=== PATIENT | female | born 1955 | race American Indian/Alaskan Native ===

== ENCOUNTER 2017-05-18 10:10 | Emergency (ER) | payer MEDICARE ==
[2017-05-18 11:13] VITALS: BP 121/85
[2017-05-18 11:57] LABS: Basophils % (Auto) 0.9 % (0.0-1.8); Eosinophils % (Auto) 0.6 % (0.0-4.3); Hematocrit 33.2 % (30.3-42.9); Hemoglobin 10.6 gm/dl (10.1-14.3); Mean Corpuscular HGB Conc 32 % (30-34); Platelet Count 334 K/mm3 (140-440); Red Blood Count 5.15 M/mm3 (3.65-5.03); Red Cell Distribution Width 15.3 % (13.2-15.2); White Blood Count 10.7 K/mm3 (4.5-11.0)
[2017-05-18 12:01] LABS: Mean Corpuscular Hemoglobin 21 pg (28-32); Mean Corpuscular Volume 65 fl (79-97)
[2017-05-18 12:08] LABS: Anion Gap 20 mmol/L; BUN/Creatinine Ratio 22.22; Blood Urea Nitrogen 20 mg/dL (7-17); Calcium 9.6 mg/dL (8.4-10.2); Carbon Dioxide 28 mmol/L (22-30); Chloride 95.6 mmol/L (98-107); Glucose 137 mg/dL (65-100); Potassium 3.3 mmol/L (3.6-5.0); Sodium 140 mmol/L (137-145)
[2017-05-18] MEDS ORDERED: ASPIRIN PO ONE ×2 (12:08→16:29)
--- NOTE | 2017-05-18 12:08 | Emergency Department Report ---
ED Chest Pain HPI - General Chief Complaint: Chest Pain Stated Complaint: CHEST PAIN Time Seen by Provider: 05/18/17 11:22 Source: patient, EMS Mode of arrival: Stretcher Limitations: No Limitations - History of Present Illness MD Complaint: chest pain -: Sudden Onset: after eating Pain Location: substernal Pain Radiation: none Severity: moderate Quality: tightness Consistency: constant Improves With: other (RESOLVED) Worsens With: nothing Treatments Prior to Arrival: none - Related Data On Oral Contraceptives: No Home Medications Medication Instructions Recorded Confirmed Last Taken Docusate Sodium [Colace] 100 mg PO DAILY 01/18/14 10/21/15 01/17/14 Lisinopril [Zestril] 20 mg PO QDAY 01/18/14 10/21/15 01/17/14 Simvastatin [Zocor] 40 mg PO QHS 01/18/14 10/21/15 01/17/14 amLODIPine [Norvasc] 10 mg PO DAILY 01/18/14 10/21/15 01/17/14 Chlorthalidone [Thalitone] 25 mg PO QDAY 10/21/15 10/21/15 Unknown Esomeprazole Magnesium [NexIUM] 40 mg PO QDAY 10/21/15 10/21/15 Unknown metFORMIN [Glucophage] 1,000 mg PO BID 10/21/15 10/21/15 Unknown Previous Rx's Medication Instructions Recorded Last Taken Type Pantoprazole [Protonix TAB] 20 mg PO BID #60 tablet. 10/22/15 Unknown Rx Allergies Allergy/AdvReac Type Severity Reaction Status Date / Time Penicillins Allergy Rash Verified 01/18/14 01:59 Sulfa (Sulfonamide Allergy Rash Verified 01/18/14 01:59 Antibiotics) Heart Score - HEART Score History: Moderately suspicious EKG: Non-specific Age: 45-65 Risk factors: > 3 risk factors or hx of atherosclerotic disease Troponin: < normal limit HEART Score: 5 - Critical Actions Critical Actions: 4-6 pts:12-16.6% risk of adverse cardiac event. Should be admitted ED Review of Systems ROS: Stated complaint: CHEST PAIN Other details as noted in HPI Constitutional: denies: chills, fever Eyes: denies: eye pain, eye discharge, vision change ENT: denies: ear pain, throat pain Respiratory: denies: cough, shortness of breath, wheezing Cardiovascular: denies: chest pain, palpitations Endocrine: no symptoms reported Gastrointestinal: denies: abdominal pain, nausea, diarrhea Genitourinary: denies: urgency, dysuria, discharge Musculoskeletal: denies: back pain, joint swelling, arthralgia Skin: denies: rash, lesions Neurological: denies: headache, weakness, paresthesias Psychiatric: denies: anxiety, depression Hematological/Lymphatic: denies: easy bleeding, easy bruising ED Past Medical Hx - Past Medical History Hx Hypertension: Yes Hx Diabetes: Yes Hx GERD: Yes Hx Arthritis: Yes Additional medical history: Bronchitis - Surgical History Additional Surgical History: colon surg - diverticulitis, lumps removed from left breast - Social History Smoking Status: Never Smoker Substance Use Type: None - Medications Home Medications: Home Medications Medication Instructions Recorded Confirmed Last Taken Type Docusate Sodium [Colace] 100 mg PO DAILY 01/18/14 10/21/15 01/17/14 History Lisinopril [Zestril] 20 mg PO QDAY 01/18/14 10/21/15 01/17/14 History Simvastatin [Zocor] 40 mg PO QHS 01/18/14 10/21/15 01/17/14 History amLODIPine [Norvasc] 10 mg PO DAILY 01/18/14 10/21/15 01/17/14 History Chlorthalidone [Thalitone] 25 mg PO QDAY 10/21/15 10/21/15 Unknown History Esomeprazole Magnesium [NexIUM] 40 mg PO QDAY 10/21/15 10/21/15 Unknown History metFORMIN [Glucophage] 1,000 mg PO BID 10/21/15 10/21/15 Unknown History Pantoprazole [Protonix TAB] 20 mg PO BID #60 tablet. 10/22/15 Unknown Rx ED Physical Exam - General Limitations: No Limitations General appearance: alert, in no apparent distress - Head Head exam: Present: atraumatic, normocephalic - Eye Eye exam: Present: normal appearance - ENT ENT exam: Present: mucous membranes moist - Neck Neck exam: Present: normal inspection - Respiratory Respiratory exam: Present: normal lung sounds bilaterally. Absent: respiratory distress - Cardiovascular Cardiovascular Exam: Present: regular rate, normal rhythm. Absent: systolic murmur, diastolic murmur, rubs, gallop - GI/Abdominal GI/Abdominal exam: Present: soft, normal bowel sounds - Extremities Exam Extremities exam: Present: normal inspection - Back Exam Back exam: Present: normal inspection - Neurological Exam Neurological exam: Present: alert, oriented X3 - Psychiatric Psychiatric exam: Present: normal affect, normal mood - Skin Skin exam: Present: warm, dry, intact, normal color. Absent: rash ED Course Vital Signs 05/18/17 11:01 Temperature 98.4 F Pulse Rate 90 Respiratory 18 Rate Blood Pressure 121/85 O2 Sat by Pulse 98 Oximetry OLYA score - Olya Score Age > 65: (0) No Aspirin use within the Past 7 Days: (1) Yes 3 or more CAD Risk Factors: (0) No 2 or more Angina events in past 24 hrs: (0) No Known CAD with more than 50% Stenosis: (0) No Elevated Cardiac Markers: (0) No ST Deviation Greater than 0.5mm: (0) No OLYA Score: 1 ED Medical Decision Making - Lab Data Result diagrams: 05/18/17 11:35 05/18/17 11:35 Laboratory Results - last 24 hr 05/18/17 05/18/17 11:35 11:35 WBC 10.7 RBC 5.15 H Hgb 10.6 Hct 33.2 MCV 65 L MCH 21 L MCHC 32 RDW 15.3 H Plt Count 334 Lymph % (Auto) 20.1 [place] % (Auto) 8.0 H Eos % (Auto) 0.6 Baso % (Auto) 0.9 Lymph # 2.2 [place] # 0.9 H Eos # 0.1 Baso # 0.1 Seg Neutrophils % 70.4 H Seg Neutrophils # 7.6 Sodium 140 Potassium 3.3 L Chloride 95.6 L Carbon Dioxide 28 Anion Gap 20 BUN 20 H Creatinine 0.9 Estimated GFR > 60 BUN/Creatinine Ratio 22.22 Glucose 137 H Calcium 9.6 Troponin T < 0.010 - EKG Data -: EKG Interpreted by [facility] EKG shows normal: sinus rhythm - EKG Data Interpretation: no acute changes 05/18/17 12:05 Rate 87 normal axis normal normal intervals no ST changes T-wave flattening V3 through the V6 - Medical Decision Making Patient is a 87-year-old female here with complaint of chest pain that lasted approximately 10 minutes after eating. She described a burning sensation in the center of her chest and got short of breath with it. She has not had similar symptoms to this in the past. It feels different than her GERD. EKG shows some T-wave flattening inferiorly. She is unclear she's had a recent stress test. Reviewed records patient had a normal stress test in late 2014. This should be adequate given the likely nature of her chest pain. Discussed with patient plan to have her follow up with outpatient for chest pain. Critical care attestation.: If time is entered above; I have spent that time in minutes in the direct care of this critically ill patient, excluding procedure time. ED Disposition Clinical Impression: Chest pain, Diabetes mellitus Disposition: DC-01 TO HOME OR SELFCARE Is pt being admited?: No Does the pt Need Aspirin: Yes Condition: Stable Instructions: Chest Pain (ED), Diabetes Mellitus Type 2 in Adults (ED) Additional Instructions: Please follow-up with your primary care doctor or the basketball player within 48 hours for outpatient stress testing. Referrals: PRIMARY MD THALIA [Primary Care Provider] - 3-5 Days LUCI PARISI MD [Staff Physician] - 3-5 Days
--- NOTE | 2017-05-18 12:40 | XRay Report ---
Single view chest: Compared to 10/21/15. History: Chest pain. Findings: Heart size is upper limit of normal. Trachea is midline. No consolidation, pneumothorax or pleural effusion. Impression: No acute cardiopulmonary findings.
== END 2017-05-18 16:42 | disposition home or self-care (01) ==
LOC: ED 10:10
DX: R07.89 Other chest pain (principal); E11.9 Type 2 diabetes mellitus without complications; I10 Essential (primary) hypertension; K21.9 Gastro-esophageal reflux disease without esophagitis; M19.90 Unspecified osteoarthritis, unspecified site; Z88.0 Allergy status to penicillin; Z88.2 Allergy status to sulfonamides
CPT/HCPCS: 36415; 71010; 80048; 84484; 85025; 93005; 93010; 99285

== ENCOUNTER 2017-07-02 14:22 | Emergency (ER) | payer MEDICARE ==
[2017-07-02 15:05] VITALS: BP 107/71
--- NOTE | 2017-07-02 15:05 | Emergency Department Report ---
Chief Complaint: Dyspnea/Respdistress Stated Complaint: SOB Time Seen by Provider: 07/02/17 15:02 - HPI History of Present Illness: PT c/o sob PT states she has acid reflux and anxiety PT also reports cough since Saturday - ROS Review of Systems: + chill + subjective fever + cough - Exam Physical Exam: pt looks well, non toxic lungs cta, diminished arti MSE screening note: Focused history and physical exam performed. Due to findings the following was ordered: ekg, xr, labs ED Disposition for MSE Condition: Stable
--- NOTE | 2017-07-02 15:44 | XRay Report ---
ROUTINE CHEST, TWO VIEWS: HISTORY: Dyspnea. The trachea, heart, mediastinal contour, lung soto and bony thorax are unremarkable. IMPRESSION: Unremarkable chest x-ray. No significant change since 05/18/17.
[2017-07-02 15:46] LABS: Basophils % (Auto) 0.8 % (0.0-1.8); Eosinophils % (Auto) 0.9 % (0.0-4.3); Hematocrit 34.1 % (30.3-42.9); Hemoglobin 10.6 gm/dl (10.1-14.3); Mean Corpuscular HGB Conc 31 % (30-34); Platelet Count 333 K/mm3 (140-440); Red Blood Count 5.28 M/mm3 (3.65-5.03); Red Cell Distribution Width 16.4 % (13.2-15.2); White Blood Count 9.7 K/mm3 (4.5-11.0)
[2017-07-02 15:50] LABS: Mean Corpuscular Hemoglobin 20 pg (28-32); Mean Corpuscular Volume 65 fl (79-97)
[2017-07-02 15:54] LABS: Alanine Aminotransferase 5 units/L (7-56); Albumin 3.8 g/dL (3.9-5); Albumin/Globulin Ratio 0.8 %; Alkaline Phosphatase 67 units/L (35-129); Anion Gap 20 mmol/L; Blood Urea Nitrogen 14 mg/dL (7-17); Calcium 9.7 mg/dL (8.4-10.2); Carbon Dioxide 26 mmol/L (22-30); Chloride 96.8 mmol/L (98-107); Glucose 123 mg/dL (65-100); Potassium 3.6 mmol/L (3.6-5.0); Sodium 139 mmol/L (137-145); Total Protein 8.8 g/dL (6.3-8.2)
[2017-07-02 15:55] LABS: INR 1.06 (0.87-1.13)
[2017-07-02 15:56] LABS: Partial Thromboplastin Time 35.4 Sec. (24.2-36.6)
--- NOTE | 2017-07-15 23:48 | ED Elopement Review ---
ED Pt Elopement review - Results review Lab results: Laboratory Tests 07/02/17 07/02/17 07/02/17 15:13 15:13 15:13 WBC 9.7 RBC 5.28 H Hgb 10.6 Hct 34.1 MCV 65 L MCH 20 L MCHC 31 RDW 16.4 H Plt Count 333 Lymph % (Auto) 29.2 [place] % (Auto) 8.9 H Eos % (Auto) 0.9 Baso % (Auto) 0.8 Lymph # 2.8 [place] # 0.9 H Eos # 0.1 Baso # 0.1 Seg Neutrophils % 60.2 Seg Neutrophils # 5.8 PT 13.7 INR 1.06 APTT 35.4 Sodium 139 Potassium 3.6 Chloride 96.8 L Carbon Dioxide 26 Anion Gap 20 BUN 14 Creatinine 1.0 Estimated GFR > 60 BUN/Creatinine Ratio 14.00 Glucose 123 H Calcium 9.7 Total Bilirubin 0.40 AST 13 ALT 5 L Alkaline Phosphatase 67 Troponin T < 0.010 Total Protein 8.8 H Albumin 3.8 L Albumin/Globulin Ratio 0.8 07/02/17 18:47 WBC RBC Hgb Hct MCV MCH MCHC RDW Plt Count Lymph % (Auto) [place] % (Auto) Eos % (Auto) Baso % (Auto) Lymph # [place] # Eos # Baso # Seg Neutrophils % Seg Neutrophils # PT INR APTT Sodium Potassium Chloride Carbon Dioxide Anion Gap BUN Creatinine Estimated GFR BUN/Creatinine Ratio Glucose Calcium Total Bilirubin AST ALT Alkaline Phosphatase Troponin T < 0.010 Total Protein Albumin Albumin/Globulin Ratio - Call Back decision Pt Call Back Decision: No action required
== END 2017-07-02 22:30 | disposition left against medical advice (07) ==
LOC: ED 14:22
DX: R06.02 Shortness of breath (principal); R50.9 Fever, unspecified; R05 Cough; K21.9 Gastro-esophageal reflux disease without esophagitis; F41.9 Anxiety disorder, unspecified; Z53.21 Procedure and treatment not carried out due to patient leaving prior to being seen by health care provider
CPT/HCPCS: 36415; 71020; 80053; 84484; 85025; 85610; 85730

== ENCOUNTER 2017-10-17 08:17 | Emergency (ER) | payer MEDICARE ==
[2017-10-17 09:01] LABS: Basophils % (Auto) 1.2 % (0.0-1.8); Eosinophils % (Auto) 1.8 % (0.0-4.3); Hematocrit 38.2 % (30.3-42.9); Hemoglobin 11.7 gm/dl (10.1-14.3); Mean Corpuscular HGB Conc 31 % (30-34); Platelet Count 249 K/mm3 (140-440); Red Blood Count 5.78 M/mm3 (3.65-5.03); Red Cell Distribution Width 17.2 % (13.2-15.2); White Blood Count 7.5 K/mm3 (4.5-11.0)
[2017-10-17 09:02] LABS: Mean Corpuscular Hemoglobin 20 pg (28-32); Mean Corpuscular Volume 66 fl (79-97)
[2017-10-17 09:21] LABS: Anion Gap 18 mmol/L; BUN/Creatinine Ratio 16; Blood Urea Nitrogen 13 mg/dL (7-17); Calcium 8.8 mg/dL (8.4-10.2); Carbon Dioxide 25 mmol/L (22-30); Chloride 103.6 mmol/L (98-107); Glucose 157 mg/dL (65-100); Potassium 3.8 mmol/L (3.6-5.0); Sodium 143 mmol/L (137-145)
--- NOTE | 2017-10-17 10:04 | XRay Report ---
ROUTINE CHEST, TWO VIEWS: HISTORY: Chest pain, shortness of breath. The trachea, heart, mediastinal contour, lung soto and bony thorax are unremarkable. No significant change since 07/02/17. IMPRESSION: Unremarkable chest x-ray.
[2017-10-17] MEDS ORDERED: TYLENOL PO ONE (17:14)
[2017-10-17] MEDS ORDERED: MOTRIN PO ONE (17:14)
[2017-10-17] MEDS ORDERED: PROVENTIL IH ONE (17:14)
--- NOTE | 2017-10-17 17:17 | Emergency Department Report ---
ED General Adult HPI - General Chief complaint: Chest Pain Stated complaint: CHEST PAIN Time Seen by Provider: 10/17/17 17:03 Source: patient, RN notes reviewed Mode of arrival: Ambulatory Limitations: No Limitations - History of Present Illness Initial comments: This is a 61-year-old female who was previously unknown to this provider. Has a past medical history of hypertension and obesity and diabetes. Patient presents to the ER with cough, mucus production, chest wall pain. Cough and mucus production have been going on for almost a week, chest wall pain has been going on for a few days. There is no vomiting, diaphoresis. There is shortness of breath associated with cough. Chest wall pain as central , it does not radiate to the back, arms or neck. There is no vomiting. There is no diaphoresis. There are no pulmonary blister DVT risk factors. -: Gradual, days(s) Location: chest Radiation: non-radiation Quality: aching Consistency: intermittent Improves with: rest Worsens with: movement Associated Symptoms: chest pain, cough, shortness of breath - Related Data Home Medications Medication Instructions Recorded Confirmed Last Taken Docusate Sodium [Colace] 100 mg PO DAILY 01/18/14 10/21/15 01/17/14 Lisinopril [Zestril] 20 mg PO QDAY 01/18/14 10/21/15 01/17/14 Simvastatin [Zocor] 40 mg PO QHS 01/18/14 10/21/15 01/17/14 amLODIPine [Norvasc] 10 mg PO DAILY 01/18/14 10/21/15 01/17/14 Chlorthalidone [Thalitone] 25 mg PO QDAY 10/21/15 10/21/15 Unknown Esomeprazole Magnesium [NexIUM] 40 mg PO QDAY 10/21/15 10/21/15 Unknown metFORMIN [Glucophage] 1,000 mg PO BID 10/21/15 10/21/15 Unknown Previous Rx's Medication Instructions Recorded Last Taken Type Pantoprazole [Protonix TAB] 20 mg PO BID #60 tablet. 10/22/15 Unknown Rx Acetaminophen [Tylenol Arthritis] 650 mg PO Q6HR PRN #30 tablet.er 10/17/17 Unknown Rx Albuterol Sulfate [Proair 90 mcg IH Q4HR PRN #2 aer.pow.ba 10/17/17 Unknown Rx Respiclick] Aspirin [Aspirin BABY CHEW TAB] 81 mg PO QDAY #30 tab.chew 10/17/17 Unknown Rx Benzonatate [Tessalon Perles] 100 mg PO Q8HR PRN #30 capsule 10/17/17 Unknown Rx Fluticasone [Flonase] 1 spray NS QDAY #1 bottle 10/17/17 Unknown Rx Allergies Allergy/AdvReac Type Severity Reaction Status Date / Time Penicillins Allergy Rash Verified 01/18/14 01:59 Sulfa (Sulfonamide Allergy Rash Verified 01/18/14 01:59 Antibiotics) ED Review of Systems ROS: Stated complaint: CHEST PAIN Other details as noted in HPI Constitutional: denies: fever ENT: throat pain Respiratory: cough Cardiovascular: chest pain Gastrointestinal: denies: vomiting Genitourinary: denies: dysuria Musculoskeletal: arthralgia, myalgia Skin: denies: lesions Neurological: weakness ED Past Medical Hx - Past Medical History Previous Medical History?: Yes Hx Hypertension: Yes Hx Diabetes: Yes Hx GERD: Yes Hx Arthritis: Yes Additional medical history: Bronchitis - Surgical History Past Surgical History?: Yes Additional Surgical History: colon surg - diverticulitis, lumps removed from left breast - Social History Smoking Status: Current Every Day Smoker Substance Use Type: None - Medications Home Medications: Home Medications Medication Instructions Recorded Confirmed Last Taken Type Docusate Sodium [Colace] 100 mg PO DAILY 01/18/14 10/21/15 01/17/14 History Lisinopril [Zestril] 20 mg PO QDAY 01/18/14 10/21/15 01/17/14 History Simvastatin [Zocor] 40 mg PO QHS 01/18/14 10/21/15 01/17/14 History amLODIPine [Norvasc] 10 mg PO DAILY 01/18/14 10/21/15 01/17/14 History Chlorthalidone [Thalitone] 25 mg PO QDAY 10/21/15 10/21/15 Unknown History Esomeprazole Magnesium [NexIUM] 40 mg PO QDAY 10/21/15 10/21/15 Unknown History metFORMIN [Glucophage] 1,000 mg PO BID 10/21/15 10/21/15 Unknown History Pantoprazole [Protonix TAB] 20 mg PO BID #60 tablet. 10/22/15 Unknown Rx Acetaminophen [Tylenol Arthritis] 650 mg PO Q6HR PRN #30 tablet.er 10/17/17 Unknown Rx Albuterol Sulfate [Proair 90 mcg IH Q4HR PRN #2 aer.pow.ba 10/17/17 Unknown Rx Respiclick] Aspirin [Aspirin BABY CHEW TAB] 81 mg PO QDAY #30 tab.chew 10/17/17 Unknown Rx Benzonatate [Tessalon Perles] 100 mg PO Q8HR PRN #30 capsule 10/17/17 Unknown Rx Fluticasone [Flonase] 1 spray NS QDAY #1 bottle 10/17/17 Unknown Rx ED Physical Exam - General Limitations: No Limitations General appearance: alert, in no apparent distress - Head Head exam: Present: atraumatic, normocephalic - Eye Eye exam: Present: normal appearance, EOMI - ENT ENT exam: Present: normal exam, normal orophraynx, mucous membranes moist, normal external ear exam - Neck Neck exam: Present: normal inspection, full ROM - Respiratory Respiratory exam: Present: normal lung sounds bilaterally, chest wall tenderness. Absent: respiratory distress, wheezes, rales, rhonchi, stridor - Cardiovascular Cardiovascular Exam: Present: regular rate, normal rhythm, normal heart sounds. Absent: systolic murmur, diastolic murmur, rubs, gallop - GI/Abdominal GI/Abdominal exam: Present: soft, normal bowel sounds. Absent: distended, tenderness, guarding, rebound, rigid - Extremities Exam Extremities exam: Present: normal inspection, full ROM, normal capillary refill. Absent: pedal edema, joint swelling, calf tenderness - Back Exam Back exam: Present: normal inspection, full ROM. Absent: tenderness, CVA tenderness (R), CVA tenderness (L), muscle spasm, paraspinal tenderness, vertebral tenderness - Neurological Exam Neurological exam: Present: alert, oriented X3, normal gait, other (Extraocular movements intact. Tongue midline. No facial droop. Facial sensation intact to light touch in the V1, V2, V3 distribution bilaterally. 5 and 5 strength in 4 extremities.. Sensation is intact to light touch in 4 extremities.). Absent : motor sensory deficit - Psychiatric Psychiatric exam: Present: normal affect, normal mood - Skin Skin exam: Present: warm, dry, intact, normal color. Absent: rash ED Course Vital Signs 10/17/17 10/17/17 10/17/17 08:41 16:52 17:00 Temperature 98.3 F Pulse Rate 73 55 L Respiratory 18 14 22 Rate Blood Pressure 158/78 161/82 O2 Sat by Pulse 99 Oximetry 10/17/17 10/17/17 10/17/17 17:15 18:17 18:18 Temperature Pulse Rate 59 L Respiratory 24 20 20 Rate Blood Pressure 138/71 O2 Sat by Pulse Oximetry - Reevaluation(s) Reevaluation #1: 10/17/17 17:20 No pulmonary history DVT risk factors, Low risk by well's criteria. ED Medical Decision Making - Lab Data Result diagrams: 10/17/17 08:49 10/17/17 08:49 Vital Signs 10/17/17 08:41 Temperature 98.3 F Pulse Rate 73 Respiratory 18 Rate Blood Pressure 158/78 O2 Sat by Pulse 99 Oximetry Lab Results 10/17/17 10/17/17 10/17/17 Range/Units 08:49 08:49 11:06 WBC 7.5 (4.5-11.0) K/mm3 RBC 5.78 H (3.65-5.03) M/mm3 Hgb 11.7 (10.1-14.3) gm/dl Hct 38.2 (30.3-42.9) % MCV 66 L (79-97) fl MCH 20 L (28-32) pg MCHC 31 (30-34) % RDW 17.2 H (13.2-15.2) % Plt Count 249 (140-440) K/mm3 Lymph % (Auto) 39.5 H (13.4-35.0) % [place] % (Auto) 8.1 H (0.0-7.3) % Eos % (Auto) 1.8 (0.0-4.3) % Baso % (Auto) 1.2 (0.0-1.8) % Lymph # 3.0 (1.2-5.4) K/mm3 [place] # 0.6 (0.0-0.8) K/mm3 Eos # 0.1 (0.0-0.4) K/mm3 Baso # 0.1 (0.0-0.1) K/mm3 Seg Neutrophils % 49.4 (40.0-70.0) % Seg Neutrophils # 3.7 (1.8-7.7) K/mm3 Sodium 143 (137-145) mmol/L Potassium 3.8 (3.6-5.0) mmol/L Chloride 103.6 (98-107) mmol/L Carbon Dioxide 25 (22-30) mmol/L Anion Gap 18 mmol/L BUN 13 (7-17) mg/dL Creatinine 0.8 (0.7-1.2) mg/dL Estimated GFR > 60 ml/min BUN/Creatinine Ratio 16 % Glucose 157 H (65-100) mg/dL Calcium 8.8 (8.4-10.2) mg/dL Troponin T < 0.010 < 0.010 (0.00-0.029) ng/mL 10/17/17 Range/Units 14:38 WBC (4.5-11.0) K/mm3 RBC (3.65-5.03) M/mm3 Hgb (10.1-14.3) gm/dl Hct (30.3-42.9) % MCV (79-97) fl MCH (28-32) pg MCHC (30-34) % RDW (13.2-15.2) % Plt Count (140-440) K/mm3 Lymph % (Auto) (13.4-35.0) % [place] % (Auto) (0.0-7.3) % Eos % (Auto) (0.0-4.3) % Baso % (Auto) (0.0-1.8) % Lymph # (1.2-5.4) K/mm3 [place] # (0.0-0.8) K/mm3 Eos # (0.0-0.4) K/mm3 Baso # (0.0-0.1) K/mm3 Seg Neutrophils % (40.0-70.0) % Seg Neutrophils # (1.8-7.7) K/mm3 Sodium (137-145) mmol/L Potassium (3.6-5.0) mmol/L Chloride (98-107) mmol/L Carbon Dioxide (22-30) mmol/L Anion Gap mmol/L BUN (7-17) mg/dL Creatinine (0.7-1.2) mg/dL Estimated GFR ml/min BUN/Creatinine Ratio % Glucose (65-100) mg/dL Calcium (8.4-10.2) mg/dL Troponin T < 0.010 (0.00-0.029) ng/mL - EKG Data Interpretation: no acute changes, unchanged when compared t 10/17/17 17:15 EKG #1 demonstrates normal sinus, 75 bpm, borderline left axis deviation, low voltage in the septal leads, poor R-wave progression, abnormal EKG, not morphologically consistent with ST elevation myocardial infarction, poor R progression appears to be new when compared to prior EKG. Repeat EKG appears unchanged. - Radiology Data Radiology results: report reviewed, image reviewed X-ray of the chest is negative for acute disease - Medical Decision Making Differential diagnosis, including but not limited to: Bronchitis, pneumonia, costochondritis, pericarditis, myocarditis, acute coronary syndrome Assessment and plan: 61-year-old female with 1-1/2 weeks of cough, mucus production, subjective fever, reproducible chest wall pain, chest pain currently atypical, troponin negative 2, EKG unchanged 2, patient had a negative nuclear stress test at this hospital in 2014, given association of chest wall pain with coughing and recent URI-like symptoms, I find the patient to be low risk by OLYA score, and low risk by heart score. Patient is at low risk for major adverse cardiac event. She felt improved with Tylenol and ibuprofen. Patient can follow-up in outpatient primary care doctor for an acute coronary syndrome risk stratification. She will be discharged at this time, return precautions are reviewed. Given lack of tachycardia, normal troponin, pericarditis and myocarditis both very unlikely. Critical care attestation.: If time is entered above; I have spent that time in minutes in the direct care of this critically ill patient, excluding procedure time. ED Disposition Clinical Impression: Chest wall pain, Bronchitis Disposition: DC-01 TO HOME OR SELFCARE Is pt being admited?: No Does the pt Need Aspirin: No Condition: Stable Instructions: Chest Pain (ED), Chronic Bronchitis (ED) Additional Instructions: As we discussed, symptoms likely coming from chest wall pain secondary to coughing. This is likely secondary to bronchitis. Take a breathing medication , cough medication, pain medication as needed/directed. Follow up with a primary care doctor or activities volunteer within the next 2 weeks. Return to the ER right away with new pain, worsened pain, migration of pain, fevers, chills, lethargy, irritability, projectile vomiting, change in mental status, confusion , inability to tolerate liquid feeds. Prescriptions: Acetaminophen [Tylenol Arthritis] 650 mg PO Q6HR PRN #30 tablet.er PRN Reason: Pain Albuterol Sulfate [Proair Respiclick] 90 mcg IH Q4HR PRN #2 aer.pow.ba PRN Reason: Wheezing Aspirin [Aspirin BABY CHEW TAB] 81 mg PO QDAY #30 tab.chew Benzonatate [Tessalon Perles] 100 mg PO Q8HR PRN #30 capsule PRN Reason: Cough Fluticasone [Flonase] 1 spray NS QDAY #1 bottle Referrals: VENTURA ALANIZ [Other] - 3-5 Days [facility] [Provider Group] - 3-5 Days [facility] [Provider Group] - 3-5 Days
[2017-10-17 19:17] VITALS: BP 138/72
== END 2017-10-17 18:45 | disposition home or self-care (01) ==
LOC: ED 08:17
DX: J40 Bronchitis, not specified as acute or chronic (principal); R07.89 Other chest pain; I10 Essential (primary) hypertension; E11.9 Type 2 diabetes mellitus without complications; K21.9 Gastro-esophageal reflux disease without esophagitis; F17.200 Nicotine dependence, unspecified, uncomplicated
CPT/HCPCS: 36415; 71020; 80048; 84484; 85025; 93005; 93010; 94640

== ENCOUNTER 2019-05-22 10:03 | Emergency (ER) | payer MEDICARE ==
[2019-05-22] MEDS ORDERED: MORPHINE IV ONE (10:39)
--- NOTE | 2019-05-22 10:39 | Emergency Department Report ---
HPI - General Chief Complaint: Abdominal Pain Time Seen by Provider: 05/22/19 10:24 - HPI HPI: 63-year-old female presents to the emergency department with a complaint of some left lower quadrant abdominal and pelvic pain, as well as some left flank pain, since this morning. She denies any fever, nausea, vomiting, dysuria, vaginal bleeding or discharge. She has not taken anything for her symptoms prior to presentation today. No recent travel or sick contacts at home. She has a past medical history of diabetes, hypertension, dive rticulosis/diverticulitis, GERD and previous colon surgery secondary to diverticulitis. ED Past Medical Hx - Past Medical History Hx Hypertension: Yes Hx Diabetes: Yes Hx GERD: Yes Hx Arthritis: Yes Additional medical history: Bronchitis - Surgical History Additional Surgical History: colon surg - diverticulitis, lumps removed from left breast - Social History Smoking Status: Former Smoker Substance Use Type: None - Medications Home Medications: Home Medications Medication Instructions Recorded Confirmed Last Taken Type Docusate Sodium [Colace] 100 mg PO DAILY 01/18/14 10/21/15 01/17/14 History Lisinopril [Zestril] 20 mg PO QDAY 01/18/14 10/21/15 01/17/14 History Simvastatin (Nf) [Zocor] 40 mg PO QHS 01/18/14 10/21/15 01/17/14 History amLODIPine [Norvasc] 10 mg PO DAILY 01/18/14 10/21/15 01/17/14 History Chlorthalidone [Thalitone] 25 mg PO QDAY 10/21/15 10/21/15 Unknown History Esomeprazole Magnesium [NexIUM] 40 mg PO QDAY 10/21/15 10/21/15 Unknown History metFORMIN [Glucophage] 1,000 mg PO BID 10/21/15 10/21/15 Unknown History Pantoprazole [Protonix TAB] 20 mg PO BID #60 tablet.dr 10/22/15 Unknown Rx Acetaminophen [Tylenol Arthritis] 650 mg PO Q6HR PRN #30 tablet.er 10/17/17 Unknown Rx Albuterol Sulfate [Proair 90 mcg IH Q4HR PRN #2 aer.pow.ba 10/17/17 Unknown Rx Respiclick] Aspirin [Aspirin BABY CHEW TAB] 81 mg PO QDAY #30 tab.chew 10/17/17 Unknown Rx Benzonatate [Tessalon Perles] 100 mg PO Q8HR PRN #30 capsule 10/17/17 Unknown Rx Fluticasone [Flonase] 1 spray NS QDAY #1 bottle 10/17/17 Unknown Rx Ciprofloxacin HCl [Ciprofloxacin 500 mg PO Q12HR #10 tab 05/22/19 Unknown Rx TAB] HYDROcodone/APAP 5-325 [[place] 1 each PO Q6HR PRN #8 tablet 05/22/19 Unknown Rx 5/325] ED Review of Systems ROS: Stated complaint: (L) SIDE PAIN Other details as noted in HPI Comment: All other systems reviewed and negative Constitutional: denies: chills, fever Eyes: denies: eye pain, vision change ENT: denies: ear pain, throat pain Respiratory: denies: cough, shortness of breath Cardiovascular: denies: chest pain, palpitations Gastrointestinal: abdominal pain. denies: vomiting Genitourinary: denies: dysuria, discharge Musculoskeletal: denies: back pain, arthralgia Skin: denies: rash, lesions Neurological: denies: headache, weakness Physical Exam - Physical Exam Vital Signs: Vital Signs 05/22/19 10:16 Temperature 97.7 F Pulse Rate 77 Respiratory 22 Rate Blood Pressure 170/82 O2 Sat by Pulse 98 Oximetry Physical Exam: GENERAL: The patient is well-developed well-nourished. HENT: Normocephalic. Atraumatic. Patient has moist mucous membranes. EYES: Extraocular motions are intact. NECK: Supple. Trachea is midline. CHEST/LUNGS: Clear to auscultation. There is no respiratory distress noted. HEART/CARDIOVASCULAR: Regular. There is no tachycardia. There is no murmur. ABDOMEN: Abdomen is soft. There is left lower quadrant and left flank pain to palpation. No guarding. Patient has normal bowel sounds. Obese habitus. SKIN: Skin is warm and dry. NEURO: The patient is awake, alert, and oriented. The patient is cooperative. The patient has no focal neurologic deficits. The patient has normal speech. MUSCULOSKELETAL: There is no tenderness or deformity. There is no evidence of acute injury. ED Course Vital Signs 05/22/19 10:16 Temperature 97.7 F Pulse Rate 77 Respiratory 22 Rate Blood Pressure 170/82 O2 Sat by Pulse 98 Oximetry ED Medical Decision Making - Lab Data Result diagrams: 05/22/19 11:05 05/22/19 11:15 - Radiology Data Radiology results: report reviewed, image reviewed interpreted by me: Abdominal x-ray shows nonspecific nonobstructive bowel gas CT ABDOMEN AND PELVIS WITH CONTRAST INDICATION / CLINICAL INFORMATION: LLQ and flank pain. Acute left-sided abdominal pain that radiates inferior. TECHNIQUE: Axial CT images were obtained through the abdomen and pelvis after IV contrast. Sagittal and coronal reformatted images. All CT scans at this location are performed using CT dose reduction for ALARA by means of automated exposure control. COMPARISON: None available. FINDINGS: LOWER CHEST: No significant abnormality. LIVER: No significant abnormality. GALLBLADDER: No significant abnormality. BILE DUCTS: No significant abnormality. PANCREAS: No significant abnormality. SPLEEN: No significant abnormality. ADRENALS: No significant abnormality. RIGHT KIDNEY and URETER: No significant abnormality. LEFT KIDNEY and URETER: A 2 mm calculus is identified at the left UVJ. There is mild to moderate upstream left hydronephrosis. No obvious renal stones on IV contrast exam. There is mild left perinephric stranding but no evidence for pyelonephritis. STOMACH and SMALL BOWEL: No significant abnormality. COLON: There is moderate diverticulosis of the distal colon. No acute i nflammatory changes. APPENDIX: Appendectomy changes are suspected. PERITONEUM: No free fluid. No free air. No fluid collection. LYMPH NODES: No significant adenopathy. AORTA and ARTERIES: No significant abnormality. IVC and VEINS: No significant abnormality. URINARY BLADDER: No significant abnormality. REPRODUCTIVE ORGANS: The uterus and adnexa are unremarkable. A 3.4 x 2.6 cm Bartholin's gland cyst is identified on the right side. ADDITIONAL FINDINGS: None. SKELETAL SYSTEM: [id number] thoracolumbar spondylosis. No fracture or suspicious bony lesion. IMPRESSION: 2 mm calculus at the left UVJ, mildly obstructing. Diverticulosis of the distal colon. Mild thoracolumbar spondylosis. Bartholin's gland cyst. - Medical Decision Making This patient presents to the emergency department with complaint of some left lower quadrant and left flank pain. Labs have been mostly unremarkable. CT scan shows a 2 mm left-sided kidney stone just above the UVJ. Given the size of this stone, the patient has a very high percentage chance of passing the stone over the next few days. Vital signs stable including being afebrile. She was given a strainer to strain her urine. She was placed on some antibiotics and given some pain medication. She was also given a referral for urology. She will return to the ER with any worsening of her symptoms or any acute distress. - Differential Diagnosis diverticulitis, nephrolithiasis, colitis, pyelonephritis Critical Care Time: No Critical care attestation.: If time is entered above; I have spent that time in minutes in the direct care of this critically ill patient, excluding procedure time. ED Disposition Clinical Impression: Kidney stone on left side, Ureterolithiasis, Renal colic on left side Disposition: TO HOME OR SELFCARE Is pt being admited?: No Condition: Stable Instructions: Kidney Stones (ED), Renal Colic (ED), How to Strain Your Urine (ED) Additional Instructions: Please follow-up with your primary care physician in the next few days. I am giving you a referral for a local urologist, Dr. Knight, to follow up regarding her kidney stones. He had a very high chance of passing the kidney stone over the next few days. Strain your urine. Return to the emergency Department with any worsening of your symptoms, increased pain, development of fever, inability to urinate, or if any acute distress. Prescriptions: Ciprofloxacin HCl [Ciprofloxacin TAB] 500 mg PO Q12HR #10 tab HYDROcodone/APAP 5-325 [[place] 5/325] 1 each PO Q6HR PRN #8 tablet PRN Reason: Pain Referrals: ALFREDO KNIGHT MD [Staff Physician] - 3-5 Days Time of Disposition: 14:11
[2019-05-22 10:54] LABS: Bilirubin,Urine NEG (Negative); Blood,Urine NEG (Negative); Color,Urine Yellow (Yellow); Mucus,Urine FEW /HPF; Urobilinogen,Urine < 2.0 mg/dL (<2.0)
[2019-05-22 10:55] LABS: Protein,Urine >500 mg/dL (Negative)
[2019-05-22] MEDS ORDERED: MORPHINE ONE (10:58)
--- NOTE | 2019-05-22 11:19 | XRay Report ---
ABDOMEN SUPINE AND UPRIGHT HISTORY: Abdominal Pain. COMPARISON: None. FINDINGS: Lung bases are clear. Nonobstructive bowel gas pattern. No radiopaque urinary stone disea se. No pneumoperitoneum. IMPRESSION: Negative abdomen Signer Name: Chintan Rudolph MD Signed: 05/22/2019 11:15 AM Workstation Name: [id number]
[2019-05-22 11:26] LABS: Basophils % (Auto) 0.4 % (0.0-1.8); Eosinophils % (Auto) 0.3 % (0.0-4.3); Hematocrit 38.1 % (30.3-42.9); Hemoglobin 11.9 gm/dl (10.1-14.3); Lymphocytes # (Auto) 1.8 K/mm3 (1.2-5.4); Mean Corpuscular HGB Conc 31 % (30-34); Monocytes # (Auto) 0.6 K/mm3 (0.0-0.8); Monocytes % (Auto) 6.8 % (0.0-7.3); Platelet Count 180 K/mm3 (140-440); Red Blood Count 5.79 M/mm3 (3.65-5.03); Red Cell Distribution Width 18.2 % (13.2-15.2)
[2019-05-22 11:35] LABS: Mean Corpuscular Volume 66 fl (79-97)
[2019-05-22 11:45] LABS: BUN/Creatinine Ratio 14; Blood Urea Nitrogen 13 mg/dL (7-17); Calcium 9.1 mg/dL (8.4-10.2)
[2019-05-22 11:46] LABS: Alanine Aminotransferase 8 units/L (7-56); Albumin 4.1 g/dL (3.9-5); Hemolysis Index 6
[2019-05-22] MEDS ORDERED: ZOFRAN IV ONE (11:49)
[2019-05-22] MEDS ORDERED: ZOFRAN ONE (11:52)
[2019-05-22] MEDS ORDERED: ATIVAN ONE (12:33)
[2019-05-22 12:34] LABS: Bilirubin,Direct < 0.2 mg/dL (0-0.2)
[2019-05-22] MEDS ORDERED: ATIVAN IV ONE (12:35)
--- NOTE | 2019-05-22 14:06 | Cat Scan Report ---
CT ABDOMEN AND PELVIS WITH CONTRAST INDICATION / CLINICAL INFORMATION: LLQ and flank pain. Acute left-sided abdominal pain that radiates inferior. TECHNIQUE: Axial CT images were obtained through the abdomen and pelvis after IV contrast. Sagittal and coronal reformatted images. All CT scans at this location are performed using CT dose reduction for ALARA by means of automated exposure control. COMPARISON: None available. FINDINGS: LOWER CHEST: No significant abnormality. LIVER: No significant abnormality. GALLBLADDER: No significant abnormality. BILE DUCTS: No significant abnormality. PANCREAS: No significant abnormality. SPLEEN: No significant abnormality. ADRENALS: No significant abnormality. RIGHT KIDNEY and URETER: No significant abnormality. LEFT KIDNEY and URETER: A 2 mm calculus is identified at the left UVJ. There is mild to moderate upst ream left hydronephrosis. No obvious renal stones on IV contrast exam. There is mild left perinephric stranding but no evidence for pyelonephritis. STOMACH and SMALL BOWEL: No significant abnormality. COLON: There is moderate diverticulosis of the distal colon. No acute inflammatory changes. APPENDIX: Appendectomy changes are suspected. PERITONEUM: No free fluid. No free air. No fluid collection. LYMPH NODES: No significant adenopathy. AORTA and ARTERIES: No significant abnormality. IVC and VEINS: No significant abnormality. URINARY BLADDER: No significant abnormality. REPRODUCTIVE ORGANS: The uterus and adnexa are unremarkable. A 3.4 x 2.6 cm Bartholin's gland cyst is identified on the right side. ADDITIONAL FINDINGS: None. SKELETAL SYSTEM: [id number] thoracolumbar spondylosis. No fracture or suspicious bony lesion. IMPRESSION: 2 mm calculus at the left UVJ, mildly obstructing. Diverticulosis of the distal colon. Mild thoracolumbar spondylosis. Bartholin's gland cyst. Signer Name: Rohit Curran Jr, MD Signed: 05/22/2019 2:01 PM Workstation Name: [id number]
[2019-05-22 15:00] VITALS: BP 161/82
== END 2019-05-22 15:01 | disposition home or self-care (01) ==
LOC: ED 10:03
DX: N20.0 Calculus of kidney (principal); N20.2 Calculus of kidney with calculus of ureter; I10 Essential (primary) hypertension; E11.9 Type 2 diabetes mellitus without complications; K21.9 Gastro-esophageal reflux disease without esophagitis; M19.90 Unspecified osteoarthritis, unspecified site; Z87.891 Personal history of nicotine dependence; Z79.899 Other long term (current) drug therapy; Z88.0 Allergy status to penicillin; Z88.2 Allergy status to sulfonamides
CPT/HCPCS: 36415; 74019; 74177; 80048; 80076; 81001; 85025; 96374; 96375; 99285; J2060; J2270; J2405; Q9967

== ENCOUNTER 2019-06-18 20:53 | Emergency (ER) | payer MEDICARE ==
--- NOTE | 2019-06-18 21:15 | Emergency Department Report ---
Blank Doc - Documentation Documentation: This is a 63-year-old female that presents with URI symptoms. This initial assessment/diagnostic orders/clinical plan/treatment(s) is/are subject to change based on patient's health status, clinical progression and re- assessment by fellow clinical providers in the ED. Further treatment and workup at subsequent clinical providers discretion. Patient/guardians urged not to elope from the ED as their condition may be serious if not clinically assessed and managed. Initial orders include: 1- Patient sent to [facility] for further evaluation and treatment 2- CXR
[2019-06-18 21:18] VITALS: BP 183/93
[2019-06-18] MEDS ORDERED: ASPIRIN PO ONE (22:20)
[2019-06-18] MEDS ORDERED: ALUM-MAG HYDROX-SIMETH 200-200-20MG/5ML PO ONE (22:20)
[2019-06-18] MEDS ORDERED: LIDOCAINE VISCOUS 2% PO ONE (22:20)
--- NOTE | 2019-06-18 22:42 | XRay Report ---
CHEST 2 VIEWS INDICATION / CLINICAL INFORMATION: cough. COMPARISON: 10/17/2017 FINDINGS: SUPPORT DEVICES: None. HEART / MEDIASTINUM: No significant abnormality. LUNGS / PLEURA: No significant pulmonary or pleural abnormality. No pneumothorax. ADDITIONAL FINDINGS: No significant additional findings. IMPRESSION: No significant abnormality or change from 10/17/2017 Signer Name: Gurjit Hackett MD FACR Signed: 06/18/2019 10:37 PM Workstation Name: [id number]
[2019-06-18 23:06] LABS: Basophils # (Auto) 0.1 K/mm3 (0.0-0.1); Basophils % (Auto) 0.8 % (0.0-1.8); Eosinophils # (Auto) 0.1 K/mm3 (0.0-0.4); Eosinophils % (Auto) 0.7 % (0.0-4.3); Hemoglobin 11.5 gm/dl (10.1-14.3); Lymphocytes # (Auto) 1.7 K/mm3 (1.2-5.4); Lymphocytes % (Auto) 23.7 % (13.4-35.0); Mean Corpuscular HGB Conc 31 % (30-34); Mean Corpuscular Volume 67 fl (79-97); Monocytes # (Auto) 0.5 K/mm3 (0.0-0.8); Monocytes % (Auto) 6.9 % (0.0-7.3); Platelet Count 158 K/mm3 (140-440); Red Blood Count 5.53 M/mm3 (3.65-5.03); Red Cell Distribution Width 17.3 % (13.2-15.2)
[2019-06-18 23:14] LABS: Alanine Aminotransferase 7 units/L (7-56); Albumin 4.1 g/dL (3.9-5); BUN/Creatinine Ratio 16; Blood Urea Nitrogen 13 mg/dL (7-17); Calcium 9.1 mg/dL (8.4-10.2); Hemolysis Index 15
[2019-06-18 23:23] LABS: Bilirubin,Direct < 0.2 mg/dL (0-0.2)
--- NOTE | 2019-06-19 01:53 | Emergency Department Report ---
- General Chief Complaint: Upper Respiratory Infection Stated Complaint: COLD, COUGHED UP BLOOD, CHEST HURTS Time Seen by Provider: 06/18/19 21:14 Source: patient Mode of arrival: Ambulatory Limitations: No Limitations - History of Present Illness Initial Comments: Patient is a 63-year-old -[place] female with a history of hypertension and fsn-aefeknq-flucktcin diabetes who presents to the ED with acute onset persistent nasal and sinus congestion, frontal sinus pressure and dry cough with pleuritic chest pain for the last 1 week. Patient denies fever, chills, nausea, vomiting, dizziness, shortness of breath, change in vision, abdominal pain, sore throat, diarrhea, dysuria, palpitations, diaphoresis, back pain or the ear pain. MD Complaint: cough, rhinorrhea, nasal congestion, sinus pain, other (pleuritic chest wall pain) -: Gradual, week(s) (1) Severity: moderate Severity scale (0 -10): 5 Quality: sharp Consistency: intermittent Improves With: nothing Worsens With: nothing Context: sick contacts Associated Symptoms: denies other symptoms, rhinorrhea, nasal congestion, cough. denies: fever, chills, myalgias, diaphoresis, headache, chest pain, shortness of breath, abdominal pain, nausea, vomiting, diarrhea, dysuria, rash, weight loss, epistaxis, hoarseness, other - Related Data Home Medications Medication Instructions Recorded Confirmed Last Taken Docusate Sodium [Colace] 100 mg PO DAILY 01/18/14 10/21/15 01/17/14 Lisinopril [Zestril] 20 mg PO QDAY 01/18/14 10/21/15 01/17/14 Simvastatin (Nf) [Zocor] 40 mg PO QHS 01/18/14 10/21/15 01/17/14 amLODIPine [Norvasc] 10 mg PO DAILY 01/18/14 10/21/15 01/17/14 Chlorthalidone [Thalitone] 25 mg PO QDAY 10/21/15 10/21/15 Unknown Esomeprazole Magnesium [NexIUM] 40 mg PO QDAY 10/21/15 10/21/15 Unknown metFORMIN [Glucophage] 1,000 mg PO BID 10/21/15 10/21/15 Unknown Previous Rx's Medication Instructions Recorded Last Taken Type Pantoprazole [Protonix TAB] 20 mg PO BID #60 tablet. 10/22/15 Unknown Rx Acetaminophen [Tylenol Arthritis] 650 mg PO Q6HR PRN #30 tablet.er 10/17/17 Unknown Rx Albuterol Sulfate [Proair 90 mcg IH Q4HR PRN #2 aer.pow.ba 10/17/17 Unknown Rx Respiclick] Aspirin [Aspirin BABY CHEW TAB] 81 mg PO QDAY #30 tab.chew 10/17/17 Unknown Rx Benzonatate [Tessalon Perles] 100 mg PO Q8HR PRN #30 capsule 10/17/17 Unknown Rx Fluticasone [Flonase] 1 spray NS QDAY #1 bottle 10/17/17 Unknown Rx Ciprofloxacin HCl [Ciprofloxacin 500 mg PO Q12HR #10 tab 05/22/19 Unknown Rx TAB] HYDROcodone/APAP 5-325 [[place] 1 each PO Q6HR PRN #8 tablet 05/22/19 Unknown Rx 5/325] Benzonatate [Tessalon Perles] 100 mg PO Q8HR #30 capsule 06/19/19 Unknown Rx Ibuprofen [Motrin] 600 mg PO Q8H PRN #20 tablet 06/19/19 Unknown Rx levoFLOXacin [Levaquin TAB] 500 mg PO QDAY #10 tablet 06/19/19 Unknown Rx raNITIdine HCl [Zantac] 150 mg PO Q12H #30 tablet 06/19/19 Unknown Rx Allergies Allergy/AdvReac Type Severity Reaction Status Date / Time Penicillins Allergy Rash Verified 05/22/19 10:13 Sulfa (Sulfonamide Allergy Rash Verified 05/22/19 10:13 Antibiotics) ED Review of Systems ROS: Stated complaint: COLD, COUGHED UP BLOOD, CHEST HURTS Other details as noted in HPI Constitutional: denies: chills, fever Eyes: denies: eye pain, eye discharge, vision change ENT: congestion. denies: ear pain, throat pain Respiratory: cough, other (pleuritic chest pain). denies: shortness of breath, wheezing Cardiovascular: chest pain (pleuritic). denies: palpitations Endocrine: no symptoms reported Gastrointestinal: denies: abdominal pain, nausea, diarrhea Genitourinary: denies: urgency, dysuria, discharge Musculoskeletal: denies: back pain, joint swelling, arthralgia Skin: denies: rash, lesions Neurological: denies: headache, weakness, paresthesias Psychiatric: denies: anxiety, depression Hematological/Lymphatic: denies: easy bleeding, easy bruising ED Past Medical Hx - Past Medical History Previous Medical History?: Yes Hx Hypertension: Yes Hx Diabetes: Yes Hx GERD: Yes Hx Arthritis: Yes Additional medical history: Bronchitis - Surgical History Past Surgical History?: Yes Additional Surgical History: colon surg - diverticulitis, lumps removed from left breast - Social History Smoking Status: Never Smoker Substance Use Type: None - Medications Home Medications: Home Medications Medication Instructions Recorded Confirmed Last Taken Type Docusate Sodium [Colace] 100 mg PO DAILY 01/18/14 10/21/15 01/17/14 History Lisinopril [Zestril] 20 mg PO QDAY 01/18/14 10/21/15 01/17/14 History Simvastatin (Nf) [Zocor] 40 mg PO QHS 01/18/14 10/21/15 01/17/14 History amLODIPine [Norvasc] 10 mg PO DAILY 01/18/14 10/21/15 01/17/14 History Chlorthalidone [Thalitone] 25 mg PO QDAY 10/21/15 10/21/15 Unknown History Esomeprazole Magnesium [NexIUM] 40 mg PO QDAY 10/21/15 10/21/15 Unknown History metFORMIN [Glucophage] 1,000 mg PO BID 10/21/15 10/21/15 Unknown History Pantoprazole [Protonix TAB] 20 mg PO BID #60 tablet. 10/22/15 Unknown Rx Acetaminophen [Tylenol Arthritis] 650 mg PO Q6HR PRN #30 tablet.er 10/17/17 Unknown Rx Albuterol Sulfate [Proair 90 mcg IH Q4HR PRN #2 aer.pow.ba 10/17/17 Unknown Rx Respiclick] Aspirin [Aspirin BABY CHEW TAB] 81 mg PO QDAY #30 tab.chew 10/17/17 Unknown Rx Benzonatate [Tessalon Perles] 100 mg PO Q8HR PRN #30 capsule 10/17/17 Unknown Rx Fluticasone [Flonase] 1 spray NS QDAY #1 bottle 10/17/17 Unknown Rx Ciprofloxacin HCl [Ciprofloxacin 500 mg PO Q12HR #10 tab 05/22/19 Unknown Rx TAB] HYDROcodone/APAP 5-325 [[place] 1 each PO Q6HR PRN #8 tablet 05/22/19 Unknown Rx 5/325] Benzonatate [Tessalon Perles] 100 mg PO Q8HR #30 capsule 06/19/19 Unknown Rx Ibuprofen [Motrin] 600 mg PO Q8H PRN #20 tablet 06/19/19 Unknown Rx levoFLOXacin [Levaquin TAB] 500 mg PO QDAY #10 tablet 06/19/19 Unknown Rx raNITIdine HCl [Zantac] 150 mg PO Q12H #30 tablet 06/19/19 Unknown Rx ED Physical Exam - General Limitations: No Limitations General appearance: alert, in no apparent distress - Head Head exam: Present: atraumatic, normocephalic, normal inspection - Eye Eye exam: Present: normal appearance, PERRL, EOMI. Absent: scleral icterus, periorbital swelling, periorbital tenderness Pupils: Present: normal accommodation - ENT ENT exam: Present: normal exam, mucous membranes moist, TM's normal bilaterally, normal external ear exam, other (Grossly congested nasal passages with tenderness on frontal sinus) - Neck Neck exam: Present: normal inspection, full ROM. Absent: tenderness, mening ismus, lymphadenopathy, thyromegaly - Respiratory Respiratory exam: Present: normal lung sounds bilaterally, chest wall tenderness. Absent: respiratory distress, wheezes, rales, stridor, accessory muscle use, prolonged expiratory - Cardiovascular Cardiovascular Exam: Present: regular rate, normal rhythm, normal heart sounds. Absent: systolic murmur, diastolic murmur, rubs, gallop - GI/Abdominal GI/Abdominal exam: Present: soft, normal bowel sounds. Absent: tenderness, rebound, hyperactive bowel sounds, hypoactive bowel sounds - Rectal Rectal exam: Present: deferred - Extremities Exam Extremities exam: Present: normal inspection, full ROM, normal capillary refill - Back Exam Back exam: Present: normal inspection, full ROM. Absent: tenderness, CVA tender ness (R), CVA tenderness (L), muscle spasm, paraspinal tenderness - Neurological Exam Neurological exam: Present: alert, oriented X3, CN II-XII intact, normal gait, reflexes normal - Psychiatric Psychiatric exam: Present: normal affect, normal mood - Skin Skin exam: Present: warm, dry, intact, normal color. Absent: rash ED Course Vital Signs 06/18/19 21:15 Temperature 98.3 F Pulse Rate 92 H Respiratory 18 Rate Blood Pressure 183/93 O2 Sat by Pulse 97 Oximetry - Reevaluation(s) Reevaluation #1: 06/19/19 01:57 Patient is alert and oriented 3 and is not in distress. Labs are drawn and EKG also ordered. Chest x-ray shows no acute cardiopulmonary abnormalities. The EKG shows a sinus rhythm with ventricular rate of 76 bpm., With a nonspecific T-wave abnormalities in the lateral leads. There is however normal pathological Q waves identified in the EKG. Lab test results were reviewed and are all unremarkable. Patient was treated in the ED for pain and GERD, and on reevaluation, patient pain is well controlled on medications. Patient was discharged home on medications and advised to follow-up with her primary care physician in 7-10 days for reevaluation. Patient was also advised to return to the ED immediately if symptoms get worse. 06/19/19 02:06 ED Medical Decision Making - Lab Data Result diagrams: 06/18/19 22:26 06/18/19 22:29 - Radiology Data Radiology results: report reviewed, image reviewed Chest x-ray: No acute cardiopulmonary abnormalities - Medical Decision Making Patient is alert and oriented 3 and is not in distress. Labs are drawn and EKG also ordered. Chest x-ray shows no acute cardiopulmonary abnormalities. The EKG shows a sinus rhythm with ventricular rate of 76 bpm., With a nonspecific T-wave abnormalities in the lateral leads. There is however normal pathological Q waves identified in the EKG. Lab test results were reviewed and are all unremarkable. Patient was treated in the ED for pain and GERD, and on reevaluation, patient pain is well controlled on medications. Patient was discharged home on medications and advised to follow-up with her primary care physician in 7-10 days for reevaluation. Patient was also advised to return to the ED immediately if symptoms get worse. - Differential Diagnosis Acuet URI; Acute sinusitis; chronic bronchitis; GERD; Chest wall pain Critical care attestation.: If time is entered above; I have spent that time in minutes in the direct care of this critically ill patient, excluding procedure time. ED Disposition Clinical Impression: Acute upper respiratory infection, Pleuritic chest pain Chronic bronchitis Qualifiers: Chronic bronchitis type: mixed simple and mucopurulent Qualified Code(s): J41.8 - Mixed simple and mucopurulent chronic bronchitis Disposition: TO HOME OR SELFCARE Is pt being admited?: No Does the pt Need Aspirin: No Condition: Stable Instructions: Chest Pain (ED), Costochondritis (ED), Upper Respiratory Infection (ED), Chronic Bronchitis (ED), Gastroesophageal Reflux Disease (ED) Additional Instructions: Take medications, drink plenty of fluids and follow up with your primary care physician in 5-7 days for reevaluation. Return to the ED immediately if symptoms get worse. Prescriptions: levoFLOXacin [Levaquin TAB] 500 mg PO QDAY #10 tablet Ibuprofen [Motrin] 600 mg PO Q8H PRN #20 tablet PRN Reason: Pain Benzonatate [Tessalon Perles] 100 mg PO Q8HR #30 capsule raNITIdine HCl [Zantac] 150 mg PO Q12H #30 tablet Referrals: HUMBERTO JADE MD [Primary Care Provider] - 3-5 Days Time of Disposition: 01:49 Print Language: SAMI
== END 2019-06-19 02:24 | disposition home or self-care (01) ==
LOC: ED 20:53
DX: J42 Unspecified chronic bronchitis (principal); J06.9 Acute upper respiratory infection, unspecified; I10 Essential (primary) hypertension; E11.9 Type 2 diabetes mellitus without complications; K21.9 Gastro-esophageal reflux disease without esophagitis; M19.90 Unspecified osteoarthritis, unspecified site; Z98.890 Other specified postprocedural states; Z79.899 Other long term (current) drug therapy; Z88.0 Allergy status to penicillin; Z88.2 Allergy status to sulfonamides
CPT/HCPCS: 36415; 71046; 80048; 80076; 84484; 85025; 93005; 93010

== ENCOUNTER 2020-02-11 15:36 | Emergency (ER) | payer MEDICARE ==
[2020-02-11 15:47] VITALS: BP 161/72
--- NOTE | 2020-02-11 20:20 | Emergency Department Report ---
Minor Respiratory - HPI Chief Complaint: Upper Respiratory Infection Stated Complaint: CHEST CONGESTION Time Seen by Provider: 02/11/20 19:35 Duration: Today Severity: mild Minor Respiratory: Yes Able to Tolerate Fluids, Yes Cough, No Rhinorrhea, No Sore Throat, No Ear Pain, No Sick Contacts, No Hemoptysis, No Chest Pain, No Shortness of Breath, No Fever Other History: This is a 64-year-old female who presents to the ED complaining of chest congestion and body aches that started this morning. Patient states that symptoms came suddenly this morning after waking up. Patient states then she went outside and shortly after that due to the being exposed to the pollen she started having a throbbing headache. Patient denies fever/chills/chest pain/shortness of breath/nausea vomiting blurry vision or any other symptoms. She denies any sick contact or recent travel. Patient did note that she does have seasonal allergies ED Review of Systems ROS: Stated complaint: CHEST CONGESTION Other details as noted in HPI Comment: All other systems reviewed and negative ED Past Medical Hx - Past Medical History Hx Hypertension: Yes Hx Diabetes: Yes Hx GERD: Yes Hx Arthritis: Yes Additional medical history: Bronchitis - Surgical History Additional Surgical History: colon surg - diverticulitis, lumps removed from left breast - Social History Smoking Status: Never Smoker Substance Use Type: None - Medications Home Medications: Home Medications Medication Instructions Recorded Confirmed Last Taken Type Docusate Sodium [Colace] 100 mg PO DAILY 01/18/14 10/21/15 01/17/14 History Simvastatin (Nf) [Zocor] 40 mg PO QHS 01/18/14 10/21/15 01/17/14 History amLODIPine [Norvasc] 10 mg PO DAILY 01/18/14 10/21/15 01/17/14 History lisinopriL [Zestril] 20 mg PO QDAY 01/18/14 10/21/15 01/17/14 History Chlorthalidone [Thalitone] 25 mg PO QDAY 10/21/15 10/21/15 Unknown History Esomeprazole Magnesium [NexIUM] 40 mg PO QDAY 10/21/15 10/21/15 Unknown History metFORMIN [Glucophage] 1,000 mg PO BID 10/21/15 10/21/15 Unknown History Pantoprazole [Protonix TAB] 20 mg PO BID #60 tablet. 10/22/15 Unknown Rx Acetaminophen [Tylenol Arthritis] 650 mg PO Q6HR PRN #30 tablet.er 10/17/17 Unknown Rx Albuterol Sulfate [Proair 90 mcg IH Q4HR PRN #2 aer.pow.ba 10/17/17 Unknown Rx Respiclick] Aspirin [Aspirin BABY CHEW TAB] 81 mg PO QDAY #30 tab.chew 10/17/17 Unknown Rx Benzonatate [Tessalon Perles] 100 mg PO Q8HR PRN #30 capsule 10/17/17 Unknown Rx Ciprofloxacin HCl [Ciprofloxacin 500 mg PO Q12HR #10 tab 05/22/19 Unknown Rx TAB] HYDROcodone/APAP 5-325 [Hamilton 1 each PO Q6HR PRN #8 tablet 05/22/19 Unknown Rx 5/325] Benzonatate [Tessalon Perles] 100 mg PO Q8HR #30 capsule 06/19/19 Unknown Rx Ibuprofen [Motrin] 600 mg PO Q8H PRN #20 tablet 06/19/19 Unknown Rx levoFLOXacin [Levaquin TAB] 500 mg PO QDAY #10 tablet 06/19/19 Unknown Rx raNITIdine HCl [Zantac] 150 mg PO Q12H #30 tablet 06/19/19 Unknown Rx Fluticasone [Flonase] 1 spray NS QDAY #1 bottle 02/11/20 Unknown Rx Loratadine [Claritin] 10 mg PO DAILY #30 tablet 02/11/20 Unknown Rx Pseudoephedrine [Sudafed] 30 mg PO BID #30 tablet 02/11/20 Unknown Rx Minor Respiratory Exam - Exam General: Vital signs noted. No distress. Alert and acting appropriately. HEENT: Yes Moist Mucous Membranes, No Pharyngeal Erythema, No Pharyngeal Exudates, No Rhinorrhea, No Conjuctival Injection, No Frontal Tenderness, No Maxillary Tenderness Ear: Neither TM Bulge, Neither TM Erythema, Neither EAC Pain, Neither EAC Discharge Neck: Yes Supple, No Adenopathy Lungs: Yes Good Air Exchange, No Wheezes, No Ronchi, No Stridor, No Cough, No Labored Respirations, No Retractions, No Use of Accessory Muscles, No Other Abnormal Lung Sounds Heart: Yes Regular, No Murmur Abdomen: Yes Normal Bowel Sounds, No Tenderness, No Peritoneal Signs Skin: No Rash, No Edema Neurologic: Alert and oriented, no deficits. Musculoskeletal: Unremarkable. ED Course Vital Signs 02/11/20 15:45 Temperature 98.0 F Pulse Rate 59 L Respiratory 20 Rate Blood Pressure 161/72 O2 Sat by Pulse 100 Oximetry ED Medical Decision Making - EKG Data EKG shows normal: sinus rhythm - Radiology Data Radiology results: report reviewed, image reviewed CHEST 2 VIEWS INDICATION / CLINICAL INFORMATION: cough/cp. COMPARISON: 06/18/2019 chest radiograph FINDINGS: SUPPORT DEVICES: None. HEART / MEDIASTINUM: No significant abnormality. LUNGS / PLEURA: No significant pulmonary or pleural abnormality. No pneumothorax. ADDITIONAL FINDINGS: Multilevel degenerative changes in thoracic spine. IMPRESSION: No acute finding. No significant change. Signer Name: Gerson Gayle MD Signed: 02/11/2020 8:52 PM Workstation Name: [id number] Transcribed By: SUGAR Dictated By: Gerson Gayle MD Electronically Authenticated By: Gerson Gayle MD Signed Date/Time: 02/11/202051 - Medical Decision Making 64-year-old female who presented for upper respiratory infection most likely secondary to sinus rhinitis. Chest x-ray was ordered. Chest x-ray shows no acute findings. Vital signs are normal patient is in no acute distress, Patient was not in any respiratory distress. Patient was speaking in clear sentences. Patient received some medication in the ED. Patient did note that this may just be her allergies. I discussed with patient to follow-up with her primary care physician in 3 days. I discussed with patient if she has any worsening symptoms to return to the ED immediately. Critical care attestation.: If time is entered above; I have spent that time in minutes in the direct care of this critically ill patient, excluding procedure time. ED Disposition Clinical Impression: Sinus headache, Upper respiratory infection Disposition: DC-01 TO HOME OR SELFCARE Is pt being admited?: No Does the pt Need Aspirin: No Condition: Stable Instructions: Upper Respiratory Infection (ED), Acute Headache (ED) Additional Instructions: Make sure to follow up with the primary care physician as discussed. Take all your medications as you've been prescribed. If you have any worsening symptoms or develop new symptoms please return to ED immediately. Prescriptions: Loratadine [Claritin] 10 mg PO DAILY #30 tablet Fluticasone [Flonase] 1 spray NS QDAY #1 bottle Pseudoephedrine [Sudafed] 30 mg PO BID #30 tablet Referrals: PRIMARY CARE, [Primary Care Provider] - 3-5 Days [facility] [Outside] - 3-5 Days [facility] [Outside] - 3-5 Days [facility] [Provider Group] - 3-5 Days Forms: Accompanied Note, Work/School Release Form(ED) Time of Disposition: 21:09
--- NOTE | 2020-02-11 20:57 | XRay Report ---
CHEST 2 VIEWS INDICATION / CLINICAL INFORMATION: cough/cp. COMPARISON: 06/18/2019 chest radiograph FINDINGS: SUPPORT DEVICES: None. HEART / MEDIASTINUM: No significant abnormality. LUNGS / PLEURA: No significant pulmonary or pleural abnormality. No pneumothorax. ADDITIONAL FINDINGS: Multilevel degenerative changes in thoracic spine. IMPRESSION: No acute finding. No significant change. Signer Name: Gerson Gayle MD Signed: 02/11/2020 8:52 PM Workstation Name: [id number]
[2020-02-11] MEDS ORDERED: guaiFENesin 100 MG/5 ML ORAL LIQD PO ONE (21:03)
[2020-02-11] MEDS ORDERED: ACETAMINOPHEN 325 MG TAB PO ONE (21:03)
== END 2020-02-11 21:40 | disposition home or self-care (01) ==
LOC: ED 15:36
DX: J06.9 Acute upper respiratory infection, unspecified (principal); R51 Headache; I10 Essential (primary) hypertension; E11.9 Type 2 diabetes mellitus without complications
CPT/HCPCS: 71046

== ENCOUNTER 2020-03-27 07:00 | Emergency (ER) | payer MEDICARE ==
[2020-03-27] MEDS ORDERED: ASPIRIN 325 MG TAB PO ONE (07:09)
[2020-03-27 07:47] LABS: Basophils % (Auto) 0.7 % (0.0-1.8); Eosinophils # (Auto) 0.1 K/mm3 (0.0-0.4); Eosinophils % (Auto) 1.8 % (0.0-4.3); Lymphocytes # (Auto) 2.7 K/mm3 (1.2-5.4); Lymphocytes % (Auto) 37.9 % (13.4-35.0); Mean Corpuscular HGB Conc 31 % (30-34); Monocytes # (Auto) 0.5 K/mm3 (0.0-0.8); Monocytes % (Auto) 7.4 % (0.0-7.3); Red Blood Count 6.75 M/mm3 (3.65-5.03)
[2020-03-27 07:51] LABS: Hemoglobin 13.7 gm/dl (10.1-14.3)
[2020-03-27 07:52] LABS: Hematocrit 44.3 % (30.3-42.9); Mean Corpuscular Volume 66 fl (79-97); Red Cell Distribution Width 21.2 % (13.2-15.2)
--- NOTE | 2020-03-27 08:01 | Emergency Department Report ---
ED Chest Pain HPI - General Chief Complaint: Chest Pain Stated Complaint: CHEST PAIN Time Seen by Provider: 03/27/20 07:40 Source: patient Mode of arrival: Ambulatory Limitations: No Limitations - History of Present Illness Initial Comments: This is a 64-year-old female who is substantially obese, type II diabetic and hypertensive. She does not smoke. She states that she has no history of blood clots or problems with her heart. She states that there is no familial history of heart attack "as far as I know". She has no prior diagnosis of coronary artery disease. She has had a prior admission for chest pain in 2015. Patient states that she has had anterior chest discomfort for the past 2 days. She has had a cough productive of "cold" which is minimal white sputum. She has had no hemoptysis. She denies leg pain or swelling. She denies recent travel. She has had no pleuritic pain. She denies shortness of breath. She states that she came to the hospital because she developed some "soreness in my chest". She states that the soreness was located above her left breast but the chest pain was more central and mostly when she coughs. She does not report any other associated symptoms. Admission for chest pain 2015: Hospitalization Condition: Stable Hospital course: 60 YO Female admitted for chest pain. Pt treated IAW chest pain protocol. Serial cardiac enzymes, ekg and telemetry monitoring were unremarkable. Pt found to have an elevated d dimer, and underwent VQ scan which did not reveal PE. Pt underwent stress test which was negative for ischemia. Pt medically optimized and back to usual state of health. Pt evaluated prior to discharge but no significant new physical exam findings. Pt subsequently discharged home and instructed to f/u pcp 1wk. Disposition: DISCHARGED TO HOME OR SELFCARE - Discharge Diagnoses (1) Chest pain, rule out acute myocardial infarction Status: Acute (2) Diabetes mellitus Status: AcuteQualifiers: Diabetes mellitus type: type 2 Diabetes mellitus complication status: with hyperglycemia Qualifier Code: (E11.65) Type 2 diabetes mellitus with hyperglycemia (3) Hyperlipidemia Status: Acute (4) Tobacco abuse Status: Acute (5) DVT prophylaxis Status: Acute MD Complaint: chest pain -: Gradual, days(s) Onset: during rest Pain Location: substernal, left chest Pain Radiation: none Severity: moderate Quality: dull (Had a soreness) Consistency: intermittent Improves With: nothing Worsens With: palpation re: denies: nausea, vomting, diaphoresis, dyspnea, sense of impending doom Other Symptoms: cough. denies: fever, syncope Treatments Prior to Arrival: none - Related Data Home Medications Medication Instructions Recorded Confirmed Last Taken amLODIPine [Norvasc] 5 mg PO DAILY 01/18/14 03/27/20 03/26/20 metFORMIN [Glucophage] 1,000 mg PO BID 10/21/15 03/27/20 03/26/20 AtorvaSTATin [Lipitor] 20 mg PO QHS 03/27/20 03/27/20 03/26/20 Famotidine [Pepcid] 20 mg PO BID 03/27/20 03/27/20 03/26/20 Ferrous Sulfate [Iron 325 MG] 325 mg PO QDAY 03/27/20 03/27/20 03/26/20 Gabapentin 300 mg PO TID 03/27/20 03/27/20 03/26/20 Rivaroxaban [Xarelto] 20 mg PO QDAY 03/27/20 03/27/20 03/26/20 allopurinoL [Zyloprim] 200 mg PO QDAY 03/27/20 03/27/20 03/26/20 methIMAzole [Tapazole] 10 mg PO Q8H 03/27/20 03/27/20 Unknown propranoloL [Inderal] 40 mg PO Q12H 03/27/20 03/27/20 03/26/20 Previous Rx's Medication Instructions Recorded Last Taken Type Fluticasone [Flonase] 1 spray NS QDAY #1 bottle 02/11/20 03/26/20 Rx Loratadine [Claritin] 10 mg PO DAILY #30 tablet 02/11/20 03/26/20 Rx traMADoL [Ultram 50 MG tab] 50 mg PO Q6HR PRN #10 tablet 03/27/20 Unknown Rx Allergies Allergy/AdvReac Type Severity Reaction Status Date / Time Penicillins Allergy Rash Verified 05/22/19 10:13 Sulfa (Sulfonamide Allergy Rash Verified 05/22/19 10:13 Antibiotics) Heart Score - HEART Score History: Slightly suspicious EKG: Non-specific Age: 45-65 Risk factors: > 3 risk factors or hx of atherosclerotic disease Troponin: < normal limit HEART Score: 4 - Critical Actions Critical Actions: 4-6 pts:12-16.6% risk of adverse cardiac event. Should be admitted ED Review of Systems ROS: Stated complaint: CHEST PAIN Other details as noted in HPI Constitutional: denies: chills, fever Eyes: denies: eye pain, eye discharge, vision change ENT: denies: ear pain, throat pain Respiratory: cough. denies: shortness of breath, wheezing Cardiovascular: chest pain. denies: palpitations Endocrine: no symptoms reported Gastrointestinal: denies: abdominal pain, nausea, diarrhea Genitourinary: denies: urgency, dysuria, discharge Musculoskeletal: denies: back pain, joint swelling, arthralgia Skin: denies: rash, lesions Neurological: denies: headache, weakness, paresthesias Psychiatric: denies: anxiety, depression Hematological/Lymphatic: denies: easy bleeding, easy bruising ED Past Medical Hx - Past Medical History Previous Medical History?: Yes Hx Hypertension: Yes Hx Diabetes: Yes Hx GERD: Yes Hx Arthritis: Yes Additional medical history: Bronchitis - Surgical History Past Surgical History?: Yes Hx Breast Surgery: Yes (left breast) Additional Surgical History: colon surg - diverticulitis, lumps removed from left breast - Social History Smoking Status: Former Smoker Substance Use Type: Alcohol - Medications Home Medications: Home Medications Medication Instructions Recorded Confirmed Last Taken Type amLODIPine [Norvasc] 5 mg PO DAILY 01/18/14 03/27/20 03/26/20 History metFORMIN [Glucophage] 1,000 mg PO BID 10/21/15 03/27/20 03/26/20 History Fluticasone [Flonase] 1 spray NS QDAY #1 bottle 02/11/20 03/27/20 03/26/20 Rx Loratadine [Claritin] 10 mg PO DAILY #30 tablet 02/11/20 03/27/20 03/26/20 Rx AtorvaSTATin [Lipitor] 20 mg PO QHS 03/27/20 03/27/20 03/26/20 History Famotidine [Pepcid] 20 mg PO BID 03/27/20 03/27/20 03/26/20 History Ferrous Sulfate [Iron 325 MG] 325 mg PO QDAY 03/27/20 03/27/20 03/26/20 History Gabapentin 300 mg PO TID 03/27/20 03/27/20 03/26/20 History Rivaroxaban [Xarelto] 20 mg PO QDAY 03/27/20 03/27/20 03/26/20 History allopurinoL [Zyloprim] 200 mg PO QDAY 03/27/20 03/27/20 03/26/20 History methIMAzole [Tapazole] 10 mg PO Q8H 03/27/20 03/27/20 Unknown History propranoloL [Inderal] 40 mg PO Q12H 03/27/20 03/27/20 03/26/20 History traMADoL [Ultram 50 MG tab] 50 mg PO Q6HR PRN #10 tablet 03/27/20 Unknown Rx ED Physical Exam - General Limitations: Physical Limitation General appearance: alert, in no apparent distress, obese - Head Head exam: Present: atraumatic, normocephalic - Eye Eye exam: Present: normal appearance - ENT ENT exam: Present: mucous membranes moist - Neck Neck exam: Present: normal inspection. Absent: tenderness, meningismus - Respiratory Respiratory exam: Present: normal lung sounds bilaterally, chest wall tenderness (Highly reproducible left supramammary tenderness to palpation). Absent: respiratory distress - Cardiovascular Cardiovascular Exam: Present: regular rate, normal rhythm. Absent: systolic murmur, diastolic murmur, rubs, gallop - GI/Abdominal GI/Abdominal exam: Present: soft, normal bowel sounds. Absent: distended, tenderness, guarding, rebound - Extremities Exam Extremities exam: Present: normal inspection, normal capillary refill. Absent: pedal edema, joint swelling, calf tenderness - Back Exam Back exam: Present: normal inspection - Neurological Exam Neurological exam: Present: alert, oriented X3, CN II-XII intact. Absent: motor sensory deficit - Psychiatric Psychiatric exam: Present: normal affect, normal mood - Skin Skin exam: Present: warm, dry, intact, normal color. Absent: rash ED Course Vital Signs 03/27/20 03/27/20 03/27/20 07:07 07:36 07:46 Temperature 98.5 F Pulse Rate 72 66 Respiratory 20 11 L Rate Blood Pressure 174/90 178/94 O2 Sat by Pulse 99 95 99 Oximetry 03/27/20 03/27/20 08:00 08:16 Temperature Pulse Rate 63 64 Respiratory 10 L 14 Rate Blood Pressure 178/94 164/79 O2 Sat by Pulse 99 Oximetry - Reevaluation(s) Reevaluation #1: Patient without complaints of chest pain here except on palpation of her chest. She is appropriate for outpatient follow-up. She has a metal cutter at [place]. She will be discharged. 03/27/20 11:39 OLYA score - Olya Score Age > 65: (0) No Aspirin use within the Past 7 Days: (1) Yes 3 or more CAD Risk Factors: (0) No 2 or more Angina events in past 24 hrs: (0) No Known CAD with more than 50% Stenosis: (0) No Elevated Cardiac Markers: (0) No ST Deviation Greater than 0.5mm: (0) No OLYA Score: 1 ED Medical Decision Making - Lab Data Result diagrams: 03/27/20 07:28 03/27/20 07:28 Laboratory Results - last 24 hr 03/27/20 03/27/20 03/27/20 07:28 07:28 09:32 WBC 7.1 RBC 6.75 H Hgb 13.7 Hct 44.3 H MCV 66 L MCH 20 L MCHC 31 RDW 21.2 H Plt Count 151 Lymph % (Auto) 37.9 H Mccracken % (Auto) 7.4 H Eos % (Auto) 1.8 Baso % (Auto) 0.7 Lymph # 2.7 Mccracken # 0.5 Eos # 0.1 Baso # 0.0 Seg Neutrophils % 52.2 Seg Neutrophils # 3.7 PT 15.9 H INR 1.30 H APTT 33.2 Sodium 138 Potassium 3.9 Chloride 102.3 Carbon Dioxide 26 Anion Gap 14 BUN 11 Creatinine 0.9 Estimated GFR > 60 BUN/Creatinine Ratio 12 Glucose 132 H Calcium 9.7 Total Bilirubin Direct Bilirubin AST ALT Alkaline Phosphatase Total Creatine Kinase CK-MB (CK-2) CK-MB (CK-2) Rel Index Troponin T < 0.010 NT-Pro-B Natriuret Pep Total Protein Albumin Albumin/Globulin Ratio 03/27/20 09:32 WBC RBC Hgb Hct MCV MCH MCHC RDW Plt Count Lymph % (Auto) Mccracken % (Auto) Eos % (Auto) Baso % (Auto) Lymph # Mccracken # Eos # Baso # Seg Neutrophils % Seg Neutrophils # PT INR APTT Sodium Potassium Chloride Carbon Dioxide Anion Gap BUN Creatinine Estimated GFR BUN/Creatinine Ratio Glucose Calcium Total Bilirubin 0.50 Direct Bilirubin < 0.2 AST 14 ALT 6 L Alkaline Phosphatase 94 Total Creatine Kinase 51 CK-MB (CK-2) 1.1 CK-MB (CK-2) Rel Index 2.1 Troponin T NT-Pro-B Natriuret Pep 286.6 Total Protein 6.9 Albumin 4.1 Albumin/Globulin Ratio 1.5 Laboratory Results - last 24 hr 03/27/20 03/27/20 03/27/20 07:28 07:28 09:32 WBC 7.1 RBC 6.75 H Hgb 13.7 Hct 44.3 H MCV 66 L MCH 20 L MCHC 31 RDW 21.2 H Plt Count 151 Lymph % (Auto) 37.9 H Mccracken % (Auto) 7.4 H Eos % (Auto) 1.8 Baso % (Auto) 0.7 Lymph # 2.7 Mccracken # 0.5 Eos # 0.1 Baso # 0.0 Seg Neutrophils % 52.2 Seg Neutrophils # 3.7 PT 15.9 H INR 1.30 H APTT 33.2 D-Dimer < 135.00 Sodium 138 Potassium 3.9 Chloride 102.3 Carbon Dioxide 26 Anion Gap 14 BUN 11 Creatinine 0.9 Estimated GFR > 60 BUN/Creatinine Ratio 12 Glucose 132 H Calcium 9.7 Total Bilirubin Direct Bilirubin AST ALT Alkaline Phosphatase Total Creatine Kinase CK-MB (CK-2) CK-MB (CK-2) Rel Index Troponin T < 0.010 NT-Pro-B Natriuret Pep Total Protein Albumin Albumin/Globulin Ratio 03/27/20 03/27/20 03/27/20 09:32 10:08 10:51 WBC RBC Hgb Hct MCV MCH MCHC RDW Plt Count Lymph % (Auto) Mccracken % (Auto) Eos % (Auto) Baso % (Auto) Lymph # Mccracken # Eos # Baso # Seg Neutrophils % Seg Neutrophils # PT INR APTT D-Dimer Sodium Potassium Chloride Carbon Dioxide Anion Gap BUN Creatinine Estimated GFR BUN/Creatinine Ratio Glucose Calcium Total Bilirubin 0.50 Direct Bilirubin < 0.2 AST 14 ALT 6 L Alkaline Phosphatase 94 Total Creatine Kinase 51 CK-MB (CK-2) 1.1 CK-MB (CK-2) Rel Index 2.1 Troponin T < 0.010 < 0.010 NT-Pro-B Natriuret Pep 286.6 Total Protein 6.9 Albumin 4.1 Albumin/Globulin Ratio 1.5 - EKG Data EKG shows normal: sinus rhythm, axis, intervals, QRS complexes, ST-T waves Rate: normal - EKG Data Interpretation: nonspecific ST-T wave vira, other (Sinus rhythm nonspecific ST-T wave changes) - Radiology Data Radiology results: report reviewed (No acute process) Critical care attestation.: If time is entered above; I have spent that time in minutes in the direct care of this critically ill patient, excluding procedure time. ED Disposition Clinical Impression: Chest wall pain Disposition: TO HOME OR SELFCARE Is pt being admited?: No Does the pt Need Aspirin: No Condition: Stable Instructions: Chest Pain (ED) Additional Instructions: Follow-up with primary care and metal cutter at [place]. Return any acute change or problem as needed. Prescriptions: traMADoL [Ultram 50 MG tab] 50 mg PO Q6HR PRN #10 tablet PRN Reason: Pain Referrals: PRIMARY CARE,MD [Primary Care Provider] - 2-3 Days [place], cardiology [Other] - 2-3 Days Time of Disposition: 11:41
--- NOTE | 2020-03-27 08:08 | XRay Report ---
CHEST 1 VIEW INDICATION: Chest Pain. COMPARISON: 02/11/2020 FINDINGS: Support devices: None. Heart: Within normal limits. Lungs/Pleura: No acute air space or interstitial disease. Additional findings: None. IMPRESSION: 1. No acute findings. Signer Name: Melo Garcia MD Signed: 03/27/2020 8:03 AM Workstation Name: [email or web address]
[2020-03-27 08:10] LABS: BUN/Creatinine Ratio 12; Blood Urea Nitrogen 11 mg/dL (7-17); Calcium 9.7 mg/dL (8.4-10.2); Hemolysis Index 6
[2020-03-27 08:28] LABS: Platelet Count 151 K/mm3 (140-440)
[2020-03-27 09:53] LABS: Partial Thromboplastin Time 33.2 Sec. (24.2-36.6)
[2020-03-27 10:12] LABS: Creatine Kinase MB 1.1 ng/mL (0.0-4.0)
[2020-03-27 10:13] LABS: Alanine Aminotransferase 6 units/L (7-56); Albumin 4.1 g/dL (3.9-5)
[2020-03-27 10:17] LABS: Bilirubin,Direct < 0.2 mg/dL (0-0.2)
[2020-03-29 12:29] VITALS: BP 149/80
== END 2020-03-27 11:55 | disposition home or self-care (01) ==
LOC: ED 07:00
DX: R07.89 Other chest pain (principal); I10 Essential (primary) hypertension; K21.9 Gastro-esophageal reflux disease without esophagitis; M19.90 Unspecified osteoarthritis, unspecified site; E11.9 Type 2 diabetes mellitus without complications; E66.9 Obesity, unspecified; Z88.0 Allergy status to penicillin; Z88.2 Allergy status to sulfonamides; Z79.899 Other long term (current) drug therapy; Z87.891 Personal history of nicotine dependence; Z98.890 Other specified postprocedural states
CPT/HCPCS: 36415; 71045; 80048; 80076; 82550; 82553; 83880; 84484; 85025; 85379; 85610; 85730; 93005

== ENCOUNTER 2020-04-30 16:03 | Emergency (ER) | payer MEDICARE ==
--- NOTE | 2020-04-30 16:35 | Emergency Department Report ---
ED GI Bleed HPI - General Chief complaint: GI Bleed Stated complaint: RECTAL BLEED Time Seen by Provider: 04/30/20 16:22 Source: patient Mode of arrival: Ambulatory Limitations: No Limitations - History of Present Illness Initial comments: Patient is 64 years old female with history of atrial fibrillation on Xarelto and history of diverticulitis. Patient presented to the ER complaining of bloody diarrhea that started this afternoon. Patient stated that this is associated with crampy abdominal pain mainly to the lower abdomen. Patient denied any fever or chills. No nausea or vomiting. Patient also denied any chest pain, shortness of breath or cough. MD complaint: blood on toilet paper -: Sudden, This afternoon Location: LLQ Radiation: none Severity scale (0 -10): 2 Quality: cramping Context: history of GI bleed - Related Data Home Medications Medication Instructions Recorded Confirmed Last Taken amLODIPine [Norvasc] 5 mg PO DAILY 01/18/14 03/27/20 03/26/20 metFORMIN [Glucophage] 1,000 mg PO BID 10/21/15 03/27/20 03/26/20 AtorvaSTATin [Lipitor] 20 mg PO QHS 03/27/20 03/27/20 03/26/20 Famotidine [Pepcid] 20 mg PO BID 03/27/20 03/27/20 03/26/20 Ferrous Sulfate [Iron 325 MG] 325 mg PO QDAY 03/27/20 03/27/20 03/26/20 Gabapentin 300 mg PO TID 03/27/20 03/27/20 03/26/20 Rivaroxaban [Xarelto] 20 mg PO QDAY 03/27/20 03/27/20 03/26/20 allopurinoL [Zyloprim] 200 mg PO QDAY 03/27/20 03/27/20 03/26/20 methIMAzole [Tapazole] 10 mg PO Q8H 03/27/20 03/27/20 Unknown propranoloL [Inderal] 40 mg PO Q12H 03/27/20 03/27/20 03/26/20 Previous Rx's Medication Instructions Recorded Last Taken Type Fluticasone [Flonase] 1 spray NS QDAY #1 bottle 02/11/20 03/26/20 Rx Loratadine [Claritin] 10 mg PO DAILY #30 tablet 02/11/20 03/26/20 Rx traMADoL [Ultram 50 MG tab] 50 mg PO Q6HR PRN #10 tablet 03/27/20 Unknown Rx Allergies Allergy/AdvReac Type Severity Reaction Status Date / Time Penicillins Allergy Rash Verified 05/22/19 10:13 Sulfa (Sulfonamide Allergy Rash Verified 05/22/19 10:13 Antibiotics) ED Review of Systems ROS: Stated complaint: RECTAL BLEED Other details as noted in HPI Comment: All other systems reviewed and negative Constitutional: denies: chills, fever Respiratory: denies: cough, shortness of breath, SOB with exertion, wheezing Cardiovascular: denies: chest pain, palpitations Gastrointestinal: abdominal pain, diarrhea, hematochezia. denies: nausea, vomiting, constipation, hematemesis, melena Genitourinary: denies: hematuria Musculoskeletal: denies: back pain Neurological: denies: headache, weakness, numbness, paresthesias, confusion, abnormal gait ED Past Medical Hx - Past Medical History Hx Hypertension: Yes Hx Diabetes: Yes Hx GERD: Yes Hx Arthritis: Yes Additional medical history: Bronchitis - Surgical History Hx Breast Surgery: Yes (left breast) Additional Surgical History: colon surg - diverticulitis, lumps removed from left breast - Social History Smoking Status: Never Smoker Substance Use Type: None - Medications Home Medications: Home Medications Medication Instructions Recorded Confirmed Last Taken Type amLODIPine [Norvasc] 5 mg PO DAILY 01/18/14 03/27/20 03/26/20 History metFORMIN [Glucophage] 1,000 mg PO BID 10/21/15 03/27/20 03/26/20 History Fluticasone [Flonase] 1 spray NS QDAY #1 bottle 02/11/20 03/27/20 03/26/20 Rx Loratadine [Claritin] 10 mg PO DAILY #30 tablet 02/11/20 03/27/20 03/26/20 Rx AtorvaSTATin [Lipitor] 20 mg PO QHS 03/27/20 03/27/20 03/26/20 History Famotidine [Pepcid] 20 mg PO BID 03/27/20 03/27/20 03/26/20 History Ferrous Sulfate [Iron 325 MG] 325 mg PO QDAY 03/27/20 03/27/20 03/26/20 History Gabapentin 300 mg PO TID 03/27/20 03/27/20 03/26/20 History Rivaroxaban [Xarelto] 20 mg PO QDAY 03/27/20 03/27/20 03/26/20 History allopurinoL [Zyloprim] 200 mg PO QDAY 03/27/20 03/27/20 03/26/20 History methIMAzole [Tapazole] 10 mg PO Q8H 03/27/20 03/27/20 Unknown History propranoloL [Inderal] 40 mg PO Q12H 03/27/20 03/27/20 03/26/20 History traMADoL [Ultram 50 MG tab] 50 mg PO Q6HR PRN #10 tablet 03/27/20 Unknown Rx ED Physical Exam - General Limitations: No Limitations General appearance: alert, in no apparent distress - Head Head exam: Present: atraumatic, normocephalic, normal inspection - Eye Eye exam: Present: normal appearance - ENT ENT exam: Present: normal exam, normal orophraynx, mucous membranes moist - Neck Neck exam: Present: normal inspection, full ROM. Absent: tenderness, meningismus, lymphadenopathy, thyromegaly - Respiratory Respiratory exam: Present: normal lung sounds bilaterally - Cardiovascular Cardiovascular Exam: Present: regular rate, normal rhythm, normal heart sounds - GI/Abdominal GI/Abdominal exam: Present: soft, normal bowel sounds. Absent: distended, tenderness, guarding, rebound, rigid, organomegaly, mass, bruit, pulsatile mass, hernia - Rectal Rectal exam: Present: hemorrhoids - Extremities Exam Extremities exam: Present: normal inspection, full ROM, normal capillary refill. Absent: pedal edema, calf tenderness - Back Exam Back exam: Present: normal inspection, full ROM. Absent: CVA tenderness (R), CVA tenderness (L) - Neurological Exam Neurological exam: Present: alert, oriented X3, CN II-XII intact, normal gait, reflexes normal. Absent: motor sensory deficit - Psychiatric Psychiatric exam: Present: normal mood - Skin Skin exam: Present: warm, intact, normal color ED Course Vital Signs 04/30/20 04/30/20 04/30/20 17:13 17:16 17:30 Temperature 98.7 F Pulse Rate 77 80 Respiratory 14 19 21 Rate Blood Pressure 165/74 165/74 O2 Sat by Pulse 14 L Oximetry 04/30/20 04/30/20 04/30/20 17:46 18:00 18:49 Temperature Pulse Rate 82 84 Respiratory 14 8 L Rate Blood Pressure 165/74 165/74 111/88 O2 Sat by Pulse Oximetry ED Medical Decision Making - Lab Data Result diagrams: 04/30/20 20:30 04/30/20 16:39 - Radiology Data Radiology results: report reviewed - Medical Decision Making Patient is 64 years old female with history of atrial fibrillation on Xarelto and history of diverticulitis. Patient presented to the ER complaining of bloody diarrhea that started this afternoon. Patient stated that this is associated with crampy abdominal pain mainly to the lower abdomen. Patient denied any fever or chills. No nausea or vomiting. Patient also denied any chest pain, shortness of breath or cough. Patient remained stable in the ER. Stable vital signs. Labs reviewed and is unremarkable. Hemoglobin is 10.1 and repeated 3 hours later is 10.2. CT abdomen and pelvis showed no evidence of acute diverticulitis. Patient does have hemorrhoids and that might be the reason for her bleeding however since patient is on Xarelto there is a possibility of GI bleed from that. Advised the patient to hold her Xarelto for tomorrow and to continue after that after she follow-up with her primary care physician. Critical care attestation.: If time is entered above; I have spent that time in minutes in the direct care of this critically ill patient, excluding procedure time. ED Disposition Clinical Impression: Rectal bleeding, Hemorrhoid Disposition: DC-01 TO HOME OR SELFCARE Is pt being admited?: No Condition: Stable Instructions: Rectal Bleeding (ED), Hemorrhoids (ED) Referrals: PRIMARY CARE, [Primary Care Provider] - 3-5 Days Forms: Accompanied Note
[2020-04-30 17:05] LABS: Basophils # (Auto) 0.1 K/mm3 (0.0-0.1); Basophils % (Auto) 0.9 % (0.0-1.8); Eosinophils # (Auto) 0.1 K/mm3 (0.0-0.4); Eosinophils % (Auto) 1.7 % (0.0-4.3); Hematocrit 32.7 % (30.3-42.9); Hemoglobin 10.1 gm/dl (10.1-14.3); Lymphocytes # (Auto) 2.2 K/mm3 (1.2-5.4); Lymphocytes % (Auto) 31.8 % (13.4-35.0); Mean Corpuscular HGB Conc 31 % (30-34); Mean Corpuscular Volume 74 fl (79-97); Monocytes # (Auto) 0.6 K/mm3 (0.0-0.8); Monocytes % (Auto) 8.6 % (0.0-7.3); Platelet Count 213 K/mm3 (140-440); Red Blood Count 4.44 M/mm3 (3.65-5.03)
[2020-04-30 17:11] LABS: Alanine Aminotransferase 8 units/L (7-56); BUN/Creatinine Ratio 19; Blood Urea Nitrogen 15 mg/dL (7-17); Calcium 9.3 mg/dL (8.4-10.2); Hemolysis Index 8
[2020-04-30 17:13] LABS: Bilirubin,Direct < 0.2 mg/dL (0-0.2)
[2020-04-30] MEDS ORDERED: LORazepam 2 MG/ML VIAL IV ONE (17:42)
[2020-04-30 17:47] LABS: INR 2.01 (0.87-1.13)
[2020-04-30 17:48] LABS: Partial Thromboplastin Time 41.1 Sec. (24.2-36.6)
[2020-04-30 18:09] LABS: Bacteria,Urine 2+ /HPF (Negative); Bilirubin,Urine NEG (Negative); Blood,Urine LG (Negative); Color,Urine Yellow (Yellow); Mucus,Urine FEW /HPF
--- NOTE | 2020-04-30 19:31 | Cat Scan Report ---
CT ABDOMEN AND PELVIS WITH CONTRAST INDICATION / CLINICAL INFORMATION: MAIN: abdominal pain/history of diverticulitis. omnipaque 300 100ml. TECHNIQUE: Axial CT images were obtained through the abdomen and pelvis after 100 mL Omnipaque [address] scans at this location are performed using CT dose reduction for ALARA by means of automated exposure control. COMPARISON: CT abdomen pelvis 05/22/2019 FINDINGS: LOWER CHEST: No significant abnormality. LIVER: No significant abnormality. BILIARY SYSTEM: No significant abnormality. PANCREAS: No significant abnormality. SPLEEN: No significant abnormality. ADRENALS: No significant abnormality. KIDNEYS and URETERS: No significant abnormality. STOMACH / BOWEL: Colonic diverticulosis without CT evidence for acute diverticulitis. Evidence of lina or right hemicolectomy. There is no evidence of bowel obstruction or significant perienteric inflamma tion. PERITONEUM: No free fluid. No free air. No fluid collection. LYMPH NODES: No significant adenopathy. VASCULAR STRUCTURES: No significant abnormality. URINARY BLADDER: No significant abnormality. REPRODUCTIVE ORGANS: No significant abnormality. ADDITIONAL FINDINGS: None. SKELETAL SYSTEM: Multilevel degenerative change of the spine. IMPRESSION: 1. No acute process identified within the abdomen or pelvis to account for patient's abdominal pain. 2. Colonic diverticulosis without evidence for acute diverticulitis. Postsurgical change related to r ight hemicolectomy. Signer Name: Karmen Harrison MD Signed: 04/30/2020 7:27 PM Workstation Name: [id number]
[2020-04-30 20:41] LABS: Hematocrit 32.2 % (30.3-42.9); Hemoglobin 10.2 gm/dl (10.1-14.3); Mean Corpuscular HGB Conc 32 % (30-34); Mean Corpuscular Volume 74 fl (79-97); Platelet Count 210 K/mm3 (140-440); Red Blood Count 4.37 M/mm3 (3.65-5.03)
[2020-04-30 21:23] VITALS: BP 135/69
== END 2020-04-30 22:18 | disposition home or self-care (01) ==
LOC: ED 16:03
DX: K62.5 Hemorrhage of anus and rectum (principal); K64.9 Unspecified hemorrhoids; I10 Essential (primary) hypertension; E11.9 Type 2 diabetes mellitus without complications; K21.9 Gastro-esophageal reflux disease without esophagitis; M19.90 Unspecified osteoarthritis, unspecified site; Z98.890 Other specified postprocedural states; Z88.0 Allergy status to penicillin; Z88.2 Allergy status to sulfonamides; Z79.899 Other long term (current) drug therapy
CPT/HCPCS: 36415; 74177; 80048; 80076; 81001; 82140; 85025; 85027; 85610; 85730; 86850; 86900; 86901; 96374; 99284; J2060; Q9967

== ENCOUNTER 2020-07-01 21:19 | Emergency (ER) | payer MEDICARE ==
--- NOTE | 2020-07-01 22:34 | XRay Report ---
CHEST 2 VIEWS INDICATION / CLINICAL INFORMATION: Chest Pain. COMPARISON: 05/15/2020, 03/27/2020 FINDINGS: SUPPORT DEVICES: None. HEART / MEDIASTINUM: No significant abnormality. LUNGS / PLEURA: No significant pulmonary or pleural abnormality. No pneumothorax. ADDITIONAL FINDINGS: No significant additional findings. IMPRESSION: 1. No acute findings. No interval change. Signer Name: Chayo Sabillon MD Signed: 07/01/2020 10:30 PM Workstation Name: [id number]
[2020-07-01 22:43] LABS: Mean Corpuscular HGB Conc 31 % (30-34); Platelet Count 252 K/mm3 (140-440); Red Blood Count 5.87 M/mm3 (3.65-5.03); Red Cell Distribution Width 16.1 % (13.2-15.2)
[2020-07-01 22:47] LABS: Blood Urea Nitrogen 9 mg/dL (7-17); Calcium 9.6 mg/dL (8.4-10.2); Hemolysis Index 7
[2020-07-01 22:49] LABS: BUN/Creatinine Ratio 13
[2020-07-01 22:54] LABS: Hematocrit 37.7 % (30.3-42.9); Hemoglobin 11.5 gm/dl (10.1-14.3); Mean Corpuscular Volume 64 fl (79-97)
--- NOTE | 2020-07-02 00:39 | Emergency Department Report ---
ED Chest Pain HPI - General Chief Complaint: Chest Pain Stated Complaint: CHEST PAIN PUI?: No Time Seen by Provider: 07/02/20 00:22 Source: patient Mode of arrival: Ambulatory Limitations: No Limitations - History of Present Illness Initial Comments: CC: "I think it is my GERD this time." HPI: Mrs. Sams is a 64 yo female with hx of DM, GERD, arthritis, HTN, atrial fibrillation, gout who presents with chest burning after eating fried chicken. No associated dyspnea, vomiting, or sweats. Mild chest burning. No radiation. No hx of CT or known CAD. She takes Xarelto for anticoagulation. She is followed by [facility]. MD Complaint: chest pain -: Gradual, This afternoon, This evening Onset: during rest Pain Location: left chest Pain Radiation: none Severity: mild Quality: other ("burning") Improves With: nothing Worsens With: eating - Related Data Home Medications Medication Instructions Recorded Confirmed Last Taken amLODIPine [Norvasc] 5 mg PO DAILY 01/18/14 03/27/20 03/26/20 metFORMIN [Glucophage] 1,000 mg PO BID 10/21/15 03/27/20 03/26/20 AtorvaSTATin [Lipitor] 20 mg PO QHS 03/27/20 03/27/20 03/26/20 Famotidine [Pepcid] 20 mg PO BID 03/27/20 03/27/20 03/26/20 Ferrous Sulfate [Iron 325 MG] 325 mg PO QDAY 03/27/20 03/27/20 03/26/20 Gabapentin 300 mg PO TID 03/27/20 03/27/20 03/26/20 Rivaroxaban [Xarelto] 20 mg PO QDAY 03/27/20 03/27/20 03/26/20 allopurinoL [Zyloprim] 200 mg PO QDAY 03/27/20 03/27/20 03/26/20 methIMAzole [Tapazole] 10 mg PO Q8H 03/27/20 03/27/20 Unknown propranoloL [Inderal] 40 mg PO Q12H 03/27/20 03/27/20 03/26/20 Previous Rx's Medication Instructions Recorded Last Taken Type Fluticasone [Flonase] 1 spray NS QDAY #1 bottle 02/11/20 03/26/20 Rx Loratadine [Claritin] 10 mg PO DAILY #30 tablet 02/11/20 03/26/20 Rx traMADoL [Ultram 50 MG tab] 50 mg PO Q6HR PRN #10 tablet 03/27/20 Unknown Rx Hydrocortisone [Anusol-Hc 2.5% TOP 1 applic RC TID #1 tube 04/30/20 Unknown Rx CREAM] Allergies Allergy/AdvReac Type Severity Reaction Status Date / Time Penicillins Allergy Rash Verified 05/15/20 10:28 Sulfa (Sulfonamide Allergy Rash Verified 05/15/20 10:28 Antibiotics) Heart Score - HEART Score History: Slightly suspicious EKG: Non-specific Age: 45-65 Risk factors: 1-2 risk factors Troponin: < normal limit HEART Score: 3 ED Review of Systems ROS: Stated complaint: CHEST PAIN Other details as noted in HPI Comment: All other systems reviewed and negative Constitutional: denies: fever, malaise Respiratory: denies: cough Cardiovascular: chest pain Gastrointestinal: denies: abdominal pain, nausea, vomiting ED Past Medical Hx - Past Medical History Previous Medical History?: Yes Hx Hypertension: Yes Hx Diabetes: Yes Hx GERD: Yes Hx Arthritis: Yes Additional medical history: Bronchitis, Afib, gout, Thyroid - Surgical History Past Surgical History?: Yes Hx Breast Surgery: Yes (left breast) Additional Surgical History: colon surg - diverticulitis, lumps removed from left breast - Social History Smoking Status: Former Smoker Substance Use Type: None - Medications Home Medications: Home Medications Medication Instructions Recorded Confirmed Last Taken Type amLODIPine [Norvasc] 5 mg PO DAILY 01/18/14 03/27/20 03/26/20 History metFORMIN [Glucophage] 1,000 mg PO BID 10/21/15 03/27/20 03/26/20 History Fluticasone [Flonase] 1 spray NS QDAY #1 bottle 02/11/20 03/27/20 03/26/20 Rx Loratadine [Claritin] 10 mg PO DAILY #30 tablet 02/11/20 03/27/20 03/26/20 Rx AtorvaSTATin [Lipitor] 20 mg PO QHS 03/27/20 03/27/20 03/26/20 History Famotidine [Pepcid] 20 mg PO BID 03/27/20 03/27/20 03/26/20 History Ferrous Sulfate [Iron 325 MG] 325 mg PO QDAY 03/27/20 03/27/20 03/26/20 History Gabapentin 300 mg PO TID 03/27/20 03/27/20 03/26/20 History Rivaroxaban [Xarelto] 20 mg PO QDAY 03/27/20 03/27/20 03/26/20 History allopurinoL [Zyloprim] 200 mg PO QDAY 03/27/20 03/27/20 03/26/20 History methIMAzole [Tapazole] 10 mg PO Q8H 03/27/20 03/27/20 Unknown History propranoloL [Inderal] 40 mg PO Q12H 03/27/20 03/27/20 03/26/20 History traMADoL [Ultram 50 MG tab] 50 mg PO Q6HR PRN #10 tablet 03/27/20 Unknown Rx Hydrocortisone [Anusol-Hc 2.5% TOP 1 applic RC TID #1 tube 04/30/20 Unknown Rx CREAM] ED Physical Exam - General Limitations: No Limitations General appearance: alert, in no apparent distress, other (calm, comfortable, smiling pleasant) - Head Head exam: Present: atraumatic, normocephalic - Eye Eye exam: Present: normal appearance - ENT ENT exam: Present: mucous membranes moist - Neck Neck exam: Present: normal inspection - Respiratory Respiratory exam: Present: normal lung sounds bilaterally. Absent: respiratory distress, wheezes, rales, rhonchi - Cardiovascular Cardiovascular Exam: Present: regular rate, normal rhythm, normal heart sounds. Absent: systolic murmur, diastolic murmur, rubs, gallop - GI/Abdominal GI/Abdominal exam: Present: soft, normal bowel sounds. Absent: distended, tenderness, guarding, rebound - Extremities Exam Extremities exam: Present: normal inspection - Neurological Exam Neurological exam: Present: alert, oriented X3 - Psychiatric Psychiatric exam: Present: normal affect, normal mood - Skin Skin exam: Present: warm, dry, intact, normal color. Absent: rash ED Course Vital Signs 07/01/20 21:52 Temperature 98.0 F Pulse Rate 64 Respiratory 20 Rate Blood Pressure 160/60 O2 Sat by Pulse 98 Oximetry OLYA score - Olya Score Age > 65: (0) No Aspirin use within the Past 7 Days: (1) Yes 3 or more CAD Risk Factors: (0) No 2 or more Angina events in past 24 hrs: (0) No Known CAD with more than 50% Stenosis: (0) No Elevated Cardiac Markers: (0) No ST Deviation Greater than 0.5mm: (0) No OLYA Score: 1 ED Medical Decision Making - Lab Data Result diagrams: 07/01/20 22:02 07/01/20 22:02 Laboratory Results - last 24 hr 07/01/20 07/01/20 22:02 22:02 WBC 10.0 RBC 5.87 H Hgb 11.5 Hct 37.7 MCV 64 L MCH 20 L MCHC 31 RDW 16.1 H Plt Count 252 Sodium 140 Potassium 3.8 Chloride 104.3 Carbon Dioxide 22 Anion Gap 18 BUN 9 Creatinine 0.7 Estimated GFR > 60 BUN/Creatinine Ratio 13 Glucose 162 H Calcium 9.6 Troponin T < 0.010 - EKG Data -: EKG Interpreted by Me EKG shows normal: sinus rhythm, axis, intervals, QRS complexes, ST-T waves Rate: normal - EKG Data When compared to previous EKG there are: other (Only change noted, patient rhythm on previous EKG 06/10/2020 atrial fibrillation) - Radiology Data Radiology results: report reviewed cxr: no acute findings - Medical Decision Making Chest pain attributed to heartburn, dyspepsia and GERD. Atypical for ACS. Normal EKG. Patient has had full cardiac work-up here and outside hospital. M ost recently October at [facility] with new onset atrial fibrillation. Heart score 3. Patient received Tylenol and antacid. She has mild chest burn sensation at rest without association with exertion. Discharged home Critical care attestation.: If time is entered above; I have spent that time in minutes in the direct care of this critically ill patient, excluding procedure time. ED Disposition Clinical Impression: Chest pain, GERD (gastroesophageal reflux disease) Disposition: DC-01 TO HOME OR SELFCARE Is pt being admited?: No Does the pt Need Aspirin: No Condition: Stable Instructions: Chest Pain (ED) Referrals: PRIMARY CARE, [Primary Care Provider] - 3-5 Days
[2020-07-02] MEDS ORDERED: ACETAMINOPHEN 500 MG TAB PO ONE (00:43)
[2020-07-02] MEDS ORDERED: ALUM-MAG HYDROXIDE-SIMETHICONE 200-200-20MG/5ML ORAL LIQD 30 ML PO ONE (00:43)
[2020-07-02 01:25] VITALS: BP 156/78
[2020-07-02 05:30] LABS: Band Neutrophils # (Manual) 0.1 K/mm3; Basophils % (Manual) 0 % (0.0-1.8); Total Cells Counted 100
[2020-07-02 05:31] LABS: Anisocytosis 1+; Hypochromasia 1+; Platelet Estimate Consistent w Auto
== END 2020-07-02 01:27 | disposition home or self-care (01) ==
LOC: ED 21:19
DX: R07.89 Other chest pain (principal); K21.9 Gastro-esophageal reflux disease without esophagitis; I10 Essential (primary) hypertension; E11.9 Type 2 diabetes mellitus without complications; M19.90 Unspecified osteoarthritis, unspecified site; Z98.890 Other specified postprocedural states; Z87.891 Personal history of nicotine dependence; Z79.899 Other long term (current) drug therapy; Z88.0 Allergy status to penicillin; Z88.2 Allergy status to sulfonamides
CPT/HCPCS: 36415; 71046; 80048; 84484; 85007; 85025; 93005

== ENCOUNTER 2020-07-12 09:13 | Observation (INO) | payer MEDICARE ==
--- NOTE | 2020-07-12 09:41 | Emergency Department Report ---
ED Chest Pain HPI - General Chief Complaint: Chest Pain Stated Complaint: CHEST PAIN Time Seen by Provider: 07/12/20 09:38 Source: EMS Mode of arrival: Stretcher Limitations: No Limitations - History of Present Illness Initial Comments: This is a 64-year-old female who presents for evaluation of chest discomfort. At approximately 8:00 this morning she began experiencing chest tightness, pressure and burning in her substernal region of her chest. It was nonpleuritic and nonradiating. She states that she has experienced this problem before and it is usually attributed to "atrial fibrillation or reflux". She neglected to mention to me that she was seen here on 07/02/2024 postprandial chest discomfort which was attributed to GERD. She states that she has had a stress test as an outpatient about a year ago she believes. Review of her prior medical records does indicate that she had a nuclear perfusion test in 2015 here which was negative. She is not a smoker. However she has history of diabetes and hypertension. She reports no significant family history of coronary artery disease. Patient does state that her chest pressure is mildly ongoing. She states that it was worse earlier associated with nausea and dyspnea. She is not short of breath at this time. She has not been coughing. She has had no recent travel. MD Complaint: chest pain -: Gradual Onset: during rest Pain Location: substernal Severity: moderate Quality: pressure Consistency: other (Mildly persistent) Improves With: nothing Worsens With: nothing re: nausea, dyspnea Other Symptoms: denies: cough, fever, syncope Treatments Prior to Arrival: none - Related Data Home Medications Medication Instructions Recorded Confirmed Last Taken amLODIPine [Norvasc] 5 mg PO DAILY 01/18/14 03/27/20 03/26/20 metFORMIN [Glucophage] 1,000 mg PO BID 10/21/15 03/27/20 03/26/20 AtorvaSTATin [Lipitor] 20 mg PO QHS 03/27/20 03/27/20 03/26/20 Famotidine [Pepcid] 20 mg PO BID 03/27/20 03/27/20 03/26/20 Ferrous Sulfate [Iron 325 MG] 325 mg PO QDAY 03/27/20 03/27/20 03/26/20 Gabapentin 300 mg PO TID 03/27/20 03/27/20 03/26/20 Rivaroxaban [Xarelto] 20 mg PO QDAY 03/27/20 03/27/20 03/26/20 allopurinoL [Zyloprim] 200 mg PO QDAY 03/27/20 03/27/20 03/26/20 methIMAzole [Tapazole] 10 mg PO Q8H 03/27/20 03/27/20 Unknown propranoloL [Inderal] 40 mg PO Q12H 03/27/20 03/27/20 03/26/20 Previous Rx's Medication Instructions Recorded Last Taken Type Fluticasone [Flonase] 1 spray NS QDAY #1 bottle 02/11/20 03/26/20 Rx Loratadine [Claritin] 10 mg PO DAILY #30 tablet 02/11/20 03/26/20 Rx traMADoL [Ultram 50 MG tab] 50 mg PO Q6HR PRN #10 tablet 03/27/20 Unknown Rx Hydrocortisone [Anusol-Hc 2.5% TOP 1 applic RC TID #1 tube 04/30/20 Unknown Rx CREAM] Allergies Allergy/AdvReac Type Severity Reaction Status Date / Time Penicillins Allergy Rash Verified 05/15/20 10:28 Sulfa (Sulfonamide Allergy Rash Verified 05/15/20 10:28 Antibiotics) Heart Score - HEART Score History: Moderately suspicious EKG: Normal Age: 45-65 Risk factors: > 3 risk factors or hx of atherosclerotic disease Troponin: < normal limit HEART Score: 4 - Critical Actions Critical Actions: 0-3 pts:0.9-1.7%risk of adverse cardiac event.Candidate for discharge ED Review of Systems ROS: Stated complaint: CHEST PAIN Other details as noted in HPI Constitutional: denies: chills, fever Eyes: denies: eye pain, eye discharge, vision change ENT: denies: ear pain, throat pain Respiratory: shortness of breath. denies: cough, wheezing Cardiovascular: chest pain. denies: palpitations Endocrine: no symptoms reported Gastrointestinal: nausea. denies: abdominal pain, diarrhea Genitourinary: denies: urgency, dysuria, discharge Musculoskeletal: denies: back pain, joint swelling, arthralgia Skin: denies: rash, lesions Neurological: denies: headache, weakness, paresthesias Psychiatric: denies: anxiety, depression Hematological/Lymphatic: denies: easy bleeding, easy bruising ED Past Medical Hx - Past Medical History Previous Medical History?: Yes Hx Hypertension: Yes Hx Diabetes: Yes Hx GERD: Yes Hx Arthritis: Yes Additional medical history: Bronchitis, Afib, gout, Thyroid - Surgical History Past Surgical History?: Yes Hx Breast Surgery: Yes (left breast) Additional Surgical History: colon surg - diverticulitis, lumps removed from left breast - Social History Smoking Status: Unknown if ever smoked Substance Use Type: None - Medications Home Medications: Home Medications Medication Instructions Recorded Confirmed Last Taken Type amLODIPine [Norvasc] 5 mg PO DAILY 01/18/14 03/27/20 03/26/20 History metFORMIN [Glucophage] 1,000 mg PO BID 10/21/15 03/27/20 03/26/20 History Fluticasone [Flonase] 1 spray NS QDAY #1 bottle 02/11/20 03/27/20 03/26/20 Rx Loratadine [Claritin] 10 mg PO DAILY #30 tablet 02/11/20 03/27/20 03/26/20 Rx AtorvaSTATin [Lipitor] 20 mg PO QHS 03/27/20 03/27/20 03/26/20 History Famotidine [Pepcid] 20 mg PO BID 03/27/20 03/27/20 03/26/20 History Ferrous Sulfate [Iron 325 MG] 325 mg PO QDAY 03/27/20 03/27/20 03/26/20 History Gabapentin 300 mg PO TID 03/27/20 03/27/20 03/26/20 History Rivaroxaban [Xarelto] 20 mg PO QDAY 03/27/20 03/27/20 03/26/20 History allopurinoL [Zyloprim] 200 mg PO QDAY 03/27/20 03/27/20 03/26/20 History methIMAzole [Tapazole] 10 mg PO Q8H 03/27/20 03/27/20 Unknown History propranoloL [Inderal] 40 mg PO Q12H 03/27/20 03/27/20 03/26/20 History traMADoL [Ultram 50 MG tab] 50 mg PO Q6HR PRN #10 tablet 03/27/20 Unknown Rx Hydrocortisone [Anusol-Hc 2.5% TOP 1 applic RC TID #1 tube 04/30/20 Unknown Rx CREAM] ED Physical Exam - General Limitations: No Limitations General appearance: alert, in no apparent distress - Head Head exam: Present: atraumatic, normocephalic - Eye Eye exam: Present: normal appearance - ENT ENT exam: Present: mucous membranes moist - Neck Neck exam: Present: normal inspection - Respiratory Respiratory exam: Present: normal lung sounds bilaterally. Absent: respiratory distress - Cardiovascular Cardiovascular Exam: Present: regular rate, normal rhythm. Absent: systolic murmur, diastolic murmur, rubs, gallop - GI/Abdominal GI/Abdominal exam: Present: soft, normal bowel sounds. Absent: distended, tenderness, guarding, rebound, rigid - Extremities Exam Extremities exam: Present: normal inspection. Absent: calf tenderness - Back Exam Back exam: Present: normal inspection - Neurological Exam Neurological exam: Present: alert, oriented X3, CN II-XII intact. Absent: motor sensory deficit - Psychiatric Psychiatric exam: Present: normal affect, normal mood - Skin Skin exam: Present: warm, dry, intact, normal color. Absent: rash ED Course Vital Signs 07/12/20 07/12/20 09:31 11:47 Temperature 98.8 F 98 F Pulse Rate 62 60 Respiratory 22 16 Rate Blood Pressure 190/80 Blood Pressure 188/87 [Right] O2 Sat by Pulse 98 99 Oximetry - Reevaluation(s) Reevaluation #1: Discussed with hospitalist admit for further evaluation and care. 07/12/20 11:58 OLYA score - Olya Score Age > 65: (0) No Aspirin use within the Past 7 Days: (1) Yes 3 or more CAD Risk Factors: (0) No 2 or more Angina events in past 24 hrs: (0) No Known CAD with more than 50% Stenosis: (0) No Elevated Cardiac Markers: (0) No ST Deviation Greater than 0.5mm: (0) No OLYA Score: 1 ED Medical Decision Making - Lab Data Result diagrams: 07/12/20 09:52 07/12/20 09:52 Laboratory Results - last 24 hr 07/12/20 07/12/20 07/12/20 09:52 09:52 09:52 WBC 5.5 RBC 6.09 H Hgb 12.1 Hct 38.8 MCV 64 L MCH 20 L MCHC 31 RDW 17.7 H Plt Count 202 Lymph % (Auto) Check Clerk Seg Neutrophils % Check Clerk PT 19.1 H INR 1.57 H APTT 37.2 H Sodium 142 Potassium 4.3 Chloride 105.3 Carbon Dioxide 26 Anion Gap 15 BUN 7 Creatinine 0.8 Estimated GFR > 60 BUN/Creatinine Ratio 9 Glucose 114 H Calcium 9.4 Total Bilirubin Direct Bilirubin Indirect Bilirubin AST ALT Alkaline Phosphatase Total Creatine Kinase CK-MB (CK-2) CK-MB (CK-2) Rel Index Troponin T < 0.010 NT-Pro-B Natriuret Pep Total Protein Albumin Albumin/Globulin Ratio 07/12/ 09:52 WBC RBC Hgb Hct MCV MCH MCHC RDW Plt Count Lymph % (Auto) Seg Neutrophils % PT INR APTT Sodium Potassium Chloride Carbon Dioxide Anion Gap BUN Creatinine Estimated GFR BUN/Creatinine Ratio Glucose Calcium Total Bilirubin 0.20 Direct Bilirubin < 0.2 Indirect Bilirubin 0.0 AST 14 ALT 8 Alkaline Phosphatase 79 Total Creatine Kinase 34 CK-MB (CK-2) < 1.0 CK-MB (CK-2) Rel Index 2.9 Troponin T NT-Pro-B Natriuret Pep 483.0 Total Protein 7.6 Albumin 4.1 Albumin/Globulin Ratio 1.2 - EKG Data -: EKG Interpreted by Mt EKG shows normal: sinus rhythm, axis, intervals, QRS complexes, ST-T waves Rate: normal - EKG Data Interpretation: no acute changes - Radiology Data Radiology results: report reviewed (No acute process) Critical Care Time: No Critical care attestation.: If time is entered above; I have spent that time in minutes in the direct care of this critically ill patient, excluding procedure time. 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
--- NOTE | 2020-07-12 10:32 | XRay Report ---
CHEST 1 VIEW 07/12/2020 9:20 AM INDICATION / CLINICAL INFORMATION: Chest Pain. COMPARISON: 07/01/20 FINDINGS: SUPPORT DEVICES: None. HEART / MEDIASTINUM: Heart is upper normal size and stable. LUNGS / PLEURA: No significant pulmonary or pleural abnormality. No pneumothorax. ADDITIONAL FINDINGS: No significant additional findings. IMPRESSION: 1. No acute findings. No change. Signer Name: Andre Bob MD Signed: 07/12/2020 10:28 AM Workstation Name: [email or web address]
[2020-07-12 10:45] LABS: Hematocrit 38.8 % (30.3-42.9); Hemoglobin 12.1 gm/dl (10.1-14.3); Mean Corpuscular HGB Conc 31 % (30-34); Mean Corpuscular Volume 64 fl (79-97); Platelet Count 202 K/mm3 (140-440); Red Blood Count 6.09 M/mm3 (3.65-5.03); Red Cell Distribution Width 17.7 % (13.2-15.2)
[2020-07-12 10:47] LABS: BUN/Creatinine Ratio 9; Blood Urea Nitrogen 7 mg/dL (7-17); Calcium 9.4 mg/dL (8.4-10.2); Hemolysis Index 5
[2020-07-12 10:49] LABS: Alanine Aminotransferase 8 units/L (7-56); Albumin 4.1 g/dL (3.9-5); INR 1.57 (0.87-1.13)
[2020-07-12 10:50] LABS: Partial Thromboplastin Time 37.2 Sec. (24.2-36.6)
[2020-07-12 10:51] LABS: Bilirubin,Direct < 0.2 mg/dL (0-0.2); Creatine Kinase MB < 1.0 ng/mL (0.0-4.0)
[2020-07-12] MEDS ORDERED: NITROGLYCERIN 2% OINT 1 GM TP ONE ×2 (11:59→12:21)
[2020-07-12] MEDS ORDERED: ASPIRIN 325 MG TAB PO ONE (11:59)
[2020-07-12 12:05] LABS: Anisocytosis 1+; Basophils % (Manual) 0 % (0.0-1.8); Hypochromasia 2+; Total Cells Counted 100
[2020-07-12 12:06] LABS: Platelet Estimate Cons; Poikilocytosis 1+; Target Cells Few; Tear Drop Cells Few
--- NOTE | 2020-07-12 12:21 | History and Physical Report ---
History of Present Illness Date of examination: 07/12/20 Date of admission: 07/12/20 Chief complaint: Chest pain History of present illness: Patient is a 64-year-old female who presents for evaluation of chest discomfort. While she reports that this has been going on for about 48hrs she reports that following her cup of cough this am at approximately 8:00 this morning she began experiencing chest tightness, pressure and burning in her substernal region of her chest. It was nonpleuritic and nonradiating 7/10 in intensity. She states that she has experienced this problem before and it is usually attributed to "atrial fibrillation or reflux". Per ED review She neglected to mention to me that she was seen here on 07/02/2024 postprandial chest discomfort which was attributed to GERD. She states that she has had a stress test as an outpatient about a year ago she believes. Review of her prior medical records does indicate that she had a nuclear perfusion test in 2015 here which was negative. She is not a smoker. However she has history of diabetes and hypertension. She reports no significant family history of coronary artery disease. Patient does state that her chest pressure is mildly ongoing. She states that it was worse earlier associated with nausea and dyspnea. She is not short of breath at this time. She has not been coughing. She has had no recent travel. Past History Past Medical History: atrial fib, diabetes Past Surgical History: No surgical history Social history: no significant social history, full code Family history: no significant family history Medications and Allergies Allergies Allergy/AdvReac Type Severity Reaction Status Date / Time Penicillins Allergy Rash Verified 05/15/20 10:28 Sulfa (Sulfonamide Allergy Rash Verified 05/15/20 10:28 Antibiotics) Home Medications Medication Instructions Recorded Confirmed Last Taken Type amLODIPine [Norvasc] 5 mg PO BID 01/18/14 07/12/20 07/11/20 History metFORMIN [Glucophage] 1,000 mg PO BID 10/21/15 07/12/20 07/11/20 History Fluticasone [Flonase] 1 spray NS QDAY #1 bottle 02/11/20 07/12/20 03/26/20 Rx Loratadine [Claritin] 10 mg PO DAILY #30 tablet 02/11/20 07/12/20 07/11/20 Rx AtorvaSTATin [Lipitor] 20 mg PO QHS 03/27/20 07/12/20 07/11/20 History Ferrous Sulfate [Iron 325 MG] 325 mg PO BID 03/27/20 07/12/20 07/11/20 History Gabapentin 300 mg PO TID 03/27/20 07/12/20 07/11/20 History Rivaroxaban [Xarelto] 20 mg PO QDAY 03/27/20 07/12/20 07/11/20 History allopurinoL [Zyloprim] 200 mg PO QDAY 03/27/20 07/12/20 07/11/20 History methIMAzole [Tapazole] 5 mg PO QDAY 03/27/20 07/12/20 07/11/20 History propranoloL [Inderal] 40 mg PO Q12H 03/27/20 07/12/20 07/11/20 History traMADoL [Ultram 50 MG tab] 50 mg PO Q6HR PRN #10 tablet 03/27/20 07/12/20 Unknown Rx Hydrocortisone [Anusol-Hc 2.5% TOP 1 applic RC TID #1 tube 04/30/20 07/12/20 Unknown Rx CREAM] ALBUTEROL NEB's 108 puff Q6H PRN 07/12/20 07/12/20 Unknown History Cetirizine HCl [Cetirizine 10mg 10 mg PO QDAY 07/12/20 07/12/20 07/11/20 History chew] Diclofenac 1% 4 gm TP BID 07/12/20 07/12/20 Unknown History Esomeprazole Magnesium [NexIUM] 40 mg PO QAC 07/12/20 07/12/20 07/11/20 History Hydrocortisone 2.5% 2.5 1000units TP TID 07/12/20 07/12/20 Unknown History Mupirocin [Bactroban 2% OINT] 2 gm TP BID 07/12/20 07/12/20 07/11/20 History Omeprazole 40 mg PO QDAY 07/12/20 07/12/20 07/11/20 History lisinopriL [Zestril TAB] 10 mg PO QDAY 07/12/20 07/12/20 07/11/20 History Active Meds: Active Medications Acetaminophen (Tylenol) 650 mg PO Q4H PRN PRN Reason: Pain MILD(1-3)/Fever >100.5/CALLEJAS Al Hydrox/Mg Hydrox/Simethicone (Alum-Mag Hydrox-Simeth 105-155-97ie/5ml) 30 ml PO Q4H PRN PRN Reason: Indigestion Albuterol (Proventil) 2.5 mg IH Q3HRT PRN PRN Reason: Shortness Of Breath Allopurinol (Zyloprim) 200 mg PO QDAY [facility] Amlodipine Besylate (Amlodipine) 5 mg PO DAILY [facility] Aspirin (Baby Aspirin) 81 mg PO QDAY [facility] Atorvastatin Calcium (Lipitor) 20 mg PO QHS [facility] Budesonide (Pulmicort) 0.5 mg IH Q12HRT [facility] Famotidine (Pepcid) 20 mg PO BID [facility] Ferrous Sulfate (Feosol) 325 mg PO QDAY [facility] Fluticasone Propionate (Flonase) 50 mcg NS QDAY [facility] Gabapentin (Gabapentin) 300 mg PO TID [facility] Methimazole (Tapazole) 10 mg PO Q8H [facility] Miscellaneous Medication (Loratadine [Claritin]) 10 mg PO DAILY [facility] Morphine Sulfate (Morphine) 2 mg IV Q4H PRN PRN Reason: Pain, Moderate (4-6) Morphine Sulfate (Morphine) 4 mg IV Q4H PRN PRN Reason: Pain , Severe (7-10) Naloxone HCl (Naloxone) 0.1 mg IV Q2MIN PRN PRN Reason: Res Rate </= 8 or 02 SAT < 92% Ondansetron HCl (Zofran) 4 mg IV Q8H PRN PRN Reason: Nausea And Vomiting Propranolol HCl (Inderal) 40 mg PO Q12H [facility] Rivaroxaban (Xarelto) 20 mg PO QDAY [facility]; Protocol Sodium Chloride (Sodium Chloride Flush Syringe 10 Ml) 10 ml IV BID [facility] Sodium Chloride (Sodium Chloride Flush Syringe 10 Ml) 10 ml IV PRN PRN PRN Reason: LINE FLUSH Sodium Chloride (Sodium Chloride Flush Syringe 10 Ml) 10 ml IV PRN PRN PRN Reason: LINE FLUSH Tramadol HCl (Ultram) 50 mg PO Q6HR PRN PRN Reason: PAIN Review of Systems All systems: negative Cardiovascular: chest pain, palpitations, rapid/irregular heart beat Gastrointestinal: no abdominal pain, no nausea, no vomiting, no diarrhea, no constipation, no hematemesis, no hematochezia, no early satiety, no heartburn Musculoskeletal: no neck pain, no arm numbness/tingling, no shooting leg pain, no morning stiffness, no muscle cramps Integumentary: no pruritis, no sores, no jaundice, no lesions, no depigmentation, no dryness Neurological: no weakness, no tingling, no syncope, no headaches, no change in speech, no confusion, no double vision Psychiatric: no memory loss, no insomnia, no change in appetite, no change in libido, no hopelessness, no anxiety attacks, no confusion Endocrine: no heat intolerance, no polydipsia, no polyuria, no deepening of the voice, no high blood sugars Hematologic/Lymphatic: no easy bruising Exam - Constitutional Vitals: Temp Pulse Resp BP Pulse Ox 98 F 60 16 188/87 99 07/12/20 11:47 07/12/20 11:47 07/12/20 11:47 07/12/20 11:47 07/12/20 11:47 General appearance: Present: no acute distress, well-nourished - EENT Eyes: Present: PERRL, EOM intact ENT: hearing intact - Neck Neck: Present: supple, normal ROM - Respiratory Respiratory effort: normal Respiratory: bilateral: CTA - Cardiovascular Rhythm: regular Heart Sounds: Present: S1 & S2. Absent: systolic murmur - Extremities Extremities: no ischemia, pulses intact, No edema, normal temperature, Full ROM Peripheral Pulses: within normal limits - Abdominal General gastrointestinal: Present: soft, non-tender, non-distended - Integumentary Integumentary: Present: clear (tender on palpation on the mid sternum), warm - Musculoskeletal Musculoskeletal: strength equal bilaterally - Psychiatric Psychiatric: appropriate mood/affect, intact judgment & insight, memory intact, cooperative - Neurologic Neurologic: CNII-XII intact, moves all extremities - Allied Health Allied health notes reviewed: nursing HEART Score - HEART Score EKG: Normal Age: 45-65 Risk factors: > 3 risk factors or hx of atherosclerotic disease Troponin: Troponin T < 0.010 ng/mL (0.00-0.029) 07/12/20 09:52 Troponin: < normal limit - Critical Actions Critical Actions: 0-3 pts:0.9-1.7%risk of adverse cardiac event.Candidate for discharge Results - Labs CBC & Chem 7: 07/12/20 16:14 07/12/20 16:14 Labs: Laboratory Last Values WBC 5.5 K/mm3 (4.5-11.0) 07/12/20 09:52 RBC 6.09 M/mm3 (3.65-5.03) H 07/12/20 09:52 Hgb 12.1 gm/dl (10.1-14.3) 07/12/20 09:52 Hct 38.8 % (30.3-42.9) 07/12/20 09:52 MCV 64 fl (79-97) L 07/12/20 09:52 MCH 20 pg (28-32) L 07/12/20 09:52 MCHC 31 % (30-34) 07/12/20 09:52 RDW 17.7 % (13.2-15.2) H 07/12/20 09:52 Plt Count 202 K/mm3 (140-440) 07/12/20 09:52 Lymph % (Auto) Rn Gastroenterology 07/12/20 09:52 Add Manual Diff Complete 07/12/20 09:52 Total Counted 100 07/12/20 09:52 Seg Neutrophils % Rn Gastroenterology 07/12/20 09:52 Seg Neuts % (Manual) 61.0 % (40.0-70.0) 07/12/20 09:52 Band Neutrophils % 0 % 07/12/20 09:52 Lymphocytes % (Manual) 33.0 % (13.4-35.0) 07/12/20 09:52 Reactive Lymphs % (Man) 1.0 % 07/12/20 09:52 Monocytes % (Manual) 4.0 % (0.0-7.3) 07/12/20 09:52 Eosinophils % (Manual) 1.0 % (0.0-4.3) 07/12/20 09:52 Basophils % (Manual) 0 % (0.0-1.8) 07/12/20 09:52 Metamyelocytes % 0 % 07/12/20 09:52 Myelocytes % 0 % 07/12/20 09:52 Promyelocytes % 0 % 07/12/20 09:52 Blast Cells % 0 % 07/12/20 09:52 Nucleated RBC % Not Reportable 07/12/20 09:52 Seg Neutrophils # Man 3.4 K/mm3 (1.8-7.7) 07/12/20 09:52 Band Neutrophils # 0.0 K/mm3 07/12/20 09:52 Lymphocytes # (Manual) 1.8 K/mm3 (1.2-5.4) 07/12/20 09:52 Abs React Lymphs (Man) 0.1 K/mm3 07/12/20 09:52 Monocytes # (Manual) 0.2 K/mm3 (0.0-0.8) 07/12/20 09:52 Eosinophils # (Manual) 0.1 K/mm3 (0.0-0.4) 07/12/20 09:52 Basophils # (Manual) 0.0 K/mm3 (0.0-0.1) 07/12/20 09:52 Metamyelocytes # 0.0 K/mm3 07/12/20 09:52 Myelocytes # 0.0 K/mm3 07/12/20 09:52 Promyelocytes # 0.0 K/mm3 07/12/20 09:52 Blast Cells # 0.0 K/mm3 07/12/20 09:52 WBC Morphology Not Reportable 07/12/20 09:52 Hypersegmented Neuts Not Reportable 07/12/20 09:52 Hyposegmented Neuts Not Reportable 07/12/20 09:52 Hypogranular Neuts Not Reportable 07/12/20 09:52 Smudge Cells Not Reportable 07/12/20 09:52 Toxic Granulation Not Reportable 07/12/20 09:52 Toxic Vacuolation Not Reportable 07/12/20 09:52 Dohle Bodies Not Reportable 07/12/20 09:52 Pelger-Huet Anomaly Not Reportable 07/12/20 09:52 Christopher Rods Not Reportable 07/12/20 09:52 Platelet Estimate Cons 07/12/20 09:52 Clumped Platelets Not Reportable 07/12/20 09:52 Plt Clumps, EDTA Not Reportable 07/12/20 09:52 Large Platelets Not Reportable 07/12/20 09:52 Giant Platelets Not Reportable 07/12/20 09:52 Platelet Satelliting Not Reportable 07/12/20 09:52 Plt Morphology Comment Not Reportable 07/12/20 09:52 RBC Morphology Not Reportable 07/12/20 09:52 Dimorphic RBCs Not Reportable 07/12/20 09:52 Polychromasia Not Reportable 07/12/20 09:52 Hypochromasia 2+ 07/12/20 09:52 Poikilocytosis 1+ 07/12/20 09:52 Anisocytosis 1+ 07/12/20 09:52 Microcytosis 2+ 07/12/20 09:52 Macrocytosis Not Reportable 07/12/20 09:52 Spherocytes Not Reportable 07/12/20 09:52 Pappenheimer Bodies Not Reportable 07/12/20 09:52 Sickle Cells Not Reportable 07/12/20 09:52 Target Cells Few 07/12/20 09:52 Tear Drop Cells Few 07/12/20 09:52 Ovalocytes Not Reportable 07/12/20 09:52 Helmet Cells Not Reportable 07/12/20 09:52 [place] Bodies Not Reportable 07/12/20 09:52 [employer] Rings Not Reportable 07/12/20 09:52 [place] Cells Not Reportable 07/12/20 09:52 Bite Cells Not Reportable 07/12/20 09:52 Crenated Cell Not Reportable 07/12/20 09:52 Elliptocytes Few 07/12/20 09:52 Acanthocytes (Spur) Not Reportable 07/12/20 09:52 Rouleaux Not Reportable 07/12/20 09:52 Hemoglobin C Crystals Not Reportable 07/12/20 09:52 Schistocytes Not Reportable 07/12/20 09:52 Malaria parasites Not Reportable 07/12/20 09:52 Fredi Bodies Not Reportable 07/12/20 09:52 Hem Pathologist Commnt No 07/12/20 09:52 PT 19.1 Sec. (12.2-14.9) H 07/12/20 09:52 INR 1.57 (0.87-1.13) H 07/12/20 09:52 APTT 37.2 Sec. (24.2-36.6) H 07/12/20 09:52 Sodium 142 mmol/L (137-145) 07/12/20 09:52 Potassium 4.3 mmol/L (3.6-5.0) 07/12/20 09:52 Chloride 105.3 mmol/L (98-107) 07/12/20 09:52 Carbon Dioxide 26 mmol/L (22-30) 07/12/20 09:52 Anion Gap 15 mmol/L 07/12/20 09:52 BUN 7 mg/dL (7-17) 07/12/20 09:52 Creatinine 0.8 mg/dL (0.6-1.2) 07/12/20 09:52 Estimated GFR > 60 ml/min 07/12/20 09:52 BUN/Creatinine Ratio 9 % 07/12/20 09:52 Glucose 114 mg/dL (65-100) H 07/12/20 09:52 Calcium 9.4 mg/dL (8.4-10.2) 07/12/20 09:52 Total Bilirubin 0.20 mg/dL (0.1-1.2) 07/12/20 09:52 Direct Bilirubin < 0.2 mg/dL (0-0.2) 07/12/20 09:52 Indirect Bilirubin 0.0 mg/dL 07/12/20 09:52 AST 14 units/L (5-40) 07/12/20 09:52 ALT 8 units/L (7-56) 07/12/20 09:52 Alkaline Phosphatase 79 units/L (35-129) 07/12/20 09:52 Total Creatine Kinase 34 units/L (30-135) 07/12/20 09:52 CK-MB (CK-2) < 1.0 ng/mL (0.0-4.0) 07/12/20 09:52 CK-MB (CK-2) Rel Index 2.9 (0-4) 07/12/20 09:52 Troponin T < 0.010 ng/mL (0.00-0.029) 07/12/20 09:52 NT-Pro-B Natriuret Pep 483.0 pg/mL (0-900) 07/12/20 09:52 Total Protein 7.6 g/dL (6.3-8.2) 07/12/20 09:52 Albumin 4.1 g/dL (3.9-5) 07/12/20 09:52 Albumin/Globulin Ratio 1.2 % 07/12/20 09:52 Assessment and Plan Assessment and plan: 64 Year old female with hx of Atrial fibrillation presenting with chest pain ongoing for about 24-48 hrs. Atypical chest pain ?costochondritis Atrial fibrillation DM Hyperlipiemia HTN Gout Plan Admit to tele Start on chest pain protocol-JAIRO Pain control Glycemic Control AM LABS DVT/GI prophy Plan discussed with the patient. Advance Directives: Yes Plan of care discussed with patient/family: Yes
[2020-07-12] MEDS ORDERED: MORPHINE 2 MG/1 ML INJ IV PRN (13:00)
[2020-07-12] MEDS ORDERED: ONDANSETRON 4 MG/2 ML INJ IV PRN (13:00)
[2020-07-12] MEDS ORDERED: traMADol 50 MG TAB PO PRN (13:00)
[2020-07-12] MEDS ORDERED: NALOXONE 0.4 MG/1 ML INJ IV PRN (13:00)
[2020-07-12] MEDS ORDERED: ALUM-MAG HYDROXIDE-SIMETHICONE 200-200-20MG/5ML ORAL LIQD 30 ML PO PRN (13:00)
[2020-07-12] MEDS ORDERED: ALBUTEROL 2.5 MG/3 ML NEBU IH PRN (13:00)
[2020-07-12] MEDS ORDERED: MORPHINE 4 MG/1 ML INJ IV PRN (13:00)
[2020-07-12] MEDS ORDERED: ACETAMINOPHEN 325 MG TAB PO PRN (13:00)
[2020-07-12] MEDS ORDERED: GABAPENTIN 300 MG CAP ONE (15:13)
[2020-07-12] MEDS: PROPRANOLOL 40 MG TAB PO SCH ×3 (15:16→21:21)
[2020-07-12] MEDS: GABAPENTIN 300 MG CAP PO SCH ×2 (15:16→21:15)
[2020-07-12] MEDS: methIMAzole 5 MG TAB PO SCH ×2 (15:17→21:15)
[2020-07-12 16:54] LABS: Blood Urea Nitrogen 8 mg/dL (7-17); Calcium 9.3 mg/dL (8.4-10.2); Hemolysis Index 13
[2020-07-12 16:56] LABS: BUN/Creatinine Ratio 11
[2020-07-12 17:02] LABS: Hematocrit 39.1 % (30.3-42.9); Hemoglobin 12.2 gm/dl (10.1-14.3); Mean Corpuscular HGB Conc 31 % (30-34); Red Cell Distribution Width 17.6 % (13.2-15.2)
[2020-07-12 17:06] LABS: Mean Corpuscular Volume 63 fl (79-97); Platelet Count 211 K/mm3 (140-440)
[2020-07-12] MEDS ORDERED: RIVAROXABAN 20 MG TAB PO SCH (18:00)
[2020-07-12 18:19] LABS: Anisocytosis 1+; Hypochromasia 1+; Poikilocytosis 1+; Schistocytes Few; Target Cells Few; Tear Drop Cells Few; Total Cells Counted 100
[2020-07-12 18:20] LABS: Platelet Clumps Few
[2020-07-12] MEDS: BUDESONIDE 0.5 MG/2 ML NEBU IH SCH (20:23)
[2020-07-12] MEDS: FAMOTIDINE 20 MG TAB PO SCH (21:17)
[2020-07-12] MEDS ORDERED: FAMOTIDINE 20 MG TAB PO SCH (22:00)
[2020-07-13] MEDS: methIMAzole 5 MG TAB PO SCH ×2 (05:31→13:00)
[2020-07-13] MEDS: GABAPENTIN 300 MG CAP PO SCH ×2 (08:23→13:01)
[2020-07-13] MEDS ORDERED: amLODIPine 5 MG TAB PO SCH (10:00)
[2020-07-13] MEDS ORDERED: LORATADINE 10 MG PO SCH (10:00)
[2020-07-13] MEDS ORDERED: ASPIRIN 81 MG TAB CHEW PO SCH (10:00)
[2020-07-13] MEDS ORDERED: FLUTICASONE PROPIONATE NASAL SPRAY 16 GM NS SCH (10:00)
[2020-07-13] MEDS ORDERED: allopurinoL 100 MG TAB PO SCH (10:00)
[2020-07-13] MEDS ORDERED: CETIRIZINE 10 MG TAB PO SCH (10:00)
[2020-07-13] MEDS ORDERED: FERROUS SULFATE 325 MG TAB PO SCH (10:00)
[2020-07-13] MEDS: BUDESONIDE 0.5 MG/2 ML NEBU IH SCH (10:22)
--- NOTE | 2020-07-13 10:40 | Consultation ---
History of Present Illness Consult date: 07/13/20 Consult reason: chest pain History of present illness: This is a 64-year old F who presents with nausea, abdominal pain and atypical chest pain after consuming a meal. There was no chest pain on exertion. There was no shortness of breath. Denies palpitations. Cycled cardiac isoenzymes were normal and her ECG is normal sinus rhythm. Patient has a cardiac history of paroxysmal atrial fibrillation and is on Xarelto for oral anticoagulation. She is followed by [facility]. There is no history of coronary artery disease. In 2019 she reports having a negative stress test. Co-morbidities includes GERD, Diabetes, Thyroid disease and Hypertension. Past History Past Medical History: atrial fib, diabetes Past Surgical History: No surgical history Social history: no significant social history, full code Family history: no significant family history Medications and Allergies Allergies Allergy/AdvReac Type Severity Reaction Status Date / Time Penicillins Allergy Rash Verified 05/15/20 10:28 Sulfa (Sulfonamide Allergy Rash Verified 05/15/20 10:28 Antibiotics) Home Medications Medication Instructions Recorded Confirmed Last Taken Type amLODIPine [Norvasc] 5 mg PO BID 01/18/14 07/12/20 07/11/20 History metFORMIN [Glucophage] 1,000 mg PO BID 10/21/15 07/12/20 07/11/20 History Fluticasone [Flonase] 1 spray NS QDAY #1 bottle 02/11/20 07/12/20 03/26/20 Rx Loratadine [Claritin] 10 mg PO DAILY #30 tablet 02/11/20 07/12/20 07/11/20 Rx AtorvaSTATin [Lipitor] 20 mg PO QHS 03/27/20 07/12/20 07/11/20 History Ferrous Sulfate [Iron 325 MG] 325 mg PO BID 03/27/20 07/12/20 07/11/20 History Gabapentin 300 mg PO TID 03/27/20 07/12/20 07/11/20 History Rivaroxaban [Xarelto] 20 mg PO QDAY 03/27/20 07/12/20 07/11/20 History allopurinoL [Zyloprim] 200 mg PO QDAY 03/27/20 07/12/20 07/11/20 History methIMAzole [Tapazole] 5 mg PO QDAY 03/27/20 07/12/20 07/11/20 History propranoloL [Inderal] 40 mg PO Q12H 03/27/20 07/12/20 07/11/20 History traMADoL [Ultram 50 MG tab] 50 mg PO Q6HR PRN #10 tablet 03/27/20 07/12/20 Unknown Rx Hydrocortisone [Anusol-Hc 2.5% TOP 1 applic RC TID #1 tube 04/30/20 07/12/20 Unknown Rx CREAM] ALBUTEROL NEB's 108 puff Q6H PRN 07/12/20 07/12/20 Unknown History Cetirizine HCl [Cetirizine 10mg 10 mg PO QDAY 07/12/20 07/12/20 07/11/20 History chew] Diclofenac 1% 4 gm TP BID 07/12/20 07/12/20 Unknown History Esomeprazole Magnesium [NexIUM] 40 mg PO QAC 07/12/20 07/12/20 07/11/20 History Hydrocortisone 2.5% 2.5 1000units TP TID 07/12/20 07/12/20 Unknown History Mupirocin [Bactroban 2% OINT] 2 gm TP BID 07/12/20 07/12/20 07/11/20 History Omeprazole 40 mg PO QDAY 07/12/20 07/12/20 07/11/20 History lisinopriL [Zestril TAB] 10 mg PO QDAY 07/12/20 07/12/20 07/11/20 History Active Meds: Active Medications Acetaminophen (Tylenol) 650 mg PO Q4H PRN PRN Reason: Pain MILD(1-3)/Fever >100.5/CALLEJAS Al Hydrox/Mg Hydrox/Simethicone (Alum-Mag Hydrox-Simeth [phone]/5ml) 30 ml PO Q4H PRN PRN Reason: Indigestion Last Admin: 07/13/20 08:23 Dose: 30 ml Documented by: Albuterol (Proventil) 2.5 mg IH Q3HRT PRN PRN Reason: Shortness Of Breath Allopurinol (Zyloprim) 200 mg PO QDAY [facility] Amlodipine Besylate (Amlodipine) 5 mg PO DAILY [facility] Aspirin (Baby Aspirin) 81 mg PO QDAY [facility] Atorvastatin Calcium (Lipitor) 20 mg PO QHS [facility] Last Admin: 07/12/20 21:15 Dose: 20 mg Documented by: Budesonide (Pulmicort) 0.5 mg IH Q12HRT [facility] Last Admin: 07/13/20 10:22 Dose: 0.5 mg Documented by: Cetirizine HCl (Cetirizine) 10 mg PO DAILY [facility] Famotidine (Pepcid) 20 mg PO BID [facility] Last Admin: 07/12/20 21:17 Dose: 20 mg Documented by: Ferrous Sulfate (Feosol) 325 mg PO QDAY [facility] Fluticasone Propionate (Flonase) 50 mcg NS QDAY [facility] Gabapentin (Gabapentin) 300 mg PO TID [facility] Last Admin: 07/13/20 08:23 Dose: 300 mg Documented by: Methimazole (Tapazole) 10 mg PO Q8HR [facility] Last Admin: 07/13/20 05:31 Dose: 10 mg Documented by: Morphine Sulfate (Morphine) 2 mg IV Q4H PRN PRN Reason: Pain, Moderate (4-6) Morphine Sulfate (Morphine) 4 mg IV Q4H PRN PRN Reason: Pain , Severe (7-10) Naloxone HCl (Naloxone) 0.1 mg IV Q2MIN PRN PRN Reason: Res Rate </= 8 or 02 SAT < 92% Ondansetron HCl (Zofran) 4 mg IV Q8H PRN PRN Reason: Nausea And Vomiting Propranolol HCl (Inderal) 40 mg PO Q12HR [facility] Last Admin: 07/12/20 21:21 Dose: Not Given Documented by: Rivaroxaban (Xarelto) 20 mg PO QPM [facility]; Protocol Last Admin: 07/12/20 17:21 Dose: 20 mg Documented by: Sodium Chloride (Sodium Chloride Flush Syringe 10 Ml) 10 ml IV BID [facility] Last Admin: 07/12/20 21:17 Dose: 10 ml Documented by: Sodium Chloride (Sodium Chloride Flush Syringe 10 Ml) 10 ml IV PRN PRN PRN Reason: LINE FLUSH Sodium Chloride (Sodium Chloride Flush Syringe 10 Ml) 10 ml IV PRN PRN PRN Reason: LINE FLUSH Tramadol HCl (Ultram) 50 mg PO Q6HR PRN PRN Reason: PAIN Last Admin: 07/13/20 08:22 Dose: 50 mg Documented by: Physical Examination Vital Signs Temp Pulse Resp BP Pulse Ox 98.8 F 62 22 190/80 98 07/12/20 09:31 07/12/20 09:31 07/12/20 09:31 07/12/20 09:31 07/12/20 09:31 General appearance: no acute distress HEENT: Positive: PERRL Neck: Positive: trachea midline Cardiac: Positive: Bradycardia Lungs: Positive: Normal Breath Sounds Neuro: Positive: Grossly Intact Extremities: Absent: edema Results 07/12/20 16:14 07/12/20 16:14 Cardiac Enzymes 07/12/20 Range/Units 09:52 AST 14 (5-40) units/L CK-MB (CK-2) < 1.0 (0.0-4.0) ng/mL Coagulation 07/12/20 Range/Units 09:52 PT 19.1 H (12.2-14.9) Sec. INR 1.57 H (0.87-1.13) APTT 37.2 H (24.2-36.6) Sec. CBC 07/12/20 07/12/20 Range/Units 09:52 16:14 WBC 5.5 7.4 (4.5-11.0) K/mm3 RBC 6.09 H 6.20 H (3.65-5.03) M/mm3 Hgb 12.1 12.2 (10.1-14.3) gm/dl Hct 38.8 39.1 (30.3-42.9) % Plt Count 202 211 (140-440) K/mm3 Lymph # [employer] Comprehensive Metabolic Panel 07/12/20 07/12/20 07/12/20 Range/Units 09:52 09:52 16:14 Sodium 142 138 (137-145) mmol/L Potassium 4.3 3.9 (3.6-5.0) mmol/L Chloride 105.3 102.9 (98-107) mmol/L Carbon Dioxide 26 23 (22-30) mmol/L BUN 7 8 (7-17) mg/dL Creatinine 0.8 0.7 (0.6-1.2) mg/dL Glucose 114 H 115 H (65-100) mg/dL Calcium 9.4 9.3 (8.4-10.2) mg/dL Direct Bilirubin < 0.2 (0-0.2) mg/dL Indirect Bilirubin 0.0 mg/dL AST 14 (5-40) units/L ALT 8 (7-56) units/L Alkaline Phosphatase 79 (35-129) units/L Total Protein 7.6 (6.3-8.2) g/dL Albumin 4.1 (3.9-5) g/dL Assessment and Plan Atypical chest pain associated with abdominal pain and nausea pt reports negative stress test at [facility] in 2019 Hx of paroxysmal atrial fibrillation on Xarelto for anticoagulation on propranolol for suppression Diabetes Htn Hyperthyroidism GERD No cardiac work-up indicated for gastroesophageal reflux. Recommend GI consultation.
[2020-07-13 12:11] VITALS: BP 147/63
[2020-07-13] MEDS: FAMOTIDINE 20 MG TAB PO SCH (12:58)
[2020-07-13] MEDS: PROPRANOLOL 40 MG TAB PO SCH (13:03)
--- NOTE | 2020-07-13 13:12 | Discharge Summary ---
Providers - Providers Date of Admission: 07/12/20 12:13 Attending physician: CONCHA ARANGO MD 07/12/20 Consult to Cardiac Rehabilitation [CONS] Routine Reason For Exam: Phase I 07/12/20 12:13 Consult to Physician [CONS] Routine Comment: Consulting Provider: GIOVANA MOISE Physician Instructions: Reason For Exam: chest pain Primary care physician: ARELY WHITEHEAD MD Hospitalization Reason for admission: Atypical chest pain Condition: Stable Hospital course: Patient is a 64-year-old female who presents for evaluation of chest discomfort. While she reports that this has been going on for about 48hrs she reports that following her cup of cough this am at approximately 8:00 this morning she began experiencing chest tightness, pressure and burning in her substernal region of her chest. It was nonpleuritic and nonradiating 7/10 in intensity. She states that she has experienced this problem before and it is usually attributed to "atrial fibrillation or reflux". Per ED review She neglected to mention to me that she was seen here on 07/02/2024 postprandial chest discomfort which was attributed to GERD. She states that she has had a stress test as an outpatient about a year ago she believes. Review of her prior medical records does indicate that she had a nuclear perfusion test in 2015 here which was negative. She is not a smoker. However she has history of diabetes and hypertension. She reports no significant family history of coronary artery disease. Patient does state that her chest pressure is mildly ongoing. She states that it was worse earlier associated with nausea and dyspnea. She is not short of breath at this time. She has not been coughing. She has had no recent travel. Patient was evaluated by cardiology recommended gastroenterology evaluation. chest pain is resolved patient will follow with GI outpatient Atypical chest pain secondary to gastroenteritis Morbid obesity GERD Atrial fibrillation DM Hyperlipiemia HTN Gout Disposition: -01 TO HOME OR SELFCARE Time spent for discharge: 35 mins Core Measure Documentation - Palliative Care Palliative Care/ Comfort Measures: Not Applicable - Core Measures Any of the following diagnoses?: none Exam - Physical Exam Narrative exam: VITAL SIGNS: Reviewed. GENERAL: The patient appears normally developed, Vital signs as documented. HEAD: No signs of head trauma. EYES: Pupils are equal. Extraocular motions intact. EARS: Hearing grossly intact. MOUTH: Oropharynx is normal. NECK: No adenopathy, no JVD. CHEST: Chest with clear breath sounds bilaterally. No wheezes, rales, or rhonchi. CARDIAC: Regular rate and rhythm. S1 and S2, without murmurs, gallops, or rubs. VASCULAR: No Edema. Peripheral pulses normal and equal in all extremities. ABDOMEN: Soft, non tender and non distended. No rebound or guarding, and no masses palpated. Bowel Sounds normal. MUSCULOSKELETAL: Good range of motion of all major joints. Extremities without clubbing, cyanosis or edema. NEUROLOGIC EXAM: Alert and oriented x 3 No focal sensory or strength deficits. Speech normal. Follows commands. PSYCHIATRIC: Mood normal. SKIN: detail exam as documented in skin assessment - Constitutional Vitals: Temp Pulse Resp BP Pulse Ox 98.4 F 52 L 20 147/63 97 07/13/20 08:01 07/13/20 13:03 07/13/20 10:22 07/13/20 08:01 07/13/20 10:00 Plan Activity: advance as tolerated, fall precautions Diet: low fat, diabetic Special Instructions: record daily weights, record daily BP diary, record blood sugar diary Follow up with: PRIMARY CARE, [Referring] - 3-5 Days TERRY MUNOZ MD [Staff Physician] - 7 Days GIOVANA MOISE MD [Staff Physician] - 7 Days Prescriptions: Esomeprazole Magnesium [NexIUM] 40 mg PO [facility] #30 tab
== END 2020-07-13 17:30 | disposition home or self-care (01) ==
LOC: ED 09:13 → 4A 12:13
PROVIDERS: ADMIT Internal Medicine; ATTEND Internal Medicine
DX: R07.89 Other chest pain (principal); K52.9 Noninfective gastroenteritis and colitis, unspecified; E11.9 Type 2 diabetes mellitus without complications; I10 Essential (primary) hypertension; I48.0 Paroxysmal atrial fibrillation; M10.9 Gout, unspecified; E78.5 Hyperlipidemia, unspecified; M19.90 Unspecified osteoarthritis, unspecified site; E66.01 Morbid (severe) obesity due to excess calories; K21.9 Gastro-esophageal reflux disease without esophagitis; Z79.84 Long term (current) use of oral hypoglycemic drugs; Z79.01 Long term (current) use of anticoagulants; Z79.899 Other long term (current) drug therapy; Z88.0 Allergy status to penicillin; Z88.2 Allergy status to sulfonamides; Z68.35 Body mass index [BMI] 35.0-35.9, adult
CPT/HCPCS: 36415; 71045; 80048; 80076; 82550; 82553; 82962; 83880; 84439; 84443; 84484; 85025; 85610; 85730; 87641; 93005; 94640; 99285; A9270; G0378; 85007

== ENCOUNTER 2020-07-23 08:05 | Emergency (ER) | payer MEDICARE ==
[2020-07-23 08:20] VITALS: BP 170/75
--- NOTE | 2020-07-23 09:15 | XRay Report ---
CHEST 2 VIEWS INDICATION / CLINICAL INFORMATION: cough, chest congestion, SOB. COMPARISON: 06/22/20 FINDINGS: SUPPORT DEVICES: None. HEART / MEDIASTINUM: Upper normal size and stable. LUNGS / PLEURA: No significant pulmonary or pleural abnormality. No pneumothorax. ADDITIONAL FINDINGS: No significant additional findings. IMPRESSION: 1. No acute findings. No change. Signer Name: Andre Bob MD Signed: 07/23/2020 9:10 AM Workstation Name: [id number]
--- NOTE | 2020-07-23 09:47 | Emergency Department Report ---
- General Chief Complaint: Upper Respiratory Infection Stated Complaint: CHEST/CONGESTED Time Seen by Provider: 07/23/20 09:31 Source: patient Mode of arrival: Wheelchair Limitations: No Limitations - History of Present Illness Initial Comments: This very pleasant 64-year-old female presents emerged department chief complaint of a productive cough, nasal congestion over the past 2 3 days. Patient reports she has a history of recurrent bronchitis but has no history of chronic bronchitis. She denies smoking. She has a past medical history of hypertension, diabetes, GERD, osteoarthritis, atrial fibrillation on Xarelto, gout and hypothyroidism. She denies any associated fever, chills, night sweats, headache, dizziness, or vision, nausea, vomiting, diarrhea, chest pain, sh ortness of breath or any other associated symptoms. She denies any sick contacts. She reports she is had 3- COVID test recently. - Related Data Home Medications Medication Instructions Recorded Confirmed Last Taken amLODIPine 5 mg PO BID 01/18/14 07/12/20 07/11/20 metFORMIN [Glucophage] 1,000 mg PO BID 10/21/15 07/12/20 07/11/20 AtorvaSTATin [Lipitor] 20 mg PO QHS 03/27/20 07/12/20 07/11/20 Ferrous Sulfate [Iron 325 MG] 325 mg PO BID 03/27/20 07/12/20 07/11/20 Gabapentin 300 mg PO TID 03/27/20 07/12/20 07/11/20 Rivaroxaban [Xarelto] 20 mg PO QDAY 03/27/20 07/12/20 07/11/20 allopurinoL [Zyloprim] 200 mg PO QDAY 03/27/20 07/12/20 07/11/20 methIMAzole [Tapazole] 5 mg PO QDAY 03/27/20 07/12/20 07/11/20 propranoloL [Inderal] 40 mg PO Q12H 03/27/20 07/12/20 07/11/20 ALBUTEROL NEB's 108 puff Q6H PRN 07/12/20 07/12/20 Unknown Cetirizine HCl [Cetirizine 10mg 10 mg PO QDAY 07/12/20 07/12/20 07/11/20 chew] Diclofenac 1% 4 gm TP BID 07/12/20 07/12/20 Unknown Hydrocortisone 2.5% 2.5 1000units TP TID 07/12/20 07/12/20 Unknown Mupirocin [Bactroban 2% OINT] 2 gm TP BID 07/12/20 07/12/20 07/11/20 lisinopriL [Zestril TAB] 10 mg PO QDAY 07/12/20 07/12/20 07/11/20 Previous Rx's Medication Instructions Recorded Last Taken Type Fluticasone [Flonase] 1 spray NS QDAY #1 bottle 02/11/20 03/26/20 Rx Loratadine [Claritin] 10 mg PO DAILY #30 tablet 02/11/20 07/11/20 Rx Hydrocortisone [Anusol-Hc 2.5% TOP 1 applic RC TID #1 tube 04/30/20 Unknown Rx CREAM] Esomeprazole Magnesium [NexIUM] 40 mg PO QAC #30 tab 07/13/20 Unknown Rx traMADoL [Ultram 50 MG tab] 50 mg PO Q6HR PRN #10 tablet 07/13/20 Unknown Rx Albuterol Sulfate [Proventil Hfa] 6.7 gm IH Q4HR PRN #1 hfa.aer.ad 07/23/20 Unknown Rx Azithromycin [Zithromax Z-SATHISH] 0 mg PO DAILY #1 pack 07/23/20 Unknown Rx Allergies Allergy/AdvReac Type Severity Reaction Status Date / Time Penicillins Allergy Rash Verified 05/15/20 10:28 Sulfa (Sulfonamide Allergy Rash Verified 05/15/20 10:28 Antibiotics) ED Review of Systems ROS: Stated complaint: CHEST/CONGESTED Other details as noted in HPI Comment: All other systems reviewed and negative Constitutional: denies: chills, fever Eyes: denies: eye pain, eye discharge, vision change ENT: denies: ear pain, throat pain Respiratory: see HPI, cough. denies: shortness of breath, wheezing Cardiovascular: denies: chest pain, palpitations Endocrine: no symptoms reported Gastrointestinal: denies: abdominal pain, nausea, diarrhea Genitourinary: denies: urgency, dysuria, discharge Musculoskeletal: denies: back pain, joint swelling, arthralgia Skin: denies: rash, lesions Neurological: denies: headache, weakness, paresthesias Psychiatric: denies: anxiety, depression Hematological/Lymphatic: denies: easy bleeding, easy bruising ED Past Medical Hx - Past Medical History Previous Medical History?: Yes Hx Hypertension: Yes Hx Diabetes: Yes Hx GERD: Yes Hx Arthritis: Yes Additional medical history: Bronchitis, Afib, gout, Thyroid - Surgical History Past Surgical History?: Yes Hx Breast Surgery: Yes (left breast) Additional Surgical History: colon surg - diverticulitis, lumps removed from left breast - Social History Smoking Status: Never Smoker Substance Use Type: None - Medications Home Medications: Home Medications Medication Instructions Recorded Confirmed Last Taken Type amLODIPine 5 mg PO BID 01/18/14 07/12/20 07/11/20 History metFORMIN [Glucophage] 1,000 mg PO BID 10/21/15 07/12/20 07/11/20 History Fluticasone [Flonase] 1 spray NS QDAY #1 bottle 02/11/20 07/12/20 03/26/20 Rx Loratadine [Claritin] 10 mg PO DAILY #30 tablet 02/11/20 07/12/20 07/11/20 Rx AtorvaSTATin [Lipitor] 20 mg PO QHS 03/27/20 07/12/20 07/11/20 History Ferrous Sulfate [Iron 325 MG] 325 mg PO BID 03/27/20 07/12/20 07/11/20 History Gabapentin 300 mg PO TID 03/27/20 07/12/20 07/11/20 History Rivaroxaban [Xarelto] 20 mg PO QDAY 03/27/20 07/12/20 07/11/20 History allopurinoL [Zyloprim] 200 mg PO QDAY 03/27/20 07/12/20 07/11/20 History methIMAzole [Tapazole] 5 mg PO QDAY 03/27/20 07/12/20 07/11/20 History propranoloL [Inderal] 40 mg PO Q12H 03/27/20 07/12/20 07/11/20 History Hydrocortisone [Anusol-Hc 2.5% TOP 1 applic RC TID #1 tube 04/30/20 07/12/20 Unknown Rx CREAM] ALBUTEROL NEB's 108 puff Q6H PRN 07/12/20 07/12/20 Unknown History Cetirizine HCl [Cetirizine 10mg 10 mg PO QDAY 07/12/20 07/12/20 07/11/20 History chew] Diclofenac 1% 4 gm TP BID 07/12/20 07/12/20 Unknown History Hydrocortisone 2.5% 2.5 1000units TP TID 07/12/20 07/12/20 Unknown History Mupirocin [Bactroban 2% OINT] 2 gm TP BID 07/12/20 07/12/20 07/11/20 History lisinopriL [Zestril TAB] 10 mg PO QDAY 07/12/20 07/12/20 07/11/20 History Esomeprazole Magnesium [NexIUM] 40 mg PO QAC #30 tab 07/13/20 Unknown Rx traMADoL [Ultram 50 MG tab] 50 mg PO Q6HR PRN #10 tablet 07/13/20 Unknown Rx Albuterol Sulfate [Proventil Hfa] 6.7 gm IH Q4HR PRN #1 hfa.aer.ad 07/23/20 Unknown Rx Azithromycin [Zithromax Z-SATHISH] 0 mg PO DAILY #1 pack 07/23/20 Unknown Rx ED Physical Exam - General Limitations: No Limitations General appearance: alert, in no apparent distress - Head Head exam: Present: atraumatic, normocephalic - Eye Eye exam: Present: normal appearance. Absent: PERRL, EOMI Pupils: Present: normal accommodation - ENT ENT exam: Present: mucous membranes moist. Absent: normal exam, normal orophraynx - Neck Neck exam: Present: normal inspection, full ROM. Absent: tenderness, meningismus - Respiratory Respiratory exam: Present: normal lung sounds bilaterally. Absent: respiratory distress, wheezes, rales, rhonchi, stridor - Cardiovascular Cardiovascular Exam: Present: regular rate, normal rhythm. Absent: systolic murmur, diastolic murmur, rubs, gallop - GI/Abdominal GI/Abdominal exam: Present: soft, normal bowel sounds. Absent: distended, tenderness, guarding, rebound, rigid - Extremities Exam Extremities exam: Present: normal inspection, full ROM. Absent: tenderness, calf tenderness (No posterior calf tenderness, negative Homans sign bilaterally.) - Back Exam Back exam: Present: normal inspection, full ROM. Absent: tenderness, CVA tenderness (R), CVA tenderness (L) - Neurological Exam Neurological exam: Present: alert, oriented X3, normal gait - Psychiatric Psychiatric exam: Present: normal affect, normal mood - Skin Skin exam: Present: warm, dry, intact, normal color. Absent: rash ED Course Vital Signs 07/23/20 08:18 Temperature 98.1 F Pulse Rate 60 Respiratory 20 Rate Blood Pressure 170/75 O2 Sat by Pulse 98 Oximetry ED Medical Decision Making - Medical Decision Making Patient nontoxic in no acute distress. Chest x-ray was unremarkable showing no acute findings per radiology. Patient had normal lung sounds however due to her persistent symptoms I will cover her with azithromycin for atypical pathogens as well as an inhaler. I have a low suspicion for an atypical infection such as COVID-19 due to the negative test and the lack of any other supporting symptoms. Did educate her that if her symptoms change or worsen such as increasing shortness of breath or any other changing worsening symptoms she need to return to the emergency department. Recommend outpatient follow-up with her primary care doctor in the next 2 3 days. Recommend she return to the emergency department if she has any change or worsening symptoms. She verbalized understanding the diagnosis, treatment plan and follow-up instructions and all of her questions were answered. I did consider other etiology for symptoms such as ACS however she has no chest pain or shortness of breath making this unlikely. Also considered pneumothorax and pneumonia however chest x-ray was clear. I also considered pulmonary embolism however she had no tachycardia or hypoxia, pleuritic pain, hemoptysis and no clinical symptoms of DVT or PE and she is currently anticoagulated with Xarelto which she has not missed any doses.. - Differential Diagnosis Bronchitis, pneumonia, PE Critical care attestation.: If time is entered above; I have spent that time in minutes in the direct care of this critically ill patient, excluding procedure time. ED Disposition Clinical Impression: Acute bronchitis Qualifiers: Bronchitis organism: unspecified organism Qualified Code(s): J20.9 - Acute bronchitis, unspecified Disposition: DC-01 TO HOME OR SELFCARE Is pt being admited?: No Condition: Stable Instructions: Acute Bronchitis (ED) Prescriptions: Albuterol Sulfate [Proventil Hfa] 6.7 gm IH Q4HR PRN #1 hfa.aer.ad PRN Reason: Wheezing Azithromycin [Zithromax Z-SATHISH] 0 mg PO DAILY #1 pack Referrals: [facility] [Provider Group] - 3-5 Days Time of Disposition: 09:46
== END 2020-07-23 09:54 | disposition home or self-care (01) ==
LOC: ED 08:05
DX: J20.9 Acute bronchitis, unspecified (principal); I10 Essential (primary) hypertension; E11.9 Type 2 diabetes mellitus without complications; K21.9 Gastro-esophageal reflux disease without esophagitis; M19.91 Primary osteoarthritis, unspecified site; Z98.890 Other specified postprocedural states; Z79.2 Long term (current) use of antibiotics; Z79.84 Long term (current) use of oral hypoglycemic drugs; Z79.899 Other long term (current) drug therapy; Z88.0 Allergy status to penicillin; Z88.2 Allergy status to sulfonamides
CPT/HCPCS: 71046

== ENCOUNTER 2020-08-26 13:15 | Observation (INO) | payer MEDICARE ==
--- NOTE | 2020-08-26 15:23 | Emergency Department Report ---
ED GI Bleed HPI - General Chief complaint: GI Bleed Stated complaint: GI BLEED Time Seen by Provider: 08/26/20 14:38 Source: EMS Mode of arrival: Ambulatory Limitations: No Limitations - History of Present Illness Initial comments: 64-year-old female with history of GERD, A. fib, presents to ED with rectal bleeding. Patient states 2 weeks ago she underwent cardiac cath at [facility]. Patient states no blockage was found, however she has been taking a baby aspirin since she was discharged. Patient reports she is also on Xarelto due to her diagnosis of atrial fibrillation. Patient states this morning she had a stool mixed with dark red blood. Later, patient states she had another bowel movement in which there was only "a drop of blood" present in her stool. Patient denies any abdominal pain. MD complaint: melena -: This morning Severity scale (0 -10): 0 Quality: painless Consistency: intermittent Improves with: none Worsens with: none Context: blood thinners Associated Symptoms: denies other symptoms - Related Data Home Medications Medication Instructions Recorded Confirmed Last Taken amLODIPine 5 mg PO BID 01/18/14 07/12/20 07/11/20 metFORMIN [Glucophage] 1,000 mg PO BID 10/21/15 07/12/20 07/11/20 AtorvaSTATin [Lipitor] 20 mg PO QHS 03/27/20 07/12/20 07/11/20 Ferrous Sulfate [Iron 325 MG] 325 mg PO BID 03/27/20 07/12/20 07/11/20 Gabapentin 300 mg PO TID 03/27/20 07/12/20 07/11/20 Rivaroxaban [Xarelto] 20 mg PO QDAY 03/27/20 07/12/20 07/11/20 allopurinoL [Zyloprim] 200 mg PO QDAY 03/27/20 07/12/20 07/11/20 methIMAzole [Tapazole] 5 mg PO QDAY 03/27/20 07/12/20 07/11/20 propranoloL [Inderal] 40 mg PO Q12H 03/27/20 07/12/20 07/11/20 ALBUTEROL NEB's 108 puff Q6H PRN 07/12/20 07/12/20 Unknown Cetirizine HCl [Cetirizine 10mg 10 mg PO QDAY 0807/12/20 07/11/20 chew] Diclofenac 1% 4 gm TP BID 07/12/20 07/12/20 Unknown Hydrocortisone 2.5% 2.5 1000units TP TID 07/12/20 07/12/20 Unknown Mupirocin [Bactroban 2% OINT] 2 gm TP BID 07/12/20 07/12/20 07/11/20 lisinopriL [Zestril TAB] 10 mg PO QDAY 07/12/20 07/12/20 07/11/20 Previous Rx's Medication Instructions Recorded Last Taken Type Fluticasone [Flonase] 1 spray NS QDAY #1 bottle 02/11/20 03/26/20 Rx Loratadine [Claritin] 10 mg PO DAILY #30 tablet 02/11/20 07/11/20 Rx Hydrocortisone [Anusol-Hc 2.5% TOP 1 applic RC TID #1 tube 04/30/20 Unknown Rx CREAM] Esomeprazole Magnesium [NexIUM] 40 mg PO QAC #30 tab 07/13/20 Unknown Rx traMADoL [Ultram 50 MG tab] 50 mg PO Q6HR PRN #10 tablet 07/13/20 Unknown Rx Albuterol Sulfate [Proventil Hfa] 6.7 gm IH Q4HR PRN #1 hfa.aer.ad 07/23/20 Unknown Rx Azithromycin [Zithromax Z-SATHISH] 0 mg PO DAILY #1 pack 07/23/20 Unknown Rx Allergies Allergy/AdvReac Type Severity Reaction Status Date / Time Penicillins Allergy Rash Verified 05/15/20 10:28 Sulfa (Sulfonamide Allergy Rash Verified 05/15/20 10:28 Antibiotics) ED Review of Systems ROS: Stated complaint: GI BLEED Other details as noted in HPI Comment: All other systems reviewed and negative Constitutional: denies: chills, fever Gastrointestinal: melena. denies: abdominal pain, nausea, vomiting ED Past Medical Hx - Past Medical History Previous Medical History?: Yes Hx Hypertension: Yes Hx Diabetes: Yes Hx GERD: Yes Hx Arthritis: Yes Additional medical history: Bronchitis, Afib, gout, Thyroid - Surgical History Past Surgical History?: Yes Hx Breast Surgery: Yes (left breast) Additional Surgical History: colon surg - diverticulitis, lumps removed from left breast - Social History Smoking Status: Never Smoker Substance Use Type: None - Medications Home Medications: Home Medications Medication Instructions Recorded Confirmed Last Taken Type amLODIPine 5 mg PO BID 01/18/14 07/12/20 07/11/20 History metFORMIN [Glucophage] 1,000 mg PO BID 10/21/15 07/12/20 07/11/20 History Fluticasone [Flonase] 1 spray NS QDAY #1 bottle 02/11/20 07/12/20 03/26/20 Rx Loratadine [Claritin] 10 mg PO DAILY #30 tablet 02/11/20 07/12/20 07/11/20 Rx AtorvaSTATin [Lipitor] 20 mg PO QHS 03/27/20 07/12/20 07/11/20 History Ferrous Sulfate [Iron 325 MG] 325 mg PO BID 03/27/20 07/12/20 07/11/20 History Gabapentin 300 mg PO TID 03/27/20 07/12/20 07/11/20 History Rivaroxaban [Xarelto] 20 mg PO QDAY 03/27/20 07/12/20 07/11/20 History allopurinoL [Zyloprim] 200 mg PO QDAY 03/27/20 07/12/20 07/11/20 History methIMAzole [Tapazole] 5 mg PO QDAY 03/27/20 07/12/20 07/11/20 History propranoloL [Inderal] 40 mg PO Q12H 03/27/20 07/12/20 07/11/20 History Hydrocortisone [Anusol-Hc 2.5% TOP 1 applic RC TID #1 tube 04/30/20 07/12/20 Unknown Rx CREAM] ALBUTEROL NEB's 108 puff Q6H PRN 07/12/20 07/12/20 Unknown History Cetirizine HCl [Cetirizine 10mg 10 mg PO QDAY 07/12/20 07/12/20 07/11/20 History chew] Diclofenac 1% 4 gm TP BID 07/12/20 07/12/20 Unknown History Hydrocortisone 2.5% 2.5 1000units TP TID 07/12/20 07/12/20 Unknown History Mupirocin [Bactroban 2% OINT] 2 gm TP BID 07/12/20 07/12/20 07/11/20 History lisinopriL [Zestril TAB] 10 mg PO QDAY 07/12/20 07/12/20 07/11/20 History Esomeprazole Magnesium [NexIUM] 40 mg PO QAC #30 tab 07/13/20 Unknown Rx traMADoL [Ultram 50 MG tab] 50 mg PO Q6HR PRN #10 tablet 07/13/20 Unknown Rx Albuterol Sulfate [Proventil Hfa] 6.7 gm IH Q4HR PRN #1 hfa.aer.ad 07/23/20 Unknown Rx Azithromycin [Zithromax Z-SATHISH] 0 mg PO DAILY #1 pack 07/23/20 Unknown Rx ED Physical Exam - General Limitations: No Limitations General appearance: alert, in no apparent distress, obese - Head Head exam: Present: atraumatic, normocephalic - Eye Eye exam: Present: normal appearance, EOMI - ENT ENT exam: Present: mucous membranes moist - Neck Neck exam: Present: normal inspection - Respiratory Respiratory exam: Present: normal lung sounds bilaterally. Absent: respiratory distress - Cardiovascular Cardiovascular Exam: Present: regular rate, normal rhythm - GI/Abdominal GI/Abdominal exam: Present: soft. Absent: distended, tenderness - Rectal Rectal exam: Present: heme (+) stool, other (Melanotic stool present on exam) - Extremities Exam Extremities exam: Present: normal inspection - Neurological Exam Neurological exam: Present: alert, oriented X3 - Psychiatric Psychiatric exam: Present: normal affect, normal mood - Skin Skin exam: Present: warm, dry, intact, normal color ED Course Vital Signs 08/26/20 08/26/20 13:23 14:53 Temperature 98.2 F Pulse Rate 62 Respiratory 22 18 Rate Blood Pressure 154/65 Blood Pressure 154/65 [Right] O2 Sat by Pulse 100 100 Oximetry - Reevaluation(s) Reevaluation #1: 08/26/20 16:25 Patient just returned from restroom and reports having a bloody stool again. ED Medical Decision Making - Lab Data Result diagrams: 08/26/20 15:18 08/26/20 15:18 - Medical Decision Making 64-year-old female presents to ED with GI bleed. On exam patient has melanotic stool, guaiac positive. Abdomen is soft, nontender. Vitals are stable. Hemoglobin is 12.7. Patient is currently taking aspirin and Xarelto. She has 3 episodes of bloody stools today. I spoke with the traveling representative transplant nurse practitioner, who agrees to see her in consultation. Spoke with Dr. Dawn, hospitalist, who will admit the patient for further management. - Differential Diagnosis Gastric ulcer, anemia, medication effect Critical Care Time: Yes Critical care time in (mins) excluding proc time.: 35 Critical care attestation.: If time is entered above; I have spent that time in minutes in the direct care of this critically ill patient, excluding procedure time. Critical Care Time: 35 min ED Disposition Clinical Impression: GI bleed Disposition: [id number] OP ADMIT IP TO THIS HOSP Is pt being admited?: Yes Condition: Stable Time of Disposition: 16:40
[2020-08-26 15:54] LABS: Alanine Aminotransferase 8 units/L (7-56); Albumin 3.8 g/dL (3.9-5); BUN/Creatinine Ratio 19; Blood Urea Nitrogen 17 mg/dL (7-17); Calcium 9.1 mg/dL (8.4-10.2); Hemolysis Index 9
[2020-08-26 15:55] LABS: Bilirubin,Direct < 0.2 mg/dL (0-0.2)
[2020-08-26 15:56] LABS: Hematocrit 40.6 % (30.3-42.9); Hemoglobin 12.7 gm/dl (10.1-14.3); Mean Corpuscular HGB Conc 31 % (30-34); Red Blood Count 6.32 M/mm3 (3.65-5.03)
[2020-08-26 15:57] LABS: Mean Corpuscular Volume 64 fl (79-97); Red Cell Distribution Width 21.3 % (13.2-15.2)
[2020-08-26 16:03] LABS: INR 1.05 (0.87-1.13)
[2020-08-26 16:04] LABS: Partial Thromboplastin Time 31.7 Sec. (24.2-36.6)
[2020-08-26] MEDS ORDERED: PANTOPRAZOLE 40 MG INJ IV ONE (16:37)
[2020-08-26 17:13] LABS: Basophils % (Manual) 0 % (0.0-1.8); Eosinophils % (Manual) 0 % (0.0-4.3); Total Cells Counted 100
[2020-08-26 17:14] LABS: Anisocytosis 1+; Hypochromasia 1+; Platelet Clumps Few; Poikilocytosis 1+; Schistocytes Few; Target Cells Few; Tear Drop Cells Few
[2020-08-26 17:15] LABS: Platelet Count 164 K/mm3 (140-440)
--- NOTE | 2020-08-26 20:40 | Gastroenterology Consultation ---
History of Present Illness - Reason for Consult Consult date: 08/26/20 GI bleed Requesting physician: MIRANDA BOWEN - History of Present Illness This is a 64 yo female with pmh of Afib on Xarelto, CAD on ASA, h/o diverticulosis s/p right hemicolectomy, presenting to the ED for 1 day h/o bloody stools. She reports having maroon colored dark blood in the stools one time yesterday and another episode this morning with more light pink stool. No abdominal pain or nausea/vomiting. She states she had EGD and colonoscopy for bleeding at [place] in 11/2019 and was told that she had bleeding from diverticulosis. She also had cardiac cath 2 weeks ago at [place] and told she did not have blockage but placed on low dose ASA. She has h/o colon resection due to diverticulitis in the past. Medication list reviewed Past History Past Medical History: atrial fib, CAD Past Surgical History: bowel surgery Social history: no significant social history Family history: diabetes Medications and Allergies Allergies Allergy/AdvReac Type Severity Reaction Status Date / Time Penicillins Allergy Rash Verified 05/15/20 10:28 Sulfa (Sulfonamide Allergy Rash Verified 05/15/20 10:28 Antibiotics) Home Medications Medication Instructions Recorded Confirmed Last Taken Type amLODIPine 5 mg PO BID 01/18/14 07/12/20 07/11/20 History metFORMIN [Glucophage] 1,000 mg PO BID 10/21/15 07/12/20 07/11/20 History Fluticasone [Flonase] 1 spray NS QDAY #1 bottle 02/11/20 07/12/20 03/26/20 Rx Loratadine [Claritin] 10 mg PO DAILY #30 tablet 02/11/20 07/12/20 07/11/20 Rx AtorvaSTATin [Lipitor] 20 mg PO QHS 03/27/20 07/12/20 07/11/20 History Ferrous Sulfate [Iron 325 MG] 325 mg PO BID 03/27/20 07/12/20 07/11/20 History Gabapentin 300 mg PO TID 03/27/20 07/12/20 07/11/20 History Rivaroxaban [Xarelto] 20 mg PO QDAY 03/27/20 07/12/20 07/11/20 History allopurinoL [Zyloprim] 200 mg PO QDAY 03/27/20 07/12/20 07/11/20 History methIMAzole [Tapazole] 5 mg PO QDAY 03/27/20 07/12/20 07/11/20 History propranoloL [Inderal] 40 mg PO Q12H 03/27/20 07/12/20 07/11/20 History Hydrocortisone [Anusol-Hc 2.5% TOP 1 applic RC TID #1 tube 04/30/20 07/12/20 Unknown Rx CREAM] ALBUTEROL NEB's 108 puff Q6H PRN 07/12/20 07/12/20 Unknown History Cetirizine HCl [Cetirizine 10mg 10 mg PO QDAY 07/12/20 07/12/20 07/11/20 History chew] Diclofenac 1% 4 gm TP BID 07/12/20 07/12/20 Unknown History Hydrocortisone 2.5% 2.5 1000units TP TID 07/12/20 07/12/20 Unknown History Mupirocin [Bactroban 2% OINT] 2 gm TP BID 07/12/20 07/12/20 07/11/20 History lisinopriL [Zestril TAB] 10 mg PO QDAY 07/12/20 07/12/20 07/11/20 History Esomeprazole Magnesium [NexIUM] 40 mg PO QAC #30 tab 07/13/20 Unknown Rx traMADoL [Ultram 50 MG tab] 50 mg PO Q6HR PRN #10 tablet 07/13/20 Unknown Rx Albuterol Sulfate [Proventil Hfa] 6.7 gm IH Q4HR PRN #1 hfa.aer.ad 07/23/20 Unknown Rx Azithromycin [Zithromax Z-SATHISH] 0 mg PO DAILY #1 pack 07/23/20 Unknown Rx Review of Systems - Review of Systems Constitutional: no weight loss, no weight gain Cardiovascular: no chest pain, no edema Respiratory: no cough, no shortness of breath Gastrointestinal: BRBPR, hematochezia, no abdominal pain, no nausea, no vomiting, no melena Neurological: no head injury Psychiatric: no anxiety Endocrine: no cold intolerance Hematologic/Lymphatic: no easy bruising Allergic/Immunologic: no wheezing Exam - Constitutional Vital Signs: Temp Pulse Resp BP Pulse Ox 98.2 F 56 L 13 113/70 100 08/26/20 13:23 08/26/20 19:01 08/26/20 19:01 08/26/20 19:01 08/26/20 14:53 General appearance: no acute distress - EENT Eyes: EOM intact - Neck Neck: supple - Cardiovascular Rhythm: regular Heart Sounds: Present: S1 & S2 - Gastrointestinal General gastrointestinal: Present: soft, non-tender, non-distended - Integumentary Integumentary: Present: clear, warm - Neurologic Neurological: alert and oriented x3 - Labs CBC & Chem 7: 08/26/20 15:18 08/26/20 15:18 Lab Results: Laboratory Results - last 24 hr 08/26/20 08/26/20 08/26/20 15:18 15:18 15:18 WBC 8.2 RBC 6.32 H Hgb 12.7 Hct 40.6 MCV 64 L MCH 20 L MCHC 31 RDW 21.3 H Plt Count 164 Lymph % (Auto) [employer] Lymph # (Auto) [employer] Add Manual Diff Complete Total Counted 100 Seg Neutrophils % [employer] Seg Neuts % (Manual) 50.0 Band Neutrophils % 0 Lymphocytes % (Manual) 47.0 H Reactive Lymphs % (Man) 0 Monocytes % (Manual) 3.0 Eosinophils % (Manual) 0 Basophils % (Manual) 0 Metamyelocytes % 0 Myelocytes % 0 Promyelocytes % 0 Blast Cells % 0 Nucleated RBC % Not Reportable Seg Neutrophils # Man 4.1 Band Neutrophils # 0.0 Lymphocytes # (Manual) 3.9 Abs React Lymphs (Man) 0.0 Monocytes # (Manual) 0.2 Eosinophils # (Manual) 0.0 Basophils # (Manual) 0.0 Metamyelocytes # 0.0 Myelocytes # 0.0 Promyelocytes # 0.0 Blast Cells # 0.0 WBC Morphology Not Reportable Hypersegmented Neuts Not Reportable Hyposegmented Neuts Not Reportable Hypogranular Neuts Not Reportable Smudge Cells Not Reportable Toxic Granulation Not Reportable Toxic Vacuolation Not Reportable Dohle Bodies Not Reportable Pelger-Huet Anomaly Not Reportable Christopher Rods Not Reportable Platelet Estimate Not Reportable Clumped Platelets Few Plt Clumps, EDTA Not Reportable Large Platelets Not Reportable Giant Platelets Not Reportable Platelet Satelliting Not Reportable Plt Morphology Comment Not Reportable RBC Morphology Not Reportable Dimorphic RBCs Not Reportable Polychromasia Not Reportable Hypochromasia 1+ Poikilocytosis 1+ Anisocytosis 1+ Microcytosis 1+ Macrocytosis Not Reportable Spherocytes Not Reportable Pappenheimer Bodies Not Reportable Sickle Cells Not Reportable Target Cells Few Tear Drop Cells Few Ovalocytes Not Reportable Helmet Cells Not Reportable [place] Bodies Not Reportable [place] Rings Not Reportable Jason Cells Not Reportable Bite Cells Not Reportable Crenated Cell Not Reportable Elliptocytes Few Acanthocytes (Spur) Not Reportable Rouleaux Not Reportable Hemoglobin C Crystals Not Reportable Schistocytes Few Malaria parasites Not Reportable Fredi Bodies Not Reportable Hem Pathologist Commnt No PT 13.8 INR 1.05 APTT 31.7 Sodium 141 Potassium 4.3 Chloride 103.8 Carbon Dioxide 24 Anion Gap 18 BUN 17 Creatinine 0.9 Estimated GFR > 60 BUN/Creatinine Ratio 19 Glucose 109 H Calcium 9.1 Total Bilirubin 0.20 Direct Bilirubin < 0.2 Indirect Bilirubin 0.0 AST 15 ALT 8 Alkaline Phosphatase 88 Total Protein 7.4 Albumin 3.8 L Albumin/Globulin Ratio 1.1 Assessment and Plan # Hematochezia - suspect diverticular bleed - no active bleeding at this time. - HD stable. - Hgb at 12. - reports EGD and colonoscopy for bleeding in 11/2019 at [place]. Diverticular bleeding per patient. h/o colon resection due to diverticulitis per patient. Rec - hold anticoagulation. patient on home xarelto. - monitor H/H. - obtain records from [place]. - no plans for endoscopy at this time. - in case of active bleeding signs or drop in H/H, recommend NM bleeding scan vs CTA. - Patient Problems (1) GI bleed Current Visit: Yes Status: Acute
--- NOTE | 2020-08-26 22:23 | History and Physical Report ---
History of Present Illness Date of examination: 08/26/20 Date of admission: 08/26/20 18:08 Chief complaint: Melanotic stools for 1 day History of present illness: 54-year-old female with history of atrial fibrillation on Xarelto, GERD, hypertension, hyperlipidemia and T2 DM comes in for dark stools since a.m. Patient is slightly lightheaded. Patient has been taking Xarelto regularly. No hematemesis. No abdominal pain. No fever or chills. No exposure to chris navirus. No chest pain. No shortness of breath. No syncopal episodes. No lightheadedness. - Past Medical History Previous Medical History?: Yes Hypertension: Yes Diabetes: Yes GERD: Yes Arthritis: Yes Additional medical history: Bronchitis, Afib, gout, Thyroid - Surgical History Past Surgical History?: Yes Hx Breast Surgery: Yes (left breast) Additional Surgical History: colon surg - diverticulitis, lumps removed from left breast - Social History Smoking Status: Never Smoker Substance Use Type: None - Medications Home Medications: Home Medications Medication Instructions Recorded Confirmed Last Taken Type amLODIPine 5 mg PO BID 01/18/14 07/12/20 07/11/20 History metFORMIN [Glucophage] 1,000 mg PO BID 10/21/15 07/12/20 07/11/20 History Fluticasone [Flonase] 1 spray NS QDAY #1 bottle 02/11/20 07/12/20 03/26/20 Rx Loratadine [Claritin] 10 mg PO DAILY #30 tablet 02/11/20 07/12/20 07/11/20 Rx AtorvaSTATin [Lipitor] 20 mg PO QHS 03/27/20 07/12/20 07/11/20 History Ferrous Sulfate [Iron 325 MG] 325 mg PO BID 03/27/20 07/12/20 07/11/20 History Gabapentin 300 mg PO TID 03/27/20 07/12/20 07/11/20 History Rivaroxaban [Xarelto] 20 mg PO QDAY 03/27/20 07/12/20 07/11/20 History allopurinoL [Zyloprim] 200 mg PO QDAY 03/27/20 07/12/20 07/11/20 History methIMAzole [Tapazole] 5 mg PO QDAY 03/27/20 07/12/20 07/11/20 History propranoloL [Inderal] 40 mg PO Q12H 03/27/20 07/12/20 07/11/20 History Hydrocortisone [Anusol-Hc 2.5% TOP 1 applic RC TID #1 tube 04/30/20 07/12/20 Unknown Rx CREAM] ALBUTEROL NEB's 108 puff Q6H PRN 07/12/20 07/12/20 Unknown History Cetirizine HCl [Cetirizine 10mg 10 mg PO QDAY 07/12/20 07/12/20 07/11/20 History chew] Diclofenac 1% 4 gm TP BID 07/12/20 07/12/20 Unknown History Hydrocortisone 2.5% 2.5 1000units TP TID 07/12/20 07/12/20 Unknown History Mupirocin [Bactroban 2% OINT] 2 gm TP BID 07/12/20 07/12/20 07/11/20 History lisinopriL [Zestril TAB] 10 mg PO QDAY 07/12/20 07/12/20 07/11/20 History Esomeprazole Magnesium [NexIUM] 40 mg PO QAC #30 tab 07/13/20 Unknown Rx traMADoL [Ultram 50 MG tab] 50 mg PO Q6HR PRN #10 tablet 07/13/20 Unknown Rx Albuterol Sulfate [Proventil Hfa] 6.7 gm IH Q4HR PRN #1 hfa.aer.ad 07/23/20 Unknown Rx Azithromycin [Zithromax Z-SATHISH] 0 mg PO DAILY #1 pack 07/23/20 Unknown Rx Review of Systems ROS: Stated complaint: GI BLEED Other details as noted in HPI Comment: All other systems reviewed and negative Constitutional: denies: chills, fever Gastrointestinal: melena. denies: abdominal pain, nausea, vomiting Past History Past Medical History: atrial fib, CAD Past Surgical History: bowel surgery Social history: no significant social history Family history: diabetes Medications and Allergies Allergies Allergy/AdvReac Type Severity Reaction Status Date / Time Penicillins Allergy Rash Verified 05/15/20 10:28 Sulfa (Sulfonamide Allergy Rash Verified 05/15/20 10:28 Antibiotics) Home Medications Medication Instructions Recorded Confirmed Last Taken Type amLODIPine 10 mg PO BID 01/18/14 08/27/20 07/11/20 History metFORMIN [Glucophage] 1,000 mg PO BID 10/21/15 08/27/20 07/11/20 History Fluticasone [Flonase] 1 spray NS QDAY #1 bottle 02/11/20 08/27/20 03/26/20 Rx Loratadine [Claritin] 10 mg PO DAILY #30 tablet 02/11/20 08/27/20 07/11/20 Rx AtorvaSTATin [Lipitor] 20 mg PO QHS 03/27/20 08/27/20 07/11/20 History Ferrous Sulfate [Iron 325 MG] 325 mg PO DAILY 03/27/20 08/27/20 07/11/20 History Gabapentin 300 mg PO TID PRN 03/27/20 08/27/20 07/11/20 History Rivaroxaban [Xarelto] 20 mg PO QDAY 03/27/20 08/27/20 07/11/20 History allopurinoL [Zyloprim] 200 mg PO QDAY 03/27/20 08/27/20 07/11/20 History methIMAzole [Tapazole] 10 mg PO QDAY 03/27/20 08/27/20 07/11/20 History propranoloL [Inderal] 40 mg PO Q12H 03/27/20 08/27/20 07/11/20 History ALBUTEROL NEB's 108 puff Q6H PRN 07/12/20 08/27/20 Unknown History Diclofenac 1% 4 gm TP BID 07/12/20 08/27/20 Unknown History lisinopriL [Zestril TAB] 10 mg PO QDAY 07/12/20 08/27/20 07/11/20 History Albuterol Sulfate [Proventil Hfa] 6.7 gm IH Q4HR PRN #1 hfa.aer.ad 07/23/20 08/27/20 Unknown Rx Ergocalciferol (Vitamin D2) 50,000 unit PO QWEEK 08/27/20 08/27/20 Unknown History [Drisdol] Famotidine [Pepcid] 20 mg PO BID 08/27/20 08/27/20 Unknown History Exam - Constitutional Vitals: Temp Pulse Resp BP Pulse Ox 98.3 F 57 L 20 163/67 99 08/26/20 21:11 08/26/20 21:11 08/26/20 21:11 08/26/20 21:11 08/26/20 21:11 General appearance: Present: no acute distress, well-nourished - EENT Eyes: Present: PERRL ENT: hearing intact, clear oral mucosa - Neck Neck: Present: supple, normal ROM - Respiratory Respiratory effort: normal Respiratory: bilateral: CTA - Cardiovascular Heart rate: 88 Rhythm: irregularly irregular Heart Sounds: Present: S1 & S2. Absent: rub, click - Extremities Extremities: pulses symmetrical, No edema Peripheral Pulses: within normal limits - Abdominal General gastrointestinal: Present: soft, non-tender, non-distended, normal bowel sounds Female genitourinary: Present: normal - Rectal Rectal Exam: stool bloody - Integumentary Integumentary: Present: clear, warm, dry - Musculoskeletal Musculoskeletal: gait normal, strength equal bilaterally - Psychiatric Psychiatric: appropriate mood/affect, intact judgment & insight - Neurologic Neurologic: CNII-XII intact, moves all extremities - Allied Health Allied health notes reviewed: nursing, case management Results - Labs CBC & Chem 7: 08/27/20 05:17 08/27/20 05:17 Labs: Laboratory Last Values WBC 8.2 K/mm3 (4.5-11.0) 08/26/20 15:18 RBC 6.32 M/mm3 (3.65-5.03) H 08/26/20 15:18 Hgb 12.7 gm/dl (10.1-14.3) 08/26/20 15:18 Hct 40.6 % (30.3-42.9) 08/26/20 15:18 MCV 64 fl (79-97) L 08/26/20 15:18 MCH 20 pg (28-32) L 08/26/20 15:18 MCHC 31 % (30-34) 08/26/20 15:18 RDW 21.3 % (13.2-15.2) H 08/26/20 15:18 Plt Count 164 K/mm3 (140-440) 08/26/20 15:18 Lymph % (Auto) Buzzle Buffer 08/26/20 15:18 Lymph # (Auto) Buzzle Buffer 08/26/20 15:18 Add Manual Diff Complete 08/26/20 15:18 Total Counted 100 08/26/20 15:18 Seg Neutrophils % Buzzle Buffer 08/26/20 15:18 Seg Neuts % (Manual) 50.0 % (40.0-70.0) 08/26/20 15:18 Band Neutrophils % 0 % 08/26/20 15:18 Lymphocytes % (Manual) 47.0 % (13.4-35.0) H 08/26/20 15:18 Reactive Lymphs % (Man) 0 % 08/26/20 15:18 Monocytes % (Manual) 3.0 % (0.0-7.3) 08/26/20 15:18 Eosinophils % (Manual) 0 % (0.0-4.3) 08/26/20 15:18 Basophils % (Manual) 0 % (0.0-1.8) 08/26/20 15:18 Metamyelocytes % 0 % 08/26/20 15:18 Myelocytes % 0 % 08/26/20 15:18 Promyelocytes % 0 % 08/26/20 15:18 Blast Cells % 0 % 08/26/20 15:18 Nucleated RBC % Not Reportable 08/26/20 15:18 Seg Neutrophils # Man 4.1 K/mm3 (1.8-7.7) 08/26/20 15:18 Band Neutrophils # 0.0 K/mm3 08/26/20 15:18 Lymphocytes # (Manual) 3.9 K/mm3 (1.2-5.4) 08/26/20 15:18 Abs React Lymphs (Man) 0.0 K/mm3 08/26/20 15:18 Monocytes # (Manual) 0.2 K/mm3 (0.0-0.8) 08/26/20 15:18 Eosinophils # (Manual) 0.0 K/mm3 (0.0-0.4) 08/26/20 15:18 Basophils # (Manual) 0.0 K/mm3 (0.0-0.1) 08/26/20 15:18 Metamyelocytes # 0.0 K/mm3 08/26/20 15:18 Myelocytes # 0.0 K/mm3 08/26/20 15:18 Promyelocytes # 0.0 K/mm3 08/26/20 15:18 Blast Cells # 0.0 K/mm3 08/26/20 15:18 WBC Morphology Not Reportable 08/26/20 15:18 Hypersegmented Neuts Not Reportable 08/26/20 15:18 Hyposegmented Neuts Not Reportable 08/26/20 15:18 Hypogranular Neuts Not Reportable 08/26/20 15:18 Smudge Cells Not Reportable 08/26/20 15:18 Toxic Granulation Not Reportable 08/26/20 15:18 Toxic Vacuolation Not Reportable 08/26/20 15:18 Dohle Bodies Not Reportable 08/26/20 15:18 Pelger-Huet Anomaly Not Reportable 08/26/20 15:18 Christopher Rods Not Reportable 08/26/20 15:18 Platelet Estimate Not Reportable 08/26/20 15:18 Clumped Platelets Few 08/26/20 15:18 Plt Clumps, EDTA Not Reportable 08/26/20 15:18 Large Platelets Not Reportable 08/26/20 15:18 Giant Platelets Not Reportable 08/26/20 15:18 Platelet Satelliting Not Reportable 08/26/20 15:18 Plt Morphology Comment Not Reportable 08/26/20 15:18 RBC Morphology Not Reportable 08/26/20 15:18 Dimorphic RBCs Not Reportable 08/26/20 15:18 Polychromasia Not Reportable 08/26/20 15:18 Hypochromasia 1+ 08/26/20 15:18 Poikilocytosis 1+ 08/26/20 15:18 Anisocytosis 1+ 08/26/20 15:18 Microcytosis 1+ 08/26/20 15:18 Macrocytosis Not Reportable 08/26/20 15:18 Spherocytes Not Reportable 08/26/20 15:18 Pappenheimer Bodies Not Reportable 08/26/20 15:18 Sickle Cells Not Reportable 08/26/20 15:18 Target Cells Few 08/26/20 15:18 Tear Drop Cells Few 08/26/20 15:18 Ovalocytes Not Reportable 08/26/20 15:18 Helmet Cells Not Reportable 08/26/20 15:18 [place] Bodies Not Reportable 08/26/20 15:18 [place] Rings Not Reportable 08/26/20 15:18 Jason Cells Not Reportable 08/26/20 15:18 Bite Cells Not Reportable 08/26/20 15:18 Crenated Cell Not Reportable 08/26/20 15:18 Elliptocytes Few 08/26/20 15:18 Acanthocytes (Spur) Not Reportable 08/26/20 15:18 Rouleaux Not Reportable 08/26/20 15:18 Hemoglobin C Crystals Not Reportable 08/26/20 15:18 Schistocytes Few 08/26/20 15:18 Malaria parasites Not Reportable 08/26/20 15:18 Fredi Bodies Not Reportable 08/26/20 15:18 Hem Pathologist Commnt No 08/26/20 15:18 PT 13.8 Sec. (12.2-14.9) 08/26/20 15:18 INR 1.05 (0.87-1.13) 08/26/20 15:18 APTT 31.7 Sec. (24.2-36.6) 08/26/20 15:18 Sodium 141 mmol/L (137-145) 08/26/20 15:18 Potassium 4.3 mmol/L (3.6-5.0) 08/26/20 15:18 Chloride 103.8 mmol/L (98-107) 08/26/20 15:18 Carbon Dioxide 24 mmol/L (22-30) 08/26/20 15:18 Anion Gap 18 mmol/L 08/26/20 15:18 BUN 17 mg/dL (7-17) 08/26/20 15:18 Creatinine 0.9 mg/dL (0.6-1.2) 08/26/20 15:18 Estimated GFR > 60 ml/min 08/26/20 15:18 BUN/Creatinine Ratio 19 % 08/26/20 15:18 Glucose 109 mg/dL (65-100) H 08/26/20 15:18 Calcium 9.1 mg/dL (8.4-10.2) 08/26/20 15:18 Total Bilirubin 0.20 mg/dL (0.1-1.2) 08/26/20 15:18 Direct Bilirubin < 0.2 mg/dL (0-0.2) 08/26/20 15:18 Indirect Bilirubin 0.0 mg/dL 08/26/20 15:18 AST 15 units/L (5-40) 08/26/20 15:18 ALT 8 units/L (7-56) 08/26/20 15:18 Alkaline Phosphatase 88 units/L (35-129) 08/26/20 15:18 Total Protein 7.4 g/dL (6.3-8.2) 08/26/20 15:18 Albumin 3.8 g/dL (3.9-5) L 08/26/20 15:18 Albumin/Globulin Ratio 1.1 % 08/26/20 15:18 Blood Type O POSITIVE 08/26/20 19:30 Antibody Screen Negative 08/26/20 19:30 Short CBC 08/26/20 08/26/20 08/27/20 Range/Units 15:18 22:49 05:17 WBC 8.2 7.6 (4.5-11.0) K/mm3 Hgb 12.7 11.6 10.7 (10.1-14.3) gm/dl Hct 40.6 36.8 34.4 (30.3-42.9) % Plt Count 164 142 (140-440) K/mm3 BMP 08/26/20 08/27/20 15:18 05:17 Sodium 141 142 Potassium 4.3 4.0 Chloride 103.8 105.4 Carbon Dioxide 24 24 BUN 17 16 Creatinine 0.9 0.8 Glucose 109 H 141 H Calcium 9.1 8.8 Liver Function 08/26/20 08/27/20 Range/Units 15:18 05:17 Total Bilirubin 0.20 0.60 (0.1-1.2) mg/dL Direct Bilirubin < 0.2 (0-0.2) mg/dL AST 15 13 (5-40) units/L ALT 8 7 (7-56) units/L Alkaline Phosphatase 88 78 (35-129) units/L Albumin 3.8 L 3.6 L (3.9-5) g/dL Kilpatrick/IV: Voiding Method Toilet IV Catheter Type [Left Hand] INT / Saline Lock Assessment and Plan Advance Directives: Yes (Full code) VTE prophylaxis?: Chemical, Mechanical Plan of care discussed with patient/family: Yes - Patient Problems (1) GI bleed Current Visit: Yes Status: Acute Plan to address problem: Patient is on Xarelto which may be causing the GI bleed Patient initiated on IV Protonix Xarelto on hold GI consult (2) Hypertension Current Visit: Yes Status: Chronic Qualifiers: Hypertension type: essential hypertension Qualified Code(s): I10 - Essential (primary) hypertension Plan to address problem: Hold oral antihypertensives Catapres patch initiated (3) Hyperlipidemia Current Visit: No Status: Acute (4) Type 2 diabetes mellitus Current Visit: No Status: Chronic Qualifiers: Diabetes mellitus buttermaker helper insulin use: without buttermaker helper use Diabetes mellitus complication status: without complication Qualified Code(s): E11.9 - Type 2 diabetes mellitus without complications Plan to address problem: Coverage for now Check hemoglobin A1c (5) Hyperlipidemia Current Visit: Yes Status: Chronic Qualifiers: Hyperlipidemia type: mixed hyperlipidemia Qualified Code(s): E78.2 - Mixed hyperlipidemia Plan to address problem: Hold statins (6) Atrial fibrillation Current Visit: Yes Status: Chronic Qualifiers: Atrial fibrillation type: persistent (not longstanding) Qualified Code(s): I48.19 - Other persistent atrial fibrillation; I48.1 - Persistent atrial fibrillation Plan to address problem: Hold Xarelto for now Cardiology consult for further input regarding starting Xarelto/Eliquis/Coumadin (7) DVT prophylaxis Current Visit: No Status: Acute Plan to address problem: SCDs and GI prophylaxis
[2020-08-26] MEDS ORDERED: ALBUTEROL IH PRN (22:24)
[2020-08-26] MEDS ORDERED: HYDROmorphone 1 MG/1 ML INJ IV PRN (22:27)
[2020-08-26] MEDS ORDERED: ONDANSETRON 4 MG/2 ML INJ IV PRN (22:27)
[2020-08-26] MEDS ORDERED: ACETAMINOPHEN 325 MG TAB PO PRN (22:27)
[2020-08-26] MEDS ORDERED: ALBUTEROL 2.5 MG/3 ML NEBU IH PRN (22:27)
[2020-08-26] MEDS ORDERED: PANTOPRAZOLE 80 MG in SODIUM CHLORIDE 0.9% 100 ML IV SCH (23:00)
[2020-08-26] MEDS ORDERED: D5W/0.9% NACL 1,000 ML IV SCH (23:00)
[2020-08-26 23:09] LABS: Hematocrit 36.8 % (30.3-42.9); Hemoglobin 11.6 gm/dl (10.1-14.3)
[2020-08-27 06:00] LABS: Hematocrit 34.4 % (30.3-42.9); Hemoglobin 10.7 gm/dl (10.1-14.3); Mean Corpuscular HGB Conc 31 % (30-34); Red Blood Count 5.44 M/mm3 (3.65-5.03)
[2020-08-27 06:03] LABS: Mean Corpuscular Volume 63 fl (79-97); Platelet Count 142 K/mm3 (140-440); Red Cell Distribution Width 21.1 % (13.2-15.2)
[2020-08-27 06:20] LABS: Alanine Aminotransferase 7 units/L (7-56); Albumin 3.6 g/dL (3.9-5); BUN/Creatinine Ratio 20; Blood Urea Nitrogen 16 mg/dL (7-17); Calcium 8.8 mg/dL (8.4-10.2); Hemolysis Index 2
[2020-08-27 06:54] LABS: Anisocytosis 1+; Basophils % (Manual) 0 % (0.0-1.8); Hypochromasia 2+; Schistocytes Few; Total Cells Counted 100
[2020-08-27 06:55] LABS: Large Platelets Rare; Ovalocytes Few; Platelet Estimate Consistent w Auto; Target Cells Few
[2020-08-27] MEDS ORDERED: cloNIDine TTS 0.1 MG/24 HR PATCH TD SCH (08:00)
--- NOTE | 2020-08-27 09:02 | Gastroenterology Progress Note ---
Assessment and Plan 1. Hematochezia - appears to have subsided, mild drop in H/H since admission. has had recurrent episodes of self-limiting lower gi bleeding with reported recent colonoscopy in November revealing diverticulosis. source likely diverticular vs outlet/hemorrhoidal bleed. okay to resume clears today, monitor clinical course/labs, and hopefully can be discharged tomorrow if no further bleeding/stable labs. Subjective Date of service: 08/27/20 Principal diagnosis: hematochezia Interval history: pt reports having hematochezia episodes yesterday evening (last episode ~10- 11pm). mild abd discomfort, no n/v. Objective - Constitutional Vitals: Temp Pulse Resp BP Pulse Ox 98.5 F 61 20 144/72 98 08/27/20 05:06 08/27/20 05:06 08/27/20 05:06 08/27/20 05:06 08/27/20 05:06 General appearance: no acute distress - Respiratory Respiratory effort: normal Respiratory: bilateral: CTA - Cardiovascular Rhythm: regular Heart Sounds: Present: S1 & S2 - Gastrointestinal General gastrointestinal: Present: soft, non-tender, non-distended - Labs CBC & Chem 7: 08/27/20 05:17 08/27/20 05:17 Labs: Laboratory Results - last 24 hr 08/26/20 08/26/20 08/26/20 15:18 15:18 15:18 WBC 8.2 RBC 6.32 H Hgb 12.7 Hct 40.6 MCV 64 L MCH 20 L MCHC 31 RDW 21.3 H Plt Count 164 Lymph % (Auto) Student Finance Specialist Lymph # (Auto) Student Finance Specialist Add Manual Diff Complete Total Counted 100 Seg Neutrophils % Student Finance Specialist Seg Neuts % (Manual) 50.0 Band Neutrophils % 0 Lymphocytes % (Manual) 47.0 H Reactive Lymphs % (Man) 0 Monocytes % (Manual) 3.0 Eosinophils % (Manual) 0 Basophils % (Manual) 0 Metamyelocytes % 0 Myelocytes % 0 Promyelocytes % 0 Blast Cells % 0 Nucleated RBC % Not Reportable Seg Neutrophils # Man 4.1 Band Neutrophils # 0.0 Lymphocytes # (Manual) 3.9 Abs React Lymphs (Man) 0.0 Monocytes # (Manual) 0.2 Eosinophils # (Manual) 0.0 Basophils # (Manual) 0.0 Metamyelocytes # 0.0 Myelocytes # 0.0 Promyelocytes # 0.0 Blast Cells # 0.0 WBC Morphology Not Reportable Hypersegmented Neuts Not Reportable Hyposegmented Neuts Not Reportable Hypogranular Neuts Not Reportable Smudge Cells Not Reportable Toxic Granulation Not Reportable Toxic Vacuolation Not Reportable Dohle Bodies Not Reportable Pelger-Huet Anomaly Not Reportable Christopher Rods Not Reportable Platelet Estimate Not Reportable Clumped Platelets Few Plt Clumps, EDTA Not Reportable Large Platelets Not Reportable Giant Platelets Not Reportable Platelet Satelliting Not Reportable Plt Morphology Comment Not Reportable RBC Morphology Not Reportable Dimorphic RBCs Not Reportable Polychromasia Not Reportable Hypochromasia 1+ Poikilocytosis 1+ Anisocytosis 1+ Microcytosis 1+ Macrocytosis Not Reportable Spherocytes Not Reportable Pappenheimer Bodies Not Reportable Sickle Cells Not Reportable Target Cells Few Tear Drop Cells Few Ovalocytes Not Reportable Helmet Cells Not Reportable [place] Bodies Not Reportable [place] Rings Not Reportable Jason Cells Not Reportable Bite Cells Not Reportable Crenated Cell Not Reportable Elliptocytes Few Acanthocytes (Spur) Not Reportable Rouleaux Not Reportable Hemoglobin C Crystals Not Reportable Schistocytes Few Malaria parasites Not Reportable Fredi Bodies Not Reportable Hem Pathologist Commnt No PT 13.8 INR 1.05 APTT 31.7 Sodium 141 Potassium 4.3 Chloride 103.8 Carbon Dioxide 24 Anion Gap 18 BUN 17 Creatinine 0.9 Estimated GFR > 60 BUN/Creatinine Ratio 19 Glucose 109 H POC Glucose Hemoglobin A1c Calcium 9.1 Total Bilirubin 0.20 Direct Bilirubin < 0.2 Indirect Bilirubin 0.0 AST 15 ALT 8 Alkaline Phosphatase 88 Total Protein 7.4 Albumin 3.8 L Albumin/Globulin Ratio 1.1 Blood Type Antibody Screen 08/26/20 08/26/20 08/26/20 19:30 22:49 22:49 WBC RBC Hgb 11.6 Hct 36.8 MCV MCH MCHC RDW Plt Count Lymph % (Auto) Lymph # (Auto) Add Manual Diff Total Counted Seg Neutrophils % Seg Neuts % (Manual) Band Neutrophils % Lymphocytes % (Manual) Reactive Lymphs % (Man) Monocytes % (Manual) Eosinophils % (Manual) Basophils % (Manual) Metamyelocytes % Myelocytes % Promyelocytes % Blast Cells % Nucleated RBC % Seg Neutrophils # Man Band Neutrophils # Lymphocytes # (Manual) Abs React Lymphs (Man) Monocytes # (Manual) Eosinophils # (Manual) Basophils # (Manual) Metamyelocytes # Myelocytes # Promyelocytes # Blast Cells # WBC Morphology Hypersegmented Neuts Hyposegmented Neuts Hypogranular Neuts Smudge Cells Toxic Granulation Toxic Vacuolation Dohle Bodies Pelger-Huet Anomaly Christopher Rods Platelet Estimate Clumped Platelets Plt Clumps, EDTA Large Platelets Giant Platelets Platelet Satelliting Plt Morphology Comment RBC Morphology Dimorphic RBCs Polychromasia Hypochromasia Poikilocytosis Anisocytosis Microcytosis Macrocytosis Spherocytes Pappenheimer Bodies Sickle Cells Target Cells Tear Drop Cells Ovalocytes Helmet Cells [place] Bodies [place] Rings Jason Cells Bite Cells Crenated Cell Elliptocytes Acanthocytes (Spur) Rouleaux Hemoglobin C Crystals Schistocytes Malaria parasites Fredi Bodies Hem Pathologist Commnt PT INR APTT Sodium Potassium Chloride Carbon Dioxide Anion Gap BUN Creatinine Estimated GFR BUN/Creatinine Ratio Glucose POC Glucose Hemoglobin A1c 6.6 H Calcium Total Bilirubin Direct Bilirubin Indirect Bilirubin AST ALT Alkaline Phosphatase Total Protein Albumin Albumin/Globulin Ratio Blood Type O POSITIVE Antibody Screen Negative 08/26/20 08/27/20 08/27/20 23:06 05:17 05:17 WBC 7.6 RBC 5.44 H Hgb 10.7 Hct 34.4 MCV 63 L MCH 20 L MCHC 31 RDW 21.1 H Plt Count 142 Lymph % (Auto) Lymph # (Auto) Add Manual Diff Complete Total Counted 100 Seg Neutrophils % Seg Neuts % (Manual) 40.0 Band Neutrophils % 0 Lymphocytes % (Manual) 54.0 H Reactive Lymphs % (Man) 0 Monocytes % (Manual) 5.0 Eosinophils % (Manual) 1.0 Basophils % (Manual) 0 Metamyelocytes % 0 Myelocytes % 0 Promyelocytes % 0 Blast Cells % 0 Nucleated RBC % Not Reportable Seg Neutrophils # Man 3.0 Band Neutrophils # 0.0 Lymphocytes # (Manual) 4.1 Abs React Lymphs (Man) 0.0 Monocytes # (Manual) 0.4 Eosinophils # (Manual) 0.1 Basophils # (Manual) 0.0 Metamyelocytes # 0.0 Myelocytes # 0.0 Promyelocytes # 0.0 Blast Cells # 0.0 WBC Morphology Not Reportable Hypersegmented Neuts Not Reportable Hyposegmented Neuts Not Reportable Hypogranular Neuts Not Reportable Smudge Cells Not Reportable Toxic Granulation Not Reportable Toxic Vacuolation Not Reportable Dohle Bodies Not Reportable Pelger-Huet Anomaly Not Reportable Christopher Rods Not Reportable Platelet Estimate Consistent w auto Clumped Platelets Not Reportable Plt Clumps, EDTA Not Reportable Large Platelets Rare Giant Platelets Not Reportable Platelet Satelliting Not Reportable Plt Morphology Comment Not Reportable RBC Morphology Not Reportable Dimorphic RBCs Not Reportable Polychromasia Not Reportable Hypochromasia 2+ Poikilocytosis Not Reportable Anisocytosis 1+ Microcytosis 2+ Macrocytosis Not Reportable Spherocytes Not Reportable Pappenheimer Bodies Not Reportable Sickle Cells Not Reportable Target Cells Few Tear Drop Cells Not Reportable Ovalocytes Few Helmet Cells Not Reportable [place] Bodies Not Reportable [place] Rings Not Reportable Jason Cells Not Reportable Bite Cells Not Reportable Crenated Cell Not Reportable Elliptocytes Not Reportable Acanthocytes (Spur) Not Reportable Rouleaux Not Reportable Hemoglobin C Crystals Not Reportable Schistocytes Few Malaria parasites Not Reportable Fredi Bodies Not Reportable Hem Pathologist Commnt No PT INR APTT Sodium 142 Potassium 4.0 Chloride 105.4 Carbon Dioxide 24 Anion Gap 17 BUN 16 Creatinine 0.8 Estimated GFR > 60 BUN/Creatinine Ratio 20 Glucose 141 H POC Glucose 124 H Hemoglobin A1c Calcium 8.8 Total Bilirubin 0.60 Direct Bilirubin Indirect Bilirubin AST 13 ALT 7 Alkaline Phosphatase 78 Total Protein 6.7 Albumin 3.6 L Albumin/Globulin Ratio 1.2 Blood Type Antibody Screen 08/27/20 08:37 WBC RBC Hgb Hct MCV MCH MCHC RDW Plt Count Lymph % (Auto) Lymph # (Auto) Add Manual Diff Total Counted Seg Neutrophils % Seg Neuts % (Manual) Band Neutrophils % Lymphocytes % (Manual) Reactive Lymphs % (Man) Monocytes % (Manual) Eosinophils % (Manual) Basophils % (Manual) Metamyelocytes % Myelocytes % Promyelocytes % Blast Cells % Nucleated RBC % Seg Neutrophils # Man Band Neutrophils # Lymphocytes # (Manual) Abs React Lymphs (Man) Monocytes # (Manual) Eosinophils # (Manual) Basophils # (Manual) Metamyelocytes # Myelocytes # Promyelocytes # Blast Cells # WBC Morphology Hypersegmented Neuts Hyposegmented Neuts Hypogranular Neuts Smudge Cells Toxic Granulation Toxic Vacuolation Dohle Bodies Pelger-Huet Anomaly Christopher Rods Platelet Estimate Clumped Platelets Plt Clumps, EDTA Large Platelets Giant Platelets Platelet Satelliting Plt Morphology Comment RBC Morphology Dimorphic RBCs Polychromasia Hypochromasia Poikilocytosis Anisocytosis Microcytosis Macrocytosis Spherocytes Pappenheimer Bodies Sickle Cells Target Cells Tear Drop Cells Ovalocytes Helmet Cells [place] Bodies [place] Rings Jason Cells Bite Cells Crenated Cell Elliptocytes Acanthocytes (Spur) Rouleaux Hemoglobin C Crystals Schistocytes Malaria parasites Fredi Bodies Hem Pathologist Commnt PT INR APTT Sodium Potassium Chloride Carbon Dioxide Anion Gap BUN Creatinine Estimated GFR BUN/Creatinine Ratio Glucose POC Glucose 124 H Hemoglobin A1c Calcium Total Bilirubin Direct Bilirubin Indirect Bilirubin AST ALT Alkaline Phosphatase Total Protein Albumin Albumin/Globulin Ratio Blood Type Antibody Screen
[2020-08-27] MEDS: PANTOPRAZOLE 40 MG TAB PO SCH (10:14)
[2020-08-27] MEDS: INSULIN LISPRO 100 UNIT/ML VIAL 3 mL SUB-Q SCH ×3 (10:15→18:09)
[2020-08-27] MEDS: FLUTICASONE PROPIONATE NASAL SPRAY 16 GM NS SCH (10:15)
--- NOTE | 2020-08-27 13:58 | Progress Note ---
Assessment and Plan Assessment and plan: - Patient Problems (1) GI bleed Current Visit: Yes Status: Acute Plan to address problem: Patient is on Xarelto which may be causing the GI bleed Patient initiated on IV Protonix Xarelto on hold GI eval appreciated. Monitor Hb today. 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 Diabetes mellitus complication status: without complication Qualified Code(s): E11.9 - Type 2 diabetes mellitus without complications Plan to address problem: Coverage for now Check hemoglobin A1c (5) Hyperlipidemia Current Visit: Yes Status: Chronic Qualifiers: Hyperlipidemia type: mixed hyperlipidemia Qualified Code(s): E78.2 - Mixed hyperlipidemia Plan to address problem: Hold statins (6) Atrial fibrillation Current Visit: Yes Status: Chronic Qualifiers: Atrial fibrillation type: persistent (not longstanding) Qualified Code(s): I48.19 - Other persistent atrial fibrillation; I48.1 - Persistent atrial fibrillation Plan to address problem: Hold Xarelto for now Cardiology consult for further input regarding starting Xarelto/Eliquis/Coumadin (7) DVT prophylaxis Current Visit: No Status: Acute Plan to address problem: SCDs and GI prophylaxis History Interval history: She has no complaints. Had brown stool this morning. Blood in stool has improved as per her Hospitalist Physical - Constitutional Vitals: Temp Pulse Resp BP Pulse Ox 98.2 F 59 L 18 144/66 100 08/27/20 08:22 08/27/20 08:22 08/27/20 08:22 08/27/20 10:14 08/27/20 08:22 General appearance: Present: no acute distress, well-nourished - EENT Eyes: Present: PERRL - Neck Neck: Present: supple - Respiratory Respiratory: bilateral: CTA - Cardiovascular Heart Sounds: Present: S1 & S2 - Extremities Extremities: No edema - Abdominal General gastrointestinal: soft, non-tender, non-distended, normal bowel sounds - Psychiatric Psychiatric: appropriate mood/affect - Neurologic Neurologic: CNII-XII intact Results - Labs CBC & Chem 7: 08/27/20 05:17 08/27/20 05:17 Labs: Laboratory Last Values WBC 7.6 K/mm3 (4.5-11.0) 08/27/20 05:17 RBC 5.44 M/mm3 (3.65-5.03) H 08/27/20 05:17 Hgb 10.7 gm/dl (10.1-14.3) 08/27/20 05:17 Hct 34.4 % (30.3-42.9) 08/27/20 05:17 MCV 63 fl (79-97) L 08/27/20 05:17 MCH 20 pg (28-32) L 08/27/20 05:17 MCHC 31 % (30-34) 08/27/20 05:17 RDW 21.1 % (13.2-15.2) H 08/27/20 05:17 Plt Count 142 K/mm3 (140-440) 08/27/20 05:17 Lymph % (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) 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 08/26/20 15:18 Lymph # (Auto) 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 08/26/20 15:18 Add Manual Diff Complete 08/27/20 05:17 Total Counted 100 08/27/20 05:17 Seg Neutrophils % 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 08/26/20 15:18 Seg Neuts % (Manual) 40.0 % (40.0-70.0) 08/27/20 05:17 Band Neutrophils % 0 % 08/27/20 05:17 Lymphocytes % (Manual) 54.0 % (13.4-35.0) H 08/27/20 05:17 Reactive Lymphs % (Man) 0 % 08/27/20 05:17 Monocytes % (Manual) 5.0 % (0.0-7.3) 08/27/20 05:17 Eosinophils % (Manual) 1.0 % (0.0-4.3) 08/27/20 05:17 Basophils % (Manual) 0 % (0.0-1.8) 08/27/20 05:17 Metamyelocytes % 0 % 08/27/20 05:17 Myelocytes % 0 % 08/27/20 05:17 Promyelocytes % 0 % 08/27/20 05:17 Blast Cells % 0 % 08/27/20 05:17 Nucleated RBC % Not Reportable 08/27/20 05:17 Seg Neutrophils # Man 3.0 K/mm3 (1.8-7.7) 08/27/20 05:17 Band Neutrophils # 0.0 K/mm3 08/27/20 05:17 Lymphocytes # (Manual) 4.1 K/mm3 (1.2-5.4) 08/27/20 05:17 Abs React Lymphs (Man) 0.0 K/mm3 08/27/20 05:17 Monocytes # (Manual) 0.4 K/mm3 (0.0-0.8) 08/27/20 05:17 Eosinophils # (Manual) 0.1 K/mm3 (0.0-0.4) 08/27/20 05:17 Basophils # (Manual) 0.0 K/mm3 (0.0-0.1) 08/27/20 05:17 Metamyelocytes # 0.0 K/mm3 08/27/20 05:17 Myelocytes # 0.0 K/mm3 08/27/20 05:17 Promyelocytes # 0.0 K/mm3 08/27/20 05:17 Blast Cells # 0.0 K/mm3 08/27/20 05:17 WBC Morphology Not Reportable 08/27/20 05:17 Hypersegmented Neuts Not Reportable 08/27/20 05:17 Hyposegmented Neuts Not Reportable 08/27/20 05:17 Hypogranular Neuts Not Reportable 08/27/20 05:17 Smudge Cells Not Reportable 08/27/20 05:17 Toxic Granulation Not Reportable 08/27/20 05:17 Toxic Vacuolation Not Reportable 08/27/20 05:17 Dohle Bodies Not Reportable 08/27/20 05:17 Pelger-Huet Anomaly Not Reportable 08/27/20 05:17 Christopher Rods Not Reportable 08/27/20 05:17 Platelet Estimate Consistent w auto 08/27/20 05:17 Clumped Platelets Not Reportable 08/27/20 05:17 Plt Clumps, EDTA Not Reportable 08/27/20 05:17 Large Platelets Rare 08/27/20 05:17 Giant Platelets Not Reportable 08/27/20 05:17 Platelet Satelliting Not Reportable 08/27/20 05:17 Plt Morphology Comment Not Reportable 08/27/20 05:17 RBC Morphology Not Reportable 08/27/20 05:17 Dimorphic RBCs Not Reportable 08/27/20 05:17 Polychromasia Not Reportable 08/27/20 05:17 Hypochromasia 2+ 08/27/20 05:17 Poikilocytosis Not Reportable 08/27/20 05:17 Anisocytosis 1+ 08/27/20 05:17 Microcytosis 2+ 08/27/20 05:17 Macrocytosis Not Reportable 08/27/20 05:17 Spherocytes Not Reportable 08/27/20 05:17 Pappenheimer Bodies Not Reportable 08/27/20 05:17 Sickle Cells Not Reportable 08/27/20 05:17 Target Cells Few 08/27/20 05:17 Tear Drop Cells Not Reportable 08/27/20 05:17 Ovalocytes Few 08/27/20 05:17 Helmet Cells Not Reportable 08/27/20 05:17 Pyle-L[place]ta Bodies Not Reportable 08/27/20 05:17 [place] Rings Not Reportable 08/27/20 05:17 Jason Cells Not Reportable 08/27/20 05:17 Bite Cells Not Reportable 08/27/20 05:17 Crenated Cell Not Reportable 08/27/20 05:17 Elliptocytes Not Reportable 08/27/20 05:17 Acanthocytes (Spur) Not Reportable 08/27/20 05:17 Rouleaux Not Reportable 08/27/20 05:17 Hemoglobin C Crystals Not Reportable 08/27/20 05:17 Schistocytes Few 08/27/20 05:17 Malaria parasites Not Reportable 08/27/20 05:17 Fredi Bodies Not Reportable 08/27/20 05:17 Hem Pathologist Commnt No 08/27/20 05:17 PT 13.8 Sec. (12.2-14.9) 08/26/20 15:18 INR 1.05 (0.87-1.13) 08/26/20 15:18 APTT 31.7 Sec. (24.2-36.6) 08/26/20 15:18 Sodium 142 mmol/L (137-145) 08/27/20 05:17 Potassium 4.0 mmol/L (3.6-5.0) 08/27/20 05:17 Chloride 105.4 mmol/L (98-107) 08/27/20 05:17 Carbon Dioxide 24 mmol/L (22-30) 08/27/20 05:17 Anion Gap 17 mmol/L 08/27/20 05:17 BUN 16 mg/dL (7-17) 08/27/20 05:17 Creatinine 0.8 mg/dL (0.6-1.2) 08/27/20 05:17 Estimated GFR > 60 ml/min 08/27/20 05:17 BUN/Creatinine Ratio 20 % 08/27/20 05:17 Glucose 141 mg/dL (65-100) H 08/27/20 05:17 POC Glucose 152 (70-105) H 08/27/20 12:14 Hemoglobin A1c 6.6 % (4-6) H 08/26/20 22:49 Calcium 8.8 mg/dL (8.4-10.2) 08/27/20 05:17 Total Bilirubin 0.60 mg/dL (0.1-1.2) 08/27/20 05:17 Direct Bilirubin < 0.2 mg/dL (0-0.2) 08/26/20 15:18 Indirect Bilirubin 0.0 mg/dL 08/26/20 15:18 AST 13 units/L (5-40) 08/27/20 05:17 ALT 7 units/L (7-56) 08/27/20 05:17 Alkaline Phosphatase 78 units/L (35-129) 08/27/20 05:17 Total Protein 6.7 g/dL (6.3-8.2) 08/27/20 05:17 Albumin 3.6 g/dL (3.9-5) L 08/27/20 05:17 Albumin/Globulin Ratio 1.2 % 08/27/20 05:17 Blood Type O POSITIVE 08/26/20 19:30 Antibody Screen Negative 08/26/20 19:30 Kilpatrick/IV: Voiding Method Toilet IV Catheter Type [Left Hand] INT / Saline Lock Active Medications - Current Medications Current Medications: Generic Name Dose Route Start Last Admin Trade Name Freq PRN Reason Stop Dose Admin Acetaminophen 650 mg 08/26/20 22:27 Tylenol PO Q4H PRN Pain MILD(1-3)/Fever >100.5/CALLEJAS Albuterol 2.5 mg 08/26/20 22:27 Proventil IH Q6H PRN Wheezing Clonidine HCl 0.1 mg 08/27/20 08:00 08/27/20 10:14 Catapres-Tts Patch TD 0.1 mg Sa ELENO Administration Fluticasone Propionate 50 mcg 08/27/20 10:00 08/27/20 10:15 Flonase NS 50 mcg QDAY ELENO Administration Hydromorphone HCl 0.5 mg 08/26/20 22:27 Dilaudid IV Q3H PRN Pain , Severe (7-10) Insulin Human Lispro 0 unit 08/27/20 08:00 08/27/20 12:07 Humalog SUB-Q 300 unit Q6HR ELENO Administration Protocol Ondansetron HCl 4 mg 08/26/20 22:27 Zofran IV Q8H PRN Nausea And Vomiting Pantoprazole Sodium 40 mg 08/27/20 07:30 08/27/20 10:14 Protonix PO 40 mg QDAC ELENO Administration Sodium Chloride 10 ml 08/26/20 23:00 08/27/20 10:15 Sodium Chloride Flush Syringe 10 Ml IV 10 ml BID ELENO Administration Sodium Chloride 10 ml 08/26/20 22:27 Sodium Chloride Flush Syringe 10 Ml IV PRN PRN LINE FLUSH
[2020-08-27 14:34] LABS: Hematocrit 33.4 % (30.3-42.9); Hemoglobin 10.8 gm/dl (10.1-14.3)
[2020-08-27] MEDS ORDERED: ALBUTEROL 8.5 GM MDI INHALATION IH PRN (23:13)
[2020-08-27] MEDS ORDERED: GABAPENTIN 300 MG CAP PO PRN (23:13)
[2020-08-27] MEDS ORDERED: ALBUTEROL 2.5 MG/3 ML NEBU IH PRN (23:30)
[2020-08-28] MEDS: PROPRANOLOL 40 MG TAB PO SCH ×2 (00:12→12:53)
[2020-08-28] MEDS: INSULIN LISPRO 100 UNIT/ML VIAL 3 mL SUB-Q SCH ×3 (00:22→12:53)
[2020-08-28 01:21] LABS: Hematocrit 33.5 % (30.3-42.9); Hemoglobin 10.5 gm/dl (10.1-14.3)
[2020-08-28] MEDS ORDERED: metFORMIN 500 MG TAB PO SCH (08:00)
[2020-08-28] MEDS ORDERED: amLODIPine 5 MG TAB PO SCH ×2 (10:00)
[2020-08-28] MEDS ORDERED: methIMAzole 5 MG TAB PO SCH (10:00)
[2020-08-28] MEDS ORDERED: FAMOTIDINE 20 MG TAB PO SCH (10:00)
[2020-08-28] MEDS ORDERED: allopurinoL 100 MG TAB PO SCH (10:00)
[2020-08-28] MEDS ORDERED: LORATADINE 10 MG PO SCH (10:00)
[2020-08-28] MEDS ORDERED: FERROUS SULFATE 325 MG TAB PO SCH (10:00)
[2020-08-28] MEDS ORDERED: LISINOPRIL 10 MG TAB PO SCH (10:00)
[2020-08-28] MEDS ORDERED: CETIRIZINE 10 MG TAB PO SCH (10:00)
[2020-08-28 10:06] VITALS: BP 153/65
[2020-08-28] MEDS: FLUTICASONE PROPIONATE NASAL SPRAY 16 GM NS SCH (10:14)
[2020-08-28] MEDS: PANTOPRAZOLE 40 MG TAB PO SCH (10:15)
[2020-08-28 13:48] LABS: Hematocrit 32.7 % (30.3-42.9); Hemoglobin 10.6 gm/dl (10.1-14.3)
--- NOTE | 2020-08-28 14:13 | Gastroenterology Progress Note ---
Assessment and Plan Hematochezia - appears resolved, H/h stable (follow-up repeating today). has had recurrent episodes of self-limiting lower gi bleeding with reported recent colonoscopy in November revealing diverticulosis. source likely diverticular vs outlet/hemorrhoidal bleed. okay to advance diet, if repeat labs stable, can be discharged from gi stand point. follow-up with primary gi physician after d/c. will sign off, please call as needed. Subjective Date of service: 08/28/20 Principal diagnosis: hematochezia Interval history: pt feeling well, wishes to go home. just scant blood with bm's, overall improved Objective - Constitutional Vitals: Temp Pulse Resp BP Pulse Ox 98.3 F 57 L 18 153/65 100 08/28/20 09:48 08/28/20 09:48 08/28/20 09:48 08/28/20 09:48 08/28/20 09:48 General appearance: no acute distress - Respiratory Respiratory effort: normal Respiratory: bilateral: CTA - Cardiovascular Rhythm: regular Heart Sounds: Present: S1 & S2 - Gastrointestinal General gastrointestinal: Present: soft, non-tender - Labs CBC & Chem 7: 08/28/20 12:52 08/27/20 05:17 Labs: Laboratory Results - last 24 hr 08/27/20 08/27/20 08/27/20 13:44 17:11 20:46 Hgb 10.8 Hct 33.4 POC Glucose 75 94 08/27/20 08/28/20 08/28/20 23:59 06:27 08:03 Hgb 10.5 Hct 33.5 POC Glucose 103 104 08/28/20 08/28/20 12:36 12:52 Hgb 10.6 Hct 32.7 POC Glucose 99
--- NOTE | 2020-08-28 14:30 | Discharge Summary ---
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 Patient is slightly lightheaded. Patient has been taking Xarelto regularly. No hematemesis. No abdominal pain. No fever or chills. No exposure to coronavirus. No chest pain. No shortness of breath. No syncopal episodes. No lightheadedness. Here in the ER, patient hemoglobin was stable. GI was consulted for further evaluation. Her Xarelto was temporarily held. Patient was seen by GI and as per GI, patient does not need further procedure at this time as he recently had a procedure performed this year. Hemoglobin remained stable throughout admission/hospitalization. Patient will be discharged home to continue her medications. I will have her continue her Xarelto as she has a high risk of stroke given comorbidities. She will follow-up with her primary GI. Discussed with her and she agrees with management Disposition: DC-01 TO HOME OR SELFCARE - Discharge Diagnoses (1) GI bleed Status: Acute (2) Atrial fibrillation Status: Chronic Qualifiers: Atrial fibrillation type: persistent (not longstanding) Qualified Code(s): I48.19 - Other persistent atrial fibrillation; I48.1 - Persistent atrial fibrillation (3) Hyperlipidemia Status: Chronic Qualifiers: Hyperlipidemia type: mixed hyperlipidemia Qualified Code(s): E78.2 - Mixed hyperlipidemia (4) Hypertension Status: Chronic Qualifiers: Hypertension type: essential hypertension Qualified Code(s): I10 - Essential (primary) hypertension Core Measure Documentation - Palliative Care Palliative Care/ Comfort Measures: Not Applicable - Core Measures Any of the following diagnoses?: none Exam - Constitutional Vitals: Temp Pulse Resp BP Pulse Ox 98.3 F 57 L 18 153/65 100 08/28/20 09:48 08/28/20 09:48 08/28/20 09:48 08/28/20 09:48 08/28/20 09:48 General appearance: Present: no acute distress, well-nourished - EENT Eyes: Present: PERRL ENT: hearing intact, clear oral mucosa - Neck Neck: Present: supple, normal ROM - Respiratory Respiratory effort: normal Respiratory: bilateral: CTA - Cardiovascular Heart Sounds: Present: S1 & S2. Absent: rub, click - Extremities Extremities: pulses symmetrical, No edema Peripheral Pulses: within normal limits - Abdominal General gastrointestinal: Present: soft, non-tender, non-distended, normal bowel sounds Female genitourinary: Present: normal - Integumentary Integumentary: Present: clear, warm, dry - Musculoskeletal Musculoskeletal: gait normal, strength equal bilaterally - Psychiatric Psychiatric: appropriate mood/affect, intact judgment & insight - Neurologic Neurologic: CNII-XII intact, moves all extremities Plan Additional Instructions: Continue all home medications. Avoid diclofenac, ibuprofen or naproxen. 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 Follow up with: PRIMARY CARE, [Primary Care Provider] - 3-5 Days Forms: Accompanied Note
[2020-08-29] MEDS ORDERED: ERGOCALCIFEROL (VIT D2) 50,000 UNIT CAP PO SCH (10:00)
== END 2020-08-28 17:31 | disposition home or self-care (01) ==
LOC: ED 13:15 → 4A 18:08
PROVIDERS: ADMIT Internal Medicine; ATTEND Internal Medicine
DX: K92.2 Gastrointestinal hemorrhage, unspecified (principal); I10 Essential (primary) hypertension; E78.5 Hyperlipidemia, unspecified; E11.9 Type 2 diabetes mellitus without complications; I48.91 Unspecified atrial fibrillation; I25.10 Atherosclerotic heart disease of native coronary artery without angina pectoris; K21.9 Gastro-esophageal reflux disease without esophagitis; M10.9 Gout, unspecified; M19.90 Unspecified osteoarthritis, unspecified site; Z98.890 Other specified postprocedural states; Z79.84 Long term (current) use of oral hypoglycemic drugs
CPT/HCPCS: 36415; 80048; 80053; 80076; 82962; 83036; 85007; 85014; 85018; 85025; 85610; 85730; 86850; 86900; 86901; 96365; 96366; 96376; 99291; C9113; G0378; J7042

== ENCOUNTER 2021-03-21 16:09 | Observation (INO) | payer MEDICARE ==
--- NOTE | 2021-03-21 17:15 | Emergency Department Report ---
ED General Adult HPI - General Chief complaint: Arrhythmia/Palpitations Stated complaint: Chest pain and palpitation PUI?: No Time Seen by Provider: 03/21/21 16:47 Source: patient, EMS ( EMS documentation not available at time of chart dictation ), RN notes reviewed Mode of arrival: Stretcher Limitations: No Limitations - History of Present Illness Initial comments: The patient was evaluated in the emergency department for symptoms described in the history of present illness. He/she was evaluated in the context of the global COVID-19 pandemic, which necessitated consideration that the patient might be at risk for infection with the virus that causes COVID-19. Institutional protocols and algorithms that pertain to the evaluation of patients at risk for COVID-19 are in a state of rapid change based on information released by regulatory bodies including the CDC and federal and state organizations. These policies and algorithms were followed during the patient's care in the emergency department. Please note that these policies, procedures and recommendations changed on a rapid basis. Primary CARE doctor: Aditya Past medical history: Obesity, body mass index of 42, A. fib on Xarelto, GERD, hypertension, hyperlipidemia, type 2 diabetes, diverticulosis, "thyroid." The patient is a 65-year-old female. She presents to the ER today with a complaint of nontraumatic right-sided chest pain and burning, and sensation of palpitations. The patient states she takes lisinopril and propanolol, and she reports that she was instructed to not take these medications simultaneously. She reports that she took her lisinopril this morning, but not her propranolol immediately, as instructed, and shortly thereafter taking lisinopril this morning, developed a sensation of palpitation, heart racing, and right-sided chest burning. The chest discomfort does not radiate to the back, arms or neck. There is no vomiting, diaphoresis. The patient endorses compliance with Xarelto, and denies DVT and pulmonary embolism risk factors. She does not take aspirin secondary to diverticulosis. She has not had a recent cardiac stress test or cardiac catheterization that she is aware of. She denies Covid symptomatology. She has minimal pain at this time. She otherwise endorses compliance with her medications. -: Gradual Location: chest Radiation: non-radiation Quality: burning, aching Consistency: now resolved Improves with: none Worsens with: none Associated Symptoms: denies other symptoms - Related Data Home Medications Medication Instructions Recorded Confirmed Last Taken amLODIPine 10 mg PO BID 01/18/14 03/21/21 07/11/20 metFORMIN [Glucophage] 1,000 mg PO BID 10/21/15 03/21/21 07/11/20 AtorvaSTATin [Lipitor] 40 mg PO QHS 03/27/20 03/21/21 07/11/20 Ferrous Sulfate [Iron 325 MG] 325 mg PO DAILY 03/27/20 03/21/21 07/11/20 Gabapentin 300 mg PO TID PRN 03/27/20 03/21/21 07/11/20 Rivaroxaban [Xarelto] 20 mg PO QDAY 03/27/20 03/21/21 07/11/20 allopurinoL [Zyloprim] 200 mg PO QDAY 03/27/20 03/21/21 07/11/20 methIMAzole [Tapazole] 10 mg PO QDAY 03/27/20 03/21/21 07/11/20 propranoloL [Inderal] 40 mg PO Q12H 03/27/20 03/21/21 07/11/20 ALBUTEROL NEB's 108 puff INHALATION Q6H PRN 07/12/20 03/21/21 Unknown lisinopriL [Zestril TAB] 20 mg PO QDAY 07/12/20 03/21/21 07/11/20 Ergocalciferol (Vitamin D2) 50,000 unit PO QWEEK 08/27/20 03/21/21 Unknown [Drisdol] Cetirizine HCl [ZyrTEC 10mg cap] 10 mg PO QDAY 03/21/21 03/21/21 Unknown Mupirocin [Bactroban 2%] 1 applic TP TID 03/21/21 03/21/21 Unknown Omeprazole 20 mg PO QDAY 03/21/21 03/21/21 Unknown Previous Rx's Medication Instructions Recorded Last Taken Type Fluticasone [Flonase] 1 spray NS QDAY #1 bottle 02/11/20 03/26/20 Rx Loratadine [Claritin] 10 mg PO DAILY #30 tablet 02/11/20 07/11/20 Rx Albuterol Sulfate [Proventil Hfa] 6.7 gm IH Q4HR PRN #1 hfa.aer.ad 07/23/20 Unknown Rx Allergies Allergy/AdvReac Type Severity Reaction Status Date / Time Penicillins Allergy Rash Verified 05/15/20 10:28 Sulfa (Sulfonamide Allergy Rash Verified 05/15/20 10:28 Antibiotics) ED Review of Systems ROS: Stated complaint: CHEST FLUTTERS Other details as noted in HPI Comment: All other systems reviewed and negative Cardiovascular: chest pain, palpitations ED Past Medical Hx - Past Medical History Hx Hypertension: Yes Hx Diabetes: Yes Hx GERD: Yes Hx Arthritis: Yes Additional medical history: Bronchitis, Afib, gout, Thyroid - Surgical History Hx Breast Surgery: Yes (left breast) Additional Surgical History: colon surg - diverticulitis, lumps removed from left breast - Social History Smoking Status: Never Smoker - Medications Home Medications: Home Medications Medication Instructions Recorded Confirmed Last Taken Type amLODIPine 10 mg PO BID 01/18/14 03/21/21 07/11/20 History metFORMIN [Glucophage] 1,000 mg PO BID 10/21/15 03/21/21 07/11/20 History Fluticasone [Flonase] 1 spray NS QDAY #1 bottle 02/11/20 03/21/21 03/26/20 Rx Loratadine [Claritin] 10 mg PO DAILY #30 tablet 02/11/20 03/21/21 07/11/20 Rx AtorvaSTATin [Lipitor] 40 mg PO QHS 03/27/20 03/21/21 07/11/20 History Ferrous Sulfate [Iron 325 MG] 325 mg PO DAILY 03/27/20 03/21/21 07/11/20 History Gabapentin 300 mg PO TID PRN 03/27/20 03/21/21 07/11/20 History Rivaroxaban [Xarelto] 20 mg PO QDAY 03/27/20 03/21/21 07/11/20 History allopurinoL [Zyloprim] 200 mg PO QDAY 03/27/20 03/21/21 07/11/20 History methIMAzole [Tapazole] 10 mg PO QDAY 03/27/20 03/21/21 07/11/20 History propranoloL [Inderal] 40 mg PO Q12H 03/27/20 03/21/21 07/11/20 History ALBUTEROL NEB's 108 puff INHALATION Q6H PRN 07/12/20 03/21/21 Unknown History lisinopriL [Zestril TAB] 20 mg PO QDAY 07/12/20 03/21/21 07/11/20 History Albuterol Sulfate [Proventil Hfa] 6.7 gm IH Q4HR PRN #1 hfa.aer.ad 07/23/20 03/21/21 Unknown Rx Ergocalciferol (Vitamin D2) 50,000 unit PO QWEEK 08/27/20 03/21/21 Unknown History [Drisdol] Cetirizine HCl [ZyrTEC 10mg cap] 10 mg PO QDAY 03/21/21 03/21/21 Unknown History Mupirocin [Bactroban 2%] 1 applic TP TID 03/21/21 03/21/21 Unknown History Omeprazole 20 mg PO QDAY 03/21/21 03/21/21 Unknown History ED Physical Exam - General Limitations: No Limitations General appearance: alert, in no apparent distress, obese - Head Head exam: Present: atraumatic, normocephalic - Eye Eye exam: Present: normal appearance, EOMI. Absent: nystagmus - ENT ENT exam: Present: normal exam, normal orophraynx, mucous membranes moist, normal external ear exam - Neck Neck exam: Present: normal inspection, full ROM. Absent: tenderness, meningismus - Respiratory Respiratory exam: Present: normal lung sounds bilaterally. Absent: respiratory distress, wheezes, rales, rhonchi, stridor, decreased breath sounds - Cardiovascular Cardiovascular Exam: Present: regular rate, normal rhythm, normal heart sounds. Absent: bradycardia, tachycardia, irregular rhythm, systolic murmur, diastolic murmur, rubs, gallop - GI/Abdominal GI/Abdominal exam: Present: soft. Absent: distended, tenderness, guarding, rebound, rigid, pulsatile mass - Extremities Exam Extremities exam: Present: normal inspection, full ROM, pedal edema (1+ edema in the bilateral lower extremities), other (2+ pulses noted in the bilateral upper and lower extremities. There is no palpable cord. negative Homans sign. Muscular compartments are soft. The pelvis is stable.). Absent: calf tenderness - Back Exam Back exam: Present: normal inspection, full ROM. Absent: tenderness, CVA tenderness (R), CVA tenderness (L), paraspinal tenderness, vertebral tenderness - Neurological Exam Neurological exam: Present: alert, oriented X3, other (No facial droop. Tongue midline. Extraocular movements intact bilaterally. Facial sensation intact to light touch in V1, V2, V3 distribution bilaterally. 5 and a 5 strength in 4 extremities. Sensation intact to light touch in 4 extremities.). Absent: motor sensory deficit - Psychiatric Psychiatric exam: Present: normal affect, normal mood - Skin Skin exam: Present: warm, dry, intact, normal color. Absent: rash ED Course Vital Signs 03/21/21 03/21/21 03/21/21 16:28 16:30 17:13 Temperature 98.1 F Pulse Rate 83 89 Respiratory 20 23 Rate Blood Pressure 141/72 130/82 Blood Pressure [Right] O2 Sat by Pulse 97 97 Oximetry 03/21/21 19:08 Temperature 97.8 F Pulse Rate 79 Respiratory 12 Rate Blood Pressure Blood Pressure 162/84 [Right] O2 Sat by Pulse 99 Oximetry - Reevaluation(s) Reevaluation #1: 03/21/21 18:02 Differential diagnosis, including but not limited to: Acute coronary syndrome, GERD, gastritis, hiatal hernia, pneumonia, thyroid derangement, electrolyte derangement Assessment and plan: 65-year-old female, with a known history of hypothyroidism, A. fib, on Xarelto, with chest pain, now resolved. No recent cardiac risk ratification. EKG abnormal, but unchanged from prior. Patient at moderate risk for major adverse cardiac event as per heart score. Patient is clinically and electrocardiographically in normal sinus at this time, and endorses compliance with her Xarelto. She further denies DVT and pulmonary embolism risk factors, she is low risk by Wells criteria for pulmonary embolism, and she is not currently tachycardic, tachypneic or hypoxic. We will treat the patient's pain, obtain appropriate laboratory studies and x- ray of the chest. We will reassess after initial data points. We have recommended admission to the medical service for cardiac risk stratification. Have discussed this plan of care with the patient, who verbalized understanding, and is amenable to this plan of care. OLYA SCORE 2 points 8% risk at 14 days of: all-cause mortality, new or recurrent OK, or severe recurrent ischemia requiring urgent revascularization. Reevaluation #2: 03/21/21 19:24 Dr Dawn to admit to [facility] ED Medical Decision Making - Lab Data Result diagrams: 03/21/21 17:30 03/21/21 17:30 Vital Signs 03/21/21 03/21/21 03/21/21 16:28 16:30 17:13 Temperature 98.1 F Pulse Rate 83 89 Respiratory 20 23 Rate Blood Pressure 141/72 130/82 O2 Sat by Pulse 97 97 Oximetry Lab Results 03/21/21 03/21/21 03/21/21 Range/Units 17:30 17:30 17:30 WBC 7.6 (4.5-11.0) K/mm3 RBC 5.39 H (3.65-5.03) M/mm3 Hgb 12.2 (10.1-14.3) gm/dl Hct 38.8 (30.3-42.9) % MCV 72 L (79-97) fl MCH 23 L (28-32) pg MCHC 31 (30-34) % RDW 17.4 H (13.2-15.2) % Plt Count 148 (140-440) K/mm3 PT 19.0 H (12.2-14.9) Sec. INR 1.59 H (0.87-1.13) Sodium 141 (137-145) mmol/L Potassium 4.0 (3.6-5.0) mmol/L Chloride 105.0 (98-107) mmol/L Carbon Dioxide 27 (22-30) mmol/L Anion Gap 13 mmol/L BUN 11 (7-17) mg/dL Creatinine 0.7 (0.6-1.2) mg/dL Estimated GFR > 60 ml/min BUN/Creatinine Ratio 16 % Glucose 132 H (65-100) mg/dL Calcium 9.1 (8.4-10.2) mg/dL Magnesium 1.80 (1.7-2.3) mg/dL Total Bilirubin 0.30 (0.1-1.2) mg/dL AST 20 (5-40) units/L ALT 8 (7-56) units/L Alkaline Phosphatase 73 (35-129) units/L Total Creatine Kinase 47 (30-135) units/L Troponin T < 0.010 (0.00-0.029) ng/mL Total Protein 7.4 (6.3-8.2) g/dL Albumin 4.2 (3.9-5) g/dL Albumin/Globulin Ratio 1.3 % - EKG Data -: EKG Interpreted by Me EKG shows normal: sinus rhythm - EKG Data When compared to previous EKG there are: no significant change 03/21/21 18:01 EKG interpreted at 16: 37 Sinus rhythm, 82 bpm. Left axis deviation, left anterior fascicular block, poor R wave progression, intervals within normal limits. This is an abnormal EKG. The EKG is not a STEMI. The EKG appears to be unchanged when compared to prior EKG from June 2020. - Radiology Data Radiology results: pending, report reviewed, image reviewed 1 view x-ray of the chest negative for acute findings. Critical care attestation.: If time is entered above; I have spent that time in minutes in the direct care of this critically ill patient, excluding procedure time. ED Disposition Clinical Impression: Acute chest pain, Anticoagulated, Body mass index (BMI) greater than 40 Disposition: OP ADMIT IP TO THIS HOSP Is pt being admited?: Yes Does the pt Need Aspirin: Yes Condition: Stable Instructions: Chest Pain (ED) Referrals: ARELY WHITEHEAD MD [Primary Care Provider] - 3-5 Days Heart Score - HEART Score History: Slightly suspicious EKG: Non-specific Age: 45-65 Risk factors: > 3 risk factors or hx of atherosclerotic disease Troponin: < normal limit HEART Score: 4 - EKG Read Time Time EKG Completed: 16:37 EKG Read Time: 16:37 - Critical Actions Critical Actions: 4-6 pts:12-16.6% risk of adverse cardiac event. Should be admitted
[2021-03-21] MEDS ORDERED: NITROGLYCERIN 0.4 MG TAB SUBL SL PRN (17:23)
[2021-03-21 17:54] LABS: Hematocrit 38.8 % (30.3-42.9); Hemoglobin 12.2 gm/dl (10.1-14.3); Mean Corpuscular HGB Conc 31 % (30-34); Mean Corpuscular Volume 72 fl (79-97); Platelet Count 148 K/mm3 (140-440); Red Blood Count 5.39 M/mm3 (3.65-5.03); Red Cell Distribution Width 17.4 % (13.2-15.2)
[2021-03-21] MEDS ORDERED: FAMOTIDINE 20 MG TAB PO ONE (18:04)
[2021-03-21] MEDS ORDERED: ASPIRIN 81 MG TAB CHEW PO ONE (18:05)
[2021-03-21 18:07] LABS: INR 1.59 (0.87-1.13)
--- NOTE | 2021-03-21 18:15 | XRay Report ---
CHEST 1 VIEW 03/21/2021 5:21 PM INDICATION / CLINICAL INFORMATION: chest pain. COMPARISON: 07/23/2020 FINDINGS: SUPPORT DEVICES: None. HEART / MEDIASTINUM: No significant abnormality. LUNGS / PLEURA: No significant pulmonary or pleural abnormality. No pneumothorax. ADDITIONAL FINDINGS: No significant additional findings. IMPRESSION: 1. No acute findings. Signer Name: Laith Luis MD Signed: 03/21/2021 6:10 PM Workstation Name: [id number]
[2021-03-21 18:31] LABS: Alanine Aminotransferase 8 units/L (7-56); Albumin 4.2 g/dL (3.9-5); Blood Urea Nitrogen 11 mg/dL (7-17); Calcium 9.1 mg/dL (8.4-10.2); Hemolysis Index 5
[2021-03-21 18:33] LABS: BUN/Creatinine Ratio 16
[2021-03-22] MEDS ORDERED: GABAPENTIN 300 MG CAP PO PRN (00:27)
[2021-03-22] MEDS ORDERED: ALBUTEROL 8.5 GM MDI INHALATION IH PRN (00:27)
--- NOTE | 2021-03-22 00:27 | History and Physical Report ---
History of Present Illness Date of examination: 03/21/21 Date of admission: 03/21/21 19:25 Chief complaint: Chest pain since a.m. History of present illness: 65-year-old female comes in for Retrosternal chest pain and right-sided chest pain associated with palpitations. Patient states that she takes propranolol and lisinopril. Patient had palpitations and heart racing with associated chest pain. No diaphoresis no vomiting. No exacerbating or relieving factors. During my examination patient was - Past Medical History --Hypertension: Yes -- Diabetes: Yes --GERD: Yes --Arthritis: Yes Additional medical history: Bronchitis, Afib, gout, Thyroid - Surgical History Hx Breast Surgery: Yes (left breast) Additional Surgical History: colon surg - diverticulitis, lumps removed from left breast - Social History Smoking Status: Never Smoker Review of Systems ROS: Stated complaint: CHEST FLUTTERS Other details as noted in HPI Comment: All other systems reviewed and negative Cardiovascular: chest pain, palpitations Medications and Allergies Allergies Allergy/AdvReac Type Severity Reaction Status Date / Time Penicillins Allergy Rash Verified 05/15/20 10:28 Sulfa (Sulfonamide Allergy Rash Verified 05/15/20 10:28 Antibiotics) Home Medications Medication Instructions Recorded Confirmed Last Taken Type amLODIPine 10 mg PO BID 01/18/14 03/21/21 07/11/20 History metFORMIN [Glucophage] 1,000 mg PO BID 10/21/15 03/21/21 07/11/20 History Fluticasone [Flonase] 1 spray NS QDAY #1 bottle 02/11/20 03/21/21 03/26/20 Rx Loratadine [Claritin] 10 mg PO DAILY #30 tablet 02/11/20 03/21/21 07/11/20 Rx AtorvaSTATin [Lipitor] 40 mg PO QHS 03/27/20 03/21/21 07/11/20 History Ferrous Sulfate [Iron 325 MG] 325 mg PO DAILY 03/27/20 03/21/21 07/11/20 History Gabapentin 300 mg PO TID PRN 03/27/20 03/21/21 07/11/20 History Rivaroxaban [Xarelto] 20 mg PO QDAY 03/27/20 03/21/21 07/11/20 History allopurinoL [Zyloprim] 200 mg PO QDAY 03/27/20 03/21/21 07/11/20 History methIMAzole [Tapazole] 10 mg PO QDAY 03/27/20 03/21/21 07/11/20 History propranoloL [Inderal] 40 mg PO Q12H 03/27/20 03/21/21 07/11/20 History ALBUTEROL NEB's 108 puff INHALATION Q6H PRN 07/12/20 03/21/21 Unknown History lisinopriL [Zestril TAB] 20 mg PO QDAY 07/12/20 03/21/21 07/11/20 History Albuterol Sulfate [Proventil Hfa] 6.7 gm IH Q4HR PRN #1 hfa.aer.ad 07/23/20 03/21/21 Unknown Rx Ergocalciferol (Vitamin D2) 50,000 unit PO QWEEK 08/27/20 03/21/21 Unknown History [Drisdol] Cetirizine HCl [ZyrTEC 10mg cap] 10 mg PO QDAY 03/21/21 03/21/21 Unknown History Mupirocin [Bactroban 2%] 1 applic TP TID 03/21/21 03/21/21 Unknown History Omeprazole 20 mg PO QDAY 03/21/21 03/21/21 Unknown History Active Meds: Active Medications Nitroglycerin (Nitroglycerin 0.4 Mg Tab Subl) 0.4 mg SL .Q5MIN PRN PRN Reason: Chest Pain Pneumococcal Polyvalent Vaccine (Pneumococcal 23 Valent 0.5 Ml Vial) 0.5 ml IM .ONCE ONE Stop: 03/22/21 12:01 Exam - Constitutional Vitals: Temp Pulse Resp BP Pulse Ox 97.5 F L 73 20 161/77 97 03/21/21 21:30 03/21/21 23:29 03/21/21 22:43 03/21/21 21:30 03/21/21 21:30 General appearance: Present: no acute distress, well-nourished - EENT Eyes: Present: PERRL ENT: hearing intact, clear oral mucosa - Neck Neck: Present: supple, normal ROM - Respiratory Respiratory effort: normal Respiratory: bilateral: CTA - Cardiovascular Heart rate: 78 Rhythm: regular Heart Sounds: Present: S1 & S2. Absent: rub, click - Extremities Extremities: pulses symmetrical, No edema Peripheral Pulses: within normal limits - Abdominal General gastrointestinal: Present: soft, non-tender, non-distended, normal bowel sounds Female genitourinary: Present: normal - Integumentary Integumentary: Present: clear, warm, dry - Musculoskeletal Musculoskeletal: gait normal, strength equal bilaterally - Psychiatric Psychiatric: appropriate mood/affect, intact judgment & insight - Neurologic Neurologic: CNII-XII intact, moves all extremities HEART Score - HEART Score EKG: Non-specific Age: 45-65 Risk factors: > 3 risk factors or hx of atherosclerotic disease Troponin: Troponin T < 0.010 ng/mL (0.00-0.029) 03/21/21 20:10 Troponin: < normal limit - Critical Actions Critical Actions: 4-6 pts:12-16.6% risk of adverse cardiac event. Should be admitted Results - Labs CBC & Chem 7: 03/21/21 17:30 03/21/21 17:30 Labs: Laboratory Last Values WBC 7.6 K/mm3 (4.5-11.0) 03/21/21 17:30 RBC 5.39 M/mm3 (3.65-5.03) H 03/21/21 17:30 Hgb 12.2 gm/dl (10.1-14.3) 03/21/21 17:30 Hct 38.8 % (30.3-42.9) 03/21/21 17:30 MCV 72 fl (79-97) L 03/21/21 17:30 MCH 23 pg (28-32) L 03/21/21 17:30 MCHC 31 % (30-34) 03/21/21 17:30 RDW 17.4 % (13.2-15.2) H 03/21/21 17:30 Plt Count 148 K/mm3 (140-440) 03/21/21 17:30 PT 19.0 Sec. (12.2-14.9) H 03/21/21 17:30 INR 1.59 (0.87-1.13) H 03/21/21 17:30 Sodium 141 mmol/L (137-145) 03/21/21 17:30 Potassium 4.0 mmol/L (3.6-5.0) 03/21/21 17:30 Chloride 105.0 mmol/L (98-107) 03/21/21 17:30 Carbon Dioxide 27 mmol/L (22-30) 03/21/21 17:30 Anion Gap 13 mmol/L 03/21/21 17:30 BUN 11 mg/dL (7-17) 03/21/21 17:30 Creatinine 0.7 mg/dL (0.6-1.2) 03/21/21 17:30 Estimated GFR > 60 ml/min 03/21/21 17:30 BUN/Creatinine Ratio 16 % 03/21/21 17:30 Glucose 132 mg/dL (65-100) H 03/21/21 17:30 Calcium 9.1 mg/dL (8.4-10.2) 03/21/21 17:30 Magnesium 1.80 mg/dL (1.7-2.3) 03/21/21 17:30 Total Bilirubin 0.30 mg/dL (0.1-1.2) 03/21/21 17:30 AST 20 units/L (5-40) 03/21/21 17:30 ALT 8 units/L (7-56) 03/21/21 17:30 Alkaline Phosphatase 73 units/L (35-129) 03/21/21 17:30 Total Creatine Kinase 47 units/L (30-135) 03/21/21 17:30 Troponin T < 0.010 ng/mL (0.00-0.029) 03/21/21 20:10 Total Protein 7.4 g/dL (6.3-8.2) 03/21/21 17:30 Albumin 4.2 g/dL (3.9-5) 03/21/21 17:30 Albumin/Globulin Ratio 1.3 % 03/21/21 17:30 TSH 0.568 mlU/mL (0.270-4.200) 03/21/21 17:30 Short CBC 03/21/21 Range/Units 17:30 WBC 7.6 (4.5-11.0) K/mm3 Hgb 12.2 (10.1-14.3) gm/dl Hct 38.8 (30.3-42.9) % Plt Count 148 (140-440) K/mm3 BMP 03/21/21 17:30 Sodium 141 Potassium 4.0 Chloride 105.0 Carbon Dioxide 27 BUN 11 Creatinine 0.7 Glucose 132 H Calcium 9.1 Cardiac Enzymes 03/21/21 03/21/21 03/22/21 Range/Units 17:30 20:10 00:44 Total Creatine Kinase 47 (30-135) units/L Troponin T < 0.010 < 0.010 < 0.010 (0.00-0.029) ng/mL Liver Function 03/21/21 Range/Units 17:30 Total Bilirubin 0.30 (0.1-1.2) mg/dL AST 20 (5-40) units/L ALT 8 (7-56) units/L Alkaline Phosphatase 73 (35-129) units/L Albumin 4.2 (3.9-5) g/dL - Imaging and Cardiology EKG: report reviewed (Sinus rhythm no acute ST-T wave changes) Chest x-ray: report reviewed (No acute findings) Kilpatrick/IV: Voiding Method Toilet Assessment and Plan Advance Directives: Yes VTE prophylaxis?: Chemical Plan of care discussed with patient/family: Yes - Patient Problems (1) Acute coronary syndrome Current Visit: Yes Status: Acute Plan to address problem: Patient for Lexiscan in the morning Serial troponins (2) Palpitations Current Visit: Yes Status: Acute Plan to address problem: In sinus rhythm look for paroxysmal SVT (3) Hypertension Current Visit: Yes Status: Chronic Qualifiers: Hypertension type: essential hypertension Qualified Code(s): I10 - Essential (primary) hypertension Plan to address problem: Continue antihypertensive (4) Hyperlipidemia Current Visit: Yes Status: Chronic Qualifiers: Hyperlipidemia type: mixed hyperlipidemia Qualified Code(s): E78.2 - Mixed hyperlipidemia Plan to address problem: Continue statins (5) Peripheral neuropathy Current Visit: Yes Status: Chronic Qualifiers: Peripheral neuropathy type: polyneuropathy, unspecified Qualified Code(s): G62.9 - Polyneuropathy, unspecified Plan to address problem: Continue gabapentin (6) Hyperthyroidism Current Visit: Yes Status: Chronic Plan to address problem: On methimazole. Check TFTs (7) DVT prophylaxis Current Visit: Yes Status: Acute Plan to address problem: On Xarelto and GI prophylaxis
[2021-03-22] MEDS ORDERED: ACETAMINOPHEN 325 MG TAB PO PRN (00:30)
[2021-03-22] MEDS ORDERED: ONDANSETRON 4 MG/2 ML INJ IV PRN (00:30)
[2021-03-22] MEDS ORDERED: MORPHINE 2 MG/1 ML INJ IV PRN (00:30)
[2021-03-22] MEDS ORDERED: oxyCODONE /ACETAMINOPHEN 5-325MG TAB PO PRN (00:30)
[2021-03-22] MEDS: PROPRANOLOL 40 MG TAB PO SCH ×2 (01:54→11:19)
[2021-03-22] MEDS: amLODIPine 10 MG TAB PO SCH ×2 (01:56→11:23)
[2021-03-22] MEDS ORDERED: ALBUTEROL 2.5 MG/3 ML NEBU IH PRN (08:00)
[2021-03-22] MEDS ORDERED: REGADENOSON 0.4 MG/5 ML INJ IV ONE (08:11)
[2021-03-22] MEDS ORDERED: LORazepam 2 MG/ML VIAL IV PRN (08:32)
[2021-03-22] MEDS ORDERED: hydrALAZINE 20 MG/1 ML INJ IV PRN (08:33)
[2021-03-22] MEDS: metFORMIN 500 MG TAB PO SCH ×2 (09:08→17:12)
[2021-03-22] MEDS ORDERED: allopurinoL 100 MG TAB PO SCH (10:00)
[2021-03-22] MEDS ORDERED: FLUTICASONE PROPIONATE NASAL SPRAY 16 GM NS SCH (10:00)
[2021-03-22] MEDS ORDERED: HEPARIN 5,000 UNIT/1 ML VIAL SUB-Q SCH (10:00)
[2021-03-22] MEDS ORDERED: PANTOPRAZOLE 20 MG TAB PO SCH (10:00)
[2021-03-22] MEDS ORDERED: FAMOTIDINE 20 MG/2 ML INJ IV SCH (10:00)
[2021-03-22] MEDS ORDERED: LISINOPRIL 20 MG TAB PO SCH (10:00)
[2021-03-22] MEDS ORDERED: NON-FORMULARY EACH (Cetirizine Hcl [Zyrtec 10mg Cap] 10 MG Capsule) PO SCH (10:00)
[2021-03-22] MEDS ORDERED: FERROUS SULFATE 325 MG TAB PO SCH (10:00)
[2021-03-22] MEDS ORDERED: CETIRIZINE 10 MG TAB PO SCH (10:00)
[2021-03-22] MEDS ORDERED: methIMAzole 5 MG TAB PO SCH (10:00)
[2021-03-22 11:23] VITALS: BP 155/90
[2021-03-22] MEDS ORDERED: PNEUMOCOCCAL 23 Valent 0.5 ML VIAL IM ONE (12:00)
--- NOTE | 2021-03-22 13:41 | Discharge Summary ---
Providers - Providers Date of Admission: 03/21/21 19:25 Date of discharge: 03/22/21 Attending physician: GABBY HUFF 03/22/21 13:37 Consult to Physician [CONS] Routine Reason For Exam: chest pain Consulting Provider: GIOVANA MOISE Physician Instructions: Comment: Primary care physician: ARELY WHITEHEAD MD Hospitalization Condition: Stable Hospital course: This is a 65-year-old female with h/o hyperthyroidism on methimazole and propanolol, atrial fibrillation on Xarelto, morbid obesity presented to the ER with complaints of right-sided chest pain and palpitation. Patient was evaluated in the ER, initial cardiac enzyme and EKG was unremarkable, chest x- ray showed no infiltrates. Patient was admitted and underwent myocardial stress test which was normal. Patient was then discharged home in stable condition with outpatient follow-up. Patient was recommended to follow-up with her pharmacologist in 1 week. Disposition: TO HOME OR SELFCARE Final Discharge Diagnosis (Prints w/discharge instructions): Atypical chest pain, likely from GERD. Palpitation due to hyperthyroidism. Morbid obesity. Diabetes mellitus type 2. Atrial fib on xarelto. Hypertension, uncontrolled Time spent for discharge: 34 minutes Core Measure Documentation - Palliative Care Palliative Care/ Comfort Measures: Not Applicable - Core Measures Any of the following diagnoses?: none Exam - Constitutional Vitals: Temp Pulse Resp BP Pulse Ox 98.3 F 83 18 155/90 98 03/22/21 11:22 03/22/21 11:23 03/22/21 11:22 03/22/21 11:23 03/22/21 11:22 Plan Activity: advance as tolerated Weight Bearing Status: Weight Bear as Tolerated Diet: low fat, low salt Special Instructions: record daily BP diary Additional Instructions: Follow-up with labor relations consultant as outpatient in 1 week. Follow-up with your pharmacologist in 1 week. Monitor your BP daily in the morning and at bedtime. Further adjustment of BP medication as outpatient Follow up with: ARELY WHITEHEAD MD [Primary Care Provider] - 3-5 Days GIOVANA MOISE MD [Staff Physician] - 7 Days
[2021-03-22] MEDS ORDERED: METOPROLOL TARTRATE 25 MG TAB PO SCH (14:00)
--- NOTE | 2021-03-22 14:11 | Nuclear Medicine Report ---
APPROVED REPORT Exam: Nuclear Stress Test Indication: Chest pain BMI: 0 Stress Test Details Stress Test: Pharmacologic stress testing performed using 0.4 mg of regadenoson per 5 mL given IV over 10 seconds. HR Resting HR: 70 bpmMax Heart Rate (APMHR): 155 bpm Max HR Achieved: 100 bpmTarget HR (85% APMHR): 131 bpm % of APMHR: 64 Recovery HR: 85 bpm HR response to stress: Normal HR response to stress BP Resting BP: 128/64 mmHg Max BP: 162/90 mmHg Recovery BP: 135/77 mmHg BP response to stress: Normal blood pressure response to stress. ECG Resting ECG: Sinus Rhythm Stress ECG: Sinus Rhythm ST Change: None Arrhythmia: None Recovery ECG: Sinus Rhythm Recovery ST Change: None Recovery Arrhythmia: None Stress ECG Conclusion No chest pain and no ST changes with Lexiscan stress, myocardial perfusion images are pending for final test interpretation. NM EXAM: Myocardial Perfusion REST/STRESS Imaging Protocol: Rest Tc-99m/Stress Tc-99m 1 day Resting Data Rest SPECT myocardial perfusion imaging was performed in supine position 45 minutes following the intravenous injection of 10 mCi of Tc-99m Myoview. Time of rest injection: 0730 Pharmacologic Stress Pharmacologic stress test was performed by injecting Regadenoson 0.4 mg IV push followed by the intravenous injection of 28 mCi of Tc-99m Myoview. Time of stress injection: 1016 Gated Stress SPECT was performed 30 minutes after stress injection. The images were gated to evaluate regional wall motion and calculate left ventricular ejection fraction. Study Quality Study: excellent Lung Uptake: Normal Study Data TID = 1.07. Perfusion Wall Motion The rest and stress images show normal left ventricular wall motion. Nuclear Conclusion ECG Findings: negative for ischemia Clinical Findings: negative for ischemia Nuclear Findings: negative for ischemia Left Ventricular Function: normal Risk Study: low Normal stress and rest perfusion images, normal left ventricular systolic function, ejection fraction 71%. Conclusion No chest pain and no ST changes with Lexiscan stress, myocardial perfusion images are pending for final test interpretation.
[2021-03-22] MEDS ORDERED: RIVAROXABAN 20 MG TAB PO SCH (18:00)
--- NOTE | 2021-03-23 14:03 | Treadmill Report ---
[facility] Test Date: 2021-03-22 Test Time: 10:16:00 Pat Name: SIMA HAYNES Department: Room: A476 1 Gender: F Production Posting Clerk: Tiffany Chairez : 1955 Requested By: JALEN TREVINO Order Number: [id number] Reading MD: Vinh Culp Interpretive Statements See dictated report. Electronically Signed On 03-23-2021 14:03:02 EDT by Vinh Culp
--- NOTE | 2021-03-23 17:28 | Electrocardiograph Report ---
[facility] Test Date: 2021-03-21 Test Time: 16:33:44 Pat Name: SIMA HAYNES Department: Room: A476 1 Gender: F Billing Checker: MONICA : 1955 Requested By: THOMAS WEIR Order Number: [id number] Reading MD: Rafael Posadas Measurements Intervals [place] Rate: 82 P: 81 NM: 164 QRS: -8 QRSD: 74 T: 96 QT: 372 QTc: 436 Interpretive Statements Sinus rhythm Nonspecific T abnormalities, lateral leads Poor R wave progression V1-V3. No previous ECG available for comparison Electronically Signed On 03-23-2021 17:28:25 EDT by Rafael Posadas
== END 2021-03-22 18:44 | disposition home or self-care (01) ==
LOC: ED 16:09 → 4A 19:25
PROVIDERS: ADMIT Internal Medicine; ATTEND Internal Medicine
DX: I24.9 Acute ischemic heart disease, unspecified (principal); I10 Essential (primary) hypertension; R00.2 Palpitations; E78.2 Mixed hyperlipidemia; G62.9 Polyneuropathy, unspecified; E05.90 Thyrotoxicosis, unspecified without thyrotoxic crisis or storm; I48.91 Unspecified atrial fibrillation; M10.9 Gout, unspecified; M19.90 Unspecified osteoarthritis, unspecified site; E11.9 Type 2 diabetes mellitus without complications; Z79.01 Long term (current) use of anticoagulants; Z68.41 Body mass index [BMI] 40.0-44.9, adult; Z79.899 Other long term (current) drug therapy; Z98.890 Other specified postprocedural states; Z79.84 Long term (current) use of oral hypoglycemic drugs; Z23 Encounter for immunization
CPT/HCPCS: 36415; 71045; 78452; 80053; 82550; 83036; 83735; 84443; 84484; 85027; 85610; 87641; 90732; 93005; 93017; 96374; 99285; A9502; G0009; G0378; J2060; J2785; 90471

== ENCOUNTER 2021-04-14 02:39 | Observation (INO) | payer OTHER, MEDICARE ==
--- NOTE | 2021-04-14 02:47 | Emergency Department Report ---
ED Chest Pain HPI - General Chief Complaint: Chest Pain Stated Complaint: CHEST PAIN/SOB PUI?: No Time Seen by Provider: 04/14/21 02:43 Source: patient, EMS Mode of arrival: Ambulatory Limitations: No Limitations - History of Present Illness Initial Comments: Patient is a 65-year-old female who presents emergency room with chest pain. Patient is chest pain is substernal region. Patient states chest pain is nonradiating. Patient states the pain is a 4 out of 10. Patient dates the pain is better with rest and nitro. Patient dates the pain is worse with exertion. Patient states the pain is nonradiating. Patient states she is also having shortness of breath. Patient states she has a past medical history of diabetes, hyper lipidemia, hypertension, she smokes 1 pack/day. Patient states she is compliant with her medications. Patient states she is allergic to aspirin. Patient brought in by EMS. Report received from EMS. EMS states that the patient was given 0.4 mg sublingual nitro and the pain improved. She states that at this point however pain is essentially resolved due to the nitro. Patient denies fever and chills. Patient denies recent travel. Patient denies recent international travel. Patient denies exposure to the novel coronavirus. Patient denies sick contacts. Patient denies fever and chills. Patient denies cough. Patient denies diarrhea. Patient denies coming in contact with anybody with symptoms of the novel coronavirus. MD Complaint: chest pain -: Sudden Onset: during rest Pain Location: substernal Pain Radiation: none Severity scale (0 -10): 4 Quality: heaviness Consistency: now resolved Improves With: nitroglycerin, rest Worsens With: exertion re: dyspnea. denies: nausea, vomting, diaphoresis Other Symptoms: denies: cough, fever, syncope, rash, acid taste in mouth, leg swelling, palpitations, burping Treatments Prior to Arrival: nitroglycerin Aspirin use within the Past 7 Days: (0) No - Related Data On Oral Contraceptives: No Home Medications Medication Instructions Recorded Confirmed Last Taken amLODIPine 10 mg PO BID 01/18/14 03/21/21 07/11/20 metFORMIN [Glucophage] 1,000 mg PO BID 10/21/15 03/21/21 07/11/20 AtorvaSTATin [Lipitor] 40 mg PO QHS 03/27/20 03/21/21 07/11/20 Ferrous Sulfate [Iron 325 MG] 325 mg PO DAILY 03/27/20 03/21/21 07/11/20 Gabapentin 300 mg PO TID PRN 03/27/20 03/21/21 07/11/20 Rivaroxaban [Xarelto] 20 mg PO QDAY 03/27/20 03/21/21 07/11/20 allopurinoL [Zyloprim] 200 mg PO QDAY 03/27/20 03/21/21 07/11/20 methIMAzole [Tapazole] 10 mg PO QDAY 03/27/20 03/21/21 07/11/20 propranoloL [Inderal] 40 mg PO Q12H 03/27/20 03/21/21 07/11/20 ALBUTEROL NEB's 108 puff INHALATION Q6H PRN 07/12/20 03/21/21 Unknown lisinopriL [Zestril TAB] 20 mg PO QDAY 07/12/20 03/21/21 07/11/20 Ergocalciferol (Vitamin D2) 50,000 unit PO QWEEK 08/27/20 03/21/21 Unknown [Drisdol] Cetirizine HCl [ZyrTEC 10mg cap] 10 mg PO QDAY 03/21/21 03/21/21 Unknown Mupirocin [Bactroban 2% OINT] 1 applic TP TID 03/21/21 03/21/21 Unknown Omeprazole 20 mg PO QDAY 03/21/21 03/21/21 Unknown Previous Rx's Medication Instructions Recorded Last Taken Type Fluticasone [Flonase] 1 spray NS QDAY #1 bottle 02/11/20 03/26/20 Rx Loratadine [Claritin] 10 mg PO DAILY #30 tablet 02/11/20 07/11/20 Rx Albuterol Sulfate [Proventil Hfa] 6.7 gm IH Q4HR PRN #1 hfa.aer.ad 07/23/20 Unknown Rx Allergies Allergy/AdvReac Type Severity Reaction Status Date / Time Penicillins Allergy Rash Verified 05/15/20 10:28 Sulfa (Sulfonamide Allergy Rash Verified 05/15/20 10:28 Antibiotics) Heart Score - HEART Score History: Moderately suspicious EKG: Non-specific Age: > 65 Risk factors: 1-2 risk factors Troponin: < normal limit HEART Score: 5 - EKG Read Time Time EKG Completed: 02:55 EKG Read Time: 02:57 ED Review of Systems ROS: Stated complaint: CHEST PAIN/SOB Other details as noted in HPI Constitutional: denies: chills, fever Eyes: denies: eye pain, eye discharge, vision change ENT: denies: ear pain, throat pain Respiratory: shortness of breath. denies: cough, wheezing Cardiovascular: as per HPI, chest pain. denies: palpitations Endocrine: no symptoms reported Gastrointestinal: denies: abdominal pain, nausea, diarrhea Genitourinary: denies: urgency, dysuria, discharge Musculoskeletal: denies: back pain, joint swelling, arthralgia Skin: denies: rash, lesions Neurological: denies: headache, weakness, paresthesias Psychiatric: denies: anxiety, depression Hematological/Lymphatic: denies: easy bleeding, easy bruising ED Past Medical Hx - Past Medical History Previous Medical History?: Yes Hx Hypertension: Yes Hx Congestive Heart Failure: No Hx Diabetes: Yes Hx Deep Vein Thrombosis: No Hx Pulmonary Embolism: No Hx GERD: Yes Hx Sickle Cell Disease: No Hx Arthritis: Yes Hx Asthma: No Hx COPD: No Hx Tuberculosis: No Hx HIV: No Additional medical history: Bronchitis, Afib, gout, Thyroid - Surgical History Past Surgical History?: Yes Hx Coronary Stent: No Hx Open Heart Surgery: No Hx Pacemaker: No Hx Internal Defibrillator: No Hx Cholecystectomy: No Hx Appendectomy: No Hx Breast Surgery: Yes (left breast) Additional Surgical History: colon surg - diverticulitis, lumps removed from left breast - Family History Family history: no significant - Social History Smoking Status: Current Every Day Smoker Substance Use Type: None - Medications Home Medications: Home Medications Medication Instructions Recorded Confirmed Last Taken Type amLODIPine 10 mg PO BID 01/18/14 03/21/21 07/11/20 History metFORMIN [Glucophage] 1,000 mg PO BID 10/21/15 03/21/21 07/11/20 History Fluticasone [Flonase] 1 spray NS QDAY #1 bottle 02/11/20 03/21/21 03/26/20 Rx Loratadine [Claritin] 10 mg PO DAILY #30 tablet 02/11/20 03/21/21 07/11/20 Rx AtorvaSTATin [Lipitor] 40 mg PO QHS 03/27/20 03/21/21 07/11/20 History Ferrous Sulfate [Iron 325 MG] 325 mg PO DAILY 03/27/20 03/21/21 07/11/20 History Gabapentin 300 mg PO TID PRN 03/27/20 03/21/21 07/11/20 History Rivaroxaban [Xarelto] 20 mg PO QDAY 03/27/20 03/21/21 07/11/20 History allopurinoL [Zyloprim] 200 mg PO QDAY 03/27/20 03/21/21 07/11/20 History methIMAzole [Tapazole] 10 mg PO QDAY 03/27/20 03/21/21 07/11/20 History propranoloL [Inderal] 40 mg PO Q12H 03/27/20 03/21/21 07/11/20 History ALBUTEROL NEB's 108 puff INHALATION Q6H PRN 07/12/20 03/21/21 Unknown History lisinopriL [Zestril TAB] 20 mg PO QDAY 07/12/20 03/21/21 07/11/20 History Albuterol Sulfate [Proventil Hfa] 6.7 gm IH Q4HR PRN #1 hfa.aer.ad 07/23/20 03/21/21 Unknown Rx Ergocalciferol (Vitamin D2) 50,000 unit PO QWEEK 08/27/20 03/21/21 Unknown History [Drisdol] Cetirizine HCl [ZyrTEC 10mg cap] 10 mg PO QDAY 03/21/21 03/21/21 Unknown History Mupirocin [Bactroban 2% OINT] 1 applic TP TID 03/21/21 03/21/21 Unknown History Omeprazole 20 mg PO QDAY 03/21/21 03/21/21 Unknown History ED Physical Exam - General Limitations: No Limitations General appearance: alert, in no apparent distress - Head Head exam: Present: atraumatic, normocephalic - Eye Eye exam: Present: normal appearance - ENT ENT exam: Present: mucous membranes moist - Neck Neck exam: Present: normal inspection - Respiratory Respiratory exam: Present: normal lung sounds bilaterally. Absent: respiratory distress, wheezes, rales, rhonchi, stridor, chest wall tenderness - Cardiovascular Cardiovascular Exam: Present: regular rate, normal rhythm. Absent: systolic murmur, diastolic murmur, rubs, gallop - GI/Abdominal GI/Abdominal exam: Present: soft, normal bowel sounds - Extremities Exam Extremities exam: Present: normal inspection - Back Exam Back exam: Present: normal inspection - Neurological Exam Neurological exam: Present: alert, oriented X3 - Psychiatric Psychiatric exam: Present: normal affect, normal mood - Skin Skin exam: Present: warm, dry, intact, normal color. Absent: rash ED Course Vital Signs 04/14/21 04/14/21 04/14/21 01:00 01:16 02:40 Temperature 98.1 F Pulse Rate 115 H 80 Respiratory 16 12 Rate Blood Pressure 166/100 154/85 Blood Pressure 152/81 [Right] O2 Sat by Pulse 98 97 98 Oximetry 04/14/21 04/14/21 04/14/21 02:45 02:47 02:51 Temperature Pulse Rate 79 79 Respiratory 16 17 Rate Blood Pressure 154/85 Blood Pressure [Right] O2 Sat by Pulse 98 98 Oximetry 04/14/21 04/14/21 04/14/21 03:00 03:16 03:30 Temperature Pulse Rate 75 76 84 Respiratory 15 17 31 H Rate Blood Pressure 169/79 157/76 157/76 Blood Pressure [Right] O2 Sat by Pulse 98 97 99 Oximetry 04/14/21 04/14/21 04/14/21 03:46 04:00 04:16 Temperature Pulse Rate 70 78 104 H Respiratory 12 27 H 30 H Rate Blood Pressure 148/58 145/59 143/53 Blood Pressure [Right] O2 Sat by Pulse 99 97 99 Oximetry 04/14/21 04/14/21 04/14/21 04:30 04:42 04:46 Temperature Pulse Rate 76 72 68 Respiratory 13 13 Rate Blood Pressure 162/75 162/75 146/57 Blood Pressure [Right] O2 Sat by Pulse 99 97 Oximetry 04/14/21 05:00 Temperature Pulse Rate 70 Respiratory 13 Rate Blood Pressure 148/64 Blood Pressure [Right] O2 Sat by Pulse 98 Oximetry - Reevaluation(s) Reevaluation #1: I discussed all results with patient. I discussed plan of care with patient. Patient agrees with plan of care and admission. Patient to be admitted to the hospitalist service. 04/14/21 04:33 - Consultations Consultation #1: Hospitalist consulted for admission. Hospitalist to admit patient. 04/14/21 04:33 OLYA score - Olya Score Age > 65: (0) No Aspirin use within the Past 7 Days: (1) Yes 3 or more CAD Risk Factors: (0) No 2 or more Angina events in past 24 hrs: (0) No Known CAD with more than 50% Stenosis: (0) No Elevated Cardiac Markers: (0) No ST Deviation Greater than 0.5mm: (0) No OLYA Score: 1 ED Medical Decision Making - Lab Data Result diagrams: 04/14/21 03:07 04/14/21 03:07 - EKG Data -: EKG Interpreted by Me EKG shows normal: sinus rhythm, axis, intervals, QRS complexes, ST-T waves Rate: normal - Radiology Data Radiology results: report reviewed, image reviewed interpreted by me: Chest x-ray: No pneumonia, no pneumothorax, no foreign body, no osseous findings, no acute findings CHEST 1 VIEW 0314 INDICATION / CLINICAL INFORMATION: Chest Pain COMPARISON: 03/21/2021 FINDINGS: SUPPORT DEVICES: None HEART / MEDIASTINUM: No significant abnormality. LUNGS / PLEURA: No significant pulmonary or pleural abnormality. No pneumothorax. ADDITIONAL FINDINGS: No significant additional findings. IMPRESSION: No significant acute abnormality - Medical Decision Making Patient is a 65-year-old female who presents emergency room complaint of chest pain. Patient brought in by EMS. Patient given nitro in route by EMS and her chest pain improved. Patient has a history of diabetes, smoker, hyperlipidemia, hypertension. Patient had labs done. Patient labs are essentially unremarkable. Patient troponin is negative. Patient had an EKG which shows no ST changes and normal sinus rhythm. Patient had a chest x-ray which shows no acute findings. I personally reviewed the chest x-ray and EKG. Patient admitted to the hospital service for further evaluation treatment and rule out ACS. Critical care time documented due to the multiple reassessments, prolonged time at the bedside, interpretation of diagnostics and labs. - Differential Diagnosis Chest pain, ACS, shortness of breath, Critical Care Time: Yes Critical care time in (mins) excluding proc time.: 35 Critical care attestation.: If time is entered above; I have spent that time in minutes in the direct care of this critically ill patient, excluding procedure time. Critical Care Time: 35 minutes ED Disposition Clinical Impression: Chest pain, rule out acute myocardial infarction, Hyperglycemia Chest pain Qualifiers: Chest pain type: unspecified Qualified Code(s): R07.9 - Chest pain, unspecified Hyperlipidemia Qualifiers: Hyperlipidemia type: mixed hyperlipidemia Qualified Code(s): E78.2 - Mixed hyperlipidemia Disposition: DC-09 OP ADMIT IP TO THIS HOSP Is pt being admited?: Yes Does the pt Need Aspirin: No Condition: Critical Time of Disposition: 04:25
[2021-04-14 03:18] LABS: Hemoglobin 11.8 gm/dl (10.1-14.3); Mean Corpuscular HGB Conc 32 % (30-34); Mean Corpuscular Volume 71 fl (79-97); Red Blood Count 5.25 M/mm3 (3.65-5.03); Red Cell Distribution Width 15.2 % (13.2-15.2)
[2021-04-14 03:19] LABS: Basophils # (Auto) 0.1 K/mm3 (0.0-0.1); Basophils % (Auto) 0.8 % (0.0-1.8); Eosinophils # (Auto) 0.2 K/mm3 (0.0-0.4); Eosinophils % (Auto) 2.6 % (0.0-4.3); Lymphocytes # (Auto) 2.5 K/mm3 (1.2-5.4); Lymphocytes % (Auto) 32.6 % (13.4-35.0); Monocytes # (Auto) 0.5 K/mm3 (0.0-0.8); Platelet Count 157 K/mm3 (140-440)
[2021-04-14 03:32] LABS: INR 1.32 (0.87-1.13)
[2021-04-14 03:33] LABS: Partial Thromboplastin Time 34.3 Sec. (24.2-36.6)
[2021-04-14 03:43] LABS: Alanine Aminotransferase 10 units/L (7-56); Albumin 4.2 g/dL (3.9-5); BUN/Creatinine Ratio 19; Blood Urea Nitrogen 15 mg/dL (7-17); Calcium 8.9 mg/dL (8.4-10.2); Hemolysis Index 14
--- NOTE | 2021-04-14 04:01 | XRay Report ---
CHEST 1 VIEW 0314 INDICATION / CLINICAL INFORMATION: Chest Pain COMPARISON: 03/21/2021 FINDINGS: SUPPORT DEVICES: None HEART / MEDIASTINUM: No significant abnormality. LUNGS / PLEURA: No significant pulmonary or pleural abnormality. No pneumothorax. ADDITIONAL FINDINGS: No significant additional findings. IMPRESSION: No significant acute abnormality Signer Name: Conor Nguyen MD Signed: 04/14/2021 3:56 AM Workstation Name: [id number]
[2021-04-14] MEDS ORDERED: ALBUTEROL 2.5 MG/3 ML NEBU IH PRN (04:37)
[2021-04-14] MEDS ORDERED: DEXTROSE 50% IN WATER (25GM) 50 ML SYRINGE IV PRN (04:37)
[2021-04-14] MEDS ORDERED: ONDANSETRON 4 MG/2 ML INJ IV PRN (04:37)
[2021-04-14] MEDS ORDERED: traMADol 50 MG TAB PO PRN (04:37)
[2021-04-14] MEDS ORDERED: ACETAMINOPHEN 325 MG TAB PO PRN ×2 (04:37)
[2021-04-14] MEDS ORDERED: MORPHINE 2 MG/1 ML INJ IV PRN (04:37)
[2021-04-14] MEDS ORDERED: NITROGLYCERIN 0.4 MG TAB SUBL SL PRN (04:37)
[2021-04-14] MEDS ORDERED: METOPROLOL TARTRATE 5 MG/5 ML INJ IV ONE (04:38)
[2021-04-14] MEDS ORDERED: GABAPENTIN 300 MG CAP PO PRN (04:43)
--- NOTE | 2021-04-14 04:49 | History and Physical Report ---
History of Present Illness Date of examination: 04/14/21 Date of admission: 04/14/21 04:24 Chief complaint: Chest pain GERD History of present illness: 65-year-old female past medical history of diabetes, hyper lipidemia, hypertension, she smokes 1 pack/day who presents emergency room with chest pain. Patient is chest pain is substernal region, nonradiating 4 out of 10. Patient dates the pain is better with rest and nitro. Patient dates the pain is worse with exertion. Patient states the pain is nonradiating. Patient states she is also having shortness of breath. Patient states she is compliant with her medications. Patient states she is allergic to aspirin. Patient brought in by EMS. Report received from EMS. EMS states that the patient was given 0.4 mg sublingual nitro and the pain improved. She states that at this point however pain is essentially resolved due to the nitro. Patient denies fever and chills. In the emergency room initial troponin is 0.010 Past History Past Medical History: diabetes, hypertension, hyperlipidemia, other (Tobacco abuse) Medications and Allergies Allergies Allergy/AdvReac Type Severity Reaction Status Date / Time Penicillins Allergy Rash Verified 05/15/20 10:28 Sulfa (Sulfonamide Allergy Rash Verified 05/15/20 10:28 Antibiotics) Home Medications Medication Instructions Recorded Confirmed Last Taken Type amLODIPine 10 mg PO BID 01/18/14 03/21/21 07/11/20 History metFORMIN [Glucophage] 1,000 mg PO BID 10/21/15 03/21/21 07/11/20 History Fluticasone [Flonase] 1 spray NS QDAY #1 bottle 02/11/20 03/21/21 03/26/20 Rx Loratadine [Claritin] 10 mg PO DAILY #30 tablet 02/11/20 03/21/21 07/11/20 Rx AtorvaSTATin [Lipitor] 40 mg PO QHS 03/27/20 03/21/21 07/11/20 History Ferrous Sulfate [Iron 325 MG] 325 mg PO DAILY 03/27/20 03/21/21 07/11/20 History Gabapentin 300 mg PO TID PRN 03/27/20 03/21/21 07/11/20 History Rivaroxaban [Xarelto] 20 mg PO QDAY 03/27/20 03/21/21 07/11/20 History allopurinoL [Zyloprim] 200 mg PO QDAY 03/27/20 03/21/21 07/11/20 History methIMAzole [Tapazole] 10 mg PO QDAY 03/27/20 03/21/21 07/11/20 History propranoloL [Inderal] 40 mg PO Q12H 03/27/20 03/21/21 07/11/20 History ALBUTEROL NEB's 108 puff INHALATION Q6H PRN 07/12/20 03/21/21 Unknown History lisinopriL [Zestril TAB] 20 mg PO QDAY 07/12/20 03/21/21 07/11/20 History Albuterol Sulfate [Proventil Hfa] 6.7 gm IH Q4HR PRN #1 hfa.aer.ad 07/23/20 03/21/21 Unknown Rx Ergocalciferol (Vitamin D2) 50,000 unit PO QWEEK 08/27/20 03/21/21 Unknown History [Drisdol] Cetirizine HCl [ZyrTEC 10mg cap] 10 mg PO QDAY 03/21/21 03/21/21 Unknown History Mupirocin [Bactroban 2% OINT] 1 applic TP TID 03/21/21 03/21/21 Unknown History Omeprazole 20 mg PO QDAY 03/21/21 03/21/21 Unknown History Review of Systems Cardiovascular: chest pain Gastrointestinal: heartburn Exam - Constitutional Vitals: Temp Pulse Resp BP Pulse Ox 98.1 F 72 30 H 162/75 99 04/14/21 02:40 04/14/21 04:42 04/14/21 04:16 04/14/21 04:42 04/14/21 04:16 General appearance: Present: no acute distress, well-nourished - EENT Eyes: Present: PERRL ENT: hearing intact, clear oral mucosa - Neck Neck: Present: supple, normal ROM - Respiratory Respiratory effort: normal Respiratory: bilateral: CTA - Cardiovascular Heart Sounds: Present: S1 & S2. Absent: rub, click - Extremities Extremities: pulses symmetrical, No edema Peripheral Pulses: within normal limits - Abdominal General gastrointestinal: Present: soft, non-tender, non-distended, normal bowel sounds Female genitourinary: Present: normal - Integumentary Integumentary: Present: clear, warm, dry - Musculoskeletal Musculoskeletal: gait normal, strength equal bilaterally - Psychiatric Psychiatric: appropriate mood/affect, intact judgment & insight - Neurologic Neurologic: CNII-XII intact, moves all extremities HEART Score - HEART Score EKG: Non-specific Age: > 65 Risk factors: 1-2 risk factors Troponin: Troponin T < 0.010 ng/mL (0.00-0.029) 04/14/21 03:07 Troponin: < normal limit Results - Labs CBC & Chem 7: 04/14/21 03:07 04/14/21 03:07 Labs: Laboratory Last Values WBC 7.6 K/mm3 (4.5-11.0) 04/14/21 03:07 RBC 5.25 M/mm3 (3.65-5.03) H 04/14/21 03:07 Hgb 11.8 gm/dl (10.1-14.3) 04/14/21 03:07 Hct 37.0 % (30.3-42.9) 04/14/21 03:07 MCV 71 fl (79-97) L 04/14/21 03:07 MCH 23 pg (28-32) L 04/14/21 03:07 MCHC 32 % (30-34) 04/14/21 03:07 RDW 15.2 % (13.2-15.2) 04/14/21 03:07 Plt Count 157 K/mm3 (140-440) 04/14/21 03:07 Lymph % (Auto) 32.6 % (13.4-35.0) 04/14/21 03:07 [place] % (Auto) 7.0 % (0.0-7.3) 04/14/21 03:07 Eos % (Auto) 2.6 % (0.0-4.3) 04/14/21 03:07 Baso % (Auto) 0.8 % (0.0-1.8) 04/14/21 03:07 Lymph # (Auto) 2.5 K/mm3 (1.2-5.4) 04/14/21 03:07 [place] # (Auto) 0.5 K/mm3 (0.0-0.8) 04/14/21 03:07 Eos # (Auto) 0.2 K/mm3 (0.0-0.4) 04/14/21 03:07 Baso # (Auto) 0.1 K/mm3 (0.0-0.1) 04/14/21 03:07 Seg Neutrophils % 57.0 % (40.0-70.0) 04/14/21 03:07 Seg Neutrophils # 4.4 K/mm3 (1.8-7.7) 04/14/21 03:07 PT 16.4 Sec. (12.2-14.9) H 04/14/21 03:07 INR 1.32 (0.87-1.13) H 04/14/21 03:07 APTT 34.3 Sec. (24.2-36.6) 04/14/21 03:07 Sodium 138 mmol/L (137-145) 04/14/21 03:07 Potassium 3.9 mmol/L (3.6-5.0) 04/14/21 03:07 Chloride 103.3 mmol/L (98-107) 04/14/21 03:07 Carbon Dioxide 26 mmol/L (22-30) 04/14/21 03:07 Anion Gap 13 mmol/L 04/14/21 03:07 BUN 15 mg/dL (7-17) 04/14/21 03:07 Creatinine 0.8 mg/dL (0.6-1.2) 04/14/21 03:07 Estimated GFR > 60 ml/min 04/14/21 03:07 BUN/Creatinine Ratio 19 % 04/14/21 03:07 Glucose 167 mg/dL (65-100) H 04/14/21 03:07 Calcium 8.9 mg/dL (8.4-10.2) 04/14/21 03:07 Total Bilirubin 0.30 mg/dL (0.1-1.2) 04/14/21 03:07 AST 17 units/L (5-40) 04/14/21 03:07 ALT 10 units/L (7-56) 04/14/21 03:07 Alkaline Phosphatase 73 units/L (35-129) 04/14/21 03:07 Troponin T < 0.010 ng/mL (0.00-0.029) 04/14/21 03:07 Total Protein 7.0 g/dL (6.3-8.2) 04/14/21 03:07 Albumin 4.2 g/dL (3.9-5) 04/14/21 03:07 Albumin/Globulin Ratio 1.5 % 04/14/21 03:07 - Imaging and Cardiology Chest x-ray: report reviewed Assessment and Plan VTE prophylaxis?: Chemical Plan of care discussed with patient/family: Yes - Patient Problems (1) Acute coronary syndrome Current Visit: No Status: Acute Plan to address problem: Admit the patient to the medical telemetry. Patient is on Xarelto 20 mg p.o. daily. Lipitor 40 mg p.o. daily. Due to the serial cardiac enzyme. Patient has negative stress test on 03/22/2021. If needed will consult cardiology (2) Atrial fibrillation Current Visit: No Status: Chronic Qualifiers: Plan to address problem: Patient is on Xarelto 20 mg p.o. daily for atrial fibrillation. Patient has a negative stress test last month we will monitor the patient closely. If needed will consult cardiology in the morning (3) Tobacco abuse Current Visit: No Status: Acute Plan to address problem: Patient counseled regarding quitting smoking. Patient is given nicotine patch 7 mg to the skin daily (4) Hyperlipidemia Current Visit: No Status: Chronic Qualifiers: Plan to address problem: Patient is on Lipitor 40 mg p.o. nightly. We will recheck the repeat panel (5) Hypertension Current Visit: No Status: Chronic Qualifiers: Plan to address problem: Patient is on lisinopril 20 mg p.o. daily amlodipine 10 mg p.o. twice daily we will monitor the blood pressure closely. Hydralazine 10 mg IV every 6 hours as needed (6) Type 2 diabetes mellitus Current Visit: No Status: Chronic Qualifiers: Diabetes mellitus custodial insulin use: without long term care administrator use Diabetes mellitus complication status: without complication Qualified Code(s): E11.9 - Type 2 diabetes mellitus without complications Plan to address problem: Metformin 1000 mg p.o. twice daily. We will put the patient insulin sliding scale Humalog coverage as Accu-Chek before meals and at bedtime with moderate dose coverage. (7) Hyperthyroidism Current Visit: Yes Status: Acute Plan to address problem: Stable we will continue the methimazole (8) Peripheral neuropathy Current Visit: Yes Status: Acute Plan to address problem: Stable continue gabapentin (9) DVT prophylaxis Current Visit: No Status: Acute Plan to address problem: Xarelto 20 mg p.o. daily for DVT prophylaxis. omeprazole 20 mg p.o. daily for GI prophylaxis. Patient is a full code
[2021-04-14] MEDS ORDERED: PROPRANOLOL 40 MG TAB PO SCH (06:00)
[2021-04-14] MEDS ORDERED: INSULIN LISPRO 100 UNIT/ML SUB-Q SCH (07:30)
[2021-04-14 07:36] LABS: Chol/HDL Ratio 1.95 %
[2021-04-14] MEDS ORDERED: metFORMIN 500 MG TAB PO SCH (08:00)
[2021-04-14] MEDS ORDERED: MUPIROCIN 2% OINT 22 GM TP SCH (08:00)
[2021-04-14 09:25] VITALS: BP 152/76
--- NOTE | 2021-04-14 09:35 | Progress Note ---
Assessment and Plan Assessment and plan: Patient seen and examined. We'll continue to plan as outlined in H&P. Await cardiology consultation. Total visit time equals 35 minutes with greater than 50% spent on coordination of care and counseling. History Interval history: No new issues overnight Hospitalist Physical - Constitutional Vitals: Temp Pulse Resp BP Pulse Ox 98.1 F 63 18 152/76 97 04/14/21 02:40 04/14/21 07:20 04/14/21 07:54 04/14/21 07:54 04/14/21 07:20 General appearance: Present: no acute distress, well-nourished - EENT Eyes: Present: PERRL, EOM intact ENT: hearing intact, clear oral mucosa, dentition normal - Neck Neck: Present: supple, normal ROM - Respiratory Respiratory effort: normal Respiratory: bilateral: CTA - Cardiovascular Rhythm: regular Heart Sounds: Present: S1 & S2. Absent: gallop, rub - Extremities Extremities: no ischemia, No edema, Full ROM - Abdominal General gastrointestinal: soft, non-tender, non-distended, normal bowel sounds - Integumentary Integumentary: Present: clear, warm, dry - Neurologic Neurologic: CNII-XII intact, moves all extremities HEART Score - HEART Score EKG: Non-specific Age: > 65 Risk factors: 1-2 risk factors Troponin: Troponin T < 0.010 ng/mL (0.00-0.029) 04/14/21 03:07 Troponin: < normal limit Results - Labs CBC & Chem 7: 04/14/21 03:07 04/14/21 03:07 Labs: Laboratory Last Values WBC 7.6 K/mm3 (4.5-11.0) 04/14/21 03:07 RBC 5.25 M/mm3 (3.65-5.03) H 04/14/21 03:07 Hgb 11.8 gm/dl (10.1-14.3) 04/14/21 03:07 Hct 37.0 % (30.3-42.9) 04/14/21 03:07 MCV 71 fl (79-97) L 04/14/21 03:07 MCH 23 pg (28-32) L 04/14/21 03:07 MCHC 32 % (30-34) 04/14/21 03:07 RDW 15.2 % (13.2-15.2) 04/14/21 03:07 Plt Count 157 K/mm3 (140-440) 04/14/21 03:07 Lymph % (Auto) 32.6 % (13.4-35.0) 04/14/21 03:07 [place] % (Auto) 7.0 % (0.0-7.3) 04/14/21 03:07 Eos % (Auto) 2.6 % (0.0-4.3) 04/14/21 03:07 Baso % (Auto) 0.8 % (0.0-1.8) 04/14/21 03:07 Lymph # (Auto) 2.5 K/mm3 (1.2-5.4) 04/14/21 03:07 [place] # (Auto) 0.5 K/mm3 (0.0-0.8) 04/14/21 03:07 Eos # (Auto) 0.2 K/mm3 (0.0-0.4) 04/14/21 03:07 Baso # (Auto) 0.1 K/mm3 (0.0-0.1) 04/14/21 03:07 Seg Neutrophils % 57.0 % (40.0-70.0) 04/14/21 03:07 Seg Neutrophils # 4.4 K/mm3 (1.8-7.7) 04/14/21 03:07 PT 16.4 Sec. (12.2-14.9) H 04/14/21 03:07 INR 1.32 (0.87-1.13) H 04/14/21 03:07 APTT 34.3 Sec. (24.2-36.6) 04/14/21 03:07 Sodium 138 mmol/L (137-145) 04/14/21 03:07 Potassium 3.9 mmol/L (3.6-5.0) 04/14/21 03:07 Chloride 103.3 mmol/L (98-107) 04/14/21 03:07 Carbon Dioxide 26 mmol/L (22-30) 04/14/21 03:07 Anion Gap 13 mmol/L 04/14/21 03:07 BUN 15 mg/dL (7-17) 04/14/21 03:07 Creatinine 0.8 mg/dL (0.6-1.2) 04/14/21 03:07 Estimated GFR > 60 ml/min 04/14/21 03:07 BUN/Creatinine Ratio 19 % 04/14/21 03:07 Glucose 167 mg/dL (65-100) H 04/14/21 03:07 Calcium 8.9 mg/dL (8.4-10.2) 04/14/21 03:07 Total Bilirubin 0.30 mg/dL (0.1-1.2) 04/14/21 03:07 AST 17 units/L (5-40) 04/14/21 03:07 ALT 10 units/L (7-56) 04/14/21 03:07 Alkaline Phosphatase 73 units/L (35-129) 04/14/21 03:07 Troponin T < 0.010 ng/mL (0.00-0.029) 04/14/21 03:07 Total Protein 7.0 g/dL (6.3-8.2) 04/14/21 03:07 Albumin 4.2 g/dL (3.9-5) 04/14/21 03:07 Albumin/Globulin Ratio 1.5 % 04/14/21 03:07 Triglycerides 90 mg/dL (2-149) 04/14/21 03:07 Cholesterol 127 mg/dL (50-199) 04/14/21 03:07 LDL Cholesterol Direct 57 mg/dL (50-130) 04/14/21 03:07 HDL Cholesterol 65 mg/dL (40-59) H 04/14/21 03:07 Cholesterol/HDL Ratio 1.95 % 04/14/21 03:07 Active Medications - Current Medications Current Medications: Generic Name Dose Route Start Last Admin Trade Name Freq PRN Reason Stop Dose Admin Acetaminophen 650 mg 04/14/21 04:37 Acetaminophen 325 Mg Tab PO Q4H PRN Pain MILD(1-3)/Fever >100.5/CALLEJAS Albuterol 2.5 mg 04/14/21 04:37 Albuterol 2.5 Mg/3 Ml Nebu IH Q3HRT PRN Shortness Of Breath Albuterol/Ipratropium 1 ampul 04/14/21 08:00 Ipratropium/Albuterol Sulfate 3 Ml Ampul.Neb IH Q6HRT [facility] Allopurinol 200 mg 04/14/21 10:00 Allopurinol 100 Mg Tab PO QDAY [facility] Amlodipine Besylate 10 mg 04/14/21 10:00 Amlodipine 10 Mg Tab PO BID [facility] Atorvastatin Calcium 40 mg 04/14/21 22:00 Atorvastatin 40 Mg Tab PO QHS [facility] Cetirizine HCl 10 mg 04/14/21 10:00 Cetirizine 10 Mg Tab PO DAILY [facility] Clopidogrel Bisulfate 75 mg 04/14/21 10:00 Clopidogrel 75 Mg Tab PO QDAY [facility] Dextrose 0 ml 04/14/21 04:37 Dextrose 50% In Water (25gm) 50 Ml Syringe IV Q30MIN PRN Hypoglycemia Protocol Ergocalciferol 50,000 unit 04/14/21 10:00 Ergocalciferol (Vit D2) 50,000 Unit Cap PO Fr [facility] Ferrous Sulfate 325 mg 04/14/21 10:00 Ferrous Sulfate 325 Mg Tab PO DAILY [facility] Fluticasone Propionate 50 mcg 04/14/21 10:00 Fluticasone Propionate Nasal [place] 16 Gm NS QDAY [facility] Gabapentin 300 mg 04/14/21 04:43 Gabapentin 300 Mg Cap PO TID PRN back pain Insulin Human Lispro 0 unit 04/14/21 07:30 Insulin Lispro 100 Unit/Ml SUB-Q ACHS [facility] Protocol Lisinopril 20 mg 04/14/21 10:00 Lisinopril 20 Mg Tab PO QDAY [facility] Metformin HCl 1,000 mg 04/14/21 08:00 Metformin 500 Mg Tab PO BIDDIAB [facility] Methimazole 10 mg 04/14/21 10:00 Methimazole 5 Mg Tab PO QDAY [facility] Morphine Sulfate 2 mg 04/14/21 04:37 Morphine 2 Mg/1 Ml Inj IV Q5MIN PRN Chest Pain Mupirocin 1 applic 04/14/21 08:00 Mupirocin 2% Oint 22 Gm TP TID [facility] Nitroglycerin 0.4 mg 04/14/21 04:37 Nitroglycerin 0.4 Mg Tab Subl SL Q5M PRN Chest Pain Ondansetron HCl 4 mg 04/14/21 04:37 Ondansetron 4 Mg/2 Ml Inj IV Q8H PRN Nausea And Vomiting Pantoprazole Sodium 40 mg 04/14/21 10:00 Pantoprazole 40 Mg Tab PO QDAY [facility] Propranolol HCl 40 mg 04/14/21 06:00 Propranolol 40 Mg Tab PO Q12H [facility] Rivaroxaban 20 mg 04/14/21 10:00 Rivaroxaban 20 Mg Tab PO QDAY [facility] Sodium Chloride 10 ml 04/14/21 04:37 Sodium Chloride 0.9% 10 Ml Flush Syringe IV PRN PRN LINE FLUSH Sodium Chloride 10 ml 04/14/21 10:00 Sodium Chloride 0.9% 10 Ml Flush Syringe IV BID [facility] Sodium Chloride 10 ml 04/14/21 04:37 Sodium Chloride 0.9% 10 Ml Flush Syringe IV PRN PRN LINE FLUSH Tramadol HCl 50 mg 04/14/21 04:37 Tramadol 50 Mg Tab PO Q6H PRN Pain, Moderate (4-6)
[2021-04-14] MEDS: IPRATROPIUM/ALBUTEROL SULFATE 3 ML AMPUL.NEB IH SCH ×2 (09:45→13:39)
[2021-04-14] MEDS ORDERED: CETIRIZINE 10 MG TAB PO SCH (10:00)
[2021-04-14] MEDS ORDERED: FLUTICASONE PROPIONATE NASAL SPRAY 16 GM NS SCH (10:00)
[2021-04-14] MEDS ORDERED: FAMOTIDINE 20 MG TAB PO SCH (10:00)
[2021-04-14] MEDS ORDERED: methIMAzole 5 MG TAB PO SCH (10:00)
[2021-04-14] MEDS ORDERED: amLODIPine 10 MG TAB PO SCH (10:00)
[2021-04-14] MEDS ORDERED: ERGOCALCIFEROL (VIT D2) 50,000 UNIT CAP PO SCH (10:00)
[2021-04-14] MEDS ORDERED: RIVAROXABAN 20 MG TAB PO SCH (10:00)
[2021-04-14] MEDS ORDERED: allopurinoL 100 MG TAB PO SCH (10:00)
[2021-04-14] MEDS ORDERED: PANTOPRAZOLE 40 MG TAB PO SCH (10:00)
[2021-04-14] MEDS ORDERED: LISINOPRIL 20 MG TAB PO SCH (10:00)
[2021-04-14] MEDS ORDERED: FERROUS SULFATE 325 MG TAB PO SCH (10:00)
[2021-04-14] MEDS ORDERED: CLOPIDOGREL 75 MG TAB PO SCH (10:00)
[2021-04-14] MEDS ORDERED: NON-FORMULARY EACH (Omeprazole [Omeprazole] 20 MG Capsule.Dr) PO SCH (10:00)
--- NOTE | 2021-04-14 10:49 | Discharge Summary ---
Providers - Providers Date of Admission: 04/14/21 04:24 Date of discharge: 04/14/21 Attending physician: SIERRA CHRISTIANSON 04/14/21 04:37 Consult to Dietitian/Nutrition [CONS] Routine Physician Instructions: Reason For Exam: Reason for Consult: Diet education 04/14/21 08:08 Consult to Physician [CONS] Routine Comment: Consulting Provider: GIOVANA MOISE Physician Instructions: Reason For Exam: cp, afib Primary care physician: CARE SUPPORT REPRESENTATIVE Hospitalization Reason for admission: cp Condition: Critical Hospital course: 65-year-old female past medical history of diabetes, hyper lipidemia, hypertension, she smokes 1 pack/day who presents emergency room with chest pain. Patient is chest pain is substernal region, nonradiating 4 out of 10. Patient dates the pain is better with rest and nitro. Patient dates the pain is worse with exertion. Patient states the pain is nonradiating. Patient states she is also having shortness of breath. Patient states she is compliant with her medications. Patient states she is allergic to aspirin. Patient brought in by EMS. Patient was admitted with diagnosis of chest pain. Troponin was found to be negative and EKG showed no ST-T wave changes. The patient was seen by cardiology who noted negative stress test on 03/22/2021. Etiology of chest pain was felt to be secondary to GERD. Patient will be discharged home on Protonix. Dedicated discharge time 32 minutes. Disposition: DC-01 TO HOME OR SELFCARE Final Discharge Diagnosis (Prints w/discharge instructions): GERD Core Measure Documentation - Palliative Care Palliative Care/ Comfort Measures: Not Applicable - Core Measures Any of the following diagnoses?: none Exam - Constitutional Vitals: Temp Pulse Resp BP Pulse Ox 98.1 F 63 18 152/76 97 04/14/21 02:40 04/14/21 07:20 04/14/21 07:54 04/14/21 07:54 04/14/21 07:20 General appearance: Present: no acute distress, well-nourished - EENT Eyes: Present: PERRL ENT: hearing intact, clear oral mucosa - Neck Neck: Present: supple, normal ROM - Respiratory Respiratory effort: normal Respiratory: bilateral: CTA - Cardiovascular Heart Sounds: Present: S1 & S2. Absent: rub, click - Extremities Extremities: pulses symmetrical, No edema Peripheral Pulses: within normal limits - Abdominal General gastrointestinal: Present: soft, non-tender, non-distended, normal bowel sounds Female genitourinary: Present: normal - Integumentary Integumentary: Present: clear, warm, dry - Musculoskeletal Musculoskeletal: gait normal, strength equal bilaterally - Psychiatric Psychiatric: appropriate mood/affect, intact judgment & insight - Neurologic Neurologic: CNII-XII intact, moves all extremities Plan Activity: advance as tolerated Weight Bearing Status: Weight Bear as Tolerated Diet: low fat, low cholesterol, low salt Follow up with: PRIMARY CARE, [Primary Care Provider] - 3-5 Days Prescriptions: Ergocalciferol (Vitamin D2) [Drisdol] 50,000 unit PO QWEEK 30 Days cap Fluticasone [Flonase] 1 spray NS QDAY #1 bottle Gabapentin 300 mg PO TID PRN #90 cap PRN Reason: back pain Ferrous Sulfate [Iron 325 MG] 325 mg PO DAILY #30 AtorvaSTATin [Lipitor] 40 mg PO QHS #30 tablet Clopidogrel [Plavix] 75 mg PO QDAY #30 tablet Pantoprazole [Protonix TAB] 40 mg PO QDAY #30 tablet lisinopriL [Zestril TAB] 20 mg PO QDAY #30
--- NOTE | 2021-04-14 11:04 | Consultation ---
History of Present Illness Consult date: 04/14/21 Consult reason: chest pain History of present illness: This is a 65-year old woman admitted with chest pain. Patient describes burning pain located in the epigastric region that occurred after consuming a greasy meal. There were no unusual shortness of breath or palpitaitons. Symptoms consistent with gastroesophageal reflux. Chest x-ray is negative and her ECG is sinus rhythm. No acute ST or T wave changes. Cardiology consultation was reques zoila. Patient is usually followed by Aditya and is on anticoagulation with Xarelto for paroxysmal atrial fibrillation. There is no history of coronary artery disease. Just 4 months ago, patient states she underwent a cardiac cath and was told " no blockage". More recently, 3 weeks ago, she had a negative stress thallium at this hospital. Past History Past Medical History: atrial fib, diabetes, hypertension, hyperlipidemia Social history: smoking Medications and Allergies Allergies Allergy/AdvReac Type Severity Reaction Status Date / Time Penicillins Allergy Rash Verified 05/15/20 10:28 Sulfa (Sulfonamide Allergy Rash Verified 05/15/20 10:28 Antibiotics) Home Medications Medication Instructions Recorded Confirmed Last Taken Type amLODIPine 10 mg PO BID 01/18/14 03/21/21 07/11/20 History metFORMIN [Glucophage] 1,000 mg PO BID 10/21/15 03/21/21 07/11/20 History Loratadine [Claritin] 10 mg PO DAILY #30 tablet 02/11/20 03/21/21 07/11/20 Rx AtorvaSTATin [Lipitor] 40 mg PO QHS 03/27/20 03/21/21 07/11/20 History Rivaroxaban [Xarelto] 20 mg PO QDAY 03/27/20 03/21/21 07/11/20 History allopurinoL [Zyloprim] 200 mg PO QDAY 03/27/20 03/21/21 07/11/20 History methIMAzole [Tapazole] 10 mg PO QDAY 03/27/20 03/21/21 07/11/20 History propranoloL [Inderal] 40 mg PO Q12H 03/27/20 03/21/21 07/11/20 History ALBUTEROL NEB's 108 puff INHALATION Q6H PRN 07/12/20 03/21/21 Unknown History Albuterol Sulfate [Proventil Hfa] 6.7 gm IH Q4HR PRN #1 hfa.aer.ad 07/23/20 03/21/21 Unknown Rx Cetirizine HCl [ZyrTEC 10mg cap] 10 mg PO QDAY 03/21/21 03/21/21 Unknown History Mupirocin [Bactroban 2% OINT] 1 applic TP TID 03/21/21 03/21/21 Unknown History AtorvaSTATin [Lipitor] 40 mg PO QHS #30 tablet 04/14/21 Unknown Rx Clopidogrel [Plavix] 75 mg PO QDAY #30 tablet 04/14/21 Unknown Rx Ergocalciferol (Vitamin D2) 50,000 unit PO QWEEK 30 Days cap 04/14/21 Unknown Rx [Drisdol] Ferrous Sulfate [Iron 325 MG] 325 mg PO DAILY #30 04/14/21 Unknown Rx Fluticasone [Flonase] 1 spray NS QDAY #1 bottle 04/14/21 Unknown Rx Gabapentin 300 mg PO TID PRN #90 cap 04/14/21 Unknown Rx Lispro Insulin [HumaLOG] 0 unit SUB-Q ACHS units 04/14/21 Unknown Rx Nitroglycerin [Nitrostat] 0.4 mg SL Q5M PRN tablet 04/14/21 Unknown Rx Pantoprazole [Protonix TAB] 40 mg PO QDAY #30 tablet 04/14/21 Unknown Rx lisinopriL [Zestril TAB] 20 mg PO QDAY #30 04/14/21 Unknown Rx traMADoL [Ultram 50 MG tab] 50 mg PO Q6H PRN tablet 04/14/21 Unknown Rx Active Meds: Active Medications Acetaminophen (Acetaminophen 325 Mg Tab) 650 mg PO Q4H PRN PRN Reason: Pain MILD(1-3)/Fever >100.5/CALLEJAS Albuterol (Albuterol 2.5 Mg/3 Ml Nebu) 2.5 mg IH Q3HRT PRN PRN Reason: Shortness Of Breath Albuterol/Ipratropium (Ipratropium/Albuterol Sulfate 3 Ml Ampul.Neb) 1 ampul IH Q6HRT [facility] Last Admin: 04/14/21 09:45 Dose: 1 ampul Documented by: Allopurinol (Allopurinol 100 Mg Tab) 200 mg PO QDAY [facility] Amlodipine Besylate (Amlodipine 10 Mg Tab) 10 mg PO BID [facility] Atorvastatin Calcium (Atorvastatin 40 Mg Tab) 40 mg PO QHS [facility] Cetirizine HCl (Cetirizine 10 Mg Tab) 10 mg PO DAILY [facility] Clopidogrel Bisulfate (Clopidogrel 75 Mg Tab) 75 mg PO QDAY [facility] Dextrose (Dextrose 50% In Water (25gm) 50 Ml Syringe) 0 ml IV Q30MIN PRN; Protocol PRN Reason: Hypoglycemia Ergocalciferol (Ergocalciferol (Vit D2) 50,000 Unit Cap) 50,000 unit PO Fr [facility] Ferrous Sulfate (Ferrous Sulfate 325 Mg Tab) 325 mg PO DAILY [facility] Fluticasone Propionate (Fluticasone Propionate Nasal [place] 16 Gm) 50 mcg NS QDAY [facility] Gabapentin (Gabapentin 300 Mg Cap) 300 mg PO TID PRN PRN Reason: back pain Insulin Human Lispro (Insulin Lispro 100 Unit/Ml) 0 unit SUB-Q ACHS [facility]; Protocol Last Admin: 04/14/21 07:30 Dose: Not Given Documented by: Lisinopril (Lisinopril 20 Mg Tab) 20 mg PO QDAY [facility] Metformin HCl (Metformin 500 Mg Tab) 1,000 mg PO BIDDIAB [facility] Methimazole (Methimazole 5 Mg Tab) 10 mg PO QDAY [facility] Morphine Sulfate (Morphine 2 Mg/1 Ml Inj) 2 mg IV Q5MIN PRN PRN Reason: Chest Pain Mupirocin (Mupirocin 2% Oint 22 Gm) 1 applic TP TID [facility] Nitroglycerin (Nitroglycerin 0.4 Mg Tab Subl) 0.4 mg SL Q5M PRN PRN Reason: Chest Pain Ondansetron HCl (Ondansetron 4 Mg/2 Ml Inj) 4 mg IV Q8H PRN PRN Reason: Nausea And Vomiting Pantoprazole Sodium (Pantoprazole 40 Mg Tab) 40 mg PO QDAY [facility] Propranolol HCl (Propranolol 40 Mg Tab) 40 mg PO Q12H [facility] Rivaroxaban (Rivaroxaban 20 Mg Tab) 20 mg PO QDAY [facility] Sodium Chloride (Sodium Chloride 0.9% 10 Ml Flush Syringe) 10 ml IV PRN PRN PRN Reason: LINE FLUSH Sodium Chloride (Sodium Chloride 0.9% 10 Ml Flush Syringe) 10 ml IV BID [facility] Sodium Chloride (Sodium Chloride 0.9% 10 Ml Flush Syringe) 10 ml IV PRN PRN PRN Reason: LINE FLUSH Tramadol HCl (Tramadol 50 Mg Tab) 50 mg PO Q6H PRN PRN Reason: Pain, Moderate (4-6) Review of Systems Cardiovascular: chest pain, no palpitations, no edema, no syncope, no lightheadedness, no shortness of breath Physical Examination Vital Signs Pulse Resp BP Pulse Ox 115 H 16 166/100 98 04/14/21 01:00 04/14/21 01:00 04/14/21 01:00 04/14/21 01:00 General appearance: no acute distress HEENT: Positive: PERRL Neck: Positive: trachea midline Cardiac: Positive: Reg Rate and Rhythm Lungs: Positive: Normal Breath Sounds Neuro: Positive: Grossly Intact Extremities: Absent: edema Results 04/14/21 03:07 04/14/21 03:07 Cardiac Enzymes 04/14/21 Range/Units 03:07 AST 17 (5-40) units/L Coagulation 04/14/21 Range/Units 03:07 PT 16.4 H (12.2-14.9) Sec. INR 1.32 H (0.87-1.13) APTT 34.3 (24.2-36.6) Sec. Lipids 04/14/21 Range/Units 03:07 Triglycerides 90 (2-149) mg/dL Cholesterol 127 (50-199) mg/dL HDL Cholesterol 65 H (40-59) mg/dL Cholesterol/HDL Ratio 1.95 % CBC 04/14/21 Range/Units 03:07 WBC 7.6 (4.5-11.0) K/mm3 RBC 5.25 H (3.65-5.03) M/mm3 Hgb 11.8 (10.1-14.3) gm/dl Hct 37.0 (30.3-42.9) % Plt Count 157 (140-440) K/mm3 Lymph # (Auto) 2.5 (1.2-5.4) K/mm3 Bond # (Auto) 0.5 (0.0-0.8) K/mm3 Eos # (Auto) 0.2 (0.0-0.4) K/mm3 Baso # (Auto) 0.1 (0.0-0.1) K/mm3 Comprehensive Metabolic Panel 04/14/21 Range/Units 03:07 Sodium 138 (137-145) mmol/L Potassium 3.9 (3.6-5.0) mmol/L Chloride 103.3 (98-107) mmol/L Carbon Dioxide 26 (22-30) mmol/L BUN 15 (7-17) mg/dL Creatinine 0.8 (0.6-1.2) mg/dL Glucose 167 H (65-100) mg/dL Calcium 8.9 (8.4-10.2) mg/dL AST 17 (5-40) units/L ALT 10 (7-56) units/L Alkaline Phosphatase 73 (35-129) units/L Total Protein 7.0 (6.3-8.2) g/dL Albumin 4.2 (3.9-5) g/dL Assessment and Plan - Patient Problems (1) Chest pain Current Visit: Yes Status: Acute Qualifiers: Qualified Code(s): R07.9 - Chest pain, unspecified Plan to address problem: Atypical chest pain described as epigastric pain. Symptoms consistent with gastroesophageal reflux. 03/2021 MPI - no ischemia. 10/2020 [facility] at [place] - patient reports " no blockage". No further cardiac workup indicated. Will defer to primary team for management and treatment of GERD.
--- NOTE | 2021-04-14 13:39 | Electrocardiograph Report ---
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
== END 2021-04-14 16:10 | disposition home or self-care (01) ==
LOC: ED 02:39 → 4A 04:24
PROVIDERS: ADMIT Hospitalist; ATTEND Hospitalist
DX: I24.9 Acute ischemic heart disease, unspecified (principal); I48.20 Chronic atrial fibrillation, unspecified; I10 Essential (primary) hypertension; E11.9 Type 2 diabetes mellitus without complications; E78.2 Mixed hyperlipidemia; E05.90 Thyrotoxicosis, unspecified without thyrotoxic crisis or storm; G62.9 Polyneuropathy, unspecified; K21.9 Gastro-esophageal reflux disease without esophagitis; F17.200 Nicotine dependence, unspecified, uncomplicated; Z79.899 Other long term (current) drug therapy; Z98.890 Other specified postprocedural states; Z79.4 Long term (current) use of insulin
CPT/HCPCS: 36415; 71045; 80053; 80061; 82962; 84484; 85025; 85610; 85730; 93005; 94640; 96374; 99291; G0378

== ENCOUNTER 2021-06-17 00:59 | Emergency (ER) | payer MEDICARE ==
--- NOTE | 2021-06-17 01:34 | Emergency Department Report ---
ED Chest Pain HPI - General Stated Complaint: CHEST PAIN Time Seen by Provider: 06/17/21 01:22 Source: patient - History of Present Illness Initial Comments: 65-year-old female, history of hypertension, diabetes, anxiety, presents to ED with "nervousness " in her chest. Patient reports history of anxiety. Patient states her 4-year-old granddaughter " knows how to push my buttons." She states her granddaughter will not listen and obey her. She tried to get the grandchild to go to sleep but she would not. Patient became upset and states she began feeling "nervous" in her chest. She denies any shortness of breath, nausea vomiting, diaphoresis. Patient states since being in the ED this feeling has resolved. MD Complaint: chest pain -: hour(s) (1) Onset: during rest Pain Location: substernal Pain Radiation: none Severity: mild Quality: other ("nervousness") Consistency: now resolved Improves With: nothing Worsens With: nothing re: denies: nausea, vomting, diaphoresis, dyspnea Other Symptoms: denies: cough, fever Treatments Prior to Arrival: none - Related Data Home Medications Medication Instructions Recorded Confirmed Last Taken amLODIPine 10 mg PO BID 01/18/14 03/21/21 07/11/20 metFORMIN [Glucophage] 1,000 mg PO BID 10/21/15 03/21/21 07/11/20 AtorvaSTATin [Lipitor] 40 mg PO QHS 03/27/20 03/21/21 07/11/20 Rivaroxaban [Xarelto] 20 mg PO QDAY 03/27/20 03/21/21 07/11/20 allopurinoL [Zyloprim] 200 mg PO QDAY 03/27/20 03/21/21 07/11/20 methIMAzole [Tapazole] 10 mg PO QDAY 03/27/20 03/21/21 07/11/20 propranoloL [Inderal] 40 mg PO Q12H 03/27/20 03/21/21 07/11/20 ALBUTEROL NEB's 108 puff INHALATION Q6H PRN 07/12/20 03/21/21 Unknown Cetirizine HCl [ZyrTEC 10mg cap] 10 mg PO QDAY 03/21/21 03/21/21 Unknown Mupirocin [Bactroban 2% OINT] 1 applic TP TID 03/21/21 03/21/21 Unknown Previous Rx's Medication Instructions Recorded Last Taken Type Loratadine [Claritin] 10 mg PO DAILY #30 tablet 02/11/20 07/11/20 Rx Albuterol Sulfate [Proventil Hfa] 6.7 gm IH Q4HR PRN #1 hfa.aer.ad 07/23/20 Un known Rx AtorvaSTATin [Lipitor] 40 mg PO QHS #30 tablet 04/14/21 Unknown Rx Clopidogrel [Plavix] 75 mg PO QDAY #30 tablet 04/14/21 Unknown Rx Ergocalciferol (Vitamin D2) 50,000 unit PO QWEEK 30 Days cap 04/14/21 Unknown Rx [Drisdol] Ferrous Sulfate [Iron 325 MG] 325 mg PO DAILY #30 04/14/21 Unknown Rx Fluticasone [Flonase] 1 spray NS QDAY #1 bottle 04/14/21 Unknown Rx Gabapentin 300 mg PO TID PRN #90 cap 04/14/21 Unknown Rx Lispro Insulin [HumaLOG] 0 unit SUB-Q ACHS units 04/14/21 Unknown Rx Nitroglycerin [Nitrostat] 0.4 mg SL Q5M PRN tablet 04/14/21 Unknown Rx Pantoprazole [Protonix TAB] 40 mg PO QDAY #30 tablet 04/14/21 Unknown Rx lisinopriL [Zestril TAB] 20 mg PO QDAY #30 04/14/21 Unknown Rx traMADoL [Ultram 50 MG tab] 50 mg PO Q6H PRN tablet 04/14/21 Unknown Rx Allergies Allergy/AdvReac Type Severity Reaction Status Date / Time Penicillins Allergy Rash Verified 05/15/20 10:28 Sulfa (Sulfonamide Allergy Rash Verified 05/15/20 10:28 Antibiotics) Heart Score - HEART Score History: Slightly suspicious EKG: Normal Age: 45-65 Risk factors: 1-2 risk factors Troponin: < normal limit HEART Score: 2 - EKG Read Time Time EKG Completed: 01:12 EKG Read Time: 01:16 ED Review of Systems ROS: Stated complaint: CHEST PAIN Other details as noted in HPI Comment: All other systems reviewed and negative Constitutional: denies: chills, fever Respiratory: denies: cough, shortness of breath Cardiovascular: chest pain Gastrointestinal: denies: nausea, vomiting ED Past Medical Hx - Past Medical History Hx Hypertension: Yes Hx Congestive Heart Failure: No Hx Diabetes: Yes Hx Deep Vein Thrombosis: No Hx Pulmonary Embolism: No Hx GERD: Yes Hx Sickle Cell Disease: No Hx Arthritis: Yes Hx Asthma: No Hx COPD: No Hx Tuberculosis: No Hx HIV: No Additional medical history: Bronchitis, Afib, gout, Thyroid - Surgical History Hx Coronary Stent: No Hx Open Heart Surgery: No Hx Pacemaker: No Hx Internal Defibrillator: No Hx Cholecystectomy: No Hx Appendectomy: No Hx Breast Surgery: Yes (left breast) Additional Surgical History: colon surg - diverticulitis, lumps removed from left breast - Social History Smoking Status: Never Smoker - Medications Home Medications: Home Medications Medication Instructions Recorded Confirmed Last Taken Type amLODIPine 10 mg PO BID 01/18/14 03/21/21 07/11/20 History metFORMIN [Glucophage] 1,000 mg PO BID 10/21/15 03/21/21 07/11/20 History Loratadine [Claritin] 10 mg PO DAILY #30 tablet 02/11/20 03/21/21 07/11/20 Rx AtorvaSTATin [Lipitor] 40 mg PO QHS 03/27/20 03/21/21 07/11/20 History Rivaroxaban [Xarelto] 20 mg PO QDAY 03/27/20 03/21/21 07/11/20 History allopurinoL [Zyloprim] 200 mg PO QDAY 03/27/20 03/21/21 07/11/20 History methIMAzole [Tapazole] 10 mg PO QDAY 03/27/20 03/21/21 07/11/20 History propranoloL [Inderal] 40 mg PO Q12H 03/27/20 03/21/21 07/11/20 History ALBUTEROL NEB's 108 puff INHALATION Q6H PRN 07/12/20 03/21/21 Unknown History Albuterol Sulfate [Proventil Hfa] 6.7 gm IH Q4HR PRN #1 hfa.aer.ad 07/23/20 03/21/21 Unknown Rx Cetirizine HCl [ZyrTEC 10mg cap] 10 mg PO QDAY 03/21/21 03/21/21 Unknown History Mupirocin [Bactroban 2% OINT] 1 applic TP TID 03/21/21 03/21/21 Unknown History AtorvaSTATin [Lipitor] 40 mg PO QHS #30 tablet 04/14/21 Unknown Rx Clopidogrel [Plavix] 75 mg PO QDAY #30 tablet 04/14/21 Unknown Rx Ergocalciferol (Vitamin D2) 50,000 unit PO QWEEK 30 Days cap 04/14/21 Unknown Rx [Drisdol] Ferrous Sulfate [Iron 325 MG] 325 mg PO DAILY #30 04/14/21 Unknown Rx Fluticasone [Flonase] 1 spray NS QDAY #1 bottle 04/14/21 Unknown Rx Gabapentin 300 mg PO TID PRN #90 cap 04/14/21 Unknown Rx Lispro Insulin [HumaLOG] 0 unit SUB-Q ACHS units 04/14/21 Unknown Rx Nitroglycerin [Nitrostat] 0.4 mg SL Q5M PRN tablet 04/14/21 Unknown Rx Pantoprazole [Protonix TAB] 40 mg PO QDAY #30 tablet 04/14/21 Unknown Rx lisinopriL [Zestril TAB] 20 mg PO QDAY #30 04/14/21 Unknown Rx traMADoL [Ultram 50 MG tab] 50 mg PO Q6H PRN tablet 04/14/21 Unknown Rx ED Physical Exam - General General appearance: alert, in no apparent distress, anxious - Head Head exam: Present: atraumatic, normocephalic - Eye Eye exam: Present: normal appearance, EOMI - ENT ENT exam: Present: mucous membranes moist - Neck Neck exam: Present: normal inspection - Respiratory Respiratory exam: Present: normal lung sounds bilaterally. Absent: respiratory distress - Cardiovascular Cardiovascular Exam: Present: regular rate, normal rhythm - GI/Abdominal GI/Abdominal exam: Present: soft. Absent: distended, tenderness - Extremities Exam Extremities exam: Present: normal inspection. Absent: calf tenderness - Neurological Exam Neurological exam: Present: alert, oriented X3 - Psychiatric Psychiatric exam: Present: normal affect, normal mood - Skin Skin exam: Present: warm, dry, intact, normal color ED Course Vital Signs 06/17/21 06/17/21 06/17/21 01:09 01:15 01:20 Temperature 98.2 F Pulse Rate 71 Respiratory 21 Rate Blood Pressure 152/55 O2 Sat by Pulse 99 97 Oximetry 06/17/21 06/17/21 06/17/21 01:30 02:00 03:08 Temperature Pulse Rate 79 Respiratory 15 Rate Blood Pressure 147/78 147/78 O2 Sat by Pulse 100 100 98 Oximetry OLYA score - Olya Score Age > 65: (0) No Aspirin use within the Past 7 Days: (1) Yes 3 or more CAD Risk Factors: (0) No 2 or more Angina events in past 24 hrs: (0) No Known CAD with more than 50% Stenosis: (0) No Elevated Cardiac Markers: (0) No ST Deviation Greater than 0.5mm: (0) No OLYA Score: 1 ED Medical Decision Making - Lab Data Result diagrams: 06/17/21 01:52 06/17/21 01:52 - EKG Data -: EKG Interpreted by Me EKG shows normal: sinus rhythm, axis, intervals, QRS complexes, ST-T waves Rate: normal - EKG Data Interpretation: no acute changes - Radiology Data Radiology results: report reviewed, image reviewed - Medical Decision Making 65-year-old female presents to ED with likely anxiety secondary to her 4-year-old granddaughter "pushing my buttons."Symptoms have currently resolved. EKG unremarkable with no ST changes. Troponin is normal. Chest x-ray is normal as well. Patient recent normal stress test on 03/22/2021. Patient will be discharged home at this time. Return precautions given. - Differential Diagnosis Anxiety, ACS Critical care attestation.: If time is entered above; I have spent that time in minutes in the direct care of this critically ill patient, excluding procedure time. ED Disposition Clinical Impression: Chest pain Disposition: DC-01 TO HOME OR SELFCARE Is pt being admited?: No Condition: Stable Instructions: Nonspecific Chest Pain, Adult, Managing Anxiety, Adult Referrals: HUMBERTO JADE MD [Primary Care Provider] - 3-5 Days PRIMARY CAREMD [Referring] - 3-5 Days Time of Disposition: 02:51
[2021-06-17 02:00] VITALS: BP 147/78
--- NOTE | 2021-06-17 02:04 | XRay Report ---
CHEST 1 VIEW 06/17/2021 12:49 AM INDICATION / CLINICAL INFORMATION: chest pain. COMPARISON: 04/14/21 FINDINGS: SUPPORT DEVICES: None. HEART / MEDIASTINUM: No significant abnormality. LUNGS / PLEURA: No significant pulmonary or pleural abnormality. No pneumothorax. ADDITIONAL FINDINGS: No significant additional findings. IMPRESSION: 1. No acute findings. No change. Signer Name: Andre Bob MD Signed: 06/17/2021 2:00 AM Workstation Name: [id number]
[2021-06-17 02:18] LABS: Basophils # (Auto) 0.1 K/mm3 (0.0-0.1); Basophils % (Auto) 0.9 % (0.0-1.8); Eosinophils # (Auto) 0.1 K/mm3 (0.0-0.4); Eosinophils % (Auto) 1.8 % (0.0-4.3); Hematocrit 39.8 % (30.3-42.9); Hemoglobin 12.6 gm/dl (10.1-14.3); Mean Corpuscular HGB Conc 32 % (30-34); Monocytes # (Auto) 0.7 K/mm3 (0.0-0.8); Monocytes % (Auto) 8.5 % (0.0-7.3); Red Blood Count 5.89 M/mm3 (3.65-5.03)
[2021-06-17 02:21] LABS: Mean Corpuscular Volume 68 fl (79-97)
[2021-06-17 02:23] LABS: Platelet Count 168 K/mm3 (140-440)
[2021-06-17 02:28] LABS: BUN/Creatinine Ratio 14; Blood Urea Nitrogen 13 mg/dL (7-17); Calcium 9.4 mg/dL (8.4-10.2); Hemolysis Index 43
--- NOTE | 2021-06-20 09:09 | Electrocardiograph Report ---
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
== END 2021-06-17 03:20 | disposition home or self-care (01) ==
LOC: ED 00:59
DX: R07.2 Precordial pain (principal); F41.9 Anxiety disorder, unspecified; I10 Essential (primary) hypertension; E11.9 Type 2 diabetes mellitus without complications; Z88.0 Allergy status to penicillin; Z88.2 Allergy status to sulfonamides
CPT/HCPCS: 36415; 71045; 80048; 84484; 85025; 93005

== ENCOUNTER 2021-07-19 17:14 | Emergency (ER) | payer MEDICARE ==
[2021-07-19 20:24] VITALS: BP 149/73
[2021-07-19 21:19] LABS: Basophils # (Auto) 0.1 K/mm3 (0.0-0.1); Basophils % (Auto) 1.1 % (0.0-1.8); Eosinophils # (Auto) 0.2 K/mm3 (0.0-0.4); Eosinophils % (Auto) 1.9 % (0.0-4.3); Hematocrit 38.6 % (30.3-42.9); Hemoglobin 12.1 gm/dl (10.1-14.3); Lymphocytes # (Auto) 2.9 K/mm3 (1.2-5.4); Mean Corpuscular HGB Conc 31 % (30-34); Monocytes # (Auto) 0.7 K/mm3 (0.0-0.8); Monocytes % (Auto) 7.3 % (0.0-7.3); Red Cell Distribution Width 15.4 % (13.2-15.2)
[2021-07-19 21:20] LABS: Mean Corpuscular Volume 67 fl (79-97); Platelet Count 155 K/mm3 (140-440)
[2021-07-19 21:28] LABS: Alanine Aminotransferase 11 units/L (7-56); Albumin 3.9 g/dL (3.9-5); BUN/Creatinine Ratio 13; Blood Urea Nitrogen 10 mg/dL (7-17); Calcium 9.7 mg/dL (8.4-10.2); Hemolysis Index 3
--- NOTE | 2021-07-19 22:19 | Emergency Department Report ---
ED GI Bleed HPI - General Chief complaint: GI Bleed Stated complaint: RECTAL BLEEDING Time Seen by Provider: 07/19/21 21:55 Source: patient Mode of arrival: Ambulatory Limitations: No Limitations - History of Present Illness Initial comments: Patient is a 65-year-old F [place] female with past medical history of hypertension and diverticulosis who is coming in with 2 episodes of some GI bleed. States she had 2 episodes of crampy abdominal pain with some slight loose stools earlier today. Noted some bright red blood in the stool to turn the water pink. States her last bowel movement there was significantly less blood. Patient states yesterday she was having crampy abdominal discomfort diffusely all day. This subsided and she only had the crampy abdominal discomfort with the bowel movements today. Patient denies any chest pain shortness of breath fevers chills nausea vomiting at this time. - Related Data Home Medications Medication Instructions Recorded Confirmed Last Taken amLODIPine 10 mg PO BID 01/18/14 03/21/21 07/11/20 metFORMIN [Glucophage] 1,000 mg PO BID 10/21/15 03/21/21 07/11/20 AtorvaSTATin [Lipitor] 40 mg PO QHS 03/27/20 03/21/21 07/11/20 Rivaroxaban [Xarelto] 20 mg PO QDAY 03/27/20 03/21/21 07/11/20 allopurinoL [Zyloprim] 200 mg PO QDAY 03/27/20 03/21/21 07/11/20 methIMAzole [Tapazole] 10 mg PO QDAY 03/27/20 03/21/21 07/11/20 propranoloL [Inderal] 40 mg PO Q12H 03/27/20 03/21/21 07/11/20 ALBUTEROL NEB's 108 puff INHALATION Q6H PRN 07/12/20 03/21/21 Unknown Cetirizine HCl [ZyrTEC 10mg cap] 10 mg PO QDAY 03/21/21 03/21/21 Unknown Mupirocin [Bactroban 2% OINT] 1 applic TP TID 03/21/21 03/21/21 Unknown Previous Rx's Medication Instructions Recorded Last Taken Type Loratadine [Claritin] 10 mg PO DAILY #30 tablet 02/11/20 07/11/20 Rx Albuterol Sulfate [Proventil Hfa] 6.7 gm IH Q4HR PRN #1 hfa.aer.ad 07/23/20 Unknown Rx AtorvaSTATin [Lipitor] 40 mg PO QHS #30 tablet 04/14/21 Unknown Rx Clopidogrel [Plavix] 75 mg PO QDAY #30 tablet 04/14/21 Unknown Rx Ergocalciferol (Vitamin D2) 50,000 unit PO QWEEK 30 Days cap 04/14/21 Unknown Rx [Drisdol] Ferrous Sulfate [Iron 325 MG] 325 mg PO DAILY #30 04/14/21 Unknown Rx Fluticasone [Flonase] 1 spray NS QDAY #1 bottle 04/14/21 Unknown Rx Gabapentin 300 mg PO TID PRN #90 cap 04/14/21 Unknown Rx Lispro Insulin [HumaLOG] 0 unit SUB-Q ACHS units 04/14/21 Unknown Rx Nitroglycerin [Nitrostat] 0.4 mg SL Q5M PRN tablet 04/14/21 Unknown Rx Pantoprazole [Protonix TAB] 40 mg PO QDAY #30 tablet 04/14/21 Unknown Rx lisinopriL [Zestril TAB] 20 mg PO QDAY #30 04/14/21 Unknown Rx traMADoL [Ultram 50 MG tab] 50 mg PO Q6H PRN tablet 04/14/21 Unknown Rx Allergies Allergy/AdvReac Type Severity Reaction Status Date / Time Penicillins Allergy Rash Verified 05/15/20 10:28 Sulfa (Sulfonamide Allergy Rash Verified 05/15/20 10:28 Antibiotics) ED Review of Systems ROS: Stated complaint: RECTAL BLEEDING Other details as noted in HPI Comment: All other systems reviewed and negative ED Past Medical Hx - Past Medical History Hx Hypertension: Yes Hx Congestive Heart Failure: No Hx Diabetes: Yes Hx Deep Vein Thrombosis: No Hx Pulmonary Embolism: No Hx GERD: Yes Hx Sickle Cell Disease: No Hx Arthritis: Yes Hx Asthma: No Hx COPD: No Hx Tuberculosis: No Hx HIV: No Additional medical history: Bronchitis, Afib, gout, Thyroid - Surgical History Hx Coronary Stent: No Hx Open Heart Surgery: No Hx Pacemaker: No Hx Internal Defibrillator: No Hx Cholecystectomy: No Hx Appendectomy: No Hx Breast Surgery: Yes (left breast) Additional Surgical History: colon surg - diverticulitis, lumps removed from left breast - Social History Smoking Status: Never Smoker - Medications Home Medications: Home Medications Medication Instructions Recorded Confirmed Last Taken Type amLODIPine 10 mg PO BID 01/18/14 03/21/21 07/11/20 History metFORMIN [Glucophage] 1,000 mg PO BID 10/21/15 03/21/21 07/11/20 History Loratadine [Claritin] 10 mg PO DAILY #30 tablet 02/11/20 03/21/21 07/11/20 Rx AtorvaSTATin [Lipitor] 40 mg PO QHS 03/27/20 03/21/21 07/11/20 History Rivaroxaban [Xarelto] 20 mg PO QDAY 03/27/20 03/21/21 07/11/20 History allopurinoL [Zyloprim] 200 mg PO QDAY 03/27/20 03/21/21 07/11/20 History methIMAzole [Tapazole] 10 mg PO QDAY 03/27/20 03/21/21 07/11/20 History propranoloL [Inderal] 40 mg PO Q12H 03/27/20 03/21/21 07/11/20 History ALBUTEROL NEB's 108 puff INHALATION Q6H PRN 07/12/20 03/21/21 Unknown History Albuterol Sulfate [Proventil Hfa] 6.7 gm IH Q4HR PRN #1 hfa.aer.ad 07/23/20 03/21/21 Unknown Rx Cetirizine HCl [ZyrTEC 10mg cap] 10 mg PO QDAY 03/21/21 03/21/21 Unknown History Mupirocin [Bactroban 2% OINT] 1 applic TP TID 03/21/21 03/21/21 Unknown History AtorvaSTATin [Lipitor] 40 mg PO QHS #30 tablet 04/14/21 Unknown Rx Clopidogrel [Plavix] 75 mg PO QDAY #30 tablet 04/14/21 Unknown Rx Ergocalciferol (Vitamin D2) 50,000 unit PO QWEEK 30 Days cap 04/14/21 Unknown Rx [Drisdol] Ferrous Sulfate [Iron 325 MG] 325 mg PO DAILY #30 04/14/21 Unknown Rx Fluticasone [Flonase] 1 spray NS QDAY #1 bottle 04/14/21 Unknown Rx Gabapentin 300 mg PO TID PRN #90 cap 04/14/21 Unknown Rx Lispro Insulin [HumaLOG] 0 unit SUB-Q ACHS units 04/14/21 Unknown Rx Nitroglycerin [Nitrostat] 0.4 mg SL Q5M PRN tablet 04/14/21 Unknown Rx Pantoprazole [Protonix TAB] 40 mg PO QDAY #30 tablet 04/14/21 Unknown Rx lisinopriL [Zestril TAB] 20 mg PO QDAY #30 04/14/21 Unknown Rx traMADoL [Ultram 50 MG tab] 50 mg PO Q6H PRN tablet 04/14/21 Unknown Rx ED Physical Exam - General Limitations: No Limitations General appearance: alert, in no apparent distress - Head Head exam: Present: atraumatic, normocephalic - Eye Eye exam: Present: normal appearance - ENT ENT exam: Present: mucous membranes moist - Neck Neck exam: Present: normal inspection - Respiratory Respiratory exam: Present: normal lung sounds bilaterally. Absent: respiratory distress, wheezes, rales, rhonchi - Cardiovascular Cardiovascular Exam: Present: regular rate, normal rhythm, normal heart sounds. Absent: systolic murmur, diastolic murmur, rubs, gallop - GI/Abdominal GI/Abdominal exam: Present: soft, normal bowel sounds. Absent: distended, tenderness, guarding, rebound, rigid - Extremities Exam Extremities exam: Present: normal inspection - Back Exam Back exam: Present: normal inspection - Neurological Exam Neurological exam: Present: alert, oriented X3 - Psychiatric Psychiatric exam: Present: normal affect, normal mood - Skin Skin exam: Present: warm, dry, intact, normal color. Absent: rash ED Course Vital Signs 07/19/21 20:21 Temperature 98.5 F Pulse Rate 64 Respiratory 18 Rate Blood Pressure 149/73 O2 Sat by Pulse 98 Oximetry ED Medical Decision Making - Lab Data Result diagrams: 07/19/21 20:56 07/19/21 20:56 - Medical Decision Making Patient is hemodynamically stable. Hemoglobin is normal. States that she is no longer noticing any blood in her stool. Patient will be given GI for follow-up and the patient appears stable for discharge Critical care attestation.: If time is entered above; I have spent that time in minutes in the direct care of this critically ill patient, excluding procedure time. ED Disposition Clinical Impression: GI bleed, Diverticulosis Disposition: HOME / SELF CARE / HOMELESS Is pt being admited?: No Does the pt Need Aspirin: No Condition: Stable Instructions: Gastrointestinal Bleeding, Diverticulosis Referrals: [facility] [Provider Group] - 3-5 Days Time of Disposition: 22:18
== END 2021-07-19 22:55 | disposition home or self-care (01) ==
LOC: ED 17:14
DX: K57.91 Diverticulosis of intestine, part unspecified, without perforation or abscess with bleeding (principal); K92.1 Melena; I10 Essential (primary) hypertension; E11.8 Type 2 diabetes mellitus with unspecified complications; K21.9 Gastro-esophageal reflux disease without esophagitis; M19.90 Unspecified osteoarthritis, unspecified site; I48.91 Unspecified atrial fibrillation; E07.9 Disorder of thyroid, unspecified; M10.9 Gout, unspecified; J40 Bronchitis, not specified as acute or chronic; Z98.890 Other specified postprocedural states; Z88.0 Allergy status to penicillin; Z88.2 Allergy status to sulfonamides
CPT/HCPCS: 36415; 80053; 85025; 99283

== ENCOUNTER 2021-07-20 01:13 | Observation (INO) | payer MEDICARE ==
[2021-07-20 08:08] LABS: Basophils # (Auto) 0.1 K/mm3 (0.0-0.1); Basophils % (Auto) 0.7 % (0.0-1.8); Eosinophils # (Auto) 0.2 K/mm3 (0.0-0.4); Eosinophils % (Auto) 2.8 % (0.0-4.3); Hematocrit 38.3 % (30.3-42.9); Lymphocytes % (Auto) 27.2 % (13.4-35.0); Mean Corpuscular HGB Conc 31 % (30-34); Monocytes # (Auto) 0.8 K/mm3 (0.0-0.8); Monocytes % (Auto) 10.6 % (0.0-7.3); Platelet Count 153 K/mm3 (140-440); Red Blood Count 5.66 M/mm3 (3.65-5.03); Red Cell Distribution Width 15.3 % (13.2-15.2)
[2021-07-20 08:35] LABS: Mean Corpuscular Volume 68 fl (79-97)
[2021-07-20 09:05] LABS: Alanine Aminotransferase 10 units/L (7-56); Albumin 4.1 g/dL (3.9-5); Blood Urea Nitrogen 11 mg/dL (7-17); Calcium 9.9 mg/dL (8.4-10.2); Hemolysis Index 1
[2021-07-20 09:17] LABS: BUN/Creatinine Ratio 16
[2021-07-20] MEDS ORDERED: MORPHINE 4 MG/1 ML INJ IV ONE (12:03)
[2021-07-20] MEDS ORDERED: ONDANSETRON 4 MG/2 ML INJ IV ONE (12:03)
--- NOTE | 2021-07-20 12:04 | Emergency Department Report ---
<CHASITY SHAFFER - Last Filed: 07/20/21 16:23> ED GI Bleed HPI - General Chief complaint: GI Bleed Stated complaint: GI BLEED Time Seen by Provider: 07/20/21 11:49 Source: patient, old records reviewed Mode of arrival: Ambulatory Limitations: No Limitations - History of Present Illness Initial comments: 65 year old female with past medical history of DM, HTN, Afib currently on xarelto, thyroid disease, diverticulitis s/p bowel resection presents to the ER today with complaints of rectal bleeding. Patient states that her symptoms started yesterday. She describes burgundy colored blood mixed in with her stool, as well as in the toilet bowl and when she wipes. She reports associated intermittent lower abdominal pain. She denies any nausea or vomiting. She denies any UTI symptoms. She denies any fever or chills. Patient states that she had a colonoscopy in November 2020 at [place] and it was normal. Patient was seen yesterday for similar symptoms. She was discharged after normal labs and in stable condition. Patient states when she was about to leave, she had another bowel movement, and at that time it was larger amt of blood with tiny amount of stool and so she got concerned and signed back in. MD complaint: blood on toilet paper, blood streaked stool -: Gradual, days(s) (1) - Related Data Home Medications Medication Instructions Recorded Confirmed Last Taken amLODIPine 10 mg PO BID 01/18/14 03/21/21 07/11/20 metFORMIN [Glucophage] 1,000 mg PO BID 10/21/15 03/21/21 07/11/20 AtorvaSTATin [Lipitor] 40 mg PO QHS 03/27/20 03/21/21 07/11/20 Rivaroxaban [Xarelto] 20 mg PO QDAY 03/27/20 03/21/21 07/11/20 allopurinoL [Zyloprim] 200 mg PO QDAY 03/27/20 03/21/21 07/11/20 methIMAzole [Tapazole] 10 mg PO QDAY 03/27/20 03/21/21 07/11/20 propranoloL [Inderal] 40 mg PO Q12H 03/27/20 03/21/21 07/11/20 ALBUTEROL NEB's 108 puff INHALATION Q6H PRN 07/12/20 03/21/21 Unknown Cetirizine HCl [ZyrTEC 10mg cap] 10 mg PO QDAY 03/21/21 03/21/21 Unknown Mupirocin [Bactroban 2% OINT] 1 applic TP TID 03/21/21 03/21/21 Unknown Previous Rx's Medication Instructions Recorded Last Taken Type Loratadine [Claritin] 10 mg PO DAILY #30 tablet 02/11/20 07/11/20 Rx Albuterol Sulfate [Proventil Hfa] 6.7 gm IH Q4HR PRN #1 hfa.aer.ad 07/23/20 Unknown Rx AtorvaSTATin [Lipitor] 40 mg PO QHS #30 tablet 04/14/21 Unknown Rx Clopidogrel [Plavix] 75 mg PO QDAY #30 tablet 04/14/21 Unknown Rx Ergocalciferol (Vitamin D2) 50,000 unit PO QWEEK 30 Days cap 04/14/21 Unknown Rx [Drisdol] Ferrous Sulfate [Iron 325 MG] 325 mg PO DAILY #30 04/14/21 Unknown Rx Fluticasone [Flonase] 1 spray NS QDAY #1 bottle 04/14/21 Unknown Rx Gabapentin 300 mg PO TID PRN #90 cap 04/14/21 Unknown Rx Lispro Insulin [HumaLOG] 0 unit SUB-Q ACHS units 04/14/21 Unknown Rx Nitroglycerin [Nitrostat] 0.4 mg SL Q5M PRN tablet 04/14/21 Unknown Rx Pantoprazole [Protonix TAB] 40 mg PO QDAY #30 tablet 04/14/21 Unknown Rx lisinopriL [Zestril TAB] 20 mg PO QDAY #30 04/14/21 Unknown Rx traMADoL [Ultram 50 MG tab] 50 mg PO Q6H PRN tablet 04/14/21 Unknown Rx Allergies Allergy/AdvReac Type Severity Reaction Status Date / Time Penicillins Allergy Rash Verified 05/15/20 10:28 Sulfa (Sulfonamide Allergy Rash Verified 05/15/20 10:28 Antibiotics) ED Review of Systems Comment: All other systems reviewed and negative Constitutional: denies: chills, fever Eyes: denies: eye pain, eye discharge, vision change ENT: denies: ear pain, throat pain Respiratory: denies: cough, shortness of breath, SOB with exertion, SOB at rest, wheezing Cardiovascular: denies: chest pain, palpitations, dyspnea on exertion, edema, syncope, paroxysmal nocturnal dyspnea Endocrine: no symptoms reported Gastrointestinal: abdominal pain, hematochezia. denies: nausea, vomiting, diarrhea, constipation, hematemesis, melena Genitourinary: denies: urgency, dysuria, frequency, hematuria, discharge, abnormal menses, dyspareunia Musculoskeletal: denies: back pain, joint swelling, arthralgia Skin: denies: rash, lesions, change in color, change in hair/nails, pruritus Neurological: denies: headache, weakness, paresthesias, confusion, abnormal gait, vertigo Psychiatric: denies: anxiety, depression, auditory hallucinations, visual hallucinations, homicidal thoughts, suicidal thoughts Hematological/Lymphatic: denies: easy bleeding, easy bruising, swollen glands ED Past Medical Hx - Past Medical History Hx Hypertension: Yes Hx Congestive Heart Failure: No Hx Diabetes: Yes Hx Deep Vein Thrombosis: No Hx Pulmonary Embolism: No Hx GERD: Yes Hx Sickle Cell Disease: No Hx Arthritis: Yes Hx Asthma: No Hx COPD: No Hx Tuberculosis: No Hx HIV: No Additional medical history: Bronchitis, Afib, gout, Thyroid - Surgical History Hx Coronary Stent: No Hx Open Heart Surgery: No Hx Pacemaker: No Hx Internal Defibrillator: No Hx Cholecystectomy: No Hx Appendectomy: No Hx Breast Surgery: Yes (left breast) Additional Surgical History: colon surg - diverticulitis, lumps removed from left breast - Social History Smoking Status: Never Smoker - Medications Home Medications: Home Medications Medication Instructions Recorded Confirmed Last Taken Type amLODIPine 10 mg PO BID 01/18/14 03/21/21 07/11/20 History metFORMIN [Glucophage] 1,000 mg PO BID 10/21/15 03/21/21 07/11/20 History Loratadine [Claritin] 10 mg PO DAILY #30 tablet 02/11/20 03/21/21 07/11/20 Rx AtorvaSTATin [Lipitor] 40 mg PO QHS 03/27/20 03/21/21 07/11/20 History Rivaroxaban [Xarelto] 20 mg PO QDAY 03/27/20 03/21/21 07/11/20 History allopurinoL [Zyloprim] 200 mg PO QDAY 03/27/20 03/21/21 07/11/20 History methIMAzole [Tapazole] 10 mg PO QDAY 03/27/20 03/21/21 07/11/20 History propranoloL [Inderal] 40 mg PO Q12H 03/27/20 03/21/21 07/11/20 History ALBUTEROL NEB's 108 puff INHALATION Q6H PRN 07/12/20 03/21/21 Unknown History Albuterol Sulfate [Proventil Hfa] 6.7 gm IH Q4HR PRN #1 hfa.aer.ad 07/23/20 03/21/21 Unknown Rx Cetirizine HCl [ZyrTEC 10mg cap] 10 mg PO QDAY 03/21/21 03/21/21 Unknown History Mupirocin [Bactroban 2% OINT] 1 applic TP TID 03/21/21 03/21/21 Unknown History AtorvaSTATin [Lipitor] 40 mg PO QHS #30 tablet 04/14/21 Unknown Rx Clopidogrel [Plavix] 75 mg PO QDAY #30 tablet 04/14/21 Unknown Rx Ergocalciferol (Vitamin D2) 50,000 unit PO QWEEK 30 Days cap 04/14/21 Unknown Rx [Drisdol] Ferrous Sulfate [Iron 325 MG] 325 mg PO DAILY #30 04/14/21 Unknown Rx Fluticasone [Flonase] 1 spray NS QDAY #1 bottle 04/14/21 Unknown Rx Gabapentin 300 mg PO TID PRN #90 cap 04/14/21 Unknown Rx Lispro Insulin [HumaLOG] 0 unit SUB-Q ACHS units 04/14/21 Unknown Rx Nitroglycerin [Nitrostat] 0.4 mg SL Q5M PRN tablet 04/14/21 Unknown Rx Pantoprazole [Protonix TAB] 40 mg PO QDAY #30 tablet 04/14/21 Unknown Rx lisinopriL [Zestril TAB] 20 mg PO QDAY #30 04/14/21 Unknown Rx traMADoL [Ultram 50 MG tab] 50 mg PO Q6H PRN tablet 04/14/21 Unknown Rx ED Physical Exam - General Limitations: No Limitations General appearance: alert, in no apparent distress - Head Head exam: Present: atraumatic, normocephalic, normal inspection - Eye Eye exam: Present: normal appearance, PERRL, EOMI Pupils: Present: normal accommodation - ENT ENT exam: Present: normal exam, mucous membranes moist - Neck Neck exam: Present: normal inspection, full ROM - Respiratory Respiratory exam: Present: normal lung sounds bilaterally. Absent: respiratory distress, wheezes, rales, rhonchi - Cardiovascular Cardiovascular Exam: Present: regular rate, normal rhythm, normal heart sounds - GI/Abdominal GI/Abdominal exam: Present: soft, tenderness (Suprapubic tenderness ), guarding (Suprapubic area, mild). Absent: distended - Neurological Exam Neurological exam: Present: alert, oriented X3, CN II-XII intact, normal gait - Psychiatric Psychiatric exam: Present: normal affect, normal mood - Skin Skin exam: Present: intact ED Medical Decision Making - Lab Data Result diagrams: 07/20/21 07:29 07/20/21 07:29 - Radiology Data Radiology results: report reviewed Patient: SIMA HAYNES MR#: [id number] : 1955 Acct:[id number] Age/Sex: 65 / F ADM Date: 07/20/21 Loc: ED Attending Dr: Ordering Physician: CHASITY SHAFFER Date of Service: 07/20/21 Procedure(s): CT abdomen pelvis w con Accession Number(s): [id number] cc: CHASITY SHAFFER CT ABDOMEN AND PELVIS WITH IV CONTRAST INDICATION: Lower abd pain/GI bleed 100 ml omni 300 . COMPARISON: CT 04/30/2020 TECHNIQUE: All CT scans at this facility use dose modulation, automated exposure control, iterative reconstruction or weight based dosing, when appropriate, to reduce radiation dose to as low as reasonably achievable. FINDINGS: Lung Bases: No significant abnormality. Skeletal System: No acute abnormality. ABDOMEN: Liver: No significant abnormality. Gallbladder: No significant abnormality. Bile Ducts: No significant abnormality. Pancreas: No significant abnormality. Spleen: No significant abnormality. Adrenals: No significant abnormality. Right Kidney: No significant abnormality. Left Kidney: No significant abnormality. Upper GI tract: No significant abnormality. Lymph Nodes: No significant adenopathy. Aorta: No significant abnormality. Additional Findings: No significant abnormality. PELVIS: Colon: There is focal circumferential colonic wall thickening at the splenic flexure with a few adjacent shotty pericolonic nodes. This is best appreciated on axial image 53 and coronal image 64. Diverticulosis is noted. There is postsurgical change related to prior right colectomy. The anastomosis appears unremarkable. Urinary Bladder and Distal Ureters: No significant abnormality. Appendix: No significant abnormality. Lymph Nodes: No significant adenopathy. Additional Findings: Tiny incidental left gluteus minimus lipoma is noted. IMPRESSION: 1. Focal colonic wall thickening at the splenic flexure could be due to peristalsis. However, given the history, colonoscopy should be considered to exclude lesion in this region. There is moderate diffuse diverticulosis. No acute diverticulitis is seen. 2. Incidental findings, as above. Signer Name: Martin Lui MD Signed: 07/20/2021 1:50 PM Workstation Name: [id number] Transcribed By: ASIA Dictated By: Martin Lui MD Electronically Authenticated By: Martin Lui MD Signed Date/Time: 07/20/21 1350 DD/ 1344 TD/TT: - Medical Decision Making 1447: All labs reviewed -- CBC show stable H/H, wbc normal and plateletes normal; Chem unremarkable; CT abdomen and pelvis shows Focal colonic wall thickening at the splenic flexure could be due to peristalsis. However, given the history, colonoscopy should be considered to exclude lesion in this region. There is moderate diffuse diverticulosis. No acute diverticulitis is seen. Hemoccult pending but pt with gross burgundy blood on CHI. THere was no apparent hemorrhoids or rectal pain or swelling. Pt currently resting comfortably, she reports improvement of her abdominal pain after meds, and she states that she has not had a bowel movement since I initially saw her. Discussed case with Dr Hernandez - She recommends admitting patient. GI consult, and hospitalist were obtained by Dr Hernandez. See her notes for Details. 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, History of atrial fibrillation Disposition: ADMITTED INPATIENT Is pt being admited?: No Does the pt Need Aspirin: No Condition: Stable <MIGUEL HERNANDEZ - Last Filed: 07/20/21 16:48> ED Review of Systems ROS: Stated complaint: GI BLEED Other details as noted in HPI ED Course Vital Signs 07/20/21 07/20/21 01:59 07:40 Temperature 98.1 F 98.1 F Pulse Rate 66 61 Respiratory 20 20 Rate Blood Pressure 157/62 151/56 O2 Sat by Pulse 94 96 Oximetry - Reevaluation(s) Reevaluation #1: 07/20/21 16:09 awaiting ekg, hr appear regular on exam 07/20/21 16:47 EKG NSR - Consultations Consultation #1: 07/20/21 15:[address] Selina MARINA on-call who recommends inpatient admission. Also request cardiology consultation to determine risk-benefit of Xarelto for her underlying A. fib. Will obtain ekg prior to cardiology consultation. 07/20/21 16:47 case d/w Dr Marquez cardiology, consult ordered ED Medical Decision Making - Lab Data Result diagrams: 07/20/21 07:29 07/20/21 07:29 Lab Results 07/20/21 07/20/21 Range/Units 07:29 07:29 WBC 7.4 (4.5-11.0) K/mm3 RBC 5.66 H (3.65-5.03) M/mm3 Hgb 12.0 (10.1-14.3) gm/dl Hct 38.3 (30.3-42.9) % MCV 68 L (79-97) fl MCH 21 L (28-32) pg MCHC 31 (30-34) % RDW 15.3 H (13.2-15.2) % Plt Count 153 (140-440) K/mm3 Lymph % (Auto) 27.2 (13.4-35.0) % [place] % (Auto) 10.6 H (0.0-7.3) % Eos % (Auto) 2.8 (0.0-4.3) % Baso % (Auto) 0.7 (0.0-1.8) % Lymph # (Auto) 2.0 (1.2-5.4) K/mm3 [place] # (Auto) 0.8 (0.0-0.8) K/mm3 Eos # (Auto) 0.2 (0.0-0.4) K/mm3 Baso # (Auto) 0.1 (0.0-0.1) K/mm3 Seg Neutrophils % 58.7 (40.0-70.0) % Seg Neutrophils # 4.4 (1.8-7.7) K/mm3 Sodium 139 (137-145) mmol/L Potassium 4.0 (3.6-5.0) mmol/L Chloride 103.7 (98-107) mmol/L Carbon Dioxide 28 (22-30) mmol/L Anion Gap 11 mmol/L BUN 11 (7-17) mg/dL Creatinine 0.7 (0.6-1.2) mg/dL Estimated GFR > 60 ml/min BUN/Creatinine Ratio 16 % Glucose 132 H (65-100) mg/dL Calcium 9.9 (8.4-10.2) mg/dL Total Bilirubin 0.60 (0.1-1.2) mg/dL AST 16 (5-40) units/L ALT 10 (7-56) units/L Alkaline Phosphatase 79 (35-129) units/L Total Protein 7.7 (6.3-8.2) g/dL Albumin 4.1 (3.9-5) g/dL Albumin/Globulin Ratio 1.1 % - EKG Data -: EKG Interpreted by Nv EKG shows normal: sinus rhythm, ST-T waves (no stemi, lat t inv) Rate: normal - Medical Decision Making Patient with continued rectal bleeding. Stable H&H however, patient is on Xarelto with history of diverticular bleed requiring blood transfusion in the past. Case discussed with GI who recommends admission with GI consultation. Also requests cardiology consultation for risk-benefit of continuing versus discontinuing Xarelto for chronic paroxysmal A. fib. Vital signs stable. ekg NS R, case d/w cardiolgoy. Case discussed with hospitalist Dr Sanders for admission Critical care attestation.: If time is entered above; I have spent that time in minutes in the direct care of this critically ill patient, excluding procedure time. ED Disposition Is pt being admited?: Yes Time of Disposition: 16:00
--- NOTE | 2021-07-20 13:55 | Cat Scan Report ---
CT ABDOMEN AND PELVIS WITH IV CONTRAST INDICATION: Lower abd pain/GI bleed 100 ml omni 300 . COMPARISON: CT 04/30/2020 TECHNIQUE: All CT scans at this facility use dose modulation, automated exposure control, iterative reconstructi on or weight based dosing, when appropriate, to reduce radiation dose to as low as reasonably achieva ble. FINDINGS: Lung Bases: No significant abnormality. Skeletal System: No acute abnormality. ABDOMEN: Liver: No significant abnormality. Gallbladder: No significant abnormality. Bile Ducts: No significant abnormality. Pancreas: No significant abnormality. Spleen: No significant abnormality. Adrenals: No significant abnormality. Right Kidney: No significant abnormality. Left Kidney: No significant abnormality. Upper GI tract: No significant abnormality. Lymph Nodes: No significant adenopathy. Aorta: No significant abnormality. Additional Findings: No significant abnormality. PELVIS: Colon: There is focal circumferential colonic wall thickening at the splenic flexure with a few magdalene cent shotty pericolonic nodes. This is best appreciated on axial image 53 and coronal image 64. Dive rticulosis is noted. There is postsurgical change related to prior right colectomy. The anastomosis a ppears unremarkable. Urinary Bladder and Distal Ureters: No significant abnormality. Appendix: No significant abnormality. Lymph Nodes: No significant adenopathy. Additional Findings: Tiny incidental left gluteus minimus lipoma is noted. IMPRESSION: 1. Focal colonic wall thickening at the splenic flexure could be due to peristalsis. However, given the history, colonoscopy should be considered to exclude lesion in this region. There is moderate dif fuse diverticulosis. No acute diverticulitis is seen. 2. Incidental findings, as above. Signer Name: Martin Lui MD Signed: 07/20/2021 1:50 PM Workstation Name: [id number]
--- NOTE | 2021-07-20 16:15 | History and Physical Report ---
History of Present Illness Chief complaint: I have been bleeding a lot History of present illness: 65 YO Female with HTN, DM, Paroxysmal Atrial Fib on therapeutic anticoagualtion with Xarelto, Hyperthyroidism, Diverticulosis S/P bowel resection, OA, Gout presents to ED for evaluation. Patient reports "I keep bleeding". Patient states that she has experienced multiple episodes of bright red blood per rectum. Patient was seen and evaluated in the emergency department on 07/19/2021 and was subsequently discharged. Patient represents today with recurrent episodes of rectal bleeding. Patient transported to [facility] via private vehicle for further care and evaluation of the aforementioned symptoms. The patient was se en and evaluated in the emergency department. All lab and imaging studies reviewed. Patient found to have primary blood per rectum and clinical symptoms consistent with GI bleed. GI team consulted. Patient admitted to medical floor and initiated on GI bleed protocol. Patient denies fever, chills, chest pain, palpitation, productive cough, skin rash, recent ill contacts, or known exposure to COVID-19. Past History Past Medical History: atrial fib, diabetes, hyperthyroidism, hypertension, other (See HPI) Past Surgical History: bowel surgery, Other (Breast surgery) Social history: single. denies: smoking, alcohol abuse Family history: diabetes, hypertension Medications and Allergies Allergies Allergy/AdvReac Type Severity Reaction Status Date / Time Penicillins Allergy Rash Verified 05/15/20 10:28 Sulfa (Sulfonamide Allergy Rash Verified 05/15/20 10:28 Antibiotics) Home Medications Medication Instructions Recorded Confirmed Last Taken Type amLODIPine 10 mg PO BID 01/18/14 03/21/21 07/11/20 History metFORMIN [Glucophage] 1,000 mg PO BID 10/21/15 03/21/21 07/11/20 History Loratadine [Claritin] 10 mg PO DAILY #30 tablet 02/11/20 03/21/21 07/11/20 Rx AtorvaSTATin [Lipitor] 40 mg PO QHS 03/27/20 03/21/21 07/11/20 History Rivaroxaban [Xarelto] 20 mg PO QDAY 03/27/20 03/21/21 07/11/20 History allopurinoL [Zyloprim] 200 mg PO QDAY 03/27/20 03/21/21 07/11/20 History methIMAzole [Tapazole] 10 mg PO QDAY 0503/21/21 07/11/20 History propranoloL [Inderal] 40 mg PO Q12H 03/27/20 03/21/21 07/11/20 History ALBUTEROL NEB's 108 puff INHALATION Q6H PRN 07/12/20 03/21/21 Unknown History Albuterol Sulfate [Proventil Hfa] 6.7 gm IH Q4HR PRN #1 hfa.aer.ad 07/23/20 03/21/21 Unknown Rx Cetirizine HCl [ZyrTEC 10mg cap] 10 mg PO QDAY 03/21/21 03/21/21 Unknown History Mupirocin [Bactroban 2% OINT] 1 applic TP TID 03/21/21 03/21/21 Unknown History AtorvaSTATin [Lipitor] 40 mg PO QHS #30 tablet 04/14/21 Unknown Rx Clopidogrel [Plavix] 75 mg PO QDAY #30 tablet 04/14/21 Unknown Rx Ergocalciferol (Vitamin D2) 50,000 unit PO QWEEK 30 Days cap 04/14/21 Unknown Rx [Drisdol] Ferrous Sulfate [Iron 325 MG] 325 mg PO DAILY #30 04/14/21 Unknown Rx Fluticasone [Flonase] 1 spray NS QDAY #1 bottle 04/14/21 Unknown Rx Gabapentin 300 mg PO TID PRN #90 cap 04/14/21 Unknown Rx Lispro Insulin [HumaLOG] 0 unit SUB-Q ACHS units 04/14/21 Unknown Rx Nitroglycerin [Nitrostat] 0.4 mg SL Q5M PRN tablet 04/14/21 Unknown Rx Pantoprazole [Protonix TAB] 40 mg PO QDAY #30 tablet 04/14/21 Unknown Rx lisinopriL [Zestril TAB] 20 mg PO QDAY #30 04/14/21 Unknown Rx traMADoL [Ultram 50 MG tab] 50 mg PO Q6H PRN tablet 04/14/21 Unknown Rx Review of Systems Constitutional: no weight loss, no weight gain, no fever, no chills Ears, nose, mouth and throat: no ear pain, no ear discharge, no tinnitis, no nose pain, no nasal congestion, no nasal discharge Breasts: no change in shape, no swelling Cardiovascular: no orthopnea, no palpitations, no edema, no lightheadedness Respiratory: no cough, no cough with sputum, no hemoptysis, no dyspnea on exertion Gastrointestinal: no abdominal pain, no nausea, no vomiting, no diarrhea, no constipation Genitourinary Female: no pelvic pain, no menorrhagia, no dysuria, no urinary frequency, no urgency Rectal: no pain, no incontinence, no bleeding Musculoskeletal: no neck stiffness, no neck pain, no shooting arm pain, no shooting leg pain Integumentary: no rash, no pruritis, no redness, no wounds, no jaundice Neurological: no transient paralysis, no paralysis, no parathesias, no numbness, no tingling, no syncope Psychiatric: no anxiety, no memory loss, no sleep disturbances, no insomnia, no hypersomnia Endocrine: no cold intolerance, no heat intolerance, no excessive thirst, no polyuria, no excessive sweating Hematologic/Lymphatic: no easy bruising, no easy bleeding, no lymphadenopathy, no lymphedema Allergic/Immunologic: no urticaria, no allergic rhinitis, no anaphylaxis Exam - Constitutional Vitals: Temp Pulse Resp BP Pulse Ox 98.1 F 61 20 151/56 96 07/20/21 07:40 07/20/21 07:40 07/20/21 07:40 07/20/21 07:40 07/20/21 07:40 General appearance: Present: mild distress, obese - EENT Eyes: Present: PERRL ENT: hearing intact, clear oral mucosa - Neck Neck: Present: supple, normal ROM - Respiratory Respiratory effort: normal Respiratory: bilateral: CTA - Cardiovascular Heart Sounds: Present: S1 & S2. Absent: rub, click - Extremities Extremities: pulses symmetrical, No edema Peripheral Pulses: within normal limits - Abdominal General gastrointestinal: Present: soft, non-tender, non-distended, normal bowel sounds Female genitourinary: Present: normal - Integumentary Integumentary: Present: clear, warm, dry - Musculoskeletal Musculoskeletal: gait normal, strength equal bilaterally - Psychiatric Psychiatric: appropriate mood/affect, intact judgment & insight - Neurologic Neurologic: CNII-XII intact, moves all extremities Results - Labs CBC & Chem 7: 07/20/21 07:29 07/20/21 07:29 Labs: Abnormal lab results 07/20/21 07/20/21 Range/Units 07:29 07:29 RBC 5.66 H (3.65-5.03) M/mm3 MCV 68 L (79-97) fl MCH 21 L (28-32) pg RDW 15.3 H (13.2-15.2) % [place] % (Auto) 10.6 H (0.0-7.3) % Glucose 132 H (65-100) mg/dL Assessment and Plan - Patient Problems (1) GI bleed Current Visit: Yes Status: Acute Plan to address problem: GI bleed protocol: CBC, PPI therapy, GI team consulted. Endoscopy as per GI team. (2) Paroxysmal atrial fibrillation Current Visit: Yes Status: Acute Plan to address problem: Patient currently in normal sinus rhythm. Hold anticoagulation for now. Continue rate control as clinically indicated. (3) Diverticulosis Current Visit: Yes Status: Acute Plan to address problem: Supportive care, GI team consulted. (4) Obesity hypoventilation syndrome Current Visit: Yes Status: Acute Plan to address problem: Balanced diet, increase physical activity at discharge, outpatient pulmonary f ollow-up for sleep study, outpatient bariatric surgery follow-up. (5) DVT prophylaxis Current Visit: Yes Status: Acute Plan to address problem: SCDs bilateral lower extremities while in bed, patient is ambulatory (6) Advance care planning Current Visit: Yes Status: Acute Plan to address problem: Disease education conducted, care plan discussed, diagnoses discussed, patient acknowledges understanding and agreement with care plan, patient is full code, +30 minutes.
[2021-07-20] MEDS ORDERED: ACETAMINOPHEN 325 MG TAB PO PRN (16:19)
[2021-07-20] MEDS ORDERED: HYDROmorphone 1 MG/1 ML INJ IV PRN (16:19)
[2021-07-20] MEDS ORDERED: ALBUTEROL 2.5 MG/3 ML NEBU IH PRN (16:19)
[2021-07-20] MEDS ORDERED: ONDANSETRON 4 MG/2 ML INJ IV PRN (16:19)
[2021-07-20] MEDS ORDERED: oxyCODONE /ACETAMINOPHEN 5-325MG TAB PO PRN (16:19)
[2021-07-20] MEDS ORDERED: GABAPENTIN 300 MG CAP PO PRN (16:21)
[2021-07-20] MEDS ORDERED: NITROGLYCERIN 0.4 MG TAB SUBL SL PRN (16:21)
[2021-07-20] MEDS ORDERED: DEXTROSE 50% IN WATER (25GM) 50 ML SYRINGE IV PRN (16:22)
[2021-07-20] MEDS: INSULIN LISPRO 100 UNIT/ML SUB-Q SCH ×2 (19:49→22:49)
[2021-07-20] MEDS ORDERED: amLODIPine 5 MG TAB PO SCH (22:00)
[2021-07-20] MEDS: PROPRANOLOL 40 MG TAB PO SCH (22:21)
[2021-07-20] MEDS: PANTOPRAZOLE 40 MG INJ IV SCH (22:21)
[2021-07-20] MEDS: MUPIROCIN 2% OINT 22 GM TP SCH (22:21)
[2021-07-21] MEDS: INSULIN LISPRO 100 UNIT/ML SUB-Q SCH ×4 (08:19→22:58)
[2021-07-21] MEDS: MUPIROCIN 2% OINT 22 GM TP SCH ×3 (09:08→23:14)
[2021-07-21] MEDS ORDERED: LORATADINE 10 MG PO SCH (10:00)
[2021-07-21] MEDS ORDERED: NON-FORMULARY EACH (Cetirizine Hcl [Zyrtec 10mg Cap] 10 MG Capsule) PO SCH (10:00)
[2021-07-21] MEDS: CETIRIZINE 10 MG TAB PO SCH (11:08)
[2021-07-21] MEDS: LISINOPRIL 20 MG TAB PO SCH (11:08)
[2021-07-21] MEDS: amLODIPine 10 MG TAB PO SCH (11:08)
[2021-07-21] MEDS: allopurinoL 100 MG TAB PO SCH (11:09)
[2021-07-21] MEDS: PROPRANOLOL 40 MG TAB PO SCH ×2 (11:09→11:15)
[2021-07-21] MEDS: FLUTICASONE PROPIONATE NASAL SPRAY 16 GM NS SCH (11:10)
--- NOTE | 2021-07-21 11:46 | Progress Note ---
Assessment and Plan Assessment and plan: GI/rectal bleeding. Paroxysmal atrial fibrillation Diverticulosis Obesity hypoventilation syndrome Hypertension Hypothyroidism Osteoarthritis/gout DVT prophylaxis 07/21/2021. Continue Protonix 40 mg IV twice daily. Continue to monitor H&H and transfuse for hemoglobin less than 7. Hold anticoagulation given the bleeding for now. Await GI consultation. Cardiology consultation for atrial fibri llation. Rate is controlled continue methimazole 10 mg p.o. daily. Continue antihypertensive medications. History Interval history: No new issues overnight Hospitalist Physical - Constitutional Vitals: Temp Pulse Resp BP Pulse Ox 98.1 F 71 15 137/69 97 07/20/21 07:40 07/21/21 11:08 07/21/21 10:30 07/21/21 11:08 07/21/21 10:30 General appearance: Present: mild distress, obese - EENT Eyes: Present: PERRL, EOM intact ENT: hearing intact, clear oral mucosa, dentition normal - Neck Neck: Present: supple, normal ROM - Respiratory Respiratory effort: normal Respiratory: bilateral: CTA - Cardiovascular Rhythm: regular Heart Sounds: Present: S1 & S2. Absent: gallop, rub - Extremities Extremities: no ischemia, No edema, Full ROM - Abdominal General gastrointestinal: soft, non-tender, non-distended, normal bowel sounds - Integumentary Integumentary: Present: clear, warm, dry - Neurologic Neurologic: CNII-XII intact, moves all extremities Results - Labs CBC & Chem 7: 07/20/21 07:29 07/20/21 07:29 Labs: Laboratory Last Values WBC 7.4 K/mm3 (4.5-11.0) 07/20/21 07:29 RBC 5.66 M/mm3 (3.65-5.03) H 07/20/21 07:29 Hgb 12.0 gm/dl (10.1-14.3) 07/20/21 07:29 Hct 38.3 % (30.3-42.9) 07/20/21 07:29 MCV 68 fl (79-97) L 07/20/21 07:29 MCH 21 pg (28-32) L 07/20/21 07:29 MCHC 31 % (30-34) 07/20/21 07: RDW 15.3 % (13.2-15.2) H 07/20/21 07:29 Plt Count 153 K/mm3 (140-440) 07/20/21 07:29 Lymph % (Auto) 27.2 % (13.4-35.0) 07/20/21 07:29 [place] % (Auto) 10.6 % (0.0-7.3) H 07/20/21 07:29 Eos % (Auto) 2.8 % (0.0-4.3) 07/20/21 07:29 Baso % (Auto) 0.7 % (0.0-1.8) 07/20/21 07:29 Lymph # (Auto) 2.0 K/mm3 (1.2-5.4) 07/20/21 07:29 [place] # (Auto) 0.8 K/mm3 (0.0-0.8) 07/20/21 07:29 Eos # (Auto) 0.2 K/mm3 (0.0-0.4) 07/20/21 07:29 Baso # (Auto) 0.1 K/mm3 (0.0-0.1) 07/20/21 07:29 Seg Neutrophils % 58.7 % (40.0-70.0) 07/20/21 07:29 Seg Neutrophils # 4.4 K/mm3 (1.8-7.7) 07/20/21 07:29 Sodium 139 mmol/L (137-145) 07/20/21 07:29 Potassium 4.0 mmol/L (3.6-5.0) 07/20/21 07:29 Chloride 103.7 mmol/L (98-107) 07/20/21 07:29 Carbon Dioxide 28 mmol/L (22-30) 07/20/21 07:29 Anion Gap 11 mmol/L 07/20/21 07:29 BUN 11 mg/dL (7-17) 07/20/21 07:29 Creatinine 0.7 mg/dL (0.6-1.2) 07/20/21 07:29 Estimated GFR > 60 ml/min 07/20/21 07:29 BUN/Creatinine Ratio 16 % 07/20/21 07:29 Glucose 132 mg/dL (65-100) H 07/20/21 07:29 POC Glucose 124 mg/dL (70-105) H 07/21/21 07:57 Calcium 9.9 mg/dL (8.4-10.2) 07/20/21 07:29 Total Bilirubin 0.60 mg/dL (0.1-1.2) 07/20/21 07:29 AST 16 units/L (5-40) 07/20/21 07:29 ALT 10 units/L (7-56) 07/20/21 07:29 Alkaline Phosphatase 79 units/L (35-129) 07/20/21 07:29 Total Protein 7.7 g/dL (6.3-8.2) 07/20/21 07:29 Albumin 4.1 g/dL (3.9-5) 07/20/21 07:29 Albumin/Globulin Ratio 1.1 % 07/20/21 07:29 Microbiology: Microbiology 07/20/21 14:45 Stool Stool Occult Blood ([facility]) - Final Active Medications - Current Medications Current Medications: Generic Name Dose Route Start Last Admin Trade Name Freq PRN Reason Stop Dose Admin Acetaminophen 650 mg 07/20/21 16:19 Acetaminophen 325 Mg Tab PO Q4H PRN Pain MILD(1-3)/Fever >100.5/CALLEJAS Albuterol 2.5 mg 07/20/21 16:19 Albuterol 2.5 Mg/3 Ml Nebu IH Q4HRT PRN Shortness Of Breath Allopurinol 200 mg 07/21/21 10:00 07/21/21 11:09 Allopurinol 100 Mg Tab PO 200 mg QDAY ELENO Administration Amlodipine Besylate 10 mg 07/21/21 10:00 07/21/21 11:08 Amlodipine 10 Mg Tab PO 10 mg QDAY ELENO Administration Atorvastatin Calcium 40 mg 07/20/21 22:00 07/20/21 22:21 Atorvastatin 40 Mg Tab PO 40 mg QHS ELENO Administration Cetirizine HCl 10 mg 07/21/21 10:00 07/21/21 11:08 Cetirizine 10 Mg Tab PO 10 mg DAILY ELENO Administration Dextrose 50 ml 07/20/21 16:22 Dextrose 50% In Water (25gm) 50 Ml Syringe IV Q30MIN PRN Hypoglycemia Protocol Ergocalciferol 50,000 unit 07/27/21 10:00 Ergocalciferol (Vit D2) 50,000 Unit Cap PO Th ELENO Fluticasone Propionate 50 mcg 07/21/21 10:00 07/21/21 11:10 Fluticasone Propionate Nasal [place] 16 Gm NS 50 mcg QDAY ELENO Administration Gabapentin 300 mg 07/20/21 16:21 Gabapentin 300 Mg Cap PO TID PRN back pain Hydromorphone HCl 0.5 mg 07/20/21 16:19 Hydromorphone 1 Mg/1 Ml Inj IV Q12H PRN Pain , Severe (7-10) Insulin Human Lispro 0 unit 07/20/21 16:30 07/21/21 08:19 Insulin Lispro 100 Unit/Ml SUB-Q Not Given ACHS [facility] Protocol Lisinopril 20 mg 07/21/21 10:00 07/21/21 11:08 Lisinopril 20 Mg Tab PO 20 mg QDAY ELENO Administration Methimazole 10 mg 07/21/21 10:00 Methimazole 5 Mg Tab PO QDAY [facility] Mupirocin 1 applic 07/20/21 20:00 07/21/21 09:08 Mupirocin 2% Oint 22 Gm TP Not Given TID ELENO Nitroglycerin 0.4 mg 07/20/21 16:21 Nitroglycerin 0.4 Mg Tab Subl SL Q5M PRN Chest Pain Ondansetron HCl 4 mg 07/20/21 16:19 Ondansetron 4 Mg/2 Ml Inj IV Q8H PRN Nausea And Vomiting Oxycodone/Acetaminophen 1 tab 07/20/21 16:19 Oxycodone /Acetaminophen 5-325mg Tab PO Q12H PRN Pain, Moderate (4-6) Pantoprazole Sodium 40 mg 07/20/21 22:00 07/20/21 22:21 Pantoprazole 40 Mg Inj IV 40 mg BID ELENO Administration Propranolol HCl 40 mg 07/20/21 22:00 07/21/21 11:15 Propranolol 40 Mg Tab PO Not Given Q12HR ELENO Sodium Chloride 10 ml 07/20/21 22:00 07/20/21 23:05 Sodium Chloride 0.9% 10 Ml Flush Syringe IV 10 ml BID ELENO Administration Sodium Chloride 10 ml 07/20/21 16:19 Sodium Chloride 0.9% 10 Ml Flush Syringe IV PRN PRN LINE FLUSH
--- NOTE | 2021-07-21 11:47 | Consultation ---
<ANTHONY COTTO - Last Filed: 07/21/21 12:10> History of Present Illness Consult date: 07/21/21 Consult reason: atrial fibrillation History of present illness: This is a 65-year old F with a history of paroxysal Afib on Xarelto which is usually followed by [place]. She has had extensive cardiac ischemic work-up including a cardiac catheterization within the last year, at [place], which the patient reports was negative for coronary artery disease. More recently, 4 month s ago at this hospital she was seen for atypical chest pain and underwent a Lexiscan stress test ordered by the medical service that was negative. Patient presented to the ED with report of bloody stools. She reports having maroon colored dark blood in the stools. There is no abdominal pain. She has a history of diverticulosis, and hemorrhoids. HCT is stable. A 12 lead ECG is sinus rhythm with nonspecific T wave abnormalities. Past History Past Medical History: atrial fib, diabetes, hyperthyroidism, hypertension, other (See HPI) Past Surgical History: bowel surgery, Other (Breast surgery) Social history: single. denies: smoking, alcohol abuse Family history: diabetes, hypertension Medications and Allergies Allergies Allergy/AdvReac Type Severity Reaction Status Date / Time aspirin Allergy Rash Verified 07/21/21 13:54 Penicillins Allergy Rash Verified 05/15/20 10:28 Sulfa (Sulfonamide Allergy Rash Verified 05/15/20 10:28 Antibiotics) Home Medications Medication Instructions Recorded Confirmed Last Taken Type amLODIPine 10 mg PO BID 01/18/14 07/21/21 1 Day Ago History ~07/20/21 metFORMIN [Glucophage] 1,000 mg PO DAILY 10/21/15 07/21/21 1 Day Ago History ~07/20/21 Loratadine [Claritin] 10 mg PO DAILY #30 tablet 02/11/20 07/21/21 1 Day Ago Rx ~07/20/21 allopurinoL [Zyloprim] 200 mg PO QDAY 03/27/20 07/21/21 1 Day Ago History ~07/20/21 methIMAzole [Tapazole] 10 mg PO QDAY 03/27/20 07/21/21 1 Day Ago History ~07/20/21 propranoloL [Inderal] 40 mg PO Q12H 03/27/20 07/21/21 1 Day Ago History ~07/20/21 ALBUTEROL NEB's 108 puff INHALATION Q6H PRN 07/12/20 07/21/21 Unknown History Albuterol Sulfate [Proventil Hfa] 6.7 gm IH Q4HR PRN #1 hfa.aer.ad 07/23/20 07/21/21 Unknown Rx AtorvaSTATin [Lipitor] 40 mg PO QHS #30 tablet 04/14/21 07/21/21 1 Day Ago Rx ~07/20/21 Ergocalciferol (Vitamin D2) 50,000 unit PO QWEEK 30 Days cap 04/14/21 07/21/21 1 Day Ago Rx [Drisdol] ~07/20/21 Ferrous Sulfate [Iron 325 MG] 325 mg PO DAILY #30 04/14/21 07/21/21 Unknown Rx Fluticasone [Flonase] 1 spray NS QDAY #1 bottle 04/14/21 07/21/21 1 Day Ago Rx ~07/20/21 Gabapentin 300 mg PO TID PRN #90 cap 04/14/21 07/21/21 Unknown Rx Lispro Insulin [HumaLOG] 0 unit SUB-Q ACHS units 04/14/21 07/21/21 1 Day Ago Rx ~07/20/21 Pantoprazole [Protonix TAB] 40 mg PO QDAY #30 tablet 04/14/21 07/21/21 1 Day Ago Rx ~07/20/21 lisinopriL [Zestril TAB] 20 mg PO QDAY #30 04/14/21 07/21/21 1 Day Ago Rx ~07/20/21 Active Meds: Active Medications Acetaminophen (Acetaminophen 325 Mg Tab) 650 mg PO Q4H PRN PRN Reason: Pain MILD(1-3)/Fever >100.5/CALLEJAS Albuterol (Albuterol 2.5 Mg/3 Ml Nebu) 2.5 mg IH Q4HRT PRN PRN Reason: Shortness Of Breath Allopurinol (Allopurinol 100 Mg Tab) 200 mg PO QDAY [facility] Last Admin: 07/21/21 11:09 Dose: 200 mg Documented by: Amlodipine Besylate (Amlodipine 10 Mg Tab) 10 mg PO QDAY [facility] Last Admin: 07/21/21 11:08 Dose: 10 mg Documented by: Atorvastatin Calcium (Atorvastatin 40 Mg Tab) 40 mg PO QHS [facility] Last Admin: 07/20/21 22:21 Dose: 40 mg Documented by: Cetirizine HCl (Cetirizine 10 Mg Tab) 10 mg PO DAILY [facility] Last Admin: 07/21/21 11:08 Dose: 10 mg Documented by: Dextrose (Dextrose 50% In Water (25gm) 50 Ml Syringe) 50 ml IV Q30MIN PRN; Protocol PRN Reason: Hypoglycemia Ergocalciferol (Ergocalciferol (Vit D2) 50,000 Unit Cap) 50,000 unit PO Th [facility] Fluticasone Propionate (Fluticasone Propionate Nasal [place] 16 Gm) 50 mcg NS QDAY [facility] Last Admin: 07/21/21 11:10 Dose: 50 mcg Documented by: Gabapentin (Gabapentin 300 Mg Cap) 300 mg PO TID PRN PRN Reason: back pain Hydromorphone HCl (Hydromorphone 1 Mg/1 Ml Inj) 0.5 mg IV Q12H PRN PRN Reason: Pain , Severe (7-10) Insulin Human Lispro (Insulin Lispro 100 Unit/Ml) 0 unit SUB-Q ACHS [facility]; Protocol Last Admin: 07/21/21 08:19 Dose: Not Given Documented by: Lisinopril (Lisinopril 20 Mg Tab) 20 mg PO QDAY [facility] Last Admin: 07/21/21 11:08 Dose: 20 mg Documented by: Methimazole (Methimazole 5 Mg Tab) 10 mg PO QDAY [facility] Mupirocin (Mupirocin 2% Oint 22 Gm) 1 applic TP TID [facility] Last Admin: 07/21/21 09:08 Dose: Not Given Documented by: Nitroglycerin (Nitroglycerin 0.4 Mg Tab Subl) 0.4 mg SL Q5M PRN PRN Reason: Chest Pain Ondansetron HCl (Ondansetron 4 Mg/2 Ml Inj) 4 mg IV Q8H PRN PRN Reason: Nausea And Vomiting Oxycodone/Acetaminophen (Oxycodone /Acetaminophen 5-325mg Tab) 1 tab PO Q12H PRN PRN Reason: Pain, Moderate (4-6) Pantoprazole Sodium (Pantoprazole 40 Mg Inj) 40 mg IV BID [facility] Last Admin: 07/20/21 22:21 Dose: 40 mg Documented by: Propranolol HCl (Propranolol 40 Mg Tab) 40 mg PO Q12HR [facility] Last Admin: 07/21/21 11:15 Dose: Not Given Documented by: Sodium Chloride (Sodium Chloride 0.9% 10 Ml Flush Syringe) 10 ml IV BID [facility] Last Admin: 07/20/21 23:05 Dose: 10 ml Documented by: Sodium Chloride (Sodium Chloride 0.9% 10 Ml Flush Syringe) 10 ml IV PRN PRN PRN Reason: LINE FLUSH Physical Examination Vital Signs Temp Pulse Resp BP Pulse Ox 98.1 F 66 20 157/62 94 07/20/21 01:59 07/20/21 01:59 07/20/21 01:59 07/20/21 01:59 07/20/21 01:59 Results 07/20/21 07:29 07/20/21 07:29 Assessment and Plan - Patient Problems (1) Paroxysmal atrial fibrillation Status: Acute Plan to address problem: Paroxysmal atrial fibrillation Xarelto placed on hold. 03/2021 MPI - no ischemia. 10/2020 LHC at [place] - patient reports no coronary artery disease. Continue propanolol for paroxysmal atrial fibrillation. Will defer to primary team and GI evaluation of blood stools. <KENDY KAHN - Last Filed: 07/29/21 23:07> History of Present Illness History of present illness: I SAW THIS PT & AGREE WITH THE Dx & Tx PLAN. Physical Examination Vital Signs Temp Pulse Resp BP Pulse Ox 98.1 F 66 20 157/62 94 07/20/21 01:59 07/20/21 01:59 07/20/21 01:59 07/20/21 01:59 07/20/21 01:59 Results 07/22/21 07:53 07/22/21 07:53
--- NOTE | 2021-07-21 11:59 | Consultation ---
History of Present Illness - Reason for Consult Consult date: 07/21/21 GI bleed Requesting physician: JAZLYN HELTON - History of Present Illness Ms. Sams is a 65-year-old woman who presented on Saturday after noticing bright red blood mixed with brown stool. She came to the ER and her hemoglobin was normal and she had no further bleeding so she was about to go back home. She went to the restroom just prior to leaving the emergency room, and noted that she had a large bloody bowel movement. She therefore came back in and was admitted. Rectal exam by ER physician showed red blood on glove. Patient states she has had 2 episodes of lower GI bleed last year and after her first bleed, was scoped from above and below at [place] with a diagnosis of diverticular bleed given to her. She has bowel movements once or twice a day though she has occasional constipation. She denies any abdominal pain nausea or vomiting. There is been no lightheadedness dizziness chest pain or shortness of breath. She denies melena or weight loss. There has been no change in her bowel habits. Of note, patient is on chronic Xarelto for paroxysmal atrial fibrillation. Medications reviewed Past History Past Medical History: atrial fib, diabetes, hyperthyroidism, hypertension, other (See HPI) Past Surgical History: bowel surgery (1999 - colon resection for diverticular disease), Other (Breast surgery) Social history: single. denies: smoking, alcohol abuse Family history: diabetes, hypertension Medications and Allergies Allergies Allergy/AdvReac Type Severity Reaction Status Date / Time Penicillins Allergy Rash Verified 05/15/20 10:28 Sulfa (Sulfonamide Allergy Rash Verified 05/15/20 10:28 Antibiotics) Home Medications Medication Instructions Recorded Confirmed Last Taken Type amLODIPine 10 mg PO BID 01/18/14 03/21/21 07/11/20 History metFORMIN [Glucophage] 1,000 mg PO BID 10/21/15 03/21/21 07/11/20 History Loratadine [Claritin] 10 mg PO DAILY #30 tablet 02/11/20 03/21/21 07/11/20 Rx AtorvaSTATin [Lipitor] 40 mg PO QHS 03/27/20 03/21/21 07/11/20 History Rivaroxaban [Xarelto] 20 mg PO QDAY 03/27/20 03/21/21 07/11/20 History allopurinoL [Zyloprim] 200 mg PO QDAY 03/27/20 03/21/21 07/11/20 History methIMAzole [Tapazole] 10 mg PO QDAY 03/27/20 03/21/21 07/11/20 History propranoloL [Inderal] 40 mg PO Q12H 03/27/20 03/21/21 07/11/20 History ALBUTEROL NEB's 108 puff INHALATION Q6H PRN 07/12/20 03/21/21 Unknown History Albuterol Sulfate [Proventil Hfa] 6.7 gm IH Q4HR PRN #1 hfa.aer.ad 07/23/20 03/21/21 Unknown Rx Cetirizine HCl [ZyrTEC 10mg cap] 10 mg PO QDAY 03/21/21 03/21/21 Unknown History Mupirocin [Bactroban 2% OINT] 1 applic TP TID 03/21/21 03/21/21 Unknown History AtorvaSTATin [Lipitor] 40 mg PO QHS #30 tablet 04/14/21 Unknown Rx Clopidogrel [Plavix] 75 mg PO QDAY #30 tablet 04/14/21 Unknown Rx Ergocalciferol (Vitamin D2) 50,000 unit PO QWEEK 30 Days cap 04/14/21 Unknown Rx [Drisdol] Ferrous Sulfate [Iron 325 MG] 325 mg PO DAILY #30 04/14/21 Unknown Rx Fluticasone [Flonase] 1 spray NS QDAY #1 bottle 04/14/21 Unknown Rx Gabapentin 300 mg PO TID PRN #90 cap 04/14/21 Unknown Rx Lispro Insulin [HumaLOG] 0 unit SUB-Q ACHS units 04/14/21 Unknown Rx Nitroglycerin [Nitrostat] 0.4 mg SL Q5M PRN tablet 04/14/21 Unknown Rx Pantoprazole [Protonix TAB] 40 mg PO QDAY #30 tablet 04/14/21 Unknown Rx lisinopriL [Zestril TAB] 20 mg PO QDAY #30 04/14/21 Unknown Rx traMADoL [Ultram 50 MG tab] 50 mg PO Q6H PRN tablet 04/14/21 Unknown Rx Active Meds: Active Medications Acetaminophen (Acetaminophen 325 Mg Tab) 650 mg PO Q4H PRN PRN Reason: Pain MILD(1-3)/Fever >100.5/CALLEJAS Albuterol (Albuterol 2.5 Mg/3 Ml Nebu) 2.5 mg IH Q4HRT PRN PRN Reason: Shortness Of Breath Allopurinol (Allopurinol 100 Mg Tab) 200 mg PO QDAY [facility] Last Admin: 07/21/21 11:09 Dose: 200 mg Documented by: Amlodipine Besylate (Amlodipine 10 Mg Tab) 10 mg PO QDAY [facility] Last Admin: 07/21/21 11:08 Dose: 10 mg Documented by: Atorvastatin Calcium (Atorvastatin 40 Mg Tab) 40 mg PO QHS [facility] Last Admin: 07/20/21 22:21 Dose: 40 mg Documented by: Cetirizine HCl (Cetirizine 10 Mg Tab) 10 mg PO DAILY [facility] Last Admin: 07/21/21 11:08 Dose: 10 mg Documented by: Dextrose (Dextrose 50% In Water (25gm) 50 Ml Syringe) 50 ml IV Q30MIN PRN; Protocol PRN Reason: Hypoglycemia Ergocalciferol (Ergocalciferol (Vit D2) 50,000 Unit Cap) 50,000 unit PO Th [facility] Fluticasone Propionate (Fluticasone Propionate Nasal [place] 16 Gm) 50 mcg NS QDAY [facility] Last Admin: 07/21/21 11:10 Dose: 50 mcg Documented by: Gabapentin (Gabapentin 300 Mg Cap) 300 mg PO TID PRN PRN Reason: back pain Hydromorphone HCl (Hydromorphone 1 Mg/1 Ml Inj) 0.5 mg IV Q12H PRN PRN Reason: Pain , Severe (7-10) Insulin Human Lispro (Insulin Lispro 100 Unit/Ml) 0 unit SUB-Q ACHS [facility]; Protocol Last Admin: 07/21/21 08:19 Dose: Not Given Documented by: Lisinopril (Lisinopril 20 Mg Tab) 20 mg PO QDAY [facility] Last Admin: 07/21/21 11:08 Dose: 20 mg Documented by: Methimazole (Methimazole 5 Mg Tab) 10 mg PO QDAY [facility] Mupirocin (Mupirocin 2% Oint 22 Gm) 1 applic TP TID [facility] Last Admin: 07/21/21 09:08 Dose: Not Given Documented by: Nitroglycerin (Nitroglycerin 0.4 Mg Tab Subl) 0.4 mg SL Q5M PRN PRN Reason: Chest Pain Ondansetron HCl (Ondansetron 4 Mg/2 Ml Inj) 4 mg IV Q8H PRN PRN Reason: Nausea And Vomiting Oxycodone/Acetaminophen (Oxycodone /Acetaminophen 5-325mg Tab) 1 tab PO Q12H PRN PRN Reason: Pain, Moderate (4-6) Pantoprazole Sodium (Pantoprazole 40 Mg Inj) 40 mg IV BID [facility] Last Admin: 07/20/21 22:21 Dose: 40 mg Documented by: Propranolol HCl (Propranolol 40 Mg Tab) 40 mg PO Q12HR [facility] Last Admin: 07/21/21 11:15 Dose: Not Given Documented by: Sodium Chloride (Sodium Chloride 0.9% 10 Ml Flush Syringe) 10 ml IV BID [facility] Last Admin: 07/20/21 23:05 Dose: 10 ml Documented by: Sodium Chloride (Sodium Chloride 0.9% 10 Ml Flush Syringe) 10 ml IV PRN PRN PRN Reason: LINE FLUSH Review of Systems All systems: negative (as per HPI) Exam - Constitutional Vitals: Temp Pulse Resp BP Pulse Ox 98.1 F 71 15 137/69 97 07/20/21 07:40 07/21/21 11:08 07/21/21 10:30 07/21/21 11:08 07/21/21 10:30 General appearance: Present: no acute distress - EENT Eyes: Present: PERRL, EOM intact ENT: hearing intact - Respiratory Respiratory effort: normal Respiratory: bilateral: CTA - Cardiovascular Rhythm: regular Heart Sounds: Present: S1 & S2 - Extremities Extremity abnormal: edema (2+) - Abdominal General gastrointestinal: Present: soft, non-tender Results - Labs CBC & Chem 7: 07/20/21 07:29 07/20/21 07:29 Labs: Abnormal lab results 07/20/21 07/20/21 07/21/21 Range/Units 19:27 22:31 07:57 POC Glucose 158 H 190 H 124 H (70-105) mg/dL 07/21/21 Range/Units 11:46 POC Glucose 162 H (70-105) mg/dL Assessment and Plan 1. Hematochezia -this seems to be resolving. Patient had a bowel movement this morning which she states was brown with flecks of red burgundy blood mixed in. Her hemoglobin is stable. This is consistent with recurring diverticular bleed. -Monitor hemoglobin and transfuse if needed -Would ask cardiology regarding opinion about stopping Xarelto. This would be ideal as it would diminish her risk of recurrent GI bleeding. -May advance diet. -At this time, no plans for endoscopic evaluation. We will sign off. Please call if patient develops more aggressive bleeding.
[2021-07-21] MEDS: PANTOPRAZOLE 40 MG INJ IV SCH ×2 (12:09→22:52)
[2021-07-21] MEDS: methIMAzole 5 MG TAB PO SCH (13:03)
[2021-07-21] MEDS ORDERED: PROPRANOLOL 40 MG TAB PO SCH (18:00)
--- NOTE | 2021-07-22 08:44 | Discharge Summary ---
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 he came to the ER and her hemoglobin was normal and she had no further bleeding so she was about to go back home. She went to the restroom just prior to leaving the emergency room, and noted that she had a large bloody bowel movement. She therefore came back in and was admitted. Rectal exam by ER physician showed red blood on glove. Patient states she has had 2 episodes of lower GI bleed last year and after her first bleed, was scoped from above and below at [place] with a diagnosis of diverticular bleed given to her. She has bowel movements once or twice a day though she has occasional constipation. She denies any abdominal pain nausea or vomiting. There is been no lightheadedness dizziness chest pain or shortness of breath. She denies melena or weight loss. There has been no change in her bowel habits. GI saw the patient in consultation and felt that the hematochezia was onsistent with recurring diverticular bleed. GI had no plans for endoscopic evaluation. Patient had no further bleeding. H&H remained stable patient will discharge home today. We will consult cardiology with regards to continuing his Xarelto. GI recommends discontinuation of Xarelto. Other complications during hospital stay included Covid PCR was positive on 07/21/2021 from cough. Patient had no evidence of hypoxia therefore did not receive IV steroids or remdesivir. Dedicated discharge time 32 minutes Disposition: HOME / SELF CARE / HOMELESS Final Discharge Diagnosis (Prints w/discharge instructions): Rectal bleeding, hematochezia, diverticular bleed, COVID-19 infection Core Measure Documentation - Palliative Care Palliative Care/ Comfort Measures: Not Applicable - Core Measures Any of the following diagnoses?: none Exam - Constitutional Vitals: Temp Pulse Resp BP Pulse Ox 98.4 F 66 18 131/74 96 07/21/21 17:52 07/22/21 07:46 07/22/21 07:46 07/22/21 07:46 07/22/21 07:46 General appearance: Present: no acute distress, well-nourished - EENT Eyes: Present: PERRL ENT: hearing intact, clear oral mucosa - Neck Neck: Present: supple, normal ROM - Respiratory Respiratory effort: normal Respiratory: bilateral: CTA - Cardiovascular Heart Sounds: Present: S1 & S2. Absent: rub, click - Extremities Extremities: pulses symmetrical, No edema Peripheral Pulses: within normal limits - Abdominal General gastrointestinal: Present: soft, non-tender, non-distended, normal bowel sounds Female genitourinary: Present: normal - Integumentary Integumentary: Present: clear, warm, dry - Musculoskeletal Musculoskeletal: gait normal, strength equal bilaterally - Psychiatric Psychiatric: appropriate mood/affect, intact judgment & insight - Neurologic Neurologic: CNII-XII intact, moves all extremities Plan Activity: advance as tolerated Weight Bearing Status: Weight Bear as Tolerated Diet: regular Additional Instructions: Hold Xarelto until 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 Follow up with: JOCE VÁSQUEZ MD [Primary Care Provider] - 3-5 Days PUSHPA CISNEROS MD [Staff Physician] - 7 Days GIOVANA MOISE MD [Staff Physician] - 7 Days Forms: Accompanied Note
[2021-07-22] MEDS: INSULIN LISPRO 100 UNIT/ML SUB-Q SCH (08:45)
[2021-07-22 08:55] LABS: Basophils % (Auto) 0.6 % (0.0-1.8); Eosinophils # (Auto) 0.3 K/mm3 (0.0-0.4); Eosinophils % (Auto) 3.7 % (0.0-4.3); Hematocrit 36.1 % (30.3-42.9); Hemoglobin 11.2 gm/dl (10.1-14.3); Lymphocytes # (Auto) 2.3 K/mm3 (1.2-5.4); Lymphocytes % (Auto) 32.8 % (13.4-35.0); Mean Corpuscular HGB Conc 31 % (30-34); Monocytes # (Auto) 1.1 K/mm3 (0.0-0.8); Monocytes % (Auto) 15.2 % (0.0-7.3); Platelet Count 159 K/mm3 (140-440); Red Blood Count 5.43 M/mm3 (3.65-5.03); Red Cell Distribution Width 15.5 % (13.2-15.2)
[2021-07-22 08:56] LABS: Mean Corpuscular Volume 67 fl (79-97)
[2021-07-22 09:15] LABS: BUN/Creatinine Ratio 15; Blood Urea Nitrogen 12 mg/dL (7-17); Calcium 9.7 mg/dL (8.4-10.2); Hemolysis Index 3
--- NOTE | 2021-07-22 09:38 | Progress Note ---
Assessment and Plan Paroxysmal atrial fibrillation Xarelto placed on hold. 03/2021 MPI - no ischemia. 10/2020 LHC at [facility] - patient reports no coronary artery disease. Continue propanolol for paroxysmal atrial fibrillation. Long discussion with patient about risk of thromboembolism vs recurrent bleeding. Patient decided that she wants to hold her xarelto until she sees her tank maker wood at [facility]. I have educated patient also about watchman device option as an alternative to chronic oral anticoagulation. She will raise that with her primary tank maker wood. Subjective Date of service: 07/22/21 Principal diagnosis: Atrial fibrillation Interval history: I have spoken to patient over the phone and I have reviewed her telemetry. Patient follows with cardiology at [facility] and she has been taking xarelto since Oct 2019 for paroxysmal atrial fibrillation. Patient has had previous diverticular bleed in the past. Objective Vital Signs Temp Pulse Resp BP Pulse Ox 07/22/21 07:46 66 18 131/74 96 07/22/21 07:30 65 20 153/66 93 07/22/21 07:16 66 19 129/67 93 07/22/21 07:00 64 20 142/60 93 07/22/21 06:00 66 19 131/59 07/22/21 05:46 64 19 135/61 92 07/22/21 05:30 62 20 114/60 92 07/22/21 05:16 64 20 114/52 93 07/22/21 05:00 59 L 14 121/52 93 07/22/21 04:46 68 18 120/53 94 07/22/21 04:30 64 21 149/62 95 07/22/21 03:30 67 18 147/67 92 07/22/21 03:16 65 21 160/61 92 07/22/21 02:46 67 22 147/67 92 07/22/21 02:00 63 24 154/69 95 07/22/21 01:46 65 18 168/60 98 07/22/21 01:30 77 17 162/52 98 07/22/21 00:30 61 20 111/34 93 07/22/21 00:16 67 18 155/77 93 07/22/21 00:00 78 20 130/48 93 07/21/21 23:16 59 L 17 132/45 97 07/21/21 23:00 67 18 126/56 98 07/21/21 22:50 18 97 09/03/21 22:46 64 19 128/52 97 07/21/21 22:30 62 15 132/45 96 07/21/21 22:16 62 18 151/56 98 07/21/21 22:00 64 147/55 98 07/21/21 21:46 65 156/54 96 07/21/21 21:30 81 19 148/59 07/21/21 21:16 68 16 151/56 96 07/21/21 21:00 68 15 147/55 95 07/21/21 20:46 76 19 163/58 96 07/21/21 20:30 78 15 174/57 96 07/21/21 20:16 75 13 163/58 99 07/21/21 19:30 72 20 152/60 96 07/21/21 19:16 76 20 170/72 97 07/21/21 19:00 71 17 175/84 98 07/21/21 18:16 79 20 162/70 97 07/21/21 17:52 98.4 F 07/21/21 17:49 88 119/57 07/21/21 16:00 69 11 L 113/49 97 07/21/21 14:02 15 97 07/21/21 14:00 73 13 138/57 97 07/21/21 11:30 137/69 97 07/21/21 11:08 71 137/69 07/21/21 10:30 69 15 137/69 97 - Physical Examination Narrative exam: Patient was not examined - Labs and Meds CBC 07/22/21 Range/Units 07:53 WBC 7.1 (4.5-11.0) K/mm3 RBC 5.43 H (3.65-5.03) M/mm3 Hgb 11.2 (10.1-14.3) gm/dl Hct 36.1 (30.3-42.9) % Plt Count 159 (140-440) K/mm3 Lymph # (Auto) 2.3 (1.2-5.4) K/mm3 [place] # (Auto) 1.1 H (0.0-0.8) K/mm3 Eos # (Auto) 0.3 (0.0-0.4) K/mm3 Baso # (Auto) 0.0 (0.0-0.1) K/mm3 Comprehensive Metabolic Panel 07/22/21 Range/Units 07:53 Sodium 142 (137-145) mmol/L Potassium 4.2 (3.6-5.0) mmol/L Chloride 106.9 (98-107) mmol/L Carbon Dioxide 27 (22-30) mmol/L BUN 12 (7-17) mg/dL Creatinine 0.8 (0.6-1.2) mg/dL Glucose 119 H (65-100) mg/dL Calcium 9.7 (8.4-10.2) mg/dL
[2021-07-22] MEDS: CETIRIZINE 10 MG TAB PO SCH (10:27)
[2021-07-22] MEDS: LISINOPRIL 20 MG TAB PO SCH (10:27)
[2021-07-22] MEDS: amLODIPine 10 MG TAB PO SCH (10:27)
[2021-07-22] MEDS: FLUTICASONE PROPIONATE NASAL SPRAY 16 GM NS SCH (10:27)
[2021-07-22] MEDS: methIMAzole 5 MG TAB PO SCH (10:27)
[2021-07-22] MEDS: PANTOPRAZOLE 40 MG INJ IV SCH (10:27)
[2021-07-22] MEDS: allopurinoL 100 MG TAB PO SCH (10:27)
[2021-07-22 10:28] VITALS: BP 150/66
--- NOTE | 2021-07-24 13:59 | Electrocardiograph Report ---
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
[2021-07-27] MEDS ORDERED: ERGOCALCIFEROL (VIT D2) 50,000 UNIT CAP PO SCH (10:00)
== END 2021-07-22 23:59 | disposition home or self-care (01) ==
LOC: ED 01:13 → UNDOADMOB 16:03 → 4A 16:03 → 3B-SURG 23:59 → 4A 07-21 07:51 → 3A 07-21 19:21 → ED 07-22 11:02
PROVIDERS: ADMIT Internal Medicine; ATTEND Internal Medicine
DX: U07.1 COVID-19 (principal); K92.2 Gastrointestinal hemorrhage, unspecified; I48.0 Paroxysmal atrial fibrillation; I10 Essential (primary) hypertension; E11.9 Type 2 diabetes mellitus without complications; E05.90 Thyrotoxicosis, unspecified without thyrotoxic crisis or storm; E66.2 Morbid (severe) obesity with alveolar hypoventilation; M19.90 Unspecified osteoarthritis, unspecified site; M10.9 Gout, unspecified; E03.9 Hypothyroidism, unspecified; J40 Bronchitis, not specified as acute or chronic; K92.1 Melena; Z68.39 Body mass index [BMI] 39.0-39.9, adult; Z79.01 Long term (current) use of anticoagulants; Z86.79 Personal history of other diseases of the circulatory system; Z88.0 Allergy status to penicillin; Z88.2 Allergy status to sulfonamides; Z79.899 Other long term (current) drug therapy; Z98.890 Other specified postprocedural states; Z79.4 Long term (current) use of insulin
CPT/HCPCS: 36415; 74177; 80048; 80053; 82271; 82962; 85025; 93005; 96374; 96375; 96376; 99285; A9270; C9113; G0378; J2270; J2405; Q9967; U0003; 99284; J1815

== ENCOUNTER 2021-08-26 02:47 | Observation (INO) | payer MEDICARE ==
[2021-08-26] MEDS ORDERED: SODIUM CHLORIDE 0.9% 500 ML 500 ML IV ONE (02:57)
--- NOTE | 2021-08-26 03:07 | Emergency Department Report ---
ED Chest Pain HPI - General Chief Complaint: Chest Pain Stated Complaint: RAPID HEARTBEAT PUI?: No Time Seen by Provider: 08/26/21 02:55 Source: EMS Mode of arrival: Stretcher Limitations: No Limitations - History of Present Illness Initial Comments: Patient is a 65-year-old female who presents emergency room complaints of palpi tations and chest pain. Patient states her symptoms started 2 hours prior to arrival. Patient brought in by EMS. Report received from EMS. Patient states the chest pain has improved. Patient states her palpitations have resolved. Patient states the palpitations are intermittent. Patient states she has intermittent shortness of breath. Patient states that her chest pain shortness breath better with rest and worse with exertion. Patient states her palpitations are worse with exertion. Patient states the palpitations are better with rest. Patient has history of A. fib, hypertension, hyperlipidemia, diabetes. Patient states she is never had an [place]. Patient denies recent travel. Patient denies recent international travel. Patient denies exposure to the novel coronavirus. Patient denies sick contacts. Patient denies fever and chills. Patient denies cough. Patient denies diar nomi. Patient denies coming in contact with anybody with symptoms of the novel coronavirus. Report received from EMS. EMS states the patient was in A. fib RVR but it was not sustained. Patient did not receive any cardiac medication from EMS. Patient placed on oxygen and had an IV started by EMS. MD Complaint: chest pain -: Sudden Onset: during rest Pain Location: left chest Pain Radiation: none Severity scale (0 -10): 4 Quality: heaviness Consistency: constant Improves With: rest Worsens With: exertion re: dyspnea. denies: nausea, vomting, diaphoresis Other Symptoms: palpitations. denies: cough, fever, syncope, rash, acid taste in mouth, leg swelling, burping Treatments Prior to Arrival: none Aspirin use within the Past 7 Days: (0) No - Related Data Home Medications Medication Instructions Recorded Confirmed Last Taken amLODIPine 10 mg PO BID 01/18/14 08/26/21 1 Day Ago ~07/20/21 metFORMIN [Glucophage] 1,000 mg PO DAILY 10/21/15 08/26/21 1 Day Ago ~07/20/21 allopurinoL [Zyloprim] 100 mg PO QDAY 03/27/20 08/26/21 1 Day Ago ~07/20/21 methIMAzole [Tapazole] 10 mg PO QDAY 03/27/20 08/26/21 1 Day Ago ~07/20/21 propranoloL [Inderal] 40 mg PO Q12H 03/27/20 08/26/21 1 Day Ago ~07/20/21 ALBUTEROL NEB's 108 puff INHALATION Q6H PRN 07/12/20 08/26/21 Unknown Diclofenac 1% [Diclofenac 1% 4 gm TP BID 08/26/21 08/26/21 Unknown topical gel] Furosemide [Lasix TAB] 40 mg PO QDAY 08/26/21 08/26/21 Unknown Mupirocin [Bactroban 2%] 1 applic TP BID 08/26/21 08/26/21 Unknown Omeprazole 20 mg PO QDAY 08/26/21 08/26/21 Unknown Rivaroxaban [Xarelto] 20 mg PO QDAY 08/26/21 08/26/21 Unknown lisinopriL [Zestril TAB] 40 mg PO QDAY 08/26/21 08/26/21 Unknown Previous Rx's Medication Instructions Recorded Last Taken Type Loratadine [Claritin] 10 mg PO DAILY #30 tablet 02/11/20 1 Day Ago Rx ~07/20/21 Albuterol Sulfate [Proventil Hfa] 6.7 gm IH Q4HR PRN #1 hfa.aer.ad 07/23/20 Unknown Rx AtorvaSTATin [Lipitor] 40 mg PO QHS #30 tablet 04/14/21 1 Day Ago Rx ~07/20/21 Ferrous Sulfate [Iron 325 MG] 325 mg PO DAILY #30 04/14/21 Unknown Rx Fluticasone [Flonase] 1 spray NS QDAY #1 bottle 04/14/21 1 Day Ago Rx ~07/20/21 Allergies Allergy/AdvReac Type Severity Reaction Status Date / Time aspirin Allergy Rash Verified 08/26/21 02:53 Penicillins Allergy Rash Verified 08/26/21 02:53 Sulfa (Sulfonamide Allergy Rash Verified 08/26/21 02:53 Antibiotics) Heart Score - HEART Score History: Moderately suspicious EKG: Non-specific Age: > 65 Risk factors: > 3 risk factors or hx of atherosclerotic disease Troponin: < normal limit HEART Score: 6 - EKG Read Time Time EKG Completed: 03:05 EKG Read Time: 03:06 ED Review of Systems ROS: Stated complaint: RAPID HEARTBEAT Other details as noted in HPI Constitutional: denies: chills, fever Eyes: denies: eye pain, eye discharge, vision change ENT: denies: ear pain, throat pain Respiratory: shortness of breath. denies: cough, wheezing Cardiovascular: as per HPI, chest pain, palpitations Endocrine: no symptoms reported Gastrointestinal: denies: abdominal pain, nausea, diarrhea Genitourinary: denies: urgency, dysuria, discharge Musculoskeletal: denies: back pain, joint swelling, arthralgia Skin: denies: rash, lesions Neurological: denies: headache, weakness, paresthesias Psychiatric: denies: anxiety, depression Hematological/Lymphatic: denies: easy bleeding, easy bruising ED Past Medical Hx - Past Medical History Previous Medical History?: Yes Hx Hypertension: Yes Hx Congestive Heart Failure: No Hx Diabetes: Yes Hx Deep Vein Thrombosis: No Hx Pulmonary Embolism: No Hx GERD: Yes Hx Sickle Cell Disease: No Hx Arthritis: Yes Hx Asthma: No Hx COPD: No Hx Tuberculosis: No Hx HIV: No Additional medical history: Bronchitis, Afib, gout, Thyroid - Surgical History Past Surgical History?: Yes Hx Coronary Stent: No Hx Open Heart Surgery: No Hx Pacemaker: No Hx Internal Defibrillator: No Hx Cholecystectomy: No Hx Appendectomy: No Hx Breast Surgery: Yes (left breast) Additional Surgical History: colon surg - diverticulitis, lumps removed from lef t breast - Family History Family history: no significant - Social History Smoking Status: Never Smoker Substance Use Type: None - Medications Home Medications: Home Medications Medication Instructions Recorded Confirmed Last Taken Type amLODIPine 10 mg PO BID 01/18/14 08/26/21 1 Day Ago History ~07/20/21 metFORMIN [Glucophage] 1,000 mg PO DAILY 10/21/15 08/26/21 1 Day Ago History ~07/20/21 Loratadine [Claritin] 10 mg PO DAILY #30 tablet 02/11/20 08/26/21 1 Day Ago Rx ~07/20/21 allopurinoL [Zyloprim] 100 mg PO QDAY 03/27/20 08/26/21 1 Day Ago History ~07/20/21 methIMAzole [Tapazole] 10 mg PO QDAY 03/27/20 08/26/21 1 Day Ago History ~07/20/21 propranoloL [Inderal] 40 mg PO Q12H 03/27/20 08/26/21 1 Day Ago History ~07/20/21 ALBUTEROL NEB's 108 puff INHALATION Q6H PRN 07/12/20 08/26/21 Unknown History Albuterol Sulfate [Proventil Hfa] 6.7 gm IH Q4HR PRN #1 hfa.aer.ad 07/23/20 08/26/21 Unknown Rx AtorvaSTATin [Lipitor] 40 mg PO QHS #30 tablet 04/14/21 08/26/21 1 Day Ago Rx ~07/20/21 Ferrous Sulfate [Iron 325 MG] 325 mg PO DAILY #30 04/14/21 08/26/21 Unknown Rx Fluticasone [Flonase] 1 spray NS QDAY #1 bottle 04/14/21 08/26/21 1 Day Ago Rx ~07/20/21 Diclofenac 1% [Diclofenac 1% 4 gm TP BID 08/26/21 08/26/21 Unknown History topical gel] Furosemide [Lasix TAB] 40 mg PO QDAY 08/26/21 08/26/21 Unknown History Mupirocin [Bactroban 2%] 1 applic TP BID 08/26/21 08/26/21 Unknown History Omeprazole 20 mg PO QDAY 08/26/21 08/26/21 Unknown History Rivaroxaban [Xarelto] 20 mg PO QDAY 08/26/21 08/26/21 Unknown History lisinopriL [Zestril TAB] 40 mg PO QDAY 08/26/21 08/26/21 Unknown History ED Physical Exam - General Limitations: No Limitations General appearance: alert, in no apparent distress - Head Head exam: Present: atraumatic, normocephalic - Eye Eye exam: Present: normal appearance - ENT ENT exam: Present: mucous membranes moist - Neck Neck exam: Present: normal inspection - Respiratory Respiratory exam: Present: normal lung sounds bilaterally. Absent: respiratory distress, wheezes, rales - Cardiovascular Cardiovascular Exam: Present: regular rate, normal rhythm. Absent: systolic murmur, diastolic murmur, rubs, gallop - GI/Abdominal GI/Abdominal exam: Present: soft, normal bowel sounds. Absent: distended, tenderness, guarding - Extremities Exam Extremities exam: Present: normal inspection - Back Exam Back exam: Present: normal inspection - Neurological Exam Neurological exam: Present: alert, oriented X3 - Psychiatric Psychiatric exam: Present: normal affect, normal mood - Skin Skin exam: Present: warm, dry, intact, normal color. Absent: rash ED Course Vital Signs 08/26/21 08/26/21 08/26/21 02:52 03:05 03:16 Temperature Pulse Rate 81 124 H Respiratory 19 19 24 Rate Blood Pressure 137/74 Blood Pressure 131/56 [Left] O2 Sat by Pulse 100 100 94 Oximetry 08/26/21 08/26/21 08/26/21 03:30 03:45 04:00 Temperature Pulse Rate 118 H 113 H 78 Respiratory 24 14 12 Rate Blood Pressure 133/83 133/83 141/75 Blood Pressure [Left] O2 Sat by Pulse 100 99 98 Oximetry 08/26/21 08/26/21 08/26/21 04:30 04:40 04:46 Temperature 98.5 F Pulse Rate 66 67 Respiratory 26 H Rate Blood Pressure 109/44 88/42 Blood Pressure [Left] O2 Sat by Pulse 99 98 Oximetry 08/26/21 08/26/21 05:00 05:16 Temperature Pulse Rate 58 L 52 L Respiratory 25 H 24 Rate Blood Pressure 109/59 110/51 Blood Pressure [Left] O2 Sat by Pulse 97 97 Oximetry - Reevaluation(s) Reevaluation #1: Patient continues to have intermittent A. fib RVR. Patient will be given a Cardizem push as well as a Cardizem drip. I reviewed the cardiac rhythm and strip for 30 seconds. 08/26/21 03:30 Reevaluation #2: Patient received Cardizem IV push. Patient is now on Cardizem drip. Patient's heart rate is still irregular however is not tachycardic or fluctuating from 90- 140. 08/26/21 03:42 Reevaluation #3: I discussed all results with patient. I discussed plan of care with patient. Patient agrees with plan of care and admission. Patient to be admitted to the hospitalist service. 08/26/21 04:53 - Consultations Consultation #1: Hospitalist consulted for admission. Hospitalist to admit patient. 08/26/21 04:53 OLYA score - Olya Score Age > 65: (0) No Aspirin use within the Past 7 Days: (1) Yes 3 or more CAD Risk Factors: (1) Yes 2 or more Angina events in past 24 hrs: (0) No Known CAD with more than 50% Stenosis: (0) No Elevated Cardiac Markers: (0) No ST Deviation Greater than 0.5mm: (0) No OLYA Score: 2 ED Medical Decision Making - Lab Data Result diagrams: 08/26/21 03:15 08/26/21 03:15 - EKG Data -: EKG Interpreted by Me EKG shows normal: axis, intervals, QRS complexes, ST-T waves Rate: tachycardia - EKG Data Interpretation: other (A. fib) - Radiology Data Radiology results: report reviewed, image reviewed interpreted by me: Chest x-ray: No pneumonia, no pneumothorax, no foreign body, no osseous findings, no acute findings - Medical Decision Making Patient is a 65-year-old female that presents emergency room with complaints of chest pain and palpitations. Patient found to have intermittent A. fib RVR. After initial evaluation, the patient is having more frequent intermittent A. fib RVR and the patient was given Cardizem push and placed on a Cardizem drip. Patient's RVR was then controlled. Patient's rate improved. I reviewed the rhythm strips and pvc monitor for multiple times. Patient also given IV fluids. Patient had a chest x-ray was negative for acute findings. Patient had an EKG which shows atrial fibrillation no ST changes. I personally reviewed the EKG, rhythm strip and chest x-ray. Patient had labs done which were essentially unremarkable. Patient admitted to the hospital service for further evaluation and treatment and into the ICU. Critical care consult was placed. Critical care time documented due to the multiple reassessments, prolonged time at the bedside, interpretation of diagnostics and labs. - Differential Diagnosis A. fib, RVR, chest pain, palpitations, shortness of breath Critical Care Time: Yes Critical care time in (mins) excluding proc time.: 35 Critical care attestation.: If time is entered above; I have spent that time in minutes in the direct care of this critically ill patient, excluding procedure time. Critical Care Time: 35 minutes ED Disposition Clinical Impression: Atrial fibrillation with RVR, Heart palpitations Chest pain Qualifiers: Chest pain type: unspecified Qualified Code(s): R07.9 - Chest pain, unspecified Disposition: ADMITTED INPATIENT Is pt being admited?: Yes Does the pt Need Aspirin: No Condition: Critical Time of Disposition: 04:55
[2021-08-26] MEDS ORDERED: dilTIAZem 25 MG/5 ML INJ IV ONE (03:38)
[2021-08-26] MEDS: dilTIAZem/D5W 100 MG/100 ML BAG IV SCH ×2 (03:50→07:00)
[2021-08-26 03:56] LABS: Basophils # (Auto) 0.1 K/mm3 (0.0-0.1); Basophils % (Auto) 0.7 % (0.0-1.8); Eosinophils # (Auto) 0.2 K/mm3 (0.0-0.4); Eosinophils % (Auto) 2.3 % (0.0-4.3); Hematocrit 37.3 % (30.3-42.9); Hemoglobin 11.7 gm/dl (10.1-14.3); Lymphocytes # (Auto) 2.5 K/mm3 (1.2-5.4); Lymphocytes % (Auto) 26.2 % (13.4-35.0); Mean Corpuscular HGB Conc 31 % (30-34); Monocytes # (Auto) 0.9 K/mm3 (0.0-0.8); Red Blood Count 5.65 M/mm3 (3.65-5.03)
[2021-08-26 04:01] LABS: Alanine Aminotransferase 10 units/L (7-56); BUN/Creatinine Ratio 20; Blood Urea Nitrogen 16 mg/dL (7-17); Calcium 9.5 mg/dL (8.4-10.2); Hemolysis Index 21
[2021-08-26 04:03] LABS: INR 1.15 (0.87-1.13)
[2021-08-26 04:04] LABS: Partial Thromboplastin Time 32.2 Sec. (24.2-36.6)
[2021-08-26 04:06] LABS: Mean Corpuscular Volume 66 fl (79-97); Platelet Count 173 K/mm3 (140-440)
--- NOTE | 2021-08-26 05:40 | XRay Report ---
CHEST 1 VIEW 08/26/2021 4:14 AM INDICATION / CLINICAL INFORMATION: cp. COMPARISON: 06/17/2021 FINDINGS: SUPPORT DEVICES: None. HEART / MEDIASTINUM: No significant abnormality. LUNGS / PLEURA: No significant pulmonary or pleural abnormality. No pneumothorax. ADDITIONAL FINDINGS: No significant additional findings. IMPRESSION: 1. No acute findings. Signer Name: Papi Terrazas MD Signed: 08/26/2021 5:35 AM Workstation Name: [id number]
[2021-08-26] MEDS ORDERED: MORPHINE 4 MG/1 ML INJ IV PRN (06:00)
[2021-08-26] MEDS ORDERED: ACETAMINOPHEN 325 MG TAB PO PRN (06:00)
[2021-08-26] MEDS ORDERED: traMADol 50 MG TAB PO PRN (06:00)
[2021-08-26] MEDS ORDERED: ALBUTEROL INHALATION PRN (06:03)
--- NOTE | 2021-08-26 06:10 | History and Physical Report ---
History of Present Illness Date of examination: 08/26/21 Date of admission: 08/26/21 Chief complaint: Chest pain Atrial fibrillation History of present illness: 65-year-old female past medical history of diabetes, hypertension, atrial fibrillation and hyperlipidemia was brought to the emergency room because of palpitations and chest pain. Patient states her symptoms started 2 hours prior to arrival. Patient states the chest pain has improved. Patient states her palpitations have resolved. Patient states the palpitations are intermittent. Patient states she has intermittent shortness of breath. Patient states that her chest pain shortness breath better with rest and worse with exertion. Patient states her palpitations are worse with exertion. Patient states the palpitations are better with rest. Patient states she is never had an [place]. In the emergency room patient is found to have atrial fibrillation with RVR. Subsequently patient was put on Cardizem drip and admitted to the critical care unit. Med rec is done Past History Past Medical History: atrial fib, diabetes, hypertension, hyperlipidemia Medications and Allergies Allergies Allergy/AdvReac Type Severity Reaction Status Date / Time aspirin Allergy Rash Verified 08/26/21 02:53 Penicillins Allergy Rash Verified 08/26/21 02:53 Sulfa (Sulfonamide Allergy Rash Verified 08/26/21 02:53 Antibiotics) Home Medications Medication Instructions Recorded Confirmed Last Taken Type amLODIPine 10 mg PO BID 01/18/14 08/26/21 1 Day Ago History ~07/20/21 metFORMIN [Glucophage] 1,000 mg PO DAILY 10/21/15 08/26/21 1 Day Ago History ~07/20/21 Loratadine [Claritin] 10 mg PO DAILY #30 tablet 02/11/20 08/26/21 1 Day Ago Rx ~07/20/21 allopurinoL [Zyloprim] 100 mg PO QDAY 03/27/20 08/26/21 1 Day Ago History ~07/20/21 methIMAzole [Tapazole] 10 mg PO QDAY 03/27/20 08/26/21 1 Day Ago History ~07/20/21 propranoloL [Inderal] 40 mg PO Q12H 03/27/20 08/26/21 1 Day Ago History ~07/20/21 ALBUTEROL NEB's 108 puff INHALATION Q6H PRN 07/12/20 08/26/21 Unknown History Albuterol Sulfate [Proventil Hfa] 6.7 gm IH Q4HR PRN #1 hfa.aer.ad 07/23/20 08/26/21 Unknown Rx AtorvaSTATin [Lipitor] 40 mg PO QHS #30 tablet 04/14/21 08/26/21 1 Day Ago Rx ~07/20/21 Ferrous Sulfate [Iron 325 MG] 325 mg PO DAILY #30 04/14/21 08/26/21 Unknown Rx Fluticasone [Flonase] 1 spray NS QDAY #1 bottle 04/14/21 08/26/21 1 Day Ago Rx ~07/20/21 Diclofenac 1% [Diclofenac 1% 4 gm TP BID 08/26/21 08/26/21 Unknown History topical gel] Furosemide [Lasix TAB] 40 mg PO QDAY 08/26/21 08/26/21 Unknown History Mupirocin [Bactroban 2%] 1 applic TP BID 08/26/21 08/26/21 Unknown History Omeprazole 20 mg PO QDAY 08/26/21 08/26/21 Unknown History Rivaroxaban [Xarelto] 20 mg PO QDAY 08/26/21 08/26/21 Unknown History lisinopriL [Zestril TAB] 40 mg PO QDAY 08/26/21 08/26/21 Unknown History Active Meds: Active Medications Diltiazem HCl (Cardizem/D5w 100mg/100ml) 100 mg in 100 mls @ 5 mls/hr IV TITR ELENO; Protocol Last Titration: 08/26/21 05:20 Dose: 0 mg/hr, 0 mls/hr Documented by: Review of Systems All systems: negative Cardiovascular: chest pain, palpitations Exam - Constitutional Vitals: Temp Pulse Resp BP Pulse Ox 98.5 F 52 L 24 110/51 97 08/26/21 04:40 08/26/21 05:16 08/26/21 05:16 08/26/21 05:16 08/26/21 05:16 General appearance: Present: no acute distress, well-nourished - EENT Eyes: Present: PERRL ENT: hearing intact, clear oral mucosa - Neck Neck: Present: supple, normal ROM - Respiratory Respiratory effort: normal Respiratory: bilateral: diminished - Cardiovascular Rhythm: irregularly irregular Heart Sounds: Absent: rub, click - Extremities Extremities: pulses symmetrical, No edema Peripheral Pulses: within normal limits - Abdominal General gastrointestinal: Present: soft, non-tender, non-distended, normal bowel sounds Female genitourinary: Present: normal - Integumentary Integumentary: Present: clear, warm, dry - Musculoskeletal Musculoskeletal: gait normal, strength equal bilaterally - Psychiatric Psychiatric: appropriate mood/affect, intact judgment & insight - Neurologic Neurologic: CNII-XII intact, moves all extremities HEART Score - HEART Score EKG: Non-specific Age: > 65 Risk factors: > 3 risk factors or hx of atherosclerotic disease Troponin: Troponin T < 0.010 ng/mL (0.00-0.029) 08/26/21 03:15 Troponin: < normal limit Results - Labs CBC & Chem 7: 08/26/21 03:15 08/26/21 03:15 Labs: Laboratory Last Values WBC 9.6 K/mm3 (4.5-11.0) 08/26/21 03:15 RBC 5.65 M/mm3 (3.65-5.03) H 08/26/21 03:15 Hgb 11.7 gm/dl (10.1-14.3) 08/26/21 03:15 Hct 37.3 % (30.3-42.9) 08/26/21 03:15 MCV 66 fl (79-97) L 08/26/21 03:15 MCH 21 pg (28-32) L 08/26/21 03:15 MCHC 31 % (30-34) 08/26/21 03:15 RDW 17.0 % (13.2-15.2) H 08/26/21 03:15 Plt Count 173 K/mm3 (140-440) 08/26/21 03:15 Lymph % (Auto) 26.2 % (13.4-35.0) 08/26/21 03:15 [place] % (Auto) 9.0 % (0.0-7.3) H 08/26/21 03:15 Eos % (Auto) 2.3 % (0.0-4.3) 08/26/21 03:15 Baso % (Auto) 0.7 % (0.0-1.8) 08/26/21 03:15 Lymph # (Auto) 2.5 K/mm3 (1.2-5.4) 08/26/21 03:15 [place] # (Auto) 0.9 K/mm3 (0.0-0.8) H 08/26/21 03:15 Eos # (Auto) 0.2 K/mm3 (0.0-0.4) 08/26/21 03:15 Baso # (Auto) 0.1 K/mm3 (0.0-0.1) 08/26/21 03:15 Seg Neutrophils % 61.8 % (40.0-70.0) 08/26/21 03:15 Seg Neutrophils # 5.9 K/mm3 (1.8-7.7) 08/26/21 03:15 PT 15.2 Sec. (12.2-14.9) H 08/26/21 03:15 INR 1.15 (0.87-1.13) H 08/26/21 03:15 APTT 32.2 Sec. (24.2-36.6) 08/26/21 03:15 Sodium 140 mmol/L (137-145) 08/26/21 03:15 Potassium 4.0 mmol/L (3.6-5.0) 08/26/21 03:15 Chloride 103.5 mmol/L (98-107) 08/26/21 03:15 Carbon Dioxide 22 mmol/L (22-30) 08/26/21 03:15 Anion Gap 19 mmol/L 08/26/21 03:15 BUN 16 mg/dL (7-17) 08/26/21 03:15 Creatinine 0.8 mg/dL (0.6-1.2) 08/26/21 03:15 Estimated GFR > 60 ml/min 08/26/21 03:15 BUN/Creatinine Ratio 20 % 08/26/21 03:15 Glucose 179 mg/dL (65-100) H 08/26/21 03:15 Calcium 9.5 mg/dL (8.4-10.2) 08/26/21 03:15 Total Bilirubin 0.20 mg/dL (0.1-1.2) 08/26/21 03:15 AST 19 units/L (5-40) 08/26/21 03:15 ALT 10 units/L (7-56) 08/26/21 03:15 Alkaline Phosphatase 86 units/L (35-129) 08/26/21 03:15 Troponin T < 0.010 ng/mL (0.00-0.029) 08/26/21 03:15 Total Protein 7.7 g/dL (6.3-8.2) 08/26/21 03:15 Albumin 4.0 g/dL (3.9-5) 08/26/21 03:15 Albumin/Globulin Ratio 1.1 % 08/26/21 03:15 - Imaging and Cardiology Chest x-ray: report reviewed Assessment and Plan VTE prophylaxis?: Chemical Plan of care discussed with patient/family: Yes - Patient Problems (1) Atrial fibrillation with RVR Status: Acute Plan to address problem: Admit the patient to the critical care unit. Put the patient on Cardizem drip. Echocardiogram. Serial cardiac enzyme. Cardiology evaluation. We continue the home medication. propranolol 40 mg p.o. every 12 hours (2) Acute coronary syndrome Status: Acute Plan to address problem: Aspirin 81 mg p.o. daily. Lipitor 80 mg p.o. daily. Serial cardiac enzyme. Echocardiogram. Cardiology consult. We will continue the home medication (3) Hyperlipidemia Status: Acute Plan to address problem: Lipitor 80 mg p.o. daily. We will continue the home medication. We will rec heck the lipid profile (4) Type 2 diabetes mellitus Status: Chronic Qualifiers: Plan to address problem: Metformin 1000 mg p.o. daily. We continue the home medication. We will monitor the glucose closely (5) DVT prophylaxis Status: Acute Plan to address problem: Xarelto 20 mg p.o. daily for DVT prophylaxis. Protonix 40 mg p.o. daily for GI prophylaxis. Patient is a full code
[2021-08-26] MEDS ORDERED: ALBUTEROL 2.5 MG/3 ML NEBU IH PRN (06:21)
[2021-08-26 07:24] LABS: BUN/Creatinine Ratio 20; Blood Urea Nitrogen 16 mg/dL (7-17); Calcium 9.1 mg/dL (8.4-10.2); Hemolysis Index 2
[2021-08-26] MEDS: RIVAROXABAN 20 MG TAB PO SCH (09:16)
[2021-08-26] MEDS: metFORMIN 500 MG TAB PO SCH (09:16)
[2021-08-26 09:50] LABS: Bilirubin,Urine NEG (Negative); Blood,Urine NEG (Negative); Color,Urine Straw (Yellow); Urobilinogen,Urine < 2.0 mg/dL (<2.0)
[2021-08-26 09:57] LABS: Protein,Urine >500 mg/dL (Negative)
[2021-08-26] MEDS ORDERED: NON-FORMULARY EACH (Rivaroxaban 20 MG Tablet) PO SCH (10:00)
[2021-08-26] MEDS ORDERED: PROPRANOLOL 40 MG TAB PO SCH (10:00)
[2021-08-26] MEDS ORDERED: amLODIPine 5 MG TAB PO SCH (10:00)
[2021-08-26] MEDS: allopurinoL 100 MG TAB PO SCH (10:04)
[2021-08-26] MEDS: methIMAzole 5 MG TAB PO SCH (10:05)
[2021-08-26] MEDS: PANTOPRAZOLE 40 MG TAB PO SCH (10:06)
[2021-08-26] MEDS: LISINOPRIL 40 MG TAB PO SCH (10:06)
[2021-08-26] MEDS: FUROSEMIDE 40 MG TAB PO SCH (10:06)
[2021-08-26] MEDS: FERROUS SULFATE 325 MG TAB PO SCH (10:06)
[2021-08-26] MEDS: MUPIROCIN 2% OINT 22 GM TP SCH ×2 (10:06→21:49)
[2021-08-26] MEDS: FLUTICASONE PROPIONATE NASAL SPRAY 16 GM NS SCH (10:06)
[2021-08-26] MEDS: DICLOFENAC SODIUM 1% TOPICAL GEL 100 GM TP SCH ×2 (10:07→21:46)
[2021-08-26] MEDS: amLODIPine 10 MG TAB PO SCH (10:07)
--- NOTE | 2021-08-26 10:51 | Consultation ---
History of Present Illness Consult date: 08/26/21 Consult reason: atrial fibrillation History of present illness: The patient is a 65-year-old woman with a history of hypertension and paroxysmal atrial fibrillation. She receives her usual care at the [facility] where they have her on propranolol and Xarelto for atrial fibrillation management. She has undergone extensive cardiac work-up in the past including cardiac catheterization done at [place] in October 2020, which she describes had no significant coronary obstruction. This was followed by a thallium stress test done in this hospital just 4 months ago, which was also negative. Previous left ventricular function assessments have described no significant left ventricular dysfunction. She presents to the hospital at this time with acute onset palpitations, and on contact with EMS she was found with rapid atrial fibrillation. In the emergency room, she was started on intravenous Cardizem, with some rate control, she still remains in atrial fibrillation at this time. There is no chest pain, no shortness of breath, she otherwise feels and looks comfortable. Blood pressure control has been stable. EKG is atrial fibrillation with intermittent PVCs, nonspecific ST changes, no acute ischemia or infarction. Chest x-ray reveals borderline cardiomegaly, with evidence of left atrial enlargement on the chest x-ray, but no interstitial edema and clear lungs. Laboratory exam shows negative serial troponin levels x3. Comorbidities include hyperthyroid disease for which she is on methimazole. Past History Past Medical History: atrial fib, diabetes, hyperthyroidism, hypertension, hyperlipidemia Medications and Allergies Allergies Allergy/AdvReac Type Severity Reaction Status Date / Time aspirin Allergy Rash Verified 08/26/21 02:53 Penicillins Allergy Rash Verified 08/26/21 02:53 Sulfa (Sulfonamide Allergy Rash Verified 08/26/21 02:53 Antibiotics) Home Medications Medication Instructions Recorded Confirmed Last Taken Type amLODIPine 10 mg PO BID 01/18/14 08/26/21 1 Day Ago History ~07/20/21 metFORMIN [Glucophage] 1,000 mg PO DAILY 10/21/15 08/26/21 1 Day Ago History ~07/20/21 Loratadine [Claritin] 10 mg PO DAILY #30 tablet 02/11/20 08/26/21 1 Day Ago Rx ~07/20/21 allopurinoL [Zyloprim] 100 mg PO QDAY 03/27/20 08/26/21 1 Day Ago History ~07/20/21 methIMAzole [Tapazole] 10 mg PO QDAY 03/27/20 08/26/21 1 Day Ago History ~07/20/21 propranoloL [Inderal] 40 mg PO Q12H 03/27/20 08/26/21 1 Day Ago History ~07/20/21 ALBUTEROL NEB's 108 puff INHALATION Q6H PRN 07/12/20 08/26/21 Unknown History Albuterol Sulfate [Proventil Hfa] 6.7 gm IH Q4HR PRN #1 hfa.aer.ad 07/23/20 08/26/21 Unknown Rx AtorvaSTATin [Lipitor] 40 mg PO QHS #30 tablet 04/14/21 08/26/21 1 Day Ago Rx ~07/20/21 Ferrous Sulfate [Iron 325 MG] 325 mg PO DAILY #30 04/14/21 08/26/21 Unknown Rx Fluticasone [Flonase] 1 spray NS QDAY #1 bottle 04/14/21 08/26/21 1 Day Ago Rx ~07/20/21 Diclofenac 1% [Diclofenac 1% 4 gm TP BID 08/26/21 08/26/21 Unknown History topical gel] Furosemide [Lasix TAB] 40 mg PO QDAY 08/26/21 08/26/21 Unknown History Mupirocin [Bactroban 2%] 1 applic TP BID 08/26/21 08/26/21 Unknown History Omeprazole 20 mg PO QDAY 08/26/21 08/26/21 Unknown History Rivaroxaban [Xarelto] 20 mg PO QDAY 08/26/21 08/26/21 Unknown History lisinopriL [Zestril TAB] 40 mg PO QDAY 08/26/21 08/26/21 Unknown History Active Meds: Active Medications Acetaminophen (Acetaminophen 325 Mg Tab) 650 mg PO Q6H PRN PRN Reason: Pain, Mild (1-3) Albuterol (Albuterol 2.5 Mg/3 Ml Nebu) 2.5 mg IH Q6HRT PRN PRN Reason: Wheezing Allopurinol (Allopurinol 100 Mg Tab) 100 mg PO QDAY [facility] Last Admin: 08/26/21 10:04 Dose: 100 mg Documented by: Amlodipine Besylate (Amlodipine 10 Mg Tab) 10 mg PO DAILY [facility] Last Admin: 08/26/21 10:07 Dose: 10 mg Documented by: Atorvastatin Calcium (Atorvastatin 40 Mg Tab) 80 mg PO QHS [facility] Diclofenac Sodium (Diclofenac Sodium 1% Topical Gel 100 Gm) 0.8 applic TP BID [facility] Last Admin: 08/26/21 10:07 Dose: 0.8 applic Documented by: Diltiazem HCl (Diltiazem 30 Mg Tab) 30 mg PO Q8HR [facility] Ferrous Sulfate (Ferrous Sulfate 325 Mg Tab) 325 mg PO DAILY [facility] Last Admin: 08/26/21 10:06 Dose: 325 mg Documented by: Fluticasone Propionate (Fluticasone Propionate Nasal [place] 16 Gm) 50 mcg NS QDAY [facility] Last Admin: 08/26/21 10:06 Dose: 50 mcg Documented by: Furosemide (Furosemide 40 Mg Tab) 40 mg PO QDAY [facility] Last Admin: 08/26/21 10:06 Dose: 40 mg Documented by: Diltiazem HCl (Cardizem/D5w 100mg/100ml) 100 mg in 100 mls @ 5 mls/hr IV TITR [facility]; Protocol Last Titration: 08/26/21 10:08 Dose: 0 mg/hr, 0 mls/hr Documented by: Lisinopril (Lisinopril 40 Mg Tab) 40 mg PO QDAY [facility] Last Admin: 08/26/21 10:06 Dose: 40 mg Documented by: Metformin HCl (Metformin 500 Mg Tab) 1,000 mg PO QDDIAB [facility] Last Admin: 08/26/21 09:16 Dose: 1,000 mg Documented by: Methimazole (Methimazole 5 Mg Tab) 10 mg PO QDAY [facility] Last Admin: 08/26/21 10:05 Dose: 10 mg Documented by: Morphine Sulfate (Morphine 4 Mg/1 Ml Inj) 2 mg IV Q5MIN PRN PRN Reason: Chest Pain unrelieved by NTG Mupirocin (Mupirocin 2% Oint 22 Gm) 1 applic TP BID [facility] Last Admin: 08/26/21 10:06 Dose: 1 applic Documented by: Pantoprazole Sodium (Pantoprazole 40 Mg Tab) 40 mg PO QDAY [facility] Last Admin: 08/26/21 10:06 Dose: 40 mg Documented by: Rivaroxaban (Rivaroxaban 20 Mg Tab) 20 mg PO QDDIAB [facility] Last Admin: 08/26/21 09:16 Dose: 20 mg Documented by: Sodium Chloride (Sodium Chloride 0.9% 10 Ml Flush Syringe) 10 ml IV PRN PRN PRN Reason: LINE FLUSH Tramadol HCl (Tramadol 50 Mg Tab) 50 mg PO Q6H PRN PRN Reason: Pain, Moderate (4-6) Review of Systems Cardiovascular: palpitations, rapid/irregular heart beat, shortness of breath, no chest pain, no orthopnea, no edema, no syncope, no lightheadedness Physical Examination Vital Signs Pulse Resp BP Pulse Ox 81 19 131/56 100 08/26/21 02:52 08/26/21 02:52 08/26/21 02:52 08/26/21 02:52 General appearance: no acute distress HEENT: Positive: PERRL Neck: Positive: neck supple Cardiac: Positive: irregularly irregular Lungs: Positive: Decreased Breath Sounds Neuro: Positive: Grossly Intact Abdomen: Positive: Soft Female genitourinary: deferred Skin: Positive: Clear Extremities: Absent: edema Results 08/26/21 03:15 08/26/21 05:59 Cardiac Enzymes 08/26/21 Range/Units 03:15 AST 19 (5-40) units/L Coagulation 08/26/21 Range/Units 03:15 PT 15.2 H (12.2-14.9) Sec. INR 1.15 H (0.87-1.13) APTT 32.2 (24.2-36.6) Sec. CBC 08/26/21 Range/Units 03:15 WBC 9.6 (4.5-11.0) K/mm3 RBC 5.65 H (3.65-5.03) M/mm3 Hgb 11.7 (10.1-14.3) gm/dl Hct 37.3 (30.3-42.9) % Plt Count 173 (140-440) K/mm3 Lymph # (Auto) 2.5 (1.2-5.4) K/mm3 [place] # (Auto) 0.9 H (0.0-0.8) K/mm3 Eos # (Auto) 0.2 (0.0-0.4) K/mm3 Baso # (Auto) 0.1 (0.0-0.1) K/mm3 Comprehensive Metabolic Panel 08/26/21 08/26/21 Range/Units 03:15 05:59 Sodium 140 140 (137-145) mmol/L Potassium 4.0 4.4 (3.6-5.0) mmol/L Chloride 103.5 105.0 (98-107) mmol/L Carbon Dioxide 22 22 (22-30) mmol/L BUN 16 16 (7-17) mg/dL Creatinine 0.8 0.8 (0.6-1.2) mg/dL Glucose 179 H 150 H (65-100) mg/dL Calcium 9.5 9.1 (8.4-10.2) mg/dL AST 19 (5-40) units/L ALT 10 (7-56) units/L Alkaline Phosphatase 86 (35-129) units/L Total Protein 7.7 (6.3-8.2) g/dL Albumin 4.0 (3.9-5) g/dL EKG interpretations - Telemetry EKG Rhythm: Atrial Fibrillation Assessment and Plan - Patient Problems (1) Atrial fibrillation with RVR Current Visit: No Status: Acute Plan to address problem: Patient with a history of paroxysmal atrial fibrillation, presents with recurrence of rapid atrial fibrillation. She is on intravenous diltiazem, which we will transition to oral medication. Continue oral anticoagulation with Xarelto. With regards to atrial fibrillation suppression, amiodarone will be contraindicated due to her active thyroid disease, we will try sotalol 80 mg twice daily. The patient is also on propranolol ostensibly for her hypothyroid ism, this will be placed on hold, while we evaluate her heart rate response to sotalol therapy. If atrial fibrillation persists on sotalol therapy, we will consider SAULO guided cardioversion, and we will recommend to the internal medicine service to further evaluate her underlying hypothyroidism with a view to quick roman catholic of optimal thyroid function.
--- NOTE | 2021-08-26 11:04 | Event Note ---
Date: 08/26/21 Patient with rapid afib. Was started on Cardizem drip, now converted to po Cardizem I have seen and examined her. She is stable to [facility] er, to go to [place].
--- NOTE | 2021-08-26 11:07 | Event Note ---
Date: 08/26/21 Patient down graded to tele floor. Will cancel CC Consult.
[2021-08-26] MEDS: dilTIAZem 30 MG TAB PO SCH ×2 (17:27→21:42)
[2021-08-27] MEDS: dilTIAZem 30 MG TAB PO SCH (05:06)
[2021-08-27 09:53] VITALS: BP 108/58
[2021-08-27] MEDS: RIVAROXABAN 20 MG TAB PO SCH (09:53)
[2021-08-27] MEDS: allopurinoL 100 MG TAB PO SCH (09:54)
[2021-08-27] MEDS: FUROSEMIDE 40 MG TAB PO SCH (09:54)
[2021-08-27] MEDS: FERROUS SULFATE 325 MG TAB PO SCH (09:54)
[2021-08-27] MEDS: PANTOPRAZOLE 40 MG TAB PO SCH (09:54)
[2021-08-27] MEDS: methIMAzole 5 MG TAB PO SCH (09:55)
[2021-08-27] MEDS: amLODIPine 10 MG TAB PO SCH (09:56)
[2021-08-27] MEDS: MUPIROCIN 2% OINT 22 GM TP SCH (09:59)
[2021-08-27] MEDS: metFORMIN 500 MG TAB PO SCH (10:00)
[2021-08-27] MEDS: LISINOPRIL 40 MG TAB PO SCH (10:00)
[2021-08-27] MEDS ORDERED: ASPIRIN 81 MG TAB CHEW PO SCH (10:00)
[2021-08-27] MEDS: FLUTICASONE PROPIONATE NASAL SPRAY 16 GM NS SCH (10:00)
[2021-08-27] MEDS: DICLOFENAC SODIUM 1% TOPICAL GEL 100 GM TP SCH (10:00)
--- NOTE | 2021-08-27 10:41 | Progress Note ---
Assessment and Plan - Patient Problems (1) Atrial fibrillation with RVR Current Visit: No Status: Inactive Plan to address problem: Patient with a history of paroxysmal atrial fibrillation, probably associated with underlying hypothyroid disease. She presented with a recurrence of rapid atrial fibrillation. We started her on sotalol 80 mg twice daily, she has returned to a stable sinus rhythm. Patient is stable for cardiac discharge on sotalol 80 mg twice daily, and diltiazem CD 120 mg daily. Stop propanolol. Continue Xarelto for chronic oral anticoagulation. 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 Subjective Date of service: 08/27/21 Interval history: Patient looks and feels better, on medical therapy she has reverted to a stable sinus rhythm heart rate 62. Objective Vital Signs Temp Pulse Resp BP BP Pulse Ox 08/27/21 08:58 62 100 08/27/21 07:35 97.8 F 58 L 20 108/58 96 08/27/21 05:00 18 100 08/27/21 04:20 98.9 F 62 20 148/83 97 08/27/21 03:48 19 100 08/27/21 01:00 100 08/26/21 23:42 98.6 F 58 L 20 133/67 98 08/26/21 23:11 19 100 08/26/21 23:10 90 08/26/21 21:44 90 116/82 08/26/21 21:42 90 116/82 08/26/21 21:35 99 08/26/21 20:59 19 100 08/26/21 20:39 98.7 F 63 20 127/56 99 08/26/21 20:31 90 08/26/21 19:40 80 23 107/63 99 08/26/21 19:30 98.7 F 81 14 107/63 107/63 99 08/26/21 19:20 83 21 119/67 98 08/26/21 19:10 75 24 119/67 96 08/26/21 19:00 96 H 25 H 119/67 98 08/26/21 18:50 89 21 107/63 96 08/26/21 18:40 97 H 15 119/67 99 08/26/21 18:30 96 H 19 119/67 98 08/26/21 18:20 88 22 119/67 98 08/26/21 18:10 101 H 19 119/67 98 08/26/21 18:00 75 16 119/67 99 08/26/21 17:50 76 28 H 119/67 95 08/26/21 17:27 90 116/82 08/26/21 17:26 90 114/62 08/26/21 17:00 88 18 116/62 100 08/26/21 16:00 97 H 16 115/70 100 08/26/21 15:00 87 24 115/70 98 08/26/21 14:00 94 H 22 109/55 97 08/26/21 13:00 82 29 H 116/59 100 08/26/21 12:00 73 23 112/48 99 08/26/21 11:00 87 13 120/62 100 - Physical Examination HEENT: Positive: PERRL Neck: Positive: neck supple Cardiac: Positive: Reg Rate and Rhythm Lungs: Positive: clear to auscultation Neuro: Positive: Grossly Intact Abdomen: Positive: Soft Skin: Positive: Clear Extremities: Absent: edema
--- NOTE | 2021-08-27 12:09 | Discharge Summary ---
Providers - Providers Date of Admission: 08/26/21 11:02 Date of discharge: 08/27/21 Attending physician: THOMAS CRAWFORD 08/26/21 Consult to Cardiac Rehabilitation [CONS] Routine Reason For Exam: Phase I 08/26/21 06:00 Consult to Cardiology [CONS] Routine Consulting Provider: GIOVANA MOISE Reason For Exam: Atrial fibrillation Primary care physician: ARELY WHITEHEAD MD Hospitalization Condition: Good Hospital course: Patient is 65 yo with history of diabetes, hypertension,paroxysmal atrial fibrillation and hyperlipidemia was brought to the emergency room because of palpitations and chest pain. Patient stated her symptoms started 2 hours prior to arrival. She was seen and evaluated in ED and found to have atrial fib rillation with RVR. Subsequently patient was put on Cardizem drip and admitted to the critical care unit. She was seen by [facility] Social Worker and started on Sotalol 80mg bid. She converted to Normal sinus rhythm and was then discharged home on Sotalol, Cardizem CD and Xarelto. Disposition: 01 HOME / SELF CARE / HOMELESS Final Discharge Diagnosis (Prints w/discharge instructions): 1.Atrial fibrillation with rpid ventricular response Time spent for discharge: 33 mins - Discharge Diagnoses (1) Atrial fibrillation with RVR Status: Acute (2) Diabetes mellitus Status: Acute (3) Hyperlipidemia Status: Chronic (4) Hypertension Status: Chronic Core Measure Documentation - Palliative Care Palliative Care/ Comfort Measures: Not Applicable - Core Measures Any of the following diagnoses?: none Exam - Constitutional Vitals: Temp Pulse Resp BP Pulse Ox 97.8 F 62 20 108/58 100 08/27/21 07:35 08/27/21 08:58 08/27/21 07:35 08/27/21 07:35 08/27/21 08:58 Plan Activity: no restrictions Diet: low fat, low cholesterol, low salt Plan of Treatment: 1.Follow up with PCP in 1 week. 2.Follow up with Community Mental [facility] Social Worker in 1 week. Follow up with: ARELY WHITEHEAD MD [Primary Care Provider] - 7 Days Prescriptions: sotaloL [Betapace] 80 mg PO Q12HR #60 tablet dilTIAZem CD [Cardizem CD] 120 mg PO DAILY #30 cap AtorvaSTATin [Lipitor] 40 mg PO QHS #30 tab
--- NOTE | 2021-08-28 10:53 | Electrocardiograph Report ---
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
--- NOTE | 2021-08-28 10:58 | Electrocardiograph Report ---
[facility] Test Date: 2021-08-26 Test Time: 11:33:01 Pat Name: SIMA HAYNES Department: Room: A453 Gender: F Counsellors: JACKI : 1955 Requested By: EL SHAIKH Order Number: [id number] Reading MD: Ross Marquez Measurements Intervals [place] Rate: 70 P: [place]: QRS: 13 QRSD: 82 T: 51 QT: 381 QTc: 414 Interpretive Statements Atrial fibrillation non specific st-t Compared to ECG 08/26/2021 03:05:18 Electronically Signed On 08-28-2021 10:57:38 EDT by Ross Marquez
--- NOTE | 2021-08-28 10:58 | Electrocardiograph Report ---
[facility] Test Date: 2021-08-26 Test Time: 13:24:44 Pat Name: SIMA HAYNES Department: Room: A453 Gender: F Campus Manager: AJCKI : 1955 Requested By: EL SHAIKH Order Number: [id number] Reading MD: Ross Marquez Measurements Intervals [place] Rate: 97 P: [place]: QRS: 4 QRSD: 81 T: 97 QT: 348 QTc: 451 Interpretive Statements Atrial fibrillation Nonspecific T abnormalities, lateral leads Compared to ECG 08/26/2021 11:33:01 Electronically Signed On 08-28-2021 10:58:05 EDT by Ross Marquez
== END 2021-08-27 16:06 | disposition home or self-care (01) ==
LOC: ED 02:47 → UNDOADMIN 06:24 → CC1 06:24 → 4A 11:02 → INTOOBSV 11:02 → 4A 17:44
PROVIDERS: ADMIT Hospitalist; ATTEND Internal Medicine
DX: I24.9 Acute ischemic heart disease, unspecified (principal); I48.20 Chronic atrial fibrillation, unspecified; I10 Essential (primary) hypertension; E11.9 Type 2 diabetes mellitus without complications; E78.5 Hyperlipidemia, unspecified; K21.9 Gastro-esophageal reflux disease without esophagitis; M10.9 Gout, unspecified; R00.2 Palpitations; Z79.84 Long term (current) use of oral hypoglycemic drugs; Z79.899 Other long term (current) drug therapy; Z98.890 Other specified postprocedural states
CPT/HCPCS: 36415; 71045; 80053; 81001; 82962; 84484; 85025; 85610; 85730; 93005; 93306; 94760; 96365; 96366; 96376; 99291; A9270; G0378; J7040; 80048

== ENCOUNTER 2021-12-08 06:38 | Emergency (ER) | payer MEDICARE ==
--- NOTE | 2021-12-08 08:18 | Event Note ---
Date of service: 12/08/21 Event Note: 66-year-old -[place] female presents to the emergency room complaining of rectal bleeding that started approximately 5 AM this morning. She also complains of lower left abdominal pain that is crampy in nature and comes and goes. She states she has had a history of a transfusion a couple years ago. Her past medical history consist of diabetes hypertension thyroid disease A. fib gout arthritis and acid reflux. Patient states she is currently on Xarelto. She reports her discomfort is a 6 out of 10. Denies any nausea no vomiting. She is vaccinated booster, has her flu vaccination and Pneumovax. This patient is medically stable and appropriate for treatment in a psychiatric setting, ie. their behavioral disturbance is unlikely to be due to a medical condition or physical trauma, and their medical/surgical treatment for any concomitant conditions is within the capabilities of the receiving facility.
--- NOTE | 2021-12-08 08:58 | Emergency Department Report ---
HPI - General Chief Complaint: GI Bleed Time Seen by Provider: 12/08/21 08:33 - HPI HPI: MSE 3 The patient is a 66-year-old female present with a chief complaint of rectal bleeding. The patient states this morning she awakened at 05: 00 and had some lower abdominal cramping. The patient states she went to have a bowel movement and passed stool with burgundy colored blood. Patient denies nausea or vomiting. The patient states she is on Xarelto for atrial fibrillation ED Past Medical Hx - Past Medical History Hx Hypertension: Yes Hx Diabetes: Yes Hx GERD: Yes Hx Arthritis: Yes Additional medical history: Bronchitis, Afib, gout, Thyroid - Surgical History Hx Breast Surgery: Yes (left breast) Additional Surgical History: colon surg - diverticulitis, lumps removed from left breast - Family History Family history: no significant - Social History Smoking Status: Former Smoker (None x5-year) Substance Use Type: None (Denies illicit drug use) - Medications Home Medications: Home Medications Medication Instructions Recorded Confirmed Last Taken Type amLODIPine 10 mg PO BID 01/18/14 08/26/21 1 Day Ago History ~07/20/21 metFORMIN [Glucophage] 1,000 mg PO DAILY 10/21/15 08/26/21 1 Day Ago History ~07/20/21 Loratadine [Claritin] 10 mg PO DAILY #30 tablet 02/11/20 08/26/21 1 Day Ago Rx ~07/20/21 allopurinoL [Zyloprim] 100 mg PO QDAY 03/27/20 08/26/21 1 Day Ago History ~07/20/21 methIMAzole [Tapazole] 10 mg PO QDAY 03/27/20 08/26/21 1 Day Ago History ~07/20/21 ALBUTEROL NEB's 108 puff INHALATION Q6H PRN 07/12/20 08/26/21 Unknown History Albuterol Sulfate [Proventil Hfa] 6.7 gm IH Q4HR PRN #1 hfa.aer.ad 07/23/20 08/26/21 Unknown Rx AtorvaSTATin [Lipitor] 40 mg PO QHS #30 tablet 04/14/21 08/26/21 1 Day Ago Rx ~07/20/21 Ferrous Sulfate [Iron 325 MG] 325 mg PO DAILY #30 04/14/21 08/26/21 Unknown Rx Fluticasone [Flonase] 1 spray NS QDAY #1 bottle 04/14/21 08/26/21 1 Day Ago Rx ~07/20/21 Diclofenac 1% [Diclofenac 1% 4 gm TP BID 08/26/21 08/26/21 Unknown History topical gel] Furosemide [Lasix TAB] 40 mg PO QDAY 08/26/21 08/26/21 Unknown History Mupirocin [Bactroban 2% OINT] 1 applic TP BID 08/26/21 08/26/21 Unknown History Omeprazole 20 mg PO QDAY 08/26/21 08/26/21 Unknown History Rivaroxaban [Xarelto] 20 mg PO QDAY 08/26/21 08/26/21 Unknown History lisinopriL [Zestril TAB] 40 mg PO QDAY 08/26/21 08/26/21 Unknown History AtorvaSTATin [Lipitor] 40 mg PO QHS #30 tab 08/27/21 Unknown Rx dilTIAZem CD [Cardizem CD] 120 mg PO DAILY #30 cap 08/27/21 Unknown Rx sotaloL [Betapace] 80 mg PO Q12HR #60 tablet 08/27/21 Unknown Rx Ciprofloxacin HCl 500 mg PO BID #10 12/08/21 Unknown Rx HYDROcodone/APAP 5-325 [[place] 1 - 2 each PO Q6HR PRN #14 tablet 12/08/21 Un known Rx 5/325] metroNIDAZOLE [Flagyl] 500 mg PO Q12HR #10 tab 12/08/21 Unknown Rx ED Review of Systems ROS: Stated complaint: RECTAL BLEEDING Other details as noted in HPI Constitutional: no symptoms reported Eyes: denies: eye pain ENT: denies: throat pain Respiratory: no symptoms reported Cardiovascular: denies: chest pain Endocrine: no symptoms reported Gastrointestinal: abdominal pain, hematochezia. denies: nausea, vomiting, hematemesis Genitourinary: denies: dysuria Musculoskeletal: denies: back pain Neurological: denies: headache Physical Exam - Physical Exam Vital Signs: Vital Signs 12/08/21 07:19 Temperature 98.2 F Pulse Rate 68 Respiratory 18 Rate Blood Pressure 150/72 [Left] O2 Sat by Pulse 98 Oximetry Physical Exam: GENERAL: The patient is well-developed well-nourished []. [] HEENT: Normocephalic. Atraumatic. Extraocular motions are intact. Patient has moist mucous membranes. NECK: Supple. Trachea midline CHEST/LUNGS: Clear to auscultation. There is no respiratory distress noted. HEART/CARDIOVASCULAR: Regular. There is no tachycardia. There is no gallop rub or murmur. ABDOMEN: Abdomen is soft, mild discomfort to palpation suprapubic. Patient has normal bowel sounds. There is no abdominal distention. SKIN: There is no rash. There is no edema. There is no diaphoresis. NEURO: The patient is awake, alert, and oriented. The patient is cooperative. The patient has no focal neurologic deficits. The patient has normal speech. GCS 15 MUSCULOSKELETAL: There is no evidence of acute injury. RECTAL: Guaiac positive ED Course Vital Signs 12/08/21 07:19 Temperature 98.2 F Pulse Rate 68 Respiratory 18 Rate Blood Pressure 150/72 [Left] O2 Sat by Pulse 98 Oximetry - Consultations Consultation #1: 12/08/21 13:35 GI paged 12/08/21 13:[address] Munoz-tell patient to hold Xarelto today and possibly tomorrow, initiate antibiotics Cipro 500 twice daily and Flagyl 500 twice daily x5 days and follow-up as outpatient ED Medical Decision Making - Lab Data Result diagrams: 12/08/21 08:39 12/08/21 08:39 Laboratory Tests 12/08/21 12/08/21 12/08/21 08:39 08:39 08:39 WBC 7.0 RBC 5.60 H Hgb 11.1 Hct 37.1 MCV 66 L MCH 20 L MCHC 30 RDW 16.6 H Plt Count 212 Lymph % (Auto) 16.9 [place] % (Auto) 8.3 H Eos % (Auto) 2.5 Baso % (Auto) 0.5 Lymph # (Auto) 1.2 [place] # (Auto) 0.6 Eos # (Auto) 0.2 Baso # (Auto) 0.0 Seg Neutrophils % 71.8 H Seg Neutrophils # 5.0 PT 17.8 H INR 1.33 H APTT 36.8 H Sodium 138 Potassium 4.5 Chloride 103.4 Carbon Dioxide 25 Anion Gap 14 BUN 10 Creatinine 0.6 Estimated GFR > 60 BUN/Creatinine Ratio 17 Glucose 174 H Calcium 9.5 Total Bilirubin 0.40 AST 16 ALT 9 Alkaline Phosphatase 80 Total Protein 7.4 Albumin 3.8 L Albumin/Globulin Ratio 1.1 Blood Type Antibody Screen 12/08/21 08:47 WBC RBC Hgb Hct MCV MCH MCHC RDW Plt Count Lymph % (Auto) [place] % (Auto) Eos % (Auto) Baso % (Auto) Lymph # (Auto) [place] # (Auto) Eos # (Auto) Baso # (Auto) Seg Neutrophils % Seg Neutrophils # PT INR APTT Sodium Potassium Chloride Carbon Dioxide Anion Gap BUN Creatinine Estimated GFR BUN/Creatinine Ratio Glucose Calcium Total Bilirubin AST ALT Alkaline Phosphatase Total Protein Albumin Albumin/Globulin Ratio Blood Type O POSITIVE Antibody Screen Negative - Radiology Data Radiology results: report reviewed (CT abdomen pelvis), image reviewed (CT abdomen pelvis) [facility] [address] [place] [address] Cat Scan Report Signed Patient: SIMA HAYNES MR#: [id number] : 1955 Acct:[id number] Age/Sex: 66 / F ADM Date: 12/08/21 Loc: ED Attending Dr: Ronal de jesus Physician: KAI SAMS MD Date of Service: 12/08/21 Procedure(s): CT angio abdomen pelvis Accession Number(s): [id number] cc: KAI SAMS MD CTA ABDOMEN AND PELVIS WITHOUT AND WITH CONTRAST INDICATION / CLINICAL INFORMATION: Rectal bleeding OMNI 350 100 ML. TECHNIQUE: Axial CT images were obtained through the abdomen and pelvis before and after after injection of 100 cc of Omnipaque 350 IV contrast. 3 plane MIP / 3D reconstructions were produced. All CT scans at this location are performed using CT dose reduction for ALARA by means of automated exposure control. COMPARISON: July 20, 2021 FINDINGS: AORTA: Mild atherosclerosis RENAL ARTERIES: Mild atherosclerosis. CELIAC ARTERY: No significant abnormality. SUPERIOR MESENTERIC ARTERY: Mild atherosclerosis INFERIOR MESENTERIC ARTERY: No significant abnormality. RIGHT ILIAC ARTERIES: Mild atherosclerosis. LEFT ILIAC ARTERIES: Mild atherosclerosis. ADDITIONAL FINDINGS: There is diverticulitis of the descending colon without adjacent free air or fluid collection. There is a fluid collection noted along the right perineum measuring approximately 5.1 x 3.1 x 3.5 cm. Postsurgical change to the proximal colon. Evaluation of the remaining bowel, liver, gallbladder, pancreas, spleen, adrenal glands, kidneys, bladder and reproductive organs is otherwise unremarkable. SKELETAL: Scattered degeneration. IMPRESSION: 1. Acute diverticuli tis of the descending colon without adjacent free air or fluid collection. 2. There is a fluid collection along the right perineum abdomen measuring up to 5.1 cm. This nonspecific and may represent a peroneal cyst versus abscess versus hematoma. 3. Mild atherosclerotic disease as above. Signer Name: Cruz Gage DO Signed: 12/08/2021 1:20 PM Workstation Name: [id number] Transcribed By: SIMON Dictated By: CRUZ GAGE DO Electronically Authenticated By: CRUZ GAGE DO Signed Date/Time: 12/08/21 1320 DD/ 1302 TD/TT: Print Cancel - Differential Diagnosis GI bleed, diverticulosis, hemorrhoids Critical care attestation.: If time is entered above; I have spent that time in minutes in the direct care of this critically ill patient, excluding procedure time. ED Disposition Clinical Impression: Acute diverticulitis Disposition: HOME / SELF CARE / HOMELESS Is pt being admited?: No Does the pt Need Aspirin: No Condition: Stable Instructions: Diverticulitis Additional Instructions: Return to the emergency department should you develop worsening symptoms, inability to tolerate food or liquids, high fever or any other concerns Prescriptions: Ciprofloxacin HCl 500 mg PO BID #10 metroNIDAZOLE [Flagyl] 500 mg PO Q12HR #10 tab HYDROcodone/APAP 5-325 [[place] 5/325] 1 - 2 each PO Q6HR PRN #14 tablet PRN Reason: Pain Referrals: ARELY WHITEHEAD MD [Primary Care Provider] - 3-5 Days TERRY MUNOZ MD [Staff Physician] - 7-10 days (Dr. Munoz is a marketing planner. Please follow-up with him for further evaluation) Forms: Accompanied Note Time of Disposition: 13:56
[2021-12-08 09:32] LABS: Basophils % (Auto) 0.5 % (0.0-1.8); Eosinophils # (Auto) 0.2 K/mm3 (0.0-0.4); Eosinophils % (Auto) 2.5 % (0.0-4.3); Lymphocytes # (Auto) 1.2 K/mm3 (1.2-5.4); Lymphocytes % (Auto) 16.9 % (13.4-35.0); Mean Corpuscular HGB Conc 30 % (30-34); Monocytes # (Auto) 0.6 K/mm3 (0.0-0.8); Monocytes % (Auto) 8.3 % (0.0-7.3); Platelet Count 212 K/mm3 (140-440); Red Cell Distribution Width 16.6 % (13.2-15.2)
[2021-12-08 09:35] LABS: Alanine Aminotransferase 9 units/L (7-56); Albumin 3.8 g/dL (3.9-5); Blood Urea Nitrogen 10 mg/dL (7-17); Calcium 9.5 mg/dL (8.4-10.2); Hemolysis Index 33
[2021-12-08 09:38] LABS: Hematocrit 37.1 % (30.3-42.9); Hemoglobin 11.1 gm/dl (10.1-14.3); Mean Corpuscular Volume 66 fl (79-97)
[2021-12-08 09:44] LABS: INR 1.33 (0.87-1.13)
[2021-12-08 09:45] LABS: Partial Thromboplastin Time 36.8 Sec. (24.2-36.6)
[2021-12-08 10:02] LABS: BUN/Creatinine Ratio 17
[2021-12-08] MEDS ORDERED: LORazepam 2 MG/ML VIAL IV ONE (11:29)
--- NOTE | 2021-12-08 13:25 | Cat Scan Report ---
CTA ABDOMEN AND PELVIS WITHOUT AND WITH CONTRAST INDICATION / CLINICAL INFORMATION: Rectal bleeding OMNI 350 100 ML. TECHNIQUE: Axial CT images were obtained through the abdomen and pelvis before and after after inject ion of 100 cc of Omnipaque 350 IV contrast. 3 plane MIP / 3D reconstructions were produced. All CT sc ans at this location are performed using CT dose reduction for ALARA by means of automated exposure c ontrol. COMPARISON: July 20, 2021 FINDINGS: AORTA: Mild atherosclerosis RENAL ARTERIES: Mild atherosclerosis. CELIAC ARTERY: No significant abnormality. SUPERIOR MESENTERIC ARTERY: Mild atherosclerosis INFERIOR MESENTERIC ARTERY: No significant abnormality. RIGHT ILIAC ARTERIES: Mild atherosclerosis. LEFT ILIAC ARTERIES: Mild atherosclerosis. ADDITIONAL FINDINGS: There is diverticulitis of the descending colon without adjacent free air or flu id collection. There is a fluid collection noted along the right perineum measuring approximately 5.1 x 3.1 x 3.5 cm. Postsurgical change to the proximal colon. Evaluation of the remaining bowel, liver, gallbladder, pancreas, spleen, adrenal glands, kidneys, bladder and reproductive organs is otherwise unremarkable. SKELETAL: Scattered degeneration. IMPRESSION: 1. Acute diverticulitis of the descending colon without adjacent free air or fluid collection. 2. There is a fluid collection along the right perineum abdomen measuring up to 5.1 cm. This nonspeci fic and may represent a peroneal cyst versus abscess versus hematoma. 3. Mild atherosclerotic disease as above. Signer Name: Cruz Santiago DO Signed: 12/08/2021 1:20 PM Workstation Name: [id number]
[2021-12-08 14:23] VITALS: BP 125/55
== END 2021-12-08 14:42 | disposition home or self-care (01) ==
LOC: ED 06:38
DX: K57.92 Diverticulitis of intestine, part unspecified, without perforation or abscess without bleeding (principal); I10 Essential (primary) hypertension; E11.8 Type 2 diabetes mellitus with unspecified complications; Z87.891 Personal history of nicotine dependence
CPT/HCPCS: 36415; 74174; 80053; 82271; 85025; 85610; 85730; 86850; 86900; 86901; 96374; 99284; J2060; Q9967

== ENCOUNTER 2022-04-21 13:38 | Emergency (ER) | payer MEDICARE ==
[2022-04-21 13:42] VITALS: BP 180/90
[2022-04-21] MEDS ORDERED: ACETAMINOPHEN 325 MG TAB PO ONE (13:45)
--- NOTE | 2022-04-21 13:47 | Event Note ---
Date: 04/21/22 The patient was evaluated in the emergency department for symptoms described in the history of present illness. He/she was evaluated in the context of the global COVID-19 pandemic, which necessitated consideration that the patient might be at risk for infection with the virus that causes COVID-19. Institutional protocols and algorithms that pertain to the evaluation of patients at risk for COVID-19 are in a state of rapid change based on information released by regulatory bodies including the CDC and federal and state organizations. These policies and algorithms were followed during the patient's care in the emergency department. Please note that these policies, procedures and recommendations changed on a rapid basis. EMS documentation not available at time of chart dictation Verbal report received from emergency medical services Patient is a 66-year-old female brought to the hospital by emergency medical services with an EMS articulated complaint of chest wall pain, associate with cough. EMS reports unremarkable vital signs in the field. Patient is awake, breathing spontaneously, and does not appear to be in any acute distress. She appears to have a body mass index of 35 Obtain appropriate laboratory studies, x-ray of the chest, and EKG. Treat with Tylenol for presumed chest wall pain. Detailed history and physical to be performed by oncoming ER provider. Vital Signs 04/21/22 13:40 Temperature 98.1 F Pulse Rate 70 Blood Pressure 180/90 [Left] O2 Sat by Pulse 98 Oximetry
[2022-04-21 14:38] LABS: Mean Corpuscular HGB Conc 31 % (30-34); Red Blood Count 6.43 M/mm3 (3.65-5.03); Red Cell Distribution Width 17.2 % (13.2-15.2)
[2022-04-21 14:45] LABS: Hemoglobin 13.2 gm/dl (10.1-14.3)
[2022-04-21 14:46] LABS: Hematocrit 42.7 % (30.3-42.9); Mean Corpuscular Volume 67 fl (79-97); Platelet Count 155 K/mm3 (140-440)
[2022-04-21 14:49] LABS: BUN/Creatinine Ratio 17; Blood Urea Nitrogen 15 mg/dL (7-17); Calcium 9.6 mg/dL (8.4-10.2); Hemolysis Index 20
[2022-04-21 14:50] LABS: INR 1.09 (0.87-1.13)
--- NOTE | 2022-04-21 14:55 | XRay Report ---
CHEST 2 VIEWS INDICATION: chest wall pain w cough. COMPARISON: 08/26/2021 FINDINGS: SUPPORT DEVICES: None. HEART: Within normal limits. LUNGS/PLEURA: No acute air space or interstitial disease. No pneumothorax. ADDITIONAL FINDINGS: None. IMPRESSION: 1. No acute findings. Signer Name: Melo Garcia MD Signed: 04/21/2022 2:51 PM Workstation Name: [id number]
[2022-04-21] MEDS ORDERED: HYDROcodone/ACETAMINOPHEN 5-325 MG TAB PO ONE (21:38)
--- NOTE | 2022-04-21 21:43 | Emergency Department Report ---
HPI - General Chief Complaint: Chest Pain Time Seen by Provider: 04/21/22 21:08 - HPI HPI: Room 36 The patient is a 66-year-old female present with a chief complaint of chest wall pain. The patient states she has had a nonproductive cough for the past 2 to 3 days. Patient complains of anterior chest wall tenderness and pleurisy for the past 2 days. Patient also complains of chest wall pain with cough. Patient denies history of fever. Patient denies any recent flights/long car trips. Patient states she has been fully vaccinated against COVID receiving all 3 doses. Patient currently gives her pain a score 4/10 ED Past Medical Hx - Past Medical History Hx Hypertension: Yes Hx Diabetes: Yes Hx GERD: Yes Hx Arthritis: Yes Additional medical history: Bronchitis, Afib, gout, Thyroid - Surgical History Hx Breast Surgery: Yes (left breast) Additional Surgical History: colon surg secondary to diverticulitis, lumpectomy left breast (benign) - Family History Family history: no significant - Social History Smoking Status: Former Smoker (None x5 years) Substance Use Type: None (Denies illicit drug use) - Medications Home Medications: Home Medications Medication Instructions Recorded Confirmed Last Taken Type amLODIPine 10 mg PO BID 01/18/14 08/26/21 1 Day Ago History ~07/20/21 metFORMIN [Glucophage] 1,000 mg PO DAILY 10/21/15 08/26/21 1 Day Ago History ~07/20/21 Loratadine [Claritin] 10 mg PO DAILY #30 tablet 02/11/20 08/26/21 1 Day Ago Rx ~07/20/21 allopurinoL [Zyloprim] 100 mg PO QDAY 03/27/20 08/26/21 1 Day Ago History ~07/20/21 methIMAzole [Tapazole] 10 mg PO QDAY 03/27/20 08/26/21 1 Day Ago History ~07/20/21 ALBUTEROL NEB's 108 puff INHALATION Q6H PRN 07/12/20 08/26/21 Unknown History Albuterol Sulfate [Proventil Hfa] 6.7 gm IH Q4HR PRN #1 hfa.aer.ad 07/23/20 08/26/21 Unknown Rx AtorvaSTATin [Lipitor] 40 mg PO QHS #30 tablet 04/14/21 08/26/21 1 Day Ago Rx ~07/20/21 Ferrous Sulfate [Iron 325 MG] 325 mg PO DAILY #30 04/14/21 08/26/21 Unknown Rx Fluticasone [Flonase] 1 spray NS QDAY #1 bottle 04/14/21 08/26/21 1 Day Ago Rx ~07/20/21 Diclofenac 1% [Diclofenac 1% 4 gm TP BID 08/26/21 08/26/21 Unknown History topical gel] Furosemide [Lasix TAB] 40 mg PO QDAY 08/26/21 08/26/21 Unknown History Mupirocin [Bactroban 2% OINT] 1 applic TP BID 08/26/21 08/26/21 Unknown History Omeprazole 20 mg PO QDAY 08/26/21 08/26/21 Unknown History Rivaroxaban [Xarelto] 20 mg PO QDAY 08/26/21 08/26/21 Unknown History lisinopriL [Zestril TAB] 40 mg PO QDAY 08/26/21 08/26/21 Unknown History AtorvaSTATin [Lipitor] 40 mg PO QHS #30 tab 08/27/21 Unknown Rx dilTIAZem CD [Cardizem CD] 120 mg PO DAILY #30 cap 08/27/21 Unknown Rx sotaloL [Betapace] 80 mg PO Q12HR #60 tablet 08/27/21 Unknown Rx Ciprofloxacin HCl 500 mg PO BID #10 12/08/21 Unknown Rx HYDROcodone/APAP 5-325 [[place] 1 - 2 each PO Q6HR PRN #14 tablet 12/08/21 Unknown Rx 5/325] Pantoprazole [Protonix] 40 mg PO QDAY #30 tablet 12/08/21 Unknown Rx metroNIDAZOLE [Flagyl] 500 mg PO Q12HR #10 tab 12/08/21 Unknown Rx Azithromycin [Zithromax Z-SATHISH] 0 mg PO DAILY #6 tab 04/21/22 Unknown Rx Benzonatate [Tessalon Perles] 100 mg PO Q8HR #30 cap 04/21/22 Unknown Rx HYDROcodone/APAP 5-325 [[place] 1 - 2 each PO Q6HR PRN #10 tablet 04/21/22 Unknown Rx 5/325] ED Review of Systems ROS: Stated complaint: CHEST WALL PAIN FROM BRONCHITIS Other details as noted in HPI Constitutional: denies: fever Eyes: denies: eye pain ENT: denies: throat pain Respiratory: cough Cardiovascular: as per HPI Endocrine: no symptoms reported Gastrointestinal: denies: abdominal pain Genitourinary: denies: dysuria Musculoskeletal: myalgia Neurological: denies: headache Physical Exam - Physical Exam Vital Signs: Vital Signs 04/21/22 13:40 Temperature 98.1 F Pulse Rate 70 Blood Pressure 180/90 [Left] O2 Sat by Pulse 98 Oximetry Physical Exam: GENERAL: The patient is well-developed well-nourished female sitting in chair not appearing to be in acute distress HEENT: Normocephalic. Atraumatic. Extraocular motions are intact. Patient has moist mucous membranes. NECK: Supple. Trachea midline CHEST/LUNGS: Clear to auscultation. There is no respiratory distress noted. HEART/CARDIOVASCULAR: Regular. There is no tachycardia. There is no gallop rub or murmur. ABDOMEN: Abdomen is soft, nontender. Patient has normal bowel sounds. There is no abdominal distention. SKIN: There is no rash. There is no edema. There is no diaphoresis. NEURO: The patient is awake, alert, and oriented. The patient is cooperative. The patient has no focal neurologic deficits. The patient has normal speech. GCS 15 MUSCULOSKELETAL: There is no evidence of acute injury. ED Course Vital Signs 04/21/22 13:40 Temperature 98.1 F Pulse Rate 70 Blood Pressure 180/90 [Left] O2 Sat by Pulse 98 Oximetry ED Medical Decision Making - Lab Data Result diagrams: 04/21/22 13:57 04/21/22 13:57 Laboratory Tests 04/21/22 04/21/22 04/21/22 13:57 13:57 13:57 WBC 6.5 RBC 6.43 H Hgb 13.2 Hct 42.7 MCV 67 L MCH 21 L MCHC 31 RDW 17.2 H Plt Count 155 PT 15.4 H INR 1.09 D-Dimer Sodium 140 Potassium 3.7 Chloride 100.7 Carbon Dioxide 26 Anion Gap 17 BUN 15 Creatinine 0.9 Estimated GFR > 60 BUN/Creatinine Ratio 17 Glucose 117 H Calcium 9.6 Troponin T < 0.010 04/21/22 21:46 WBC RBC Hgb Hct MCV MCH MCHC RDW Plt Count PT INR D-Dimer 161.4 Sodium Potassium Chloride Carbon Dioxide Anion Gap BUN Creatinine Estimated GFR BUN/Creatinine Ratio Glucose Calcium Troponin T - EKG Data -: EKG Interpreted by Me EKG shows normal: sinus rhythm, axis Rate: normal (61 bpm) - EKG Data When compared to previous EKG there are: previous EKG unavailable Interpretation: nonspecific ST-T wave vira (T wave inversion in lead V2) - Radiology Data Radiology results: report reviewed (Chest x-ray), image reviewed (Chest x-ray) interpreted by me: Chest x-ray-no definite focal infiltrates, no pneumothorax [facility] [address] [place] [address] XRay Report Signed Patient: SIMA HAYNES MR#: [id number] : 1955 Acct:[id number] Age/Sex: 66 / F ADM Date: 04/21/22 Loc: ED Attending Dr: Ordering Physician: THOMAS WEIR MD Date of Service: 04/21/22 Procedure(s): XR chest routine 2V Accession Number(s): [id number] cc: THOMAS WEIR MD Fluoro Time In Minutes: CHEST 2 VIEWS INDICATION: chest wall pain w cough. COMPARISON: 08/26/2021 FINDINGS: SUPPORT DEVICES: None. HEART: Within normal limits. LUNGS/PLEURA: No acute air space or interstitial disease. No pneumothorax. ADDITIONAL FINDINGS: None. IMPRESSION: 1. No acute findings. Signer Name: Melo Garcia MD Signed: 04/21/2022 2:51 PM Workstation Name: [id number] Transcribed By: MERLIN Dictated By: Melo Garcia MD Electronically Authenticated By: Melo Garcia MD Signed Date/Time: 04/21/221450 DD/ 1450 TD/TT: - Differential Diagnosis Costochondritis, pleurisy, PE, ACS, GERD Critical care attestation.: If time is entered above; I have spent that time in minutes in the direct care of this critically ill patient, excluding procedure time. ED Disposition Clinical Impression: Cough, Costochondritis, Pleurisy Disposition: 01 HOME / SELF CARE / HOMELESS Is pt being admited?: No Does the pt Need Aspirin: No Condition: Stable Instructions: Costochondritis, [id number], Cough, Adult, [id number] Additional Instructions: Return to the emergency department should you develop worsening symptoms, inability to tolerate food or liquids, high fever or any other concerns Prescriptions: HYDROcodone/APAP 5-325 [[place] 5/325] 1 - 2 each PO Q6HR PRN #10 tablet PRN Reason: Pain Benzonatate [Tessalon Perles] 100 mg PO Q8HR #30 cap Azithromycin [Zithromax Z-SATHISH] 0 mg PO DAILY #6 tab Referrals: [facility] [Provider Group] - 3-5 Days Time of Disposition: 22:39
--- NOTE | 2022-04-22 14:04 | Electrocardiograph Report ---
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
== END 2022-04-21 22:46 | disposition home or self-care (01) ==
LOC: ED 13:38
DX: R05.9 Cough, unspecified (principal); M94.0 Chondrocostal junction syndrome [Tietze]; R09.1 Pleurisy; I10 Essential (primary) hypertension; E11.9 Type 2 diabetes mellitus without complications; K21.9 Gastro-esophageal reflux disease without esophagitis; M19.90 Unspecified osteoarthritis, unspecified site; Z98.890 Other specified postprocedural states; Z87.891 Personal history of nicotine dependence
CPT/HCPCS: 36415; 71046; 80048; 84484; 85027; 85379; 85610; 93005; 99284

== ENCOUNTER 2022-07-11 09:38 | Emergency (ER) | payer MEDICARE ==
--- NOTE | 2022-07-11 10:36 | XRay Report ---
CHEST 2 VIEWS INDICATION: CHEST PAIN. COMPARISON: 04/21/2022. FINDINGS: Support devices: None. Heart: Within normal limits. Lungs/Pleura: No acute air space or interstitial disease. No significant pleural effusion. IMPRESSION: No acute findings. Signer Name: Randy Langford MD Signed: 07/11/2022 10:32 AM Workstation Name: [id number]
[2022-07-11 11:26] LABS: Mean Corpuscular HGB Conc 30 % (30-34); Red Blood Count 6.31 M/mm3 (3.65-5.03); Red Cell Distribution Width 17.8 % (13.2-15.2)
[2022-07-11 11:38] LABS: Hematocrit 42.1 % (30.3-42.9); Hemoglobin 12.7 gm/dl (10.1-14.3); Mean Corpuscular Volume 67 fl (79-97)
[2022-07-11 12:00] LABS: Alanine Aminotransferase 7 units/L (7-56); Albumin 4.5 g/dL (3.9-5); BUN/Creatinine Ratio 13; Blood Urea Nitrogen 12 mg/dL (7-17); Calcium 9.3 mg/dL (8.4-10.2); Hemolysis Index 8
--- NOTE | 2022-07-11 12:07 | Emergency Department Report ---
ED Chest Pain HPI - General Chief Complaint: Chest Pain Stated Complaint: CHEST PAIN Time Seen by Provider: 07/11/22 11:52 Source: patient, EMS Mode of arrival: Stretcher Limitations: No Limitations - History of Present Illness Initial Comments: Patient is a 66-year-old female with chest pain that started last night and her entire chest. She states that they have been working on her air conditioner and she feels like there is something coming from the air conditioner that is causing her to have some intermittent headaches and flaring up her bronchitis. She has been coughing some but not more than usual. This morning she did have some nausea so she did not take her medications prior to calling the ambulance. She does have a history of atrial fibrillation hypertension hyperlipidemia and diabetes but states she had a heart catheterization 1 year ago and "they said everything was fine." -: Sudden, Last night Onset: during rest Pain Location: other (entire chest) Pain Radiation: other (both shoulders) Severity scale (0 -10): 9 (at worst last night. /10 this am. Only present with palpation or movement now.) Quality: pressure Consistency: intermittent Improves With: nothing Worsens With: palpation, movement Context: other (She believes it is something coming from her air conditioner c ausing her bronchitis fto flare) re: nausea (some this am before breakfast). denies: vomting, diaphoresis, dyspnea, sense of impending doom Other Symptoms: leg swelling (chronic right leg). denies: cough, fever, rash, acid taste in mouth, palpitations (history AFib) Treatments Prior to Arrival: none - Related Data On Oral Contraceptives: No Home Medications Medication Instructions Recorded Confirmed Last Taken amLODIPine 10 mg PO BID 01/18/14 08/26/21 1 Day Ago ~07/20/21 metFORMIN [Glucophage] 1,000 mg PO DAILY 10/21/15 08/26/21 1 Day Ago ~07/20/21 allopurinoL [Zyloprim] 100 mg PO QDAY 03/27/20 08/26/21 1 Day Ago ~07/20/21 methIMAzole [Tapazole] 10 mg PO QDAY 03/27/20 08/26/21 1 Day Ago ~07/20/21 ALBUTEROL NEB's 108 puff INHALATION Q6H PRN 07/12/20 08/26/21 Unknown Diclofenac 1% [Diclofenac 1% 4 gm TP BID 08/26/21 08/26/21 Unknown topical gel] Furosemide [Lasix TAB] 40 mg PO QDAY 08/26/21 08/26/21 Unknown Mupirocin [Bactroban 2% OINT] 1 applic TP BID 08/26/21 08/26/21 Unknown Omeprazole 20 mg PO QDAY 08/26/21 08/26/21 Unknown Rivaroxaban [Xarelto] 20 mg PO QDAY 08/26/21 08/26/21 Unknown lisinopriL [Zestril TAB] 40 mg PO QDAY 08/26/21 08/26/21 Unknown Previous Rx's Medication Instructions Recorded Last Taken Type Loratadine [Claritin] 10 mg PO DAILY #30 tablet 02/11/20 1 Day Ago Rx ~07/20/21 Albuterol Sulfate [Proventil Hfa] 6.7 gm IH Q4HR PRN #1 hfa.aer.ad 07/23/20 Unknown Rx AtorvaSTATin [Lipitor] 40 mg PO QHS #30 tablet 04/14/21 1 Day Ago Rx ~07/20/21 Ferrous Sulfate [Iron 325 MG] 325 mg PO DAILY #30 04/14/21 Unknown Rx Fluticasone [Flonase] 1 spray NS QDAY #1 bottle 04/14/21 1 Day Ago Rx ~07/20/21 AtorvaSTATin [Lipitor] 40 mg PO QHS #30 tab 08/27/21 Unknown Rx dilTIAZem CD [Cardizem CD] 120 mg PO DAILY #30 cap 08/27/21 Unknown Rx sotaloL [Betapace] 80 mg PO Q12HR #60 tablet 08/27/21 Unknown Rx Ciprofloxacin HCl 500 mg PO BID #10 12/08/21 Unknown Rx HYDROcodone/APAP 5-325 [[place] 1 - 2 each PO Q6HR PRN #14 tablet 12/08/21 Unknown Rx 5/325] Pantoprazole [Protonix] 40 mg PO QDAY #30 tablet 12/08/21 Unknown Rx metroNIDAZOLE [Flagyl] 500 mg PO Q12HR #10 tab 12/08/21 Unknown Rx Azithromycin [Zithromax Z-SATHISH] 0 mg PO DAILY #6 tab 04/21/22 Unknown Rx Benzonatate [Tessalon Perles] 100 mg PO Q8HR #30 cap 04/21/22 Unknown Rx HYDROcodone/APAP 5-325 [[place] 1 - 2 each PO Q6HR PRN #10 tablet 04/21/22 Unknown Rx 5/325] Allergies Allergy/AdvReac Type Severity Reaction Status Date / Time aspirin Allergy Rash Verified 07/11/22 09:48 Penicillins Allergy Rash Verified 07/11/22 09:48 Sulfa (Sulfonamide Allergy Rash Verified 07/11/22 09:48 Antibiotics) Heart Score - HEART Score History: Slightly suspicious EKG: Normal Age: > 65 Risk factors: > 3 risk factors or hx of atherosclerotic disease Troponin: < normal limit HEART Score: 4 - EKG Read Time Time EKG Completed: 05:00 EKG Read Time: 05:17 ED Review of Systems ROS: Stated complaint: CHEST PAIN Other details as noted in HPI Comment: All other systems reviewed and negative Constitutional: see HPI. denies: diaphoresis Eyes: denies: vision change ENT: denies: throat pain, congestion Respiratory: denies: shortness of breath Cardiovascular: as per HPI, chest pain Endocrine: denies: intolerance to cold, intolerance to heat, increased hunger, increased thirst, unexplained weight gain, unexplained weight loss Gastrointestinal: nausea. denies: abdominal pain, vomiting, diarrhea, constipation, melena, hematochezia Genitourinary: denies: dysuria, hematuria Musculoskeletal: as per HPI Skin: denies: rash Neurological: headache (intermittent since her air conditioner has been being repaired.). denies: weakness, numbness, paresthesias, confusion ED Past Medical Hx - Past Medical History Hx Hypertension: Yes Hx Heart Attack/AMI: No Hx Diabetes: Yes Hx GERD: Yes Hx Arthritis: Yes Additional medical history: Bronchitis, Afib, gout, Thyroid, hypercholesterolemia - Surgical History Past Surgical History?: Yes Hx Breast Surgery: Yes (left breast) Additional Surgical History: colon surg secondary to diverticulitis, lumpectomy left breast (benign) - Family History Family history: diabetes, hypertension - Social History Smoking Status: Former Smoker (None x5 years) Substance Use Type: None (Denies illicit drug use) - Medications Home Medications: Home Medications Medication Instructions Recorded Confirmed Last Taken Type amLODIPine 10 mg PO BID 01/18/14 08/26/21 1 Day Ago History ~07/20/21 metFORMIN [Glucophage] 1,000 mg PO DAILY 10/21/15 08/26/21 1 Day Ago History ~07/20/21 Loratadine [Claritin] 10 mg PO DAILY #30 tablet 02/11/20 08/26/21 1 Day Ago Rx ~07/20/21 allopurinoL [Zyloprim] 100 mg PO QDAY 03/27/20 08/26/21 1 Day Ago History ~07/20/21 methIMAzole [Tapazole] 10 mg PO QDAY 03/27/20 08/26/21 1 Day Ago History ~07/20/21 ALBUTEROL NEB's 108 puff INHALATION Q6H PRN 07/12/20 08/26/21 Unknown History Albuterol Sulfate [Proventil Hfa] 6.7 gm IH Q4HR PRN #1 hfa.aer.ad 07/23/20 08/26/21 Unknown Rx AtorvaSTATin [Lipitor] 40 mg PO QHS #30 tablet 04/14/21 08/26/21 1 Day Ago Rx ~07/20/21 Ferrous Sulfate [Iron 325 MG] 325 mg PO DAILY #30 04/14/21 08/26/21 Unknown Rx Fluticasone [Flonase] 1 spray NS QDAY #1 bottle 04/14/21 08/26/21 1 Day Ago Rx ~07/20/21 Diclofenac 1% [Diclofenac 1% 4 gm TP BID 08/26/21 08/26/21 Unknown History topical gel] Furosemide [Lasix TAB] 40 mg PO QDAY 08/26/21 08/26/21 Unknown History Mupirocin [Bactroban 2% OINT] 1 applic TP BID 08/26/21 08/26/21 Unknown History Omeprazole 20 mg PO QDAY 08/26/21 08/26/21 Unknown History Rivaroxaban [Xarelto] 20 mg PO QDAY 08/26/21 08/26/21 Unknown History lisinopriL [Zestril TAB] 40 mg PO QDAY 08/26/21 08/26/21 Unknown History AtorvaSTATin [Lipitor] 40 mg PO QHS #30 tab 08/27/21 Unknown Rx dilTIAZem CD [Cardizem CD] 120 mg PO DAILY #30 cap 08/27/21 Unknown Rx sotaloL [Betapace] 80 mg PO Q12HR #60 tablet 08/27/21 Unknown Rx Ciprofloxacin HCl 500 mg PO BID #10 12/08/21 Unknown Rx HYDROcodone/APAP 5-325 [[place] 1 - 2 each PO Q6HR PRN #14 tablet 12/08/21 Unknown Rx 5/325] Pantoprazole [Protonix] 40 mg PO QDAY #30 tablet 12/08/21 Unknown Rx metroNIDAZOLE [Flagyl] 500 mg PO Q12HR #10 tab 12/08/21 Unknown Rx Azithromycin [Zithromax Z-SATHISH] 0 mg PO DAILY #6 tab 04/21/22 Unknown Rx Benzonatate [Tessalon Perles] 100 mg PO Q8HR #30 cap 04/21/22 Unknown Rx HYDROcodone/APAP 5-325 [[place] 1 - 2 each PO Q6HR PRN #10 tablet 04/21/22 Unknown Rx 5/325] ED Physical Exam - General Limitations: No Limitations General appearance: alert, in no apparent distress, obese - Head Head exam: Present: atraumatic, normocephalic - Eye Eye exam: Present: normal appearance, scleral icterus, conjunctival injection - ENT ENT exam: Present: mucous membranes moist - Neck Neck exam: Present: normal inspection - Respiratory Respiratory exam: Present: normal lung sounds bilaterally, chest wall tendern ess. Absent: respiratory distress, wheezes, rales, rhonchi, stridor - Cardiovascular Cardiovascular Exam: Present: regular rate, normal rhythm, normal heart sounds - GI/Abdominal GI/Abdominal exam: Present: soft, normal bowel sounds. Absent: distended, tenderness - Back Exam Back exam: Present: normal inspection. Absent: tenderness, CVA tenderness (R), CVA tenderness (L) - Neurological Exam Neurological exam: Present: alert, oriented X3, CN II-XII intact, normal gait, reflexes normal - Psychiatric Psychiatric exam: Present: normal affect, normal mood - Skin Skin exam: Present: warm, dry, normal color. Absent: diaphoretic, pallor ED Course Vital Signs 07/11/22 07/11/22 07/11/22 09:45 16:24 16:26 Temperature 98.3 F Pulse Rate 55 L 52 L Respiratory 14 18 Rate Blood Pressure 145/116 141/68 [Left] O2 Sat by Pulse 97 97 97 Oximetry - Reevaluation(s) Reevaluation #1: 07/11/22 15:13 Patient remains with no change in her chest pain which is reproducible to palpation throughout her emergency room stay. 07/11/22 15:14 07/11/22 15:33 Blood pressure on discharge 140/64. TAJ score - Taj Score Age > 65: (0) No Aspirin use within the Past 7 Days: (1) Yes 3 or more CAD Risk Factors: (1) Yes 2 or more Angina events in past 24 hrs: (0) No Known CAD with more than 50% Stenosis: (0) No Elevated Cardiac Markers: (0) No ST Deviation Greater than 0.5mm: (0) No TAJ Score: 2 ED Medical Decision Making - Lab Data Result diagrams: 07/11/22 10:26 07/11/22 10:26 - EKG Data EKG shows normal: sinus rhythm Rate: normal - EKG Data Interpretation: normal EKG - Radiology Data Radiology results: report reviewed, image reviewed - Medical Decision Making Patient's chest pain is reproducible to palpation and likely musculoskeletal. She does have cardiac risk factors including hypertension, hypercholesterolemia, and diabetes, however she states she had a normal heart catheterization at [facility] in fall 2020. I think given this, it is reasonable to send her home with outpatient follow-up with the understanding that she should return if any worsening or change of symptoms. She has a primary care doctor who she is sees regularly and will call him tomorrow for follow-up. Stable on discharge and verbalizes understanding of plan. Note that patient did not take her blood pressure medications until she arrived here this morning. [facility] [address] [place] [address] XRay Report Signed Patient: SIMA HAYNES MR#: [id number] : 1955 Acct:[id number] Age/Sex: 66 / F ADM Date: 07/11/22 Loc: ED Attending Dr: Ordering Physician: ALLISON SORTO MD Date of Service: 07/11/22 Procedure(s): XR chest routine 2V Accession Number(s): [id number] cc: ED MD NOREEN Fluoro Time In Minutes: CHEST 2 VIEWS INDICATION: CHEST PAIN. COMPARISON: 04/21/2022. FINDINGS: Support devices: None. Heart: Within normal limits. Lungs/Pleura: No acute air space or interstitial disease. No significant pleural effusion. IMPRESSION: No acute findings. Signer Name: Randy Langford MD Signed: 07/11/2022 10:32 AM Workstation Name: [id number] Transcribed By: ES Dictated By: Randy Langford MD Electronically Authenticated By: Randy Langford MD Signed Date/Time: 07/11/22 103 DD/ 1031 TD/TT: Print Critical Care Time: No Critical care attestation.: If time is entered above; I have spent that time in minutes in the direct care of this critically ill patient, excluding procedure time. ED Disposition Clinical Impression: Chest wall pain, Chest pain Disposition: 01 HOME / SELF CARE / HOMELESS Is pt being admited?: No Condition: Stable Instructions: Nonspecific Chest Pain, Adult Additional Instructions: Take Tylenol as needed for pain. Call your primary care doctor and/or oceanographer geological for follow-up within the next 3 to 5 days. Referrals: ARELY WHITEHEAD MD [Primary Care Provider] - 3-5 Days Time of Disposition: 15:28
[2022-07-11 14:55] LABS: Basophils % (Manual) 0 % (0.0-1.8); Eosinophils % (Manual) 0 % (0.0-4.3); Target Cells Few; Total Cells Counted 100
[2022-07-11 14:56] LABS: Ovalocytes Few; Platelet Estimate Consistent w Auto
[2022-07-11 15:02] LABS: Platelet Count 148 K/mm3 (140-440)
[2022-07-11 16:26] VITALS: BP 141/68
--- NOTE | 2022-07-12 09:53 | Electrocardiograph Report ---
[facility] Test Date: 2022-07-11 Test Time: 09:52:51 Pat Name: SIMA HAYNES Department: Room: Gender: F [place] [facility] [employer] Trans[employer]ter: AF : 1955 Requested By: ED DOC Order Number: [id number] Reading MD: Ross Marquez Measurements Intervals [place] Rate: 57 P: 37 SD: 195 QRS: 5 QRSD: 74 T: 122 QT: 424 QTc: 415 Interpretive Statements Sinus bradycardia nonspecific st-t Compared to ECG 04/21/2022 13:51:06 Sinus rhythm no longer present Electronically Signed On 07-12-2022 9:53:15 EDT by Ross Marquez
== END 2022-07-11 16:26 | disposition home or self-care (01) ==
LOC: ED 09:38
DX: R07.89 Other chest pain (principal); I10 Essential (primary) hypertension; K21.9 Gastro-esophageal reflux disease without esophagitis; E11.9 Type 2 diabetes mellitus without complications; M19.90 Unspecified osteoarthritis, unspecified site; Z98.890 Other specified postprocedural states; Z87.891 Personal history of nicotine dependence; Z88.0 Allergy status to penicillin; Z88.2 Allergy status to sulfonamides; Z88.6 Allergy status to analgesic agent; Z79.899 Other long term (current) drug therapy
CPT/HCPCS: 36415; 71046; 80053; 84484; 85007; 85025; 93005; 99284